=== PATIENT | male | born 1970 | race Caucasian/White ===

== ENCOUNTER 2016-03-06 17:27 | Inpatient (IN) | payer OTHER ==
[~2016-03-06] VITALS: Ht 182.9 cm; Wt 92.1 kg
[2016-03-06] MEDS: ADVAIR DISKUS 250/50 INH PWD INH SCH
[~2016-03-06 17:27] MED LIST: /ATOR40TA PO; /MOXI40TA PO; ADVA250A IN; ALBU17IN INH; ASTE137S; ATOR40TA PO; FENO145T PO; FLAG500T PO; INSULIN NOVOLOG; LISI5TAB PO; OXYCO5TA PO; SING5CHW PO; TENO25TA PO; TYLE325T5 PO
[2016-03-06] MEDS ORDERED: ONDANSETRON 4MG/2ML VIAL (J2405) As Ordered ONE (18:10)
[2016-03-06 18:34] LABS: BASO # 0.1 K/mm3 (0.0-0.2); BASO % 0.7 % (0.0-1.0); EOS # 0.1 K/mm3 (0.0-0.50); EOS % 0.8 % (0.0-3.0); LARGE UNSTAINED CELL # 0.2 K/mm3 (0.0-0.4); LARGE UNSTAINED CELL % 1.3 % (0.0-4.0); LYMPH % 18.9 % (24.0-44.0); MEAN CORPUSCULAR HEMOGLOBIN 32.2 pg (27.0-33.0); MEAN CORPUSCULAR HGB CONC 32.3 g/dl (32.0-36.5); MEAN CORPUSCULAR VOLUME 99.6 fl (80.0-96.0); MONO # 0.9 K/mm3 (0.0-0.8); MONO % 5.5 % (0.0-5.0); NEUTROPHILS # 11.7 K/mm3 (1.8-7.7); NEUTROPHILS % 72.9 % (36.0-66.0); PLATELET COUNT, AUTOMATED 323 k/mm3 (150-450); RED CELL DISTRIBUTION WIDTH 12.7 % (11.5-14.5); WHITE BLOOD COUNT 16.1 K/mm3 (4.0-10.0)
[2016-03-06 19:01] LABS: ALBUMIN 4.7 GM/DL (3.2-5.2); ALBUMIN/GLOBULIN RATIO 1.31 (1.00-1.93); ALKALINE PHOSPHATASE 77 U/L (45-117); ANION GAP 33 MEQ/L (8-16); AST/SGOT 19 U/L (15-37); BILIRUBIN,DIRECT 0.1 MG/DL (0.0-0.2); BILIRUBIN,TOTAL 0.7 MG/DL (0.2-1.0); BLOOD UREA NITROGEN 27 MG/DL (7-18); CALCIUM LEVEL 8.8 MG/DL (8.5-10.1); CARBON DIOXIDE LEVEL 6 MEQ/L (21-32); CHLORIDE LEVEL 98 MEQ/L (98-107); CREATININE FOR GFR 2.12 MG/DL (0.70-1.30); GLOMERULAR FILTRATION RATE 36.1 (>60); GLUCOSE, FASTING 260 MG/DL (70-105); SODIUM LEVEL 137 MEQ/L (136-145); TOTAL PROTEIN 8.3 GM/DL (6.4-8.2)
[2016-03-06 19:57] LABS: ALT/SGPT 44 U/L (12-78)
[2016-03-06 19:59] LABS: POTASSIUM SERUM 5.2 MEQ/L (3.5-5.1)
[2016-03-06] MEDS ORDERED: HumuLIN R (REGULAR) INSULIN (NovoLIN R) **100U/ML** PER UNIT As Ordered ONE (20:34)
[2016-03-06 20:55] LABS: ABG BASE EXCESS -24.8 (-2.0-2.0); ABG DEVICE NASAL CANN; ABG HCO3 3.4 MEQ/L (22.0-26.0); ABG PARTIAL PRESSURE O2 125.4 mmHg (75.0-100.0); ABG STANDARD HCO3 7.8 MEQ/L (22.0-26.0); ABG TOTAL CO2 3.8 MEQ/L (22.0-29.0)
[2016-03-06 20:59] LABS: ABG PARTIAL PRESSURE CO2 12.4 mmHg (35.0-45.0); ABG pH (ARTERIAL) 7.055 UNITS (7.350-7.450)
[2016-03-06] MEDS ORDERED: LISI-538 PO (21:07)
[2016-03-06] MEDS ORDERED: METF850T PO (21:07)
[2016-03-06] MEDS ORDERED: FENO145T PO (21:07)
[2016-03-06] MEDS ORDERED: ADV250INH INH (21:07)
[2016-03-06] MEDS ORDERED: PROA1AER INH (21:07)
[2016-03-06] MEDS ORDERED: ZETI10TA2 PO (21:07)
[2016-03-06] MEDS ORDERED: INVO300T PO (21:07)
[2016-03-06] MEDS ORDERED: SING10TA32 PO (21:07)
[2016-03-06] MEDS ORDERED: LIPI80TA PO (21:07)
[2016-03-06] MEDS ORDERED: SODIUM BICARBONATE 150 MEQ in D5W 1,000 ML IV SCH (22:00)
[2016-03-06] MEDS ORDERED: SODIUM BICARBONATE 8.4% INJ 50 ML SYRINGE IV ONE (22:00)
[2016-03-06] MEDS ORDERED: ACETAMINOPHEN TAB 650MG DOSE (2X325MG) PO PRN (22:15)
[2016-03-06] MEDS ORDERED: NS 0.45% IV SCH (22:15)
[2016-03-06] MEDS ORDERED: ALBUTEROL 90 MCG/ACT 8GM HFA INHALER INH PRN (22:15)
[2016-03-06] MEDS ORDERED: SODIUM BICARBONATE IV SCH (22:15)
[2016-03-06] MEDS ORDERED: SODIUM BICARBONATE 8.4% INJ 50 ML SYRINGE As Ordered ONE (22:43)
--- NOTE | 2016-03-06 22:55 | EDDOCDS ---
Physician Documentation [facility] Name: Danny Isaac Age: 46 yrs Sex: Male : 1970 Arrival Date: 03/06/2016 Time: 17:27 Bed 12 Private MD: Danny Flores Disposition: 03/06/16 20:33 Hospitalization ordered by Ashley Bolck for Inpatient Admission. Preliminary diagnosis are Diabetes mellitus due to underlying condition with ketoacidosis, Dehydration. - Bed requested for M ICU. - Status is Inpatient Admission. ms2 - Condition is Stable. - Problem is new. - Symptoms are unchanged. Historical: - Allergies: no known allergies; - Home Meds: 1. Advair Diskus 250-50 mcg/dose Inhl dsdv 1 puff 2 times per day 2. metformin 850 mg Oral tab 1 tab 3 times per day 3. Invokana oral oral Unknown once daily 4. Zetia 10 mg Oral tab 1 tab once daily 5. lisinopril 40 mg Oral tab 1 tab once daily 6. Singulair 10 mg Oral tab 1 tab once daily - PMHx: Diabetes - NIDDM: uncontrolled; Hypercholesterolemia; Asthma; - PSHx: Tonsillectomy; - Social history: Smoking status: Patient states former smoker of tobacco. No barriers to communication noted, The patient speaks fluent [place]ian, Speaks appropriately for age. - Family history: Not pertinent. - : The pt / caregiver states he / she is not on anticoagulants. Home medication list is obtained from the patient. - Exposure Risk Screening:: None identified. Vital Signs: 03/06 17:30 BP 161 / 60; Pulse 128; Resp 20; Temp 97.0(O); Pulse Ox 99% on R/A; Weight 92.99 kg / sew 205.01 lbs; Height 6 ft. 0 in. (182.88 cm); Pain 0/10; 18:43 BP 151 / 67 Supine; Pulse 129; ms18 18:43 BP 148 / 68 Sitting; Pulse 132; ms18 18:43 BP 129 / 58 Standing; Pulse 135; Resp 26; ms18 18:43 Pulse 122; ms18 20:00 BP 142 / 65; Pulse 141; Resp 24; Temp 98.5(O); Pulse Ox 100% on R/A; Pain 0/10; ls3 20:30 BP 161 / 73 (auto/); mlc 20:45 BP 146 / 66 (auto/); mlc 21:00 BP 133 / 61 (auto/); mlc 21:00 Pulse 134 MON; Pulse Ox 100% ; mlc 21:15 BP 122 / 70 (auto/); mlc 21:16 Pulse 138 MON; Pulse Ox 99% ; mlc 21:30 Pulse 134 MON; Pulse Ox 94% ; mlc 21:30 BP 136 / 62 (auto/); mlc 21:45 Pulse 130 MON; Pulse Ox 99% ; mlc 21:45 BP 152 / 65 (auto/); mlc 22:00 BP 124 / 60 (auto/); mlc 22:01 Pulse 130 MON; Resp 20; Pulse Ox 100% ; mlc 22:15 BP 118 / 62 (auto/); mlc 22:16 Pulse 128 MON; Pulse Ox 100% ; mlc 22:30 BP 126 / 60 (auto/); mlc 22:30 Pulse 146 MON; Pulse Ox 100% ; mlc 22:43 Pulse 130 MON; Pulse Ox 100% ; mlc 22:51 BP 133 / 60; Pulse 134; Resp 18; Temp 100.9(TE); Pulse Ox 100% on R/A; Pain 0/10; rn1 17:30 Body Mass Index 27.80 (92.99 kg, 182.88 cm) sew MDM: 17:47 Accucheck ordered. ld5 17:53 Fingerstick Blood Sugar Ordered. EDMS 18:00 Fingerstick Blood Sugar Reviewed. ar2 18:01 IV Saline Lock ordered. ar2 18:01 Orthostatic VS ordered. ar2 18:01 NS 0.9% 1000 ml IV at bolus once ordered. ar2 18:01 Ondansetron 4 mg IVP once ordered. ar2 18:02 CBC with Diff Ordered. EDMS 18:02 MED Profile Ordered. EDMS 18:02 Lactic Acid (Hurst tube on ice) Ordered. EDMS 18:02 Creatine Phosphokinase Ordered. EDMS 18:02 Liver Profile Ordered. EDMS 18:02 UA Ordered. EDMS 18:20 ACETONE/KETONE Ordered. EDMS 18:36 Misc. Nursing Order ordered. ar2 18:36 Pulse ox continuous ordered. ar2 18:44 Financial registration complete. zo 19:04 [facility] Payment Agreement was scanned into [employer] and attached to record. zo 19:47 CBC with Diff Reviewed. ar2 19:47 UA Reviewed. ar2 19:49 ECG WITH READING ER PHYS+CARDIAG ordered. EDMS 20:07 LIPASE Ordered. EDMS 20:15 MED Profile Reviewed. ar2 20:15 Liver Profile Reviewed. ar2 20:15 Lactic Acid (Hurst tube on ice) Reviewed. ar2 20:15 Creatine Phosphokinase Reviewed. ar2 20:17 Aquatic Centre Manager/Pulse Ox/q 15 min VS ordered. ar2 20:21 Call Respiratory ordered. ar2 20:22 MED Profile Reviewed. ar2 20:22 Liver Profile Reviewed. ar2 20:22 ACETONE/KETONE Reviewed. ar2 20:22 Creatine Phosphokinase Reviewed. ar2 20:22 LIPASE Reviewed. ar2 20:23 -Arterial Blood Gas Ordered. EDMS 20:25 BED REQUEST+ADM ordered. EDMS 20:27 Call Respiratory complete. ml3 20:27 Insulin Regular Human 5 units IVP once ordered. mm11 20:27 Accucheck hourly ordered. mm11 20:30 Osmolality, Serum Ordered. EDMS 20:31 NS 0.9% 1000 ml IV at bolus once ordered. ar2 21:12 -Arterial Blood Gas Reviewed. ar2 21:12 Osmolality, Serum Reviewed. ar2 21:20 Fingerstick Blood Sugar Ordered. EDMS 21:22 Fingerstick Blood Sugar Reviewed. mm11 22:08 Admission / Observation Status ordered. EDMS 22:08 CONSISTENT CARBOHYDRATES ordered. EDMS 22:09 COMPLETE BLOOD COUNT Ordered. EDMS 22:09 BASIC METABOLIC PROFILE Ordered. EDMS 22:16 BASIC METABOLIC PROFILE Ordered. EDMS 22:16 ARTERIAL BLOOD GAS Ordered. EDMS 22:17 HEMOGLOBIN A1C Ordered. EDMS 22:53 Sodium Bicarbonate 1 amp IVP once; PER PHARMACY, PLACED ON SYRINE PUMP ordered. jo3 Point of Care Testing: Blood Glucose: 17:47 Blood Glucose: 213 mg/dL; ld5 21:01 Blood Glucose: 251 mg/dL; mlc 22:05 Blood Glucose: 239 mg/dL; mlc Ranges: Administered Medications: 18:30 Drug: NS 0.9% 1000 ml [sodium chloride 0.9 % intravenous solution] Route: IV; Rate: ms18 bolus; Site: left antecubital; 18:30 Drug: Ondansetron 4 mg [ondansetron HCl 2 mg/mL intravenous solution (2 mL)] Route: ms18 IVP; Site: left antecubital; 20:37 Drug: Insulin Regular Human 5 units [insulin regular human 100 unit/mL injection mlc solution (0.05 mL)] {Co-Signature: cliff (Iris Briceño RN).} Route: IVP; Site: left antecubital; 20:50 Drug: NS 0.9% 1000 ml [sodium chloride 0.9 % intravenous solution] Route: IV; Rate: mlc bolus; Site: left antecubital; 22:53 Drug: Sodium Bicarbonate 1 amp Route: IVP; Site: left antecubital; jo3 Signatures: Dispatcher [employer] EDMS Kwaku Horan,RN RN ms2 Grzegorz Roman, [employer] ml3 Marysol Cruz RN RN jo3 Blossom Walton Matthew, DO DO mm11 Barrie King, PA-Gabriel PA-Gabriel ar2 Dionne Adams RN RN ld5 Tessa Curiel RN RN mlc Nicole Gerber RN RN ms18 Iris coronado The chart was reviewed and I authenticate all verbal orders and agree with the evaluation and treatment provided.Corrections: (The following items were deleted from the chart) 18:20 18:15 ACETONE/KETONE+LAB ordered. EDMS EDMS 20:06 20:04 LIPASE+LAB ordered. EDMS EDMS 22:16 22:09 ARTERIAL BLOOD GAS ordered. EDMS EDMS Attachments: 19:04 [facility] Payment Agreement zo MTDD
--- NOTE | 2016-03-06 22:55 | EDDOCDS ---
Nurse's Notes [facility] Name: Danny Isaac Age: 46 yrs Sex: Male : 1970 Arrival Date: 03/06/2016 Time: 17:27 Bed 12 Private MD: Danny Flores Diagnosis: Diabetes mellitus due to underlying condition with ketoacidosis;Dehydration Presentation: 03/06 17:35 Presenting complaint: Patient states: "I thought I had the flu but I can't seem to get ld5 back to normal." Family member states "dehydration". Nausea, vomiting and body aches. Pt reports symptoms started yesterday. Adult Sepsis Screening: The patient does not have new or worsening altered mentation. Patient's respiratory rate is less than 22. Systolic blood pressure is greater than 100. Patient has a qSOFA score of 0- Negative Sepsis Screen. Suicide/Homicide risk assessment- the patient denies having any suicidal and/or homicidal ideations and does not present with any other emotional, behavioral or mental health complaints. Status: Patient is not a services tech or dependent. Transition of care: patient was not received from another setting of care. 17:35 Acuity: SRINATH Level 3 ld5 17:35 Method Of Arrival: Walkin/Carried/Asstd ld5 Triage Assessment: 17:39 General: Appears uncomfortable. Pain: Location: body Quality of pain is described as ld5 aching. HIV screening NA for this visit Offered previously. Neurological: Level of Consciousness is awake, obeys commands. Respiratory: Airway is patent Respiratory effort is even, unlabored. GI: Reports nausea, vomiting. Historical: - Allergies: no known allergies; - Home Meds: 1. Advair Diskus 250-50 mcg/dose Inhl dsdv 1 puff 2 times per day 2. metformin 850 mg Oral tab 1 tab 3 times per day 3. Invokana oral oral Unknown once daily 4. Zetia 10 mg Oral tab 1 tab once daily 5. lisinopril 40 mg Oral tab 1 tab once daily 6. Singulair 10 mg Oral tab 1 tab once daily - PMHx: Diabetes - NIDDM: uncontrolled; Hypercholesterolemia; Asthma; - PSHx: Tonsillectomy; - Social history: Smoking status: Patient states former smoker of tobacco. No barriers to communication noted, The patient speaks fluent Hebrew, Speaks appropriately for age. - Family history: Not pertinent. - : The pt / caregiver states he / she is not on anticoagulants. Home medication list is obtained from the patient. - Exposure Risk Screening:: None identified. Screenin:30 Screening information is obtained from the patient. Fall risk: No risks identified. ms18 Assistance ADL's: requires no assistance with activities of daily living. Abuse/DV Screen: The patient / caregiver reports he/she is: not in a situation that causes fear, pain or injury. Nutritional screening: No deficits noted. Advance Directives: There is no living will. home support is adequate. Assessment: 18:30 General: Appears in no apparent distress, uncomfortable, Behavior is appropriate for ms18 age, cooperative. Pain: Location: back. Neurological: Level of Consciousness is awake, alert, obeys commands, Oriented to person, place, time. Cardiovascular: Chest pain is denied. Respiratory: Airway is patent Respiratory effort is even, unlabored, Respiratory pattern is tachypnea. GI: Abdomen is flat, non- distended. Derm: Skin is pink, warm & dry. 19:32 General: Appears in no apparent distress, Behavior is appropriate for age, cooperative. ms18 Neurological: Level of Consciousness is awake, alert, obeys commands, Oriented to person, place, time. Respiratory: Airway is patent Respiratory effort is even, unlabored, Respiratory pattern is tachypnea. GI: Abdomen is non- distended. Derm: Skin is pink, warm & dry. 20:50 General: Appears in no apparent distress, Behavior is anxious, cooperative. Pain: mlc Denies pain. Neurological: Level of Consciousness is awake, alert, Oriented to person, place, time. Cardiovascular: Heart tones S1 S2 present Rhythm is irregular. Respiratory: Airway is patent Respiratory effort is even, labored, Respiratory pattern is tachypnea Breath sounds are clear bilaterally. Reports shortness of breath. GI: Abdomen is non- distended Bowel sounds present X 4 quads. Abd is soft X 4 quads. GI: Reports vomiting. Derm: Skin is pink, warm & dry. 21:01 Reassessment: Patient appears in no apparent distress at this time. Patient states mlc symptoms have not improved. no changes since prior. IV fluids infusing per order. 21:17 Reassessment: hospitalist at bedside[place] [facility] [place] Reassessment: Patient appears in no apparent distress at this time. Patient states mlc feeling better. pt resting comfortably, IV fluids infusing per order. resp easy/unlabored at this time. . 22:45 General: Appears in no apparent distress, comfortable, Behavior is cooperative. Pain: mlc Denies pain. Neurological: Level of Consciousness is awake, alert, Oriented to person, place, time. Respiratory: Airway is patent Respiratory effort is even, unlabored, Respiratory pattern is regular. Vital Signs: 17:30 BP 161 / 60; Pulse 128; Resp 20; Temp 97.0(O); Pulse Ox 99% on R/A; Weight 92.99 kg; sew Height 6 ft. 0 in. (182.88 cm); Pain 0/10; 18:43 BP 151 / 67 Supine; Pulse 129; ms18 18:43 BP 148 / 68 Sitting; Pulse 132; ms18 18:43 BP 129 / 58 Standing; Pulse 135; Resp 26; ms18 18:43 Pulse 122; ms18 20:00 BP 142 / 65; Pulse 141; Resp 24; Temp 98.5(O); Pulse Ox 100% on R/A; Pain 0/10; ls3 20:30 BP 161 / 73 (auto/); mlc 20:45 BP 146 / 66 (auto/); mlc 21:00 BP 133 / 61 (auto/); mlc 21:00 Pulse 134 MON; Pulse Ox 100% ; mlc 21:15 BP 122 / 70 (auto/); mlc 21:16 Pulse 138 MON; Pulse Ox 99% ; mlc 21:30 Pulse 134 MON; Pulse Ox 94% ; mlc 21:30 BP 136 / 62 (auto/); mlc 21:45 Pulse 130 MON; Pulse Ox 99% ; mlc 21:45 BP 152 / 65 (auto/); mlc 22:00 BP 124 / 60 (auto/); mlc 22:01 Pulse 130 MON; Resp 20; Pulse Ox 100% ; mlc 22:15 BP 118 / 62 (auto/); mlc 22:16 Pulse 128 MON; Pulse Ox 100% ; mlc 22:30 BP 126 / 60 (auto/); mlc 22:30 Pulse 146 MON; Pulse Ox 100% ; mlc 22:43 Pulse 130 MON; Pulse Ox 100% ; mlc 22:51 BP 133 / 60; Pulse 134; Resp 18; Temp 100.9(TE); Pulse Ox 100% on R/A; Pain 0/10; rn1 17:30 Body Mass Index 27.80 (92.99 kg, 182.88 cm) [facility] [place] Vitals: 17:30 Log In Time: March 06, 2016 at 17:29. [facility] [place] ED Course: 17:29 Patient visited by Cha Ayala. sew 17:29 Patient moved to Waiting sew 17:30 Danny Flores MD is Private Physician. sew 17:31 Patient visited by Cha Ayala. sew 17:31 Patient moved to Pre RCE sew 17:36 Triage Initiated ld5 17:39 Patient visited by Dionne Adams RN. ld5 17:40 Patient moved to Triage 3 ld5 17:50 Barrie King PA-C is PHCP. ar2 17:50 Gage Mota MD is Attending Physician. ar2 17:55 Patient visited by Barrie iKng PA-C. ar2 18:09 Patient moved to I5 / M5 [facility] 18:30 The patient / caregiver is instructed regarding the plan of care and ED course. ms18 Accompanied by Significant Other, Patient has correct armband on for positive identification. Placed in gown. Bed in low position. Property :Personal belongings accompany Pt. 18:30 CBC with Diff Sent. ms18 18:30 MED Profile Sent. ms18 18:30 Lactic Acid (Hurst tube on ice) Sent. ms18 18:30 Creatine Phosphokinase Sent. ms18 18:30 Liver Profile Sent. ms18 18:30 UA Sent. ms18 18:30 ACETONE/KETONE Sent. ms18 18:30 Inserted saline lock: 18 gauge in left antecubital area and blood collected. The ms18 patient tolerated the procedure well. 18:32 Patient visited by Nicole Gerber RN. ms18 18:42 Patient visited by Nicole Gerber RN. ms18 19:04 [facility] [place] was scanned into [employer] and attached to record. zo 19:48 Patient visited by Nicole Gerber RN. ms18 19:56 EKG done. (by ED staff). Reviewed by Barrie King PA-C. ls3 20:17 Tessa Curiel,RN is Primary Nurse. ms18 20:17 Patient moved to 12 ms18 20:19 Patient visited by Danilo Calles PCA. kb5 20:32 Ashley Block is Hospitalizing Provider. ar2 20:39 Osmolality, Serum Sent. mlc 20:42 -Arterial Blood Gas Sent. bb3 20:51 Patient visited by Tessa Curiel RN. mlc 20:59 Notified attending ED physician of Critical lab value. Ph of 7.055 C02 of 12.4 and P02 cliff of 125.[address] Sagastume. 21:02 Patient visited by Tessa Curiel RN. mlc 21:03 Patient visited by Danilo Calles PCA. kb5 22:43 No procedures done that require assistance. mlc 22:46 Patient visited by Tessa Curiel RN. mlc Administered Medications: 18:30 Drug: NS 0.9% 1000 ml [sodium chloride 0.9 % intravenous solution] Route: IV; Rate: ms18 bolus; Site: left antecubital; 18:30 Drug: Ondansetron 4 mg [ondansetron HCl 2 mg/mL intravenous solution (2 mL)] Route: ms18 IVP; Site: left antecubital; 20:37 Drug: Insulin Regular Human 5 units [insulin regular human 100 unit/mL injection mlc solution (0.05 mL)] {Co-Signature: mar (Iris Briceño RN).} Route: IVP; Site: left antecubital; 20:50 Drug: NS 0.9% 1000 ml [sodium chloride 0.9 % intravenous solution] Route: IV; Rate: mlc bolus; Site: left antecubital; 22:53 Drug: Sodium Bicarbonate 1 amp Route: IVP; Site: left antecubital; jo3 Point of Care Testing: Blood Glucose: 17:47 Blood Glucose: 213 mg/dL; ld5 21:01 Blood Glucose: 251 mg/dL; mlc 22:05 Blood Glucose: 239 mg/dL; mlc Ranges: RT: 20:42 ABG's drawn from right radial artery allens test done and positive pressure held for 5 bb3 minutes no bleeding noted pressure bandage applied specimen sent pt. tolerated well. Oxygen is room air. Order Results: Lab Order: Fingerstick Blood Sugar; SPEC'M 03/06/16 17:45 Test: BEDSIDE GLUCOSE; Value: 213; Range: 70-105; Abnormal: Above high normal; Units: MG/DL; Status: F Test Note: ; Doctor Notified RN Notified Lab Order: CBC with Diff; SPEC'M 03/06/16 18:16 Test: WHITE BLOOD COUNT; Value: 16.1; Range: 4.0-10.0; Abnormal: Above high normal; Units: K/mm3; Status: F Test: RED BLOOD COUNT; Value: 5.24; Range: 4.30-6.10; Units: M/mm3; Status: F Test: HEMOGLOBIN; Value: 16.9; Range: 14.0-18.0; Units: g/dl; Status: F Test: HEMATOCRIT; Value: 52.2; Range: 42.0-52.0; Abnormal: Above high normal; Units: %; Status: F Test: MEAN CORPUSCULAR VOLUME; Value: 99.6; Range: 80.0-96.0; Abnormal: Above high normal; Units: fl; Status: F Test: MEAN CORPUSCULAR HEMOGLOBIN; Value: 32.2; Range: 27.0-33.0; Units: pg; Status: F Test: MEAN CORPUSCULAR HGB CONC; Value: 32.3; Range: 32.0-36.5; Units: g/dl; Status: F Test: RED CELL DISTRIBUTION WIDTH; Value: 12.7; Range: 11.5-14.5; Units: %; Status: F Test: PLATELET COUNT, AUTOMATED; Value: 323; Range: 150-450; Units: k/mm3; Status: F Test: NEUTROPHILS %; Value: 72.9; Range: 36.0-66.0; Abnormal: Above high normal; Units: %; Status: F Test: LYMPH %; Value: 18.9; Range: 24.0-44.0; Abnormal: Below low normal; Units: %; Status: F Test: MONO %; Value: 5.5; Range: 0.0-5.0; Abnormal: Above high normal; Units: %; Status: F Test: EOS %; Value: 0.8; Range: 0.0-3.0; Units: %; Status: F Test: BASO %; Value: 0.7; Range: 0.0-1.0; Units: %; Status: F Test: LARGE UNSTAINED CELL %; Value: 1.3; Range: 0.0-4.0; Units: %; Status: F Test: NEUTROPHILS #; Value: 11.7; Range: 1.8-7.7; Abnormal: Above high normal; Units: K/mm3; Status: F Test: LYMPH #; Value: 3.0; Range: 1.5-4.5; Units: K/mm3; Status: F Test: MONO #; Value: 0.9; Range: 0.0-0.8; Abnormal: Above high normal; Units: K/mm3; Status: F Test: EOS #; Value: 0.1; Range: 0.0-0.50; Units: K/mm3; Status: F Test: BASO #; Value: 0.1; Range: 0.0-0.2; Units: K/mm3; Status: F Test: LARGE UNSTAINED CELL #; Value: 0.2; Range: 0.0-0.4; Units: K/mm3; Status: F Lab Order: MED Profile; SPEC'M 03/06/16 18:16 Test: GLUCOSE, FASTING; Value: 260; Range: 70-105; Abnormal: Above high normal; Units: MG/DL; Status: F Test: BLOOD UREA NITROGEN; Value: 27; Range: 7-18; Abnormal: Above high normal; Units: MG/DL; Status: F Test: CREATININE FOR GFR; Value: 2.12; Range: 0.70-1.30; Abnormal: Above high normal; Units: MG/DL; Status: F Test: GLOMERULAR FILTRATION RATE; Value: 36.1; Range: >60; Abnormal: Below low normal; Status: F Test: SODIUM LEVEL; Value: 137; Range: 136-145; Units: MEQ/L; Status: F Test: POTASSIUM SERUM; Value: 5.2; Range: 3.5-5.1; Abnormal: Above high normal; Units: MEQ/L; Status: F Test: CHLORIDE LEVEL; Value: 98; Range: 98-107; Units: MEQ/L; Status: F Test: CARBON DIOXIDE LEVEL; Value: 6; Range: 21-32; Abnormal: Below low normal; Units: MEQ/L; Status: F Test: ANION GAP; Value: 33; Range: 8-16; Abnormal: Above high normal; Units: MEQ/L; Status: F Test: CALCIUM LEVEL; Value: 8.8; Range: 8.5-10.1; Units: MG/DL; Status: F Test Note: ; Units are mL/min/1.73 m2 Chronic Kidney Disease Staging per NKF: Stage I & II GFR >=60 Normal to Mildly Decreased Stage III GFR 30-59 Moderately Decreased Stage IV GFR 15-29 Severely Decreased Stage V GFR <15 Very Little GFR Left ESRD GFR <15 on EXTRACTOR OPERATOR SOLVENT PROCESS Lab Order: Lactic Acid (Hurst tube on ice); SPEC03/06/16 18:16 Test: LACTIC ACID LEVEL, LACTATE; Value: 1.5; Range: 0.4-2.0; Units: MMOL/L; Status: F Lab Order: Creatine Phosphokinase; 03/06/16 18:16 Test: CPK CREATINE PHOSPHOKINASE; Value: 78; Range: 39-308; Units: U/L; Status: F Lab Order: Liver Profile; 03/06/16 18:16 Test: AST/SGOT; Value: 19; Range: 15-37; Units: U/L; Status: F Test: ALT/SGPT; Value: 44; Range: 12-78; Units: U/L; Status: F Test: ALKALINE PHOSPHATASE; Value: 77; Range: 45-117; Units: U/L; Status: F Test: BILIRUBIN,TOTAL; Value: 0.7; Range: 0.2-1.0; Units: MG/DL; Status: F Test: BILIRUBIN,DIRECT; Value: 0.1; Range: 0.0-0.2; Units: MG/DL; Status: F Test: TOTAL PROTEIN; Value: 8.3; Range: 6.4-8.2; Abnormal: Above high normal; Units: GM/DL; Status: F Test: ALBUMIN; Value: 4.7; Range: 3.2-5.2; Units: GM/DL; Status: F Test: ALBUMIN/GLOBULIN RATIO; Value: 1.31; Range: 1.00-1.93; Status: F Lab Order: UA; 03/06/16 18:16 Test: APPEARANCE, URINE; Value: CLEAR; Range: CLEAR; Status: F Test: COLOR, URINE; Value: STRAW; Range: YELLOW; Status: F Test: PH,URINE; Value: 5.0; Range: 5.0-9.0; Units: UNITS; Status: F Test: SPECIFIC GRAVITY URINE AUTO; Value: 1.015; Range: 1.002-1.035; Status: F Test: PROTEIN, URINE AUTO; Value: 1+; Range: NEGATIVE; Abnormal: Above high normal; Units: mg/dL; Status: F Test: GLUCOSE, URINE (UA) AUTO; Value: 3+; Range: NEGATIVE; Abnormal: Above high normal; Units: mg/dL; Status: F Test: KETONE, URINE AUTO; Value: 2+; Range: NEGATIVE; Abnormal: Above high normal; Units: mg/dL; Status: F Test: UROBILINOGEN, URINE AUTO; Value: 0.2; Range: 0.0-2.0; Units: mg/dL; Status: F Test: BILIRUBIN, URINE AUTO; Value: NEGATIVE; Range: NEGATIVE; Status: F Test: NITRITE, URINE AUTO; Value: NEGATIVE; Range: NEGATIVE; Status: F Test: LEUKOCYTE ESTERASE, URINE AUTO; Value: NEGATIVE; Range: NEGATIVE; Status: F Test: BLOOD, URINE BLOOD; Value: 1+; Range: NEGATIVE; Abnormal: Above high normal; Status: F Test: WBC, URINE AUTO; Value: 0; Range: 0-3; Units: /HPF; Status: F Test: RBC, URINE AUTO; Value: 1; Range: 0-3; Units: /HPF; Status: F Test: BACTERIA, URINE AUTO; Value: NEGATIVE; Range: NEGATIVE; Status: F Test: SQUAMOUS EPITHELIAL CELL UR AU; Value: 0; Range: 0-6; Units: /HPF; Status: F Test: MUCUS, URINE; Value: SMALL; Range: NEGATIVE; Status: F Test: HYALINE CAST, URINE AUTO; Value: 0; Range: 0-1; Units: /LPF; Status: F Lab Order: ACETONE/KETONE; SPEC' 03/06/16 18:16 Test: ACETONE/KETONE; Value: > 46.00; Range: <2.81; Abnormal: Above high normal; Units: MG/DL; Status: F Lab Order: LIPASE; [facility]' 03/06/16 18:16 Test: LIPASE; Value: 369; Range: 73-393; Units: U/L; Status: F Lab Order: -Arterial Blood Gas; [facility]' 03/06/16 20:33 Test: ABG pH (ARTERIAL); Value: 7.055; Range: 7.350-7.450; Abnormal: Critical Low; Units: UNITS; Status: F Test: ABG PARTIAL PRESSURE CO2; Value: 12.4; Range: 35.0-45.0; Abnormal: Critical Low; Units: mmHg; Status: F Test: ABG PARTIAL PRESSURE O2; Value: 125.4; Range: 75.0-100.0; Abnormal: Above high normal; Units: mmHg; Status: F Test: ABG TOTAL CO2; Value: 3.8; Range: 22.0-29.0; Abnormal: Below low normal; Units: MEQ/L; Status: F Test: ABG HCO3; Value: 3.4; Range: 22.0-26.0; Abnormal: Below low normal; Units: MEQ/L; Status: F Test: ABG BASE EXCESS; Value: -24.8; Range: -2.0-2.0; Abnormal: Below low normal; Status: F Test: ABG STANDARD HCO3; Value: 7.8; Range: 22.0-26.0; Abnormal: Below low normal; Units: MEQ/L; Status: F Test: ABG O2 SATURATION; Value: 97.5; Range: 95.0-99.0; Units: %; Status: F Test: ABG DEVICE; Value: NASAL JERONIMO; Status: F Lab Order: Osmolality, Serum; SPEC'M 03/06/16 20:38 Test: OSMOLALITY SERUM; Value: 336; Range: 275-295; Abnormal: Above high normal; Units: MOSM/KG; Status: F Lab Order: Fingerstick Blood Sugar; SPEC'M 03/06/16 21:00 Test: BEDSIDE GLUCOSE; Value: 251; Range: 70-105; Abnormal: Above high normal; Units: MG/DL; Status: F Test Note: ; RN Notified Dr Order not to Draw Lab Order: Fingerstick Blood Sugar; SPEC'M 03/06/16 22:03 Test: BEDSIDE GLUCOSE; Value: 239; Range: 70-105; Abnormal: Above high normal; Units: MG/DL; Status: F Test Note: ; RN Notified Dr Order not to Draw Outcome: 20:33 Decision to Hospitalize by Provider. ar2 22:41 Admission hand-off: Report called to EMILY Amador. mlc 22:43 Discharge Assessment: Patient awake, alert and oriented x 3. No cognitive and/or mlc functional deficits noted. Patient verbalized understanding of disposition instructions. patient administered narcotics - no. The following High Risk Discharge criteria are identified: None. Admitted to ICU accompanied by nurse, accompanied by tech, via stretcher, on monitor, with chart. Condition: stable. No special radiology studies were completed. 22:53 Patient left the ED. ms2 Signatures: Kwaku Horan,RN RN denis Briceño, Iris Capellan, RN RN Marysol HemphillRN RN jo3 Blossom Walton Kristopher, CONCRETE WALL GRINDER OPERATOR CONCRETE WALL GRINDER OPERATOR kb5 Barrie King, PA-C PA-C ar2 Randolph Reyna bb3 Dionne Adams,RN RN ld5 Valentine Raymond,RN RN [facility] Cha Ayala MandyRN RN Nicole Vizcaino RN RN ms18 Tushar Briceño rn1 Gabrielle Dominguez, CONCRETE WALL GRINDER OPERATOR CONCRETE WALL GRINDER OPERATOR ls3 Iris coronado MARIN
[2016-03-06] MEDS ORDERED: INSULIN HUMAN REGULAR 100 UNITS in NS 99 ML IV SCH (23:03)
[2016-03-06 23:15] VITALS: BP 133/60
[2016-03-06] MEDS: FENOFIBRATE 145 MG TAB (TRICOR) PO SCH (23:45)
[2016-03-06] MEDS: MONTELUKAST 10 MG TAB PO SCH (23:46)
[2016-03-06] MEDS: INSULIN IV RATE CHANGE DOCUMENTATION ML/HR XX SCH (23:49)
--- NOTE | 2016-03-06 23:52 | HPE ---
DATE OF ADMISSION: 03/06/2016 PRIMARY CARE PROVIDER: Dr. Danny Flores HISTORY OF THE PRESENT ILLNESS: The patient is a 46-year-old male with a past medical history significant for noninsulin-dependent diabetes, hypercholesterolemia, asthma, presented to [facility] on 2016 for 2 days of "flu-like symptoms." The patient just recently started on Invokana for his diabetes and since the initiation of the medication, he started to notice he has increased shortness of breath, nausea and vomiting and decreased oral intake. All he can tolerate is some fluid. Intermittent subjective fevers. No chills. No diarrhea. Denies any recent sick contact. When he arrived in the emergency room, the patient was found to have positive for orthostatic hypotension, and the patient was found to have acute kidney injury with elevated white count. ABG showed the patient in severe metabolic acidosis with a pH of 7.05. The patient was started on 5 units of insulin and IV fluids and the hospitalist team was called for admission. The patient never had any similar symptoms in the past. The only new lifestyle change is the introduction of the Invokana. The patient and the are suspecting the Invokana played a role to his current symptomatology. The patient has a history of obesity and insulin dependent diabetes. The patient had an intentional weight loss of 64 pounds in the past 1 year. In 2013, the patient was still using insulin; however, he switched to the oral regimen and discontinued insulin use. ALLERGIES: No known drug allergies. HOME MEDICATIONS: - Advair Diskus inhalation one puff twice a day - metformin 850 mg by mouth twice a day - Invokana 300 mg by mouth daily - Zetia 10 mg by mouth nightly - fenofibrate 145 mg by mouth nightly - lisinopril 20 mg by mouth nightly - Singulair 10 mg by mouth nightly - albuterol inhaler one puff as needed for shortness of breath PAST MEDICAL HISTORY: Diabetes mellitus; patient was insulin-dependent in 2013. The patient has been on oral regimen only. Hypercholesterolemia. Asthma. History of stage III chronic kidney disease, now resolved. PAST SURGICAL HISTORY: Tonsillectomy. OBJECTIVE: VITAL SIGNS: In the emergency room, the patient was positive for orthostasis. Blood pressure laying is 151/65, sitting is 148/68, standing is 129/59. At the time of admission, the patient had a blood pressure of 133/61, pulse was 134, respirations 24, temperature 98.5, pulse oximetry is 100% in room air. Body weight is 92.99 kg. Body height is 182.88 cm. REVIEW OF SYSTEMS: GENERAL: Complained about general moderate discomfort with difficulty breathing for the past 2 days. Has intermittent subjective fever. No chills. HEENT: No vision changes. No auditory changes. CARDIOVASCULAR: Complained about palpitations. No chest pain. No intermittent lightheadedness. RESPIRATORY: Worsening shortness of breath. Has increasing respiratory rate for the past few days. No cough, no sputum production. GASTROINTESTINAL: Nausea, vomiting, unable to tolerate oral intake very well. No diarrhea. No abdominal pain. MUSCULOSKELETAL: No joint pain or muscle pain. NEUROLOGICAL: No numbness. No tingling. PHYSICAL EXAMINATION: GENERAL: Moderate distress secondary to tachypnea and tachycardia. Alert and oriented times three. HEENT: Normocephalic, atraumatic. Extraocular motor grossly intact. CARDIOVASCULAR: Tachycardia. Positive S1, S2. ABDOMEN: Soft, nontender, nondistended. Bowel sounds present. No rebound, no guarding. EXTREMITIES: No extremity edema. No cyanosis. No calf tenderness. NEUROLOGICAL: Sensation to fine touch grossly intact. Muscle strength 5/5. LABORATORY DATA: WBC is 16.1, hematocrit is 52.2, platelet count is 323. Sodium is 137, potassium 5.2, chloride is 98, carbon dioxide is 6, BUN 27, creatinine 2.12, GFR 36.1, fasting glucose 260. Serum osmolality is 336. Lactic acid is 1.5. Calcium is 8.8. Total bilirubin is 0.7, direct bilirubin 0.1. AST is 19, ALT is 44. Alkaline phosphatase is 77. Total CK is 78, total protein is 8.3, albumin is 4.7, lipase is 369. B-hydroxybutyrate is greater than 46 . UA is positive for ketones. ABG shows a pH of 7.055, pCO2 is 12.4, pO2 is 125.4, HCO3 is 3.4. ASSESSMENT AND PLAN: 1. Acute severe anion gap metabolic acidosis. The patient will be admitted to the progressive care unit (PCU) under inpatient status. The patient's has diabetic ketoacidosis possibly induced by Invokana. Currently the patient has severe acidosis with a pH of 7.05. The patient will be receiving bicarbonate supplements. Will start insulin drip with titration order. Continue aggressive hydration. Check lab per protocol. 2. Acute renal injury possibly secondary to severe dehydration. At baseline, the patient has renal function in the normal range. Currently the patient has a glomerular filtration rate (GFR) of 36.1. Will continue to monitor the intake and output. Will consider consulting nephrology. 3. Noninsulin-dependent diabetes. On 02/26/2016, the patient had an A1c of 11.1. The patient was insulin in 2013, and he switched the insulin to oral regimen. However, it seems the patient's blood glucose is not well controlled. The patient will be on sliding scale in the hospital, and the patient will be on a consistent carbohydrate diet. 4. Asthma. Albuterol inhalation as needed. Continue Singulair. Currently asymptomatic. 5. Hypercholesterolemia. Continue Tricor. 6. Deep vein thrombosis (DVT) prophylaxis. The patient will be on heparin. MTDD
[2016-03-06] MEDS: ATORVASTATIN 20 MG TAB PO SCH (23:54)
[2016-03-06 23:55] LABS: ABG BASE EXCESS -21.4 (-2.0-2.0); ABG HCO3 5.7 MEQ/L (22.0-26.0); ABG PARTIAL PRESSURE O2 122.3 mmHg (75.0-100.0); ABG STANDARD HCO3 9.5 MEQ/L (22.0-26.0); ABG TOTAL CO2 6.2 MEQ/L (22.0-29.0)
[2016-03-06 23:56] LABS: ABG PARTIAL PRESSURE CO2 17.6 mmHg (35.0-45.0); ABG pH (ARTERIAL) 7.128 UNITS (7.350-7.450)
[2016-03-07 00:05] LABS: CALCIUM LEVEL 7.7 MG/DL (8.5-10.1); CREATININE FOR GFR 1.84 MG/DL (0.70-1.30); GLOMERULAR FILTRATION RATE 42.6 (>60); POTASSIUM SERUM 5.1 MEQ/L (3.5-5.1)
[2016-03-07 01:33] LABS: CALCIUM LEVEL 7.7 MG/DL (8.5-10.1); CREATININE FOR GFR 1.82 MG/DL (0.70-1.30); GLOMERULAR FILTRATION RATE 43.1 (>60); POTASSIUM SERUM 4.8 MEQ/L (3.5-5.1)
[2016-03-07] MEDS: INSULIN IV RATE CHANGE DOCUMENTATION ML/HR XX SCH ×5 (02:11→17:00)
[2016-03-07] MEDS: ONDANSETRON 4MG/2ML VIAL (J2405) IV PRN ×4 (02:42→20:08)
[2016-03-07] MEDS ORDERED: NS 0.45% IV SCH (03:15)
[2016-03-07] MEDS ORDERED: POTASSIUM CHLORIDE IV SCH ×2 (03:15→16:00)
[2016-03-07] MEDS ORDERED: SODIUM BICARBONATE IV SCH ×2 (03:15→16:00)
[2016-03-07 03:28] LABS: CALCIUM LEVEL 7.9 MG/DL (8.5-10.1); CREATININE FOR GFR 1.71 MG/DL (0.70-1.30); GLOMERULAR FILTRATION RATE 46.3 (>60); POTASSIUM SERUM 4.7 MEQ/L (3.5-5.1)
[2016-03-07 04:00] VITALS: BP 126/60
[2016-03-07 05:20] LABS: MEAN CORPUSCULAR HEMOGLOBIN 31.4 pg (27.0-33.0); MEAN CORPUSCULAR HGB CONC 33.1 g/dl (32.0-36.5); RED CELL DISTRIBUTION WIDTH 12.8 % (11.5-14.5); WHITE BLOOD COUNT 11.3 K/mm3 (4.0-10.0)
[2016-03-07 05:22] LABS: MEAN CORPUSCULAR VOLUME 94.6 fl (80.0-96.0)
[2016-03-07 05:31] LABS: CREATININE FOR GFR 1.76 MG/DL (0.70-1.30); GLOMERULAR FILTRATION RATE 44.8 (>60); POTASSIUM SERUM 4.6 MEQ/L (3.5-5.1)
[2016-03-07] MEDS: HEPARIN SOD (PORCINE) 5000 UNITS/ML VIAL SC SCH ×3 (06:08→21:17)
[2016-03-07 07:31] LABS: CALCIUM LEVEL 8.3 MG/DL (8.5-10.1); CREATININE FOR GFR 1.75 MG/DL (0.70-1.30); GLOMERULAR FILTRATION RATE 45.1 (>60); POTASSIUM SERUM 4.5 MEQ/L (3.5-5.1)
[2016-03-07 08:00] VITALS: BP 125/66
--- NOTE | 2016-03-07 08:07 | IPNPDOC ---
Assessment/Plan Date Seen The patient was seen on 03/07/16. Problems Problems: (1) Metabolic acidosis Status: Acute Problem Specific Plan: Monitor Clinically, Repeat Labs Problem Text: Anion gap 22. Diabetic ketoacidosis possible induced by Invokana ? On Insulin drip. On Bicarb. (2) Diabetes Status: Chronic Problem Specific Plan: Monitor Clinically, Repeat Labs Problem Text: Pt was placed on Invokana a few days ago. He has been on Metformin. He states he states he has been off Insulin for about 4 months. He states he intentionally has lost about 60 pounds recently. (3) Acute kidney injury Status: Acute Problem Specific Plan: Monitor Clinically, Repeat Labs Problem Text: 03/07/16 - BUN 27/ Creat 1.75. Creat was 2.12 at admission. (4) Asthma Status: Chronic Problem Specific Plan: Monitor Clinically Problem Text: Stable. (5) Hyperlipemia Status: Chronic Problem Specific Plan: Monitor Clinically Problem Text: On Lipitor and Tricor. Plan / VTE VTE Prophylaxis Ordered?: Yes (On Heparin.) Plan Plan Text Attending attestation: I saw and evaluated the patient, and I agree with the plan of care as discussed and documented, with the following exceptions. Pts gap high and sugars now below 250. Started D5W/1/2NS/bicarb @ 150 mls per hour. Pt to remain NPO until gap closes. Will transition to long acting insulin after gap closes. DKA unlikely related to new medication, but pt is probably not making much, if any insulin. Instructed pt that his PCP could check pancreatic function, but he will likely need to remain on insulin as he had severe metabolic acidosis. 30 minutes of critical care time was spent, with 50% of that time in [id number] with the patient. Nathaly Hunt MD Subjective Review of Systems CC/HPI The patient is a 46-year-old male admitted with a reason for visit of Metabolic Acidosis. Events since last encounter Pt stated he was feeling better. He denied any new issues. Constitutional: Denies: Chills, Fever Pulmonary: Denies: Dyspnea Cardiovascular: Denies: Chest Pain Gastrointestinal: Denies: Abdominal Pain, Nausea, Vomiting Objective Physical Examination General Exam: Positive: Alert, No Acute Distress Chest Exam: Positive: Clear to auscultation Heart Exam: Positive: Regular Rhythm Abdomen Exam: Positive: Normal bowel sounds, Soft, Negative: Tenderness Extremity Exam: Negative: Edema Vital Signs/I&O Vital Signs Date Time Temp Pulse Resp B/P Pulse Ox O2 Delivery O2 Flow Rate FiO2 03/07/16 04:00 98.9 110 20 126/60 97 Room Air I&O- Last 24 Hours up to 6 AM 03/07/16 06:00 Intake Total 623 ml Output Total 2500 ml Balance -1877 ml Laboratory Data Labs 24H Laboratory Tests 2 03/06/16 17:45: Bedside Glucose (Misc Panel) 213H 03/06/16 18:16: Aspartate Amino Transf (AST/SGOT) 19, Alanine Aminotransferase (ALT/SGPT) 44, Alkaline Phosphatase 77, Total Bilirubin 0.7, Direct Bilirubin 0.1, Albumin 4.7 , Albumin/Globulin Ratio 1.31, Anion Gap 33H, B-Hydroxybutyrate > 46.00H, White Blood Count 16.1H, Red Blood Count 5.24, Hemoglobin 16.9, Hematocrit 52.2H, Mean Corpuscular Volume 99.6H, Mean Corpuscular Hemoglobin 32.2, Mean Corpuscular Hemoglobin Concent 32.3, Red Cell Distribution Width 12.7, Platelet Count 323, Neutrophils (%) (Auto) 72.9H, Lymphocytes (%) (Auto) 18.9L, Monocytes (%) (Auto) 5.5H, Eosinophils (%) (Auto) 0.8, Basophils (%) (Auto) 0.7 , Neutrophils # (Auto) 11.7H, Lymphocytes # (Auto) 3.0, Monocytes # (Auto) 0.9H , Eosinophils # (Auto) 0.1, Basophils # (Auto) 0.1, Calcium Level 8.8, Glomerular Filtration Rate 36.1L, Lactic Acid Level 1.5, Large Unclassified Cells # 0.2, Large Unclassified Cells % 1.3, Lipase 369, Total Creatine Kinase 78, Total Protein 8.3H, Urine Amorphous Sediment , Urine Appearance CLEAR, Urine Color STRAW, Urine pH 5.0, Urine Specific Gilbert 1.015, Urine Protein 1+H , Urine Glucose (UA) 3+H, Urine Ketones 2+H, Urine Urobilinogen 0.2, Urine Bilirubin NEGATIVE, Urine Leukocyte Esterase NEGATIVE, Urine Bacteria (Auto) NEGATIVE, Urine Blood 1+H, Urine Calcium Carbonate Cryst(Auto) , Urine Calcium Oxalate Cryst (Auto) , Urine Calcium Phosphate Judy (Auto) , Urine Cellular Casts , Urine Cystine Crystals , Urine Granular Casts (Auto) , Urine Hyaline Casts (Auto) 0, Urine Leucine Crystals , Urine Mucus (Auto) SMALL, Urine Nitrite NEGATIVE, Urine Oval Fat Bodies (Auto) , Urine RBC (Auto) 1, Urine Renal Epithelial Cells , Urine Sperm (Auto) , Urine Squamous Epithelial Cells 0 , Urine Transitional Epithelial Cells , Urine Trichomonas (Auto) , Urine Triple Phosphate Cryst (Auto) , Urine Tyrosine Crystals , Urine Uric Acid Crystals ( Auto) , Urine WBC (Auto) 0, Urine Waxy Casts (Auto) , Urine Yeast-Like Cells ( Auto) 03/06/16 20:33: Arterial Blood pH 7.055*L, Arterial Blood Partial Pressure CO2 12.4*L, Arterial Blood Partial Pressure O2 125.4H, Arterial Blood Total CO2 3.8L, Arterial Blood HCO3 3.4L, Arterial Blood Base Excess -24.8L, Arterial Blood Oxygen Saturation 97.5, Blood Gas Bicarbonate Standard 7.8L, Oxygen Delivery Device NASAL JERONIMO 03/06/16 20:38: Osmolality 336H 03/06/16 21:00: Bedside Glucose (Misc Panel) 251H 03/06/16 22:03: Bedside Glucose (Misc Panel) 239H 03/06/16 23:11: Bedside Glucose (Misc Panel) 249H 03/06/16 23:20: Anion Gap 28H, Blood Urea Nitrogen 29H, Creatinine 1.84H, Sodium Level 137, Potassium Level 5.1, Chloride Level 102, Carbon Dioxide Level 7L, Calcium Level 7.7L, Glomerular Filtration Rate 42.6L 03/06/16 23:30: Arterial Blood pH 7.128*L, Arterial Blood Partial Pressure CO2 17.6*L, Arterial Blood Partial Pressure O2 122.3H, Arterial Blood Total CO2 6.2L, Arterial Blood HCO3 5.7L, Arterial Blood Base Excess -21.4L, Arterial Blood Oxygen Saturation 98.0, Blood Gas Bicarbonate Standard 9.5L 03/07/16 00:21: Bedside Glucose (Misc Panel) 249H 03/07/16 01:01: Bedside Glucose (Misc Panel) 203H 03/07/16 01:02: Anion Gap 26H, Blood Urea Nitrogen 28H, Creatinine 1.82H, Sodium Level 139, Potassium Level 4.8, Chloride Level 104, Carbon Dioxide Level 9L, Calcium Level 7.7L, Glomerular Filtration Rate 43.1L 03/07/16 02:07: Bedside Glucose (Misc Panel) 178H 03/07/16 03:01: Bedside Glucose (Misc Panel) 161H 03/07/16 03:02: Anion Gap 25H, Blood Urea Nitrogen 30H, Creatinine 1.71H, Sodium Level 140, Potassium Level 4.7, Chloride Level 107, Carbon Dioxide Level 8L, Calcium Level 7.9L, Glomerular Filtration Rate 46.3L 03/07/16 04:03: Bedside Glucose (Misc Panel) 188H 03/07/16 05:05: Bedside Glucose (Misc Panel) 149H 03/07/16 05:06: Anion Gap 22H, Blood Urea Nitrogen 29H, Creatinine 1.76H, Sodium Level 140, Potassium Level 4.6, Chloride Level 107, Carbon Dioxide Level 11L, Calcium Level 8.0L, Estimated Mean Plasma Glucose 263H, Glomerular Filtration Rate 44.8L , Hemoglobin A1c 10.8H 03/07/16 06:05: Bedside Glucose (Misc Panel) 149H 03/07/16 06:56: Bedside Glucose (Misc Panel) 134H 03/07/16 06:57: Anion Gap 22H, Blood Urea Nitrogen 27H, Creatinine 1.75H, Sodium Level 142, Potassium Level 4.5, Chloride Level 108H, Carbon Dioxide Level 12L, Calcium Level 8.3L, Glomerular Filtration Rate 45.1L CBC/BMP Laboratory Tests 03/06/16 18:16 Red Blood Count 5.24, Mean Corpuscular Volume 99.6 H, Mean Corpuscular Hemoglobin 32.2, Mean Corpuscular Hemoglobin Concent 32.3, Red Cell Distribution Width 12.7, Neutrophils (%) (Auto) 72.9 H, Lymphocytes (%) (Auto) 18.9 L, Monocytes (%) (Auto) 5.5 H, Eosinophils (%) (Auto) 0.8, Basophils (%) ( Auto) 0.7, Neutrophils # (Auto) 11.7 H, Lymphocytes # (Auto) 3.0, Monocytes # ( Auto) 0.9 H, Eosinophils # (Auto) 0.1, Basophils # (Auto) 0.1 03/06/16 23:20 Calcium Level 7.7 L 03/07/16 01:02 Calcium Level 7.7 L 03/07/16 03:02 Calcium Level 7.9 L 03/07/16 05:06 Calcium Level 8.0 L, Red Blood Count 4.56, Mean Corpuscular Volume 94.6 #, Mean Corpuscular Hemoglobin 31.4, Mean Corpuscular Hemoglobin Concent 33.1, Red Cell Distribution Width 12.8 03/07/16 06:57 Calcium Level 8.3 L FSBS Laboratory Tests Test 03/06/16 17:45 03/06/16 21:00 03/06/16 22:03 03/06/16 23:11 Range/Units Bedside Glucose (Misc Panel) 213 251 239 249 70-105 MG/DL Test 03/07/16 00:21 03/07/16 01:01 03/07/16 02:07 03/07/16 03:01 Range/Units Bedside Glucose (Misc Panel) 249 203 178 161 70-105 MG/DL Test 03/07/16 04:03 03/07/16 05:05 03/07/16 06:05 03/07/16 06:56 Range/Units Bedside Glucose (Misc Panel) 188 149 149 134 70-105 MG/DL Microbiology Microbiology 03/06/16 Blood Culture, Received Pending 03/06/16 MRSA Screen, Received Pending Raz Kaur Mar 07, 2016 08:07 NATHALY HUNT MD Mar 09, 2016 10:40
--- NOTE | 2016-03-07 08:40 | ECGEPIP ---
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 Order Number: [id number] Reading MD: Cha Singer Measurements Intervals [place] Rate: 133 P: 74 IA: 159 QRS: -50 QRSD: 86 T: 50 QT: 307 QTc: 458 Interpretive Statements SINUS TACHYCARDIA WITH OCCASIONAL SUPRAVENTRICULAR PREMATURE COMPLEXES LOW QRS VOLTAGE SEPTAL MYOCARDIAL INFARCTION, OF INDETERMINATE AGE INFERIOR MYOCARDIAL INFARCTION, PROBABLY OLD LOW VOLTAGE LIMB NO PRIOR FOR COMPARISON Electronically Signed On 03-07-2016 8:39:50 EST by Cha Singer
[2016-03-07] MEDS ORDERED: INSULIN HUMAN REGULAR 100 UNITS in NS 99 ML IV SCH ×3 (09:07→13:17)
[2016-03-07] MEDS ORDERED: D5W/0.45% SODIUM CHLORIDE 1,000 ML IV SCH (09:15)
[2016-03-07 09:41] LABS: CALCIUM LEVEL 7.9 MG/DL (8.5-10.1); CREATININE FOR GFR 1.75 MG/DL (0.70-1.30); GLOMERULAR FILTRATION RATE 45.1 (>60); POTASSIUM SERUM 4.3 MEQ/L (3.5-5.1)
[2016-03-07] MEDS: SODIUM BICARBONATE IV SCH ×2 (11:36→19:53)
[2016-03-07] MEDS: POTASSIUM CHLORIDE IV SCH ×2 (11:36→19:53)
[2016-03-07] MEDS: [UNRECOGNIZED DRUG - OTHER] IV SCH ×2 (11:36→19:53)
[2016-03-07] MEDS ORDERED: POTASSIUM CHLORIDE 10 MEQ SR TABLET PO ONE (13:30)
[2016-03-07] MEDS: ADVAIR DISKUS 250/50 INH PWD INH SCH ×2 (14:00→20:22)
[2016-03-07 14:34] LABS: CREATININE FOR GFR 1.69 MG/DL (0.70-1.30); GLOMERULAR FILTRATION RATE 46.9 (>60); POTASSIUM SERUM 4.3 MEQ/L (3.5-5.1)
[2016-03-07 15:45] LABS: CALCIUM LEVEL 8.3 MG/DL (8.5-10.1); CREATININE FOR GFR 1.76 MG/DL (0.70-1.30); GLOMERULAR FILTRATION RATE 44.8 (>60); POTASSIUM SERUM 4.1 MEQ/L (3.5-5.1)
[2016-03-07 16:00] VITALS: BP 127/63
[2016-03-07] MEDS ORDERED: [UNRECOGNIZED DRUG - OTHER] IV SCH (16:00)
[2016-03-07 17:36] LABS: CALCIUM LEVEL 8.3 MG/DL (8.5-10.1); CREATININE FOR GFR 1.71 MG/DL (0.70-1.30); GLOMERULAR FILTRATION RATE 46.3 (>60); POTASSIUM SERUM 4.2 MEQ/L (3.5-5.1)
[2016-03-07] MEDS ORDERED: PROMETHAZINE INJ 25 MG/ML VIAL (J2550) IV PRN (18:00)
[2016-03-07 18:23] LABS: ABG BASE EXCESS -8.7 (-2.0-2.0); ABG HCO3 15.3 MEQ/L (22.0-26.0); ABG PARTIAL PRESSURE CO2 28.4 mmHg (35.0-45.0); ABG PARTIAL PRESSURE O2 73.9 mmHg (75.0-100.0); ABG STANDARD HCO3 17.5 MEQ/L (22.0-26.0); ABG TOTAL CO2 16.2 MEQ/L (22.0-29.0)
[2016-03-07 19:33] LABS: CALCIUM LEVEL 8.1 MG/DL (8.5-10.1); CREATININE FOR GFR 1.63 MG/DL (0.70-1.30); GLOMERULAR FILTRATION RATE 48.9 (>60); POTASSIUM SERUM 4.5 MEQ/L (3.5-5.1)
[2016-03-07 20:00] VITALS: BP 123/64
[2016-03-07] MEDS: FENOFIBRATE 145 MG TAB (TRICOR) PO SCH (21:17)
[2016-03-07] MEDS: ATORVASTATIN 20 MG TAB PO SCH (21:17)
[2016-03-07] MEDS: MONTELUKAST 10 MG TAB PO SCH (21:17)
[2016-03-07 21:51] LABS: CALCIUM LEVEL 8.1 MG/DL (8.5-10.1); CREATININE FOR GFR 1.69 MG/DL (0.70-1.30); GLOMERULAR FILTRATION RATE 46.9 (>60); POTASSIUM SERUM 4.1 MEQ/L (3.5-5.1)
[2016-03-07 23:37] LABS: CALCIUM LEVEL 7.7 MG/DL (8.5-10.1); CREATININE FOR GFR 1.54 MG/DL (0.70-1.30); GLOMERULAR FILTRATION RATE 52.3 (>60); POTASSIUM SERUM 3.9 MEQ/L (3.5-5.1)
[2016-03-08] VITALS: BP 119/59
[2016-03-08] MEDS: ONDANSETRON 4MG/2ML VIAL (J2405) IV PRN ×3 (00:20→23:19)
[2016-03-08 01:42] LABS: CALCIUM LEVEL 7.9 MG/DL (8.5-10.1); CREATININE FOR GFR 1.49 MG/DL (0.70-1.30); GLOMERULAR FILTRATION RATE 54.3 (>60); POTASSIUM SERUM 3.8 MEQ/L (3.5-5.1)
[2016-03-08] MEDS: [UNRECOGNIZED DRUG - OTHER] IV SCH ×2 (03:01→09:33)
[2016-03-08] MEDS: SODIUM BICARBONATE IV SCH ×2 (03:01→09:33)
[2016-03-08] MEDS: POTASSIUM CHLORIDE IV SCH ×2 (03:01→09:33)
[2016-03-08] MEDS: INSULIN IV RATE CHANGE DOCUMENTATION ML/HR XX SCH ×3 (03:10→09:20)
[2016-03-08 03:30] LABS: CALCIUM LEVEL 8.1 MG/DL (8.5-10.1); CREATININE FOR GFR 1.61 MG/DL (0.70-1.30); GLOMERULAR FILTRATION RATE 49.7 (>60); POTASSIUM SERUM 3.8 MEQ/L (3.5-5.1)
[2016-03-08 04:12] VITALS: BP 107/53
[2016-03-08] MEDS: HEPARIN SOD (PORCINE) 5000 UNITS/ML VIAL SC SCH ×3 (05:18→22:30)
[2016-03-08 05:34] LABS: MEAN CORPUSCULAR HEMOGLOBIN 31.6 pg (27.0-33.0); MEAN CORPUSCULAR HGB CONC 33.5 g/dl (32.0-36.5); MEAN CORPUSCULAR VOLUME 94.2 fl (80.0-96.0); RED CELL DISTRIBUTION WIDTH 13.9 % (11.5-14.5); WHITE BLOOD COUNT 6.6 K/mm3 (4.0-10.0)
[2016-03-08 05:40] LABS: CREATININE FOR GFR 1.5 MG/DL (0.70-1.30); GLOMERULAR FILTRATION RATE 53.9 (>60); POTASSIUM SERUM 3.9 MEQ/L (3.5-5.1)
[2016-03-08] MEDS: HumaLOG INSULIN (NovoLOG) PER UNIT SC SCH ×3 (07:30→18:51)
[2016-03-08 07:35] LABS: CALCIUM LEVEL 8.4 MG/DL (8.5-10.1); CREATININE FOR GFR 1.46 MG/DL (0.70-1.30); GLOMERULAR FILTRATION RATE 55.6 (>60)
--- NOTE | 2016-03-08 07:59 | IPNPDOC ---
Assessment/Plan Date Seen The patient was seen on 03/08/16. Problems Problems: (1) Metabolic acidosis Status: Acute Problem Specific Plan: Monitor Clinically, Repeat Labs Problem Text: Anion gap 22. Diabetic ketoacidosis possible induced by Invokana ? On Insulin drip. On Bicarb. 03/08/16 - Anion gap closing. Still on Insulin drip. On Bicarb. Plans to continue monitoring and hopefully can be transitioned to SSI and Basal Insulin once anion gap improves further. (2) Diabetes Status: Chronic Problem Specific Plan: Monitor Clinically, Repeat Labs Problem Text: Pt was placed on Invokana a few days ago. He has been on Metformin. He states he states he has been off Insulin for about 4 months. He states he intentionally has lost about 60 pounds recently. (3) Acute kidney injury Status: Acute Problem Specific Plan: Monitor Clinically, Repeat Labs Problem Text: 03/07/16 - BUN 27/ Creat 1.75. Creat was 2.12 at admission. 03/08/16 - BUN 18/ Creat 1.46. (4) Asthma Status: Chronic Problem Specific Plan: Monitor Clinically Problem Text: Stable. (5) Hyperlipemia Status: Chronic Problem Specific Plan: Monitor Clinically Problem Text: On Lipitor and Tricor. Plan / VTE VTE Prophylaxis Ordered?: Yes (On Heparin.) Subjective Review of Systems CC/HPI The patient is a 46-year-old male admitted with a reason for visit of Metabolic Acidosis. Events since last encounter Pt denies any new issues. Denies any N/V/Abd pain. Denies CP, SOB. Constitutional: Denies: Chills, Fever Pulmonary: Denies: Dyspnea Cardiovascular: Denies: Chest Pain Gastrointestinal: Denies: Abdominal Pain, Nausea, Vomiting Objective Physical Examination General Exam: Positive: Alert, No Acute Distress Neck Exam: Positive: Supple, Negative: JVD Chest Exam: Positive: Clear to auscultation Heart Exam: Positive: Regular Rhythm Abdomen Exam: Positive: Normal bowel sounds, Soft, Negative: Tenderness Extremity Exam: Negative: Edema Vital Signs/I&O Vital Signs Date Time Temp Pulse Resp B/P Pulse Ox O2 Delivery O2 Flow Rate FiO2 03/08/16 04:12 98.4 82 20 107/53 96 Room Air I&O- Last 24 Hours up to 6 AM 03/08/16 06:00 Intake Total 2917 ml Output Total 4850 ml Balance -1933 ml Laboratory Data Labs 24H Laboratory Tests 2 03/07/16 08:01: Bedside Glucose (Misc Panel) 132H 03/07/16 09:10: Bedside Glucose (Misc Panel) 134H, Anion Gap 21H, Blood Urea Nitrogen 26H, Creatinine 1.75H, Sodium Level 142, Potassium Level 4.3, Chloride Level 107, Carbon Dioxide Level 14L, Calcium Level 7.9L, Glomerular Filtration Rate 45.1L 03/07/16 10:17: Bedside Glucose (Misc Panel) 135H 03/07/16 11:06: Bedside Glucose (Misc Panel) 156H 03/07/16 12:36: Bedside Glucose (Misc Panel) 144H 03/07/16 13:12: Anion Gap 19H, Blood Urea Nitrogen 25H, Creatinine 1.69H, Sodium Level 145, Potassium Level 4.3, Chloride Level 108H, Carbon Dioxide Level 18L, Calcium Level 8.0L, Glomerular Filtration Rate 46.9L 03/07/16 13:56: Bedside Glucose (Misc Panel) 139H 03/07/16 14:47: Anion Gap 20H, Blood Urea Nitrogen 24H, Creatinine 1.76H, Sodium Level 144, Potassium Level 4.1, Chloride Level 107, Carbon Dioxide Level 17L, Calcium Level 8.3L, Glomerular Filtration Rate 44.8L 03/07/16 15:07: Bedside Glucose (Misc Panel) 159H 03/07/16 15:55: Bedside Glucose (Misc Panel) 236H 03/07/16 17:00: Anion Gap 22H, Blood Urea Nitrogen 23H, Creatinine 1.71H, Sodium Level 144, Potassium Level 4.2, Chloride Level 107, Carbon Dioxide Level 15L, Calcium Level 8.3L, Glomerular Filtration Rate 46.3L 03/07/16 17:01: Bedside Glucose (Misc Panel) 159H 03/07/16 18:05: Bedside Glucose (Misc Panel) 178H 03/07/16 18:08: Arterial Blood pH 7.350, Arterial Blood Partial Pressure CO2 28.4L, Arterial Blood Partial Pressure O2 73.9L, Arterial Blood Total CO2 16.2L, Arterial Blood HCO3 15.3L, Arterial Blood Base Excess -8.7L, Arterial Blood Oxygen Saturation 95.1, Blood Gas Bicarbonate Standard 17.5L 03/07/16 18:58: Bedside Glucose (Misc Panel) 185H, Anion Gap 19H, Blood Urea Nitrogen 22H, Creatinine 1.63H, Sodium Level 144, Potassium Level 4.5, Chloride Level 108H, Carbon Dioxide Level 17L, Calcium Level 8.1L, Glomerular Filtration Rate 48.9L 03/07/16 20:01: Bedside Glucose (Misc Panel) 165H 03/07/16 20:48: Bedside Glucose (Misc Panel) 167H 03/07/16 20:49: Anion Gap 19H, Blood Urea Nitrogen 22H, Creatinine 1.69H, Sodium Level 145, Potassium Level 4.1, Chloride Level 108H, Carbon Dioxide Level 18L, Calcium Level 8.1L, Glomerular Filtration Rate 46.9L 03/07/16 22:05: Bedside Glucose (Misc Panel) 153H 03/07/16 23:05: Bedside Glucose (Misc Panel) 163H, Anion Gap 18H, Blood Urea Nitrogen 20H, Creatinine 1.54H, Sodium Level 143, Potassium Level 3.9, Chloride Level 107, Carbon Dioxide Level 18L, Calcium Level 7.7L, Glomerular Filtration Rate 52.3L 03/08/16 00:13: Bedside Glucose (Misc Panel) 155H 03/08/16 01:00: Bedside Glucose (Misc Panel) 154H 03/08/16 01:01: Anion Gap 16, Blood Urea Nitrogen 20H, Creatinine 1.49H, Sodium Level 144, Potassium Level 3.8, Chloride Level 108H, Carbon Dioxide Level 20L, Calcium Level 7.9L, Glomerular Filtration Rate 54.3L 03/08/16 02:00: Bedside Glucose (Misc Panel) 162H 03/08/16 03:03: Anion Gap 16, Blood Urea Nitrogen 19H, Creatinine 1.61H, Sodium Level 145, Potassium Level 3.8, Chloride Level 108H, Carbon Dioxide Level 21, Calcium Level 8.1L, Glomerular Filtration Rate 49.7L 03/08/16 03:04: Bedside Glucose (Misc Panel) 147H 03/08/16 04:11: Bedside Glucose (Misc Panel) 173H 03/08/16 05:02: Bedside Glucose (Misc Panel) 169H 03/08/16 05:11: Anion Gap 18H, Blood Urea Nitrogen 18, Creatinine 1.50H, Sodium Level 145, Potassium Level 3.9, Chloride Level 107, Carbon Dioxide Level 20L, Calcium Level 8.0L, Glomerular Filtration Rate 53.9L 03/08/16 06:05: Bedside Glucose (Misc Panel) 159H 03/08/16 06:53: Anion Gap 17H, Blood Urea Nitrogen 18, Creatinine 1.46H, Sodium Level 146H, Potassium Level 4.0, Chloride Level 108H, Carbon Dioxide Level 21, Calcium Level 8.4L, Glomerular Filtration Rate 55.6L 03/08/16 07:12: Bedside Glucose (Misc Panel) 180H CBC/BMP Laboratory Tests 03/07/16 09:10 Calcium Level 7.9 L 03/07/16 13:12 Calcium Level 8.0 L 03/07/16 14:47 Calcium Level 8.3 L 03/07/16 17:00 Calcium Level 8.3 L 03/07/16 18:58 Calcium Level 8.1 L 03/07/16 20:49 Calcium Level 8.1 L 03/07/16 23:05 Calcium Level 7.7 L 03/08/16 01:01 Calcium Level 7.9 L 03/08/16 03:03 Calcium Level 8.1 L 03/08/16 05:11 Calcium Level 8.0 L, Red Blood Count 3.90 L, Mean Corpuscular Volume 94.2, Mean Corpuscular Hemoglobin 31.6, Mean Corpuscular Hemoglobin Concent 33.5, Red Cell Distribution Width 13.9 03/08/16 06:53 Calcium Level 8.4 L FSBS Laboratory Tests Test 03/07/16 08:01 03/07/16 09:10 03/07/16 10:17 03/07/16 11:06 Range/Units Bedside Glucose (Misc Panel) 132 134 135 156 70-105 MG/DL Test 03/07/16 12:36 03/07/16 13:56 03/07/16 15:07 03/07/16 15:55 Range/Units Bedside Glucose (Misc Panel) 144 139 159 236 70-105 MG/DL Test 03/07/16 17:01 03/07/16 18:05 03/07/16 18:58 03/07/16 20:01 Range/Units Bedside Glucose (Misc Panel) 159 178 185 165 70-105 MG/DL Test 03/07/16 20:48 03/07/16 22:05 03/07/16 23:05 03/08/16 00:13 Range/Units Bedside Glucose (Misc Panel) 167 153 163 155 70-105 MG/DL Test 03/08/16 01:00 03/08/16 02:00 03/08/16 03:04 03/08/16 04:11 Range/Units Bedside Glucose (Misc Panel) 154 162 147 173 70-105 MG/DL Test 03/08/16 05:02 03/08/16 06:05 03/08/16 07:12 Range/Units Bedside Glucose (Misc Panel) 169 159 180 70-105 MG/DL Microbiology Microbiology 03/06/16 Blood Culture - Preliminary, Resulted No growth after 24 hours . All specim... 03/06/16 MRSA Screen - Final, Complete Raz Kaur Mar 08, 2016 07:59
[2016-03-08 08:00] VITALS: BP 115/61
[2016-03-08] MEDS: ADVAIR DISKUS 250/50 INH PWD INH SCH ×2 (08:10→20:51)
[2016-03-08 09:41] LABS: CREATININE FOR GFR 1.55 MG/DL (0.70-1.30); GLOMERULAR FILTRATION RATE 51.9 (>60)
[2016-03-08 11:29] LABS: CALCIUM LEVEL 8.1 MG/DL (8.5-10.1); CREATININE FOR GFR 1.58 MG/DL (0.70-1.30); GLOMERULAR FILTRATION RATE 50.7 (>60)
[2016-03-08] MEDS ORDERED: GLUCAGON FOR INJ 1 MG VIAL (J1610) SC PRN (12:45)
[2016-03-08] MEDS ORDERED: DEXTROSE 50% 50 ML SYRINGE IV PRN (12:45)
[2016-03-08] MEDS ORDERED: GLUCOSE 4 GM CHEW TABLET PO PRN (12:45)
[2016-03-08 16:00] VITALS: BP 127/65
[2016-03-08 18:21] LABS: ANION GAP 19 MEQ/L (8-16); BLOOD UREA NITROGEN 18 MG/DL (7-18); CALCIUM LEVEL 7.9 MG/DL (8.5-10.1); CARBON DIOXIDE LEVEL 21 MEQ/L (21-32); CHLORIDE LEVEL 102 MEQ/L (98-107); CREATININE FOR GFR 1.33 MG/DL (0.70-1.30); GLOMERULAR FILTRATION RATE > 60.0 (>60); GLUCOSE, FASTING 211 MG/DL (70-105); POTASSIUM SERUM 3.7 MEQ/L (3.5-5.1); SODIUM LEVEL 142 MEQ/L (136-145)
[2016-03-08 19:45] VITALS: BP 128/59
[2016-03-08] MEDS: FENOFIBRATE 145 MG TAB (TRICOR) PO SCH (20:33)
[2016-03-08] MEDS: LEVEMIR (INSULIN DETEMIR) 1 UNITS/0.01ML SC SCH (20:34)
[2016-03-08] MEDS: MONTELUKAST 10 MG TAB PO SCH (20:34)
[2016-03-08] MEDS: ATORVASTATIN 20 MG TAB PO SCH (20:51)
[2016-03-08 23:50] VITALS: BP 134/71
[2016-03-09 04:15] VITALS: BP 135/76
[2016-03-09] MEDS: HEPARIN SOD (PORCINE) 5000 UNITS/ML VIAL SC SCH (06:35)
[2016-03-09 06:55] LABS: MEAN CORPUSCULAR HEMOGLOBIN 32.5 pg (27.0-33.0); MEAN CORPUSCULAR HGB CONC 35.2 g/dl (32.0-36.5); MEAN CORPUSCULAR VOLUME 92.3 fl (80.0-96.0); RED CELL DISTRIBUTION WIDTH 12.8 % (11.5-14.5); WHITE BLOOD COUNT 4.9 K/mm3 (4.0-10.0)
[2016-03-09 07:13] LABS: ANION GAP 16 MEQ/L (8-16); BLOOD UREA NITROGEN 17 MG/DL (7-18); CALCIUM LEVEL 8.1 MG/DL (8.5-10.1); CARBON DIOXIDE LEVEL 23 MEQ/L (21-32); CHLORIDE LEVEL 104 MEQ/L (98-107); CREATININE FOR GFR 1.31 MG/DL (0.70-1.30); GLOMERULAR FILTRATION RATE > 60.0 (>60); GLUCOSE, FASTING 143 MG/DL (70-105); POTASSIUM SERUM 3.9 MEQ/L (3.5-5.1); SODIUM LEVEL 143 MEQ/L (136-145)
[2016-03-09] MEDS: ADVAIR DISKUS 250/50 INH PWD INH SCH (08:03)
[2016-03-09 08:19] VITALS: BP 122/70
[2016-03-09] MEDS: LEVEMIR (INSULIN DETEMIR) 1 UNITS/0.01ML SC SCH (08:52)
[2016-03-09] MEDS: HumaLOG INSULIN (NovoLOG) PER UNIT SC SCH ×3 (08:52→12:50)
[2016-03-09] MEDS ORDERED: TOUJ1.2I SC (11:50)
[2016-03-09] MEDS ORDERED: BD P31MI3 XX (11:50)
[2016-03-09 12:12] VITALS: BP 132/70
--- NOTE | 2016-03-09 17:34 | DSES ---
DATE OF ADMISSION: 03/06/2016 DATE OF DISCHARGE: 03/09/2016 PRIMARY CARE PHYSICIAN: Dr. Danny Flores. HISTORY: This is a 46-year-old male patient of Dr. Flores, who presented to [facility] Emergency Room with hyperglycemia. He recently had adjustments made to his diabetes regimen with discontinuation of his insulin pump, and the addition of Invokana. He began to feel unwell. He was found to be in acute, severe anion gap metabolic acidosis on presentation to the emergency room, with acute kidney injury likely secondary to dehydration. In January of 2016, his A1c was 11.1. He has a history of significant noncompliance associated with his medications. He has an insulin pump at home. He was admitted to the intensive care unit on bicarbonate and insulin drip. His anion gap normalized. He was transferred to the medical floor. He has since remained stable. He has been started on Levemir 10 units twice a day. His fasting sugar this morning was 143. He is eager to return home. His creatinine has returned to baseline. His blood pressures are stable. He does show some mild anemia, although this is likely secondary to intravenous (IV) fluids. He will be discharged home on Toujeo 10 units twice a day. He will need close followup with Dr. Flores and is to be seen at the end of this week or at the very latest, early next week. DISCHARGE DIAGNOSES: 1. Acute severe anion gap metabolic acidosis. 2. Acute renal injury possibly secondary to severe dehydration. 3. Diabetes mellitus type 2. 4. Asthma. 5. Hypercholesterolemia. 6. Medical noncompliance. DISCHARGE MEDICATIONS: - Toujeo 10 units subcutaneous twice a day - albuterol sulfate two puffs inhaled as needed for shortness of breath - atorvastatin 80 mg before bed - Zetia 10 mg before bed - fenofibrate 145 mg before bed - lisinopril 20 mg daily - metformin 850 mg by mouth three times a day - Singulair 10 mg by mouth before bed - Advair Diskus 250/50 one inhalation twice a day DISCHARGE PLAN: As stated above.
--- NOTE | 2016-03-10 10:09 | EDDOCDS ---
Nurse's Notes [facility] Name: Danny Isaac Age: 46 yrs Sex: Male : 1970 Arrival Date: 03/06/2016 Time: 17:27 Bed 12 Private MD: Danny Flores Diagnosis: Diabetes mellitus due to underlying condition with ketoacidosis;Dehydration Presentation: 03/06 17:35 Presenting complaint: Patient states: "I thought I had the flu but I can't seem to get ld5 back to normal." Family member states "dehydration". Nausea, vomiting and body aches. Pt reports symptoms started yesterday. Adult Sepsis Screening: The patient does not have new or worsening altered mentation. Patient's respiratory rate is less than 22. Systolic blood pressure is greater than 100. Patient has a qSOFA score of 0- Negative Sepsis Screen. Suicide/Homicide risk assessment- the patient denies having any suicidal and/or homicidal ideations and does not present with any other emotional, behavioral or mental health complaints. 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 Transition of care: patient was not received from another setting of care. 17:35 Acuity: SRINATH Level 3 ld5 17:35 Method Of Arrival: Walkin/Carried/Asstd ld5 Triage Assessment: 17:39 General: Appears uncomfortable. Pain: Location: body Quality of pain is described as ld5 aching. HIV screening NA for this visit Offered previously. Neurological: Level of Consciousness is awake, obeys commands. Respiratory: Airway is patent Respiratory effort is even, unlabored. GI: Reports nausea, vomiting. Historical: - Allergies: no known allergies; - Home Meds: 1. Advair Diskus 250-50 mcg/dose Inhl dsdv 1 puff 2 times per day 2. metformin 850 mg Oral tab 1 tab 3 times per day 3. Invokana oral oral Unknown once daily 4. Zetia 10 mg Oral tab 1 tab once daily 5. lisinopril 40 mg Oral tab 1 tab once daily 6. Singulair 10 mg Oral tab 1 tab once daily - PMHx: Diabetes - NIDDM: uncontrolled; Hypercholesterolemia; Asthma; - PSHx: Tonsillectomy; - Social history: Smoking status: Patient states former smoker of tobacco. No barriers to communication noted, The patient speaks fluent Vietnamese, Speaks appropriately for age. - Family history: Not pertinent. - : The pt / caregiver states he / she is not on anticoagulants. Home medication list is obtained from the patient. - Exposure Risk Screening:: None identified. Screenin:30 Screening information is obtained from the patient. Fall risk: No risks identified. ms18 Assistance ADL's: requires no assistance with activities of daily living. Abuse/DV Screen: The patient / caregiver reports he/she is: not in a situation that causes fear, pain or injury. Nutritional screening: No deficits noted. Advance Directives: There is no living will. home support is adequate. Assessment: 18:30 General: Appears in no apparent distress, uncomfortable, Behavior is appropriate for ms18 age, cooperative. Pain: Location: back. Neurological: Level of Consciousness is awake, alert, obeys commands, Oriented to person, place, time. Cardiovascular: Chest pain is denied. Respiratory: Airway is patent Respiratory effort is even, unlabored, Respiratory pattern is tachypnea. GI: Abdomen is flat, non- distended. Derm: Skin is pink, warm & dry. 19:32 General: Appears in no apparent distress, Behavior is appropriate for age, cooperative. ms18 Neurological: Level of Consciousness is awake, alert, obeys commands, Oriented to person, place, time. Respiratory: Airway is patent Respiratory effort is even, unlabored, Respiratory pattern is tachypnea. GI: Abdomen is non- distended. Derm: Skin is pink, warm & dry. 20:50 General: Appears in no apparent distress, Behavior is anxious, cooperative. Pain: mlc Denies pain. Neurological: Level of Consciousness is awake, alert, Oriented to person, place, time. Cardiovascular: Heart tones S1 S2 present Rhythm is irregular. Respiratory: Airway is patent Respiratory effort is even, labored, Respiratory pattern is tachypnea Breath sounds are clear bilaterally. Reports shortness of breath. GI: Abdomen is non- distended Bowel sounds present X 4 quads. Abd is soft X 4 quads. GI: Reports vomiting. Derm: Skin is pink, warm & dry. 21:01 Reassessment: Patient appears in no apparent distress at this time. Patient states mlc symptoms have not improved. no changes since prior. IV fluids infusing per order. 21:17 Reassessment: hospitalist at bedside. [facility] 22:05 Reassessment: Patient appears in no apparent distress at this time. Patient states mlc feeling better. pt resting comfortably, IV fluids infusing per order. resp easy/unlabored at this time. . 22:45 General: Appears in no apparent distress, comfortable, Behavior is cooperative. Pain: mlc Denies pain. Neurological: Level of Consciousness is awake, alert, Oriented to person, place, time. Respiratory: Airway is patent Respiratory effort is even, unlabored, Respiratory pattern is regular. Vital Signs: 17:30 BP 161 / 60; Pulse 128; Resp 20; Temp 97.0(O); Pulse Ox 99% on R/A; Weight 92.99 kg; sew Height 6 ft. 0 in. (182.88 cm); Pain 0/10; 18:43 BP 151 / 67 Supine; Pulse 129; ms18 18:43 BP 148 / 68 Sitting; Pulse 132; ms18 18:43 BP 129 / 58 Standing; Pulse 135; Resp 26; ms18 18:43 Pulse 122; ms18 20:00 BP 142 / 65; Pulse 141; Resp 24; Temp 98.5(O); Pulse Ox 100% on R/A; Pain 0/10; ls3 20:30 BP 161 / 73 (auto/); mlc 20:45 BP 146 / 66 (auto/); mlc 21:00 BP 133 / 61 (auto/); mlc 21:00 Pulse 134 MON; Pulse Ox 100% ; mlc 21:15 BP 122 / 70 (auto/); mlc 21:16 Pulse 138 MON; Pulse Ox 99% ; mlc 21:30 Pulse 134 MON; Pulse Ox 94% ; mlc 21:30 BP 136 / 62 (auto/); mlc 21:45 Pulse 130 MON; Pulse Ox 99% ; mlc 21:45 BP 152 / 65 (auto/); mlc 22:00 BP 124 / 60 (auto/); mlc 22:01 Pulse 130 MON; Resp 20; Pulse Ox 100% ; mlc 22:15 BP 118 / 62 (auto/); mlc 22:16 Pulse 128 MON; Pulse Ox 100% ; mlc 22:30 BP 126 / 60 (auto/); mlc 22:30 Pulse 146 MON; Pulse Ox 100% ; mlc 22:43 Pulse 130 MON; Pulse Ox 100% ; mlc 22:51 BP 133 / 60; Pulse 134; Resp 18; Temp 100.9(TE); Pulse Ox 100% on R/A; Pain 0/10; rn1 17:30 Body Mass Index 27.80 (92.99 kg, 182.88 cm) [facility] Vitals: 17:30 Log In Time: March 06, 2016 at 17:29. [facility] ED Course: 17:29 Patient visited by Cha Ayala. sew 17:29 Patient moved to Waiting sew 17:30 Danny Flores MD is Private Physician. sew 17:31 Patient visited by Cha Ayala. sew 17:31 Patient moved to Pre RCE sew 17:36 Triage Initiated ld5 17:39 Patient visited by Dionne Adams RN. ld5 17:40 Patient moved to Triage 3 ld5 17:50 Barrie King PA-C is PHCP. ar2 17:50 Gage Mota MD is Attending Physician. ar2 17:55 Patient visited by Barrie King PA-C. ar2 18:09 Patient moved to I5 / M5 [facility] 18:30 The patient / caregiver is instructed regarding the plan of care and ED course. ms18 Accompanied by Significant Other, Patient has correct armband on for positive identification. Placed in gown. Bed in low position. Property :Personal belongings accompany Pt. 18:30 CBC with Diff Sent. ms18 18:30 MED Profile Sent. ms18 18:30 Lactic Acid (Hurst tube on ice) Sent. ms18 18:30 Creatine Phosphokinase Sent. ms18 18:30 Liver Profile Sent. ms18 18:30 UA Sent. ms18 18:30 ACETONE/KETONE Sent. ms18 18:30 Inserted saline lock: 18 gauge in left antecubital area and blood collected. The ms18 patient tolerated the procedure well. 18:32 Patient visited by Nicole Gerber RN. ms18 18:42 Patient visited by Nicole Gerber RN. ms18 19:04 [facility] [place] Payment Agreement was scanned into [employer] and attached to record. zo 19:48 Patient visited by Nicole Gerber RN. ms18 19:56 EKG done. (by ED staff). Reviewed by Barrie King PA-C. ls3 20:17 Tessa Curiel,RN is Primary Nurse. ms18 20:17 Patient moved to 12 ms18 20:19 Patient visited by Danilo Calles PCA. kb5 20:32 Ashley Block is Hospitalizing Provider. ar2 20:39 Osmolality, Serum Sent. mlc 20:42 -Arterial Blood Gas Sent. bb3 20:51 Patient visited by Tessa Curiel RN. mlc 20:59 Notified attending ED physician of Critical lab value. Ph of 7.055 C02 of 12.4 and P02 cliff of 125.[address] Sagastume. 21:02 Patient visited by Tessa Curiel RN. mlc 21:03 Patient visited by Danilo Calles PCA. kb5 22:43 No procedures done that require assistance. mlc 22:46 Patient visited by Tessa Curiel RN. mlc 22:55 Written Provider Order was scanned into [employer] and attached to record. ml3 03/07 09:37 T-Sheet-- Draft Copy was scanned into [employer] and attached to record. gb Administered Medications: 03/06 18:30 Drug: NS 0.9% 1000 ml [sodium chloride 0.9 % intravenous solution] Route: IV; Rate: ms18 bolus; Site: left antecubital; 18:30 Drug: Ondansetron 4 mg [ondansetron HCl 2 mg/mL intravenous solution (2 mL)] Route: ms18 IVP; Site: left antecubital; 20:37 Drug: Insulin Regular Human 5 units [insulin regular human 100 unit/mL injection mlc solution (0.05 mL)] {Co-Signature: mar (Iris Briceño RN).} Route: IVP; Site: left antecubital; 20:50 Drug: NS 0.9% 1000 ml [sodium chloride 0.9 % intravenous solution] Route: IV; Rate: mlc bolus; Site: left antecubital; 22:53 Drug: Sodium Bicarbonate 1 amp Route: IVP; Site: left antecubital; jo3 Point of Care Testing: Blood Glucose: 17:47 Blood Glucose: 213 mg/dL; ld5 21:01 Blood Glucose: 251 mg/dL; mlc 22:05 Blood Glucose: 239 mg/dL; mlc Ranges: RT: 20:42 ABG's drawn from right radial artery allens test done and positive pressure held for 5 bb3 minutes no bleeding noted pressure bandage applied specimen sent pt. tolerated well. Oxygen is room air. Order Results: Lab Order: Fingerstick Blood Sugar; SPEC'M 03/06/16 17:45 Test: BEDSIDE GLUCOSE; Value: 213; Range: 70-105; Abnormal: Above high normal; Units: MG/DL; Status: F Test Note: ; Doctor Notified RN Notified Lab Order: CBC with Diff; SPEC'M 03/06/16 18:16 Test: WHITE BLOOD COUNT; Value: 16.1; Range: 4.0-10.0; Abnormal: Above high normal; Units: K/mm3; Status: F Test: RED BLOOD COUNT; Value: 5.24; Range: 4.30-6.10; Units: M/mm3; Status: F Test: HEMOGLOBIN; Value: 16.9; Range: 14.0-18.0; Units: g/dl; Status: F Test: HEMATOCRIT; Value: 52.2; Range: 42.0-52.0; Abnormal: Above high normal; Units: %; Status: F Test: MEAN CORPUSCULAR VOLUME; Value: 99.6; Range: 80.0-96.0; Abnormal: Above high normal; Units: fl; Status: F Test: MEAN CORPUSCULAR HEMOGLOBIN; Value: 32.2; Range: 27.0-33.0; Units: pg; Status: F Test: MEAN CORPUSCULAR HGB CONC; Value: 32.3; Range: 32.0-36.5; Units: g/dl; Status: F Test: RED CELL DISTRIBUTION WIDTH; Value: 12.7; Range: 11.5-14.5; Units: %; Status: F Test: PLATELET COUNT, AUTOMATED; Value: 323; Range: 150-450; Units: k/mm3; Status: F Test: NEUTROPHILS %; Value: 72.9; Range: 36.0-66.0; Abnormal: Above high normal; Units: %; Status: F Test: LYMPH %; Value: 18.9; Range: 24.0-44.0; Abnormal: Below low normal; Units: %; Status: F Test: MONO %; Value: 5.5; Range: 0.0-5.0; Abnormal: Above high normal; Units: %; Status: F Test: EOS %; Value: 0.8; Range: 0.0-3.0; Units: %; Status: F Test: BASO %; Value: 0.7; Range: 0.0-1.0; Units: %; Status: F Test: LARGE UNSTAINED CELL %; Value: 1.3; Range: 0.0-4.0; Units: %; Status: F Test: NEUTROPHILS #; Value: 11.7; Range: 1.8-7.7; Abnormal: Above high normal; Units: K/mm3; Status: F Test: LYMPH #; Value: 3.0; Range: 1.5-4.5; Units: K/mm3; Status: F Test: MONO #; Value: 0.9; Range: 0.0-0.8; Abnormal: Above high normal; Units: K/mm3; Status: F Test: EOS #; Value: 0.1; Range: 0.0-0.50; Units: K/mm3; Status: F Test: BASO #; Value: 0.1; Range: 0.0-0.2; Units: K/mm3; Status: F Test: LARGE UNSTAINED CELL #; Value: 0.2; Range: 0.0-0.4; Units: K/mm3; Status: F Lab Order: MED Profile; SPEC'M 03/06/16 18:16 Test: GLUCOSE, FASTING; Value: 260; Range: 70-105; Abnormal: Above high normal; Units: MG/DL; Status: F Test: BLOOD UREA NITROGEN; Value: 27; Range: 7-18; Abnormal: Above high normal; Units: MG/DL; Status: F Test: CREATININE FOR GFR; Value: 2.12; Range: 0.70-1.30; Abnormal: Above high normal; Units: MG/DL; Status: F Test: GLOMERULAR FILTRATION RATE; Value: 36.1; Range: >60; Abnormal: Below low normal; Status: F Test: SODIUM LEVEL; Value: 137; Range: 136-145; Units: MEQ/L; Status: F Test: POTASSIUM SERUM; Value: 5.2; Range: 3.5-5.1; Abnormal: Above high normal; Units: MEQ/L; Status: F Test: CHLORIDE LEVEL; Value: 98; Range: 98-107; Units: MEQ/L; Status: F Test: CARBON DIOXIDE LEVEL; Value: 6; Range: 21-32; Abnormal: Below low normal; Units: MEQ/L; Status: F Test: ANION GAP; Value: 33; Range: 8-16; Abnormal: Above high normal; Units: MEQ/L; Status: F Test: CALCIUM LEVEL; Value: 8.8; Range: 8.5-10.1; Units: MG/DL; Status: F Test Note: ; Units are mL/min/1.73 m2 Chronic Kidney Disease Staging per NKF: Stage I & II GFR >=60 Normal to Mildly Decreased Stage III GFR 30-59 Moderately Decreased Stage IV GFR 15-29 Severely Decreased Stage V GFR <15 Very Little GFR Left ESRD GFR <15 on HARNESS WORKER Lab Order: Lactic Acid (Hurst tube on ice); SPEC'03/06/16 18:16 Test: LACTIC ACID LEVEL, LACTATE; Value: 1.5; Range: 0.4-2.0; Units: MMOL/L; Status: F Lab Order: Creatine Phosphokinase; 03/06/16 18:16 Test: CPK CREATINE PHOSPHOKINASE; Value: 78; Range: 39-308; Units: U/L; Status: F Lab Order: Liver Profile; 03/06/16 18:16 Test: AST/SGOT; Value: 19; Range: 15-37; Units: U/L; Status: F Test: ALT/SGPT; Value: 44; Range: 12-78; Units: U/L; Status: F Test: ALKALINE PHOSPHATASE; Value: 77; Range: 45-117; Units: U/L; Status: F Test: BILIRUBIN,TOTAL; Value: 0.7; Range: 0.2-1.0; Units: MG/DL; Status: F Test: BILIRUBIN,DIRECT; Value: 0.1; Range: 0.0-0.2; Units: MG/DL; Status: F Test: TOTAL PROTEIN; Value: 8.3; Range: 6.4-8.2; Abnormal: Above high normal; Units: GM/DL; Status: F Test: ALBUMIN; Value: 4.7; Range: 3.2-5.2; Units: GM/DL; Status: F Test: ALBUMIN/GLOBULIN RATIO; Value: 1.31; Range: 1.00-1.93; Status: F Lab Order: UA; SPEC'M 01/06/17 18:16 Test: APPEARANCE, URINE; Value: CLEAR; Range: CLEAR; Status: F Test: COLOR, URINE; Value: STRAW; Range: YELLOW; Status: F Test: PH,URINE; Value: 5.0; Range: 5.0-9.0; Units: UNITS; Status: F Test: SPECIFIC GRAVITY URINE AUTO; Value: 1.015; Range: 1.002-1.035; Status: F Test: PROTEIN, URINE AUTO; Value: 1+; Range: NEGATIVE; Abnormal: Above high normal; Units: mg/dL; Status: F Test: GLUCOSE, URINE (UA) AUTO; Value: 3+; Range: NEGATIVE; Abnormal: Above high normal; Units: mg/dL; Status: F Test: KETONE, URINE AUTO; Value: 2+; Range: NEGATIVE; Abnormal: Above high normal; Units: mg/dL; Status: F Test: UROBILINOGEN, URINE AUTO; Value: 0.2; Range: 0.0-2.0; Units: mg/dL; Status: F Test: BILIRUBIN, URINE AUTO; Value: NEGATIVE; Range: NEGATIVE; Status: F Test: NITRITE, URINE AUTO; Value: NEGATIVE; Range: NEGATIVE; Status: F Test: LEUKOCYTE ESTERASE, URINE AUTO; Value: NEGATIVE; Range: NEGATIVE; Status: F Test: BLOOD, URINE BLOOD; Value: 1+; Range: NEGATIVE; Abnormal: Above high normal; Status: F Test: WBC, URINE AUTO; Value: 0; Range: 0-3; Units: /HPF; Status: F Test: RBC, URINE AUTO; Value: 1; Range: 0-3; Units: /HPF; Status: F Test: BACTERIA, URINE AUTO; Value: NEGATIVE; Range: NEGATIVE; Status: F Test: SQUAMOUS EPITHELIAL CELL UR AU; Value: 0; Range: 0-6; Units: /HPF; Status: F Test: MUCUS, URINE; Value: SMALL; Range: NEGATIVE; Status: F Test: HYALINE CAST, URINE AUTO; Value: 0; Range: 0-1; Units: /LPF; Status: F Lab Order: ACETONE/KETONE; SPEC'M 03/06/16 18:16 Test: ACETONE/KETONE; Value: > 46.00; Range: <2.81; Abnormal: Above high normal; Units: MG/DL; Status: F Lab Order: LIPASE; SPEC'M 03/06/16 18:16 Test: LIPASE; Value: 369; Range: 73-393; Units: U/L; Status: F Lab Order: -Arterial Blood Gas; [facility]03/06/16 20:33 Test: ABG pH (ARTERIAL); Value: 7.055; Range: 7.350-7.450; Abnormal: Critical Low; Units: UNITS; Status: F Test: ABG PARTIAL PRESSURE CO2; Value: 12.4; Range: 35.0-45.0; Abnormal: Critical Low; Units: mmHg; Status: F Test: ABG PARTIAL PRESSURE O2; Value: 125.4; Range: 75.0-100.0; Abnormal: Above high normal; Units: mmHg; Status: F Test: ABG TOTAL CO2; Value: 3.8; Range: 22.0-29.0; Abnormal: Below low normal; Units: MEQ/L; Status: F Test: ABG HCO3; Value: 3.4; Range: 22.0-26.0; Abnormal: Below low normal; Units: MEQ/L; Status: F Test: ABG BASE EXCESS; Value: -24.8; Range: -2.0-2.0; Abnormal: Below low normal; Status: F Test: ABG STANDARD HCO3; Value: 7.8; Range: 22.0-26.0; Abnormal: Below low normal; Units: MEQ/L; Status: F Test: ABG O2 SATURATION; Value: 97.5; Range: 95.0-99.0; Units: %; Status: F Test: ABG DEVICE; Value: NASAL JERONIMO; Status: F Lab Order: Osmolality, Serum; 03/06/16 20:38 Test: OSMOLALITY SERUM; Value: 336; Range: 275-295; Abnormal: Above high normal; Units: MOSM/KG; Status: F Lab Order: Fingerstick Blood Sugar; [facility]03/06/16 21:00 Test: BEDSIDE GLUCOSE; Value: 251; Range: 70-105; Abnormal: Above high normal; Units: MG/DL; Status: F Test Note: ; RN Notified Dr Order not to Draw Lab Order: Fingerstick Blood Sugar; [facility]03/06/16 22:03 Test: BEDSIDE GLUCOSE; Value: 239; Range: 70-105; Abnormal: Above high normal; Units: MG/DL; Status: F Test Note: ; RN Notified Dr Order not to Draw Outcome: 20:33 Decision to Hospitalize by Provider. ar2 22:41 Admission hand-off: Report called to EMILY Amador. [facility] 22:43 Discharge Assessment: Patient awake, alert and oriented x 3. No cognitive and/or mlc functional deficits noted. Patient verbalized understanding of disposition instructions. patient administered narcotics - no. The following High Risk Discharge criteria are identified: None. Admitted to ICU accompanied by nurse, accompanied by tech, via stretcher, on monitor, with chart. Condition: stable. No special radiology studies were completed. 22:53 Patient left the ED. ms2 Signatures: Kwaku HoranRN EMILY ms2 Iris Briceño, RN Qing Wylie, Reg Reg gb Abel, Grzegorz, Planned Giving Officer Unit ml3 Marysol Cruz RN RN jo3 Blossom Walton Kristopher, CONSUMER LOAN PROCESSOR CONSUMER LOAN PROCESSOR kb5 Barrie King, PA-C PA-C ar2 Randolph Reyna bb3 Dionne Adams,RN EMILY ld5 Valentine Raymond,RN RN Cha Alston Mandy,Nicole Guerra RN, RN RN ms18 Navarro, Tushar rn1 Gabrielle Dominguez, CONSUMER LOAN PROCESSOR CONSUMER LOAN PROCESSOR ls3 Iris coronado Chart Complete MTDD
--- NOTE | 2016-03-10 10:09 | EDDOCDS ---
Physician Documentation [facility] Name: Danny Isaac Age: 46 yrs Sex: Male : 1970 Arrival Date: 03/06/2016 Time: 17:27 Bed 12 Private MD: aDnny Flores Disposition: 03/06/16 20:33 Hospitalization ordered by Ashley Block for Inpatient Admission. Preliminary diagnosis are Diabetes mellitus due to underlying condition with ketoacidosis, Dehydration. - Bed requested for M ICU. - Status is Inpatient Admission. ms2 - Condition is Stable. - Problem is new. - Symptoms are unchanged. Historical: - Allergies: no known allergies; - Home Meds: 1. Advair Diskus 250-50 mcg/dose Inhl dsdv 1 puff 2 times per day 2. metformin 850 mg Oral tab 1 tab 3 times per day 3. Invokana oral oral Unknown once daily 4. Zetia 10 mg Oral tab 1 tab once daily 5. lisinopril 40 mg Oral tab 1 tab once daily 6. Singulair 10 mg Oral tab 1 tab once daily - PMHx: Diabetes - NIDDM: uncontrolled; Hypercholesterolemia; Asthma; - PSHx: Tonsillectomy; - Social history: Smoking status: Patient states former smoker of tobacco. No barriers to communication noted, The patient speaks fluent Turkmen, Speaks appropriately for age. - Family history: Not pertinent. - : The pt / caregiver states he / she is not on anticoagulants. Home medication list is obtained from the patient. - Exposure Risk Screening:: None identified. Vital Signs: 03/06 17:30 BP 161 / 60; Pulse 128; Resp 20; Temp 97.0(O); Pulse Ox 99% on R/A; Weight 92.99 kg / sew 205.01 lbs; Height 6 ft. 0 in. (182.88 cm); Pain 0/10; 18:43 BP 151 / 67 Supine; Pulse 129; ms18 18:43 BP 148 / 68 Sitting; Pulse 132; ms18 18:43 BP 129 / 58 Standing; Pulse 135; Resp 26; ms18 18:43 Pulse 122; ms18 20:00 BP 142 / 65; Pulse 141; Resp 24; Temp 98.5(O); Pulse Ox 100% on R/A; Pain 0/10; ls3 20:30 BP 161 / 73 (auto/); mlc 20:45 BP 146 / 66 (auto/); mlc 21:00 BP 133 / 61 (auto/); mlc 21:00 Pulse 134 MON; Pulse Ox 100% ; mlc 21:15 BP 122 / 70 (auto/); mlc 21:16 Pulse 138 MON; Pulse Ox 99% ; mlc 21:30 Pulse 134 MON; Pulse Ox 94% ; mlc 21:30 BP 136 / 62 (auto/); mlc 21:45 Pulse 130 MON; Pulse Ox 99% ; mlc 21:45 BP 152 / 65 (auto/); mlc 22:00 BP 124 / 60 (auto/); mlc 22:01 Pulse 130 MON; Resp 20; Pulse Ox 100% ; mlc 22:15 BP 118 / 62 (auto/); mlc 22:16 Pulse 128 MON; Pulse Ox 100% ; mlc 22:30 BP 126 / 60 (auto/); mlc 22:30 Pulse 146 MON; Pulse Ox 100% ; mlc 22:43 Pulse 130 MON; Pulse Ox 100% ; mlc 22:51 BP 133 / 60; Pulse 134; Resp 18; Temp 100.9(TE); Pulse Ox 100% on R/A; Pain 0/10; rn1 17:30 Body Mass Index 27.80 (92.99 kg, 182.88 cm) sew MDM: 17:47 Accucheck ordered. ld5 17:53 Fingerstick Blood Sugar Ordered. EDMS 18:00 Fingerstick Blood Sugar Reviewed. ar2 18:01 IV Saline Lock ordered. ar2 18:01 Orthostatic VS ordered. ar2 18:01 NS 0.9% 1000 ml IV at bolus once ordered. ar2 18:01 Ondansetron 4 mg IVP once ordered. ar2 18:02 CBC with Diff Ordered. EDMS 18:02 MED Profile Ordered. EDMS 18:02 Lactic Acid (Hurst tube on ice) Ordered. EDMS 18:02 Creatine Phosphokinase Ordered. EDMS 18:02 Liver Profile Ordered. EDMS 18:02 UA Ordered. EDMS 18:20 ACETONE/KETONE Ordered. EDMS 18:36 Misc. Nursing Order ordered. ar2 18:36 Pulse ox continuous ordered. ar2 18:44 Financial registration complete. zo 19:04 [facility] Payment Agreement was scanned into [employer] and attached to record. zo 19:47 CBC with Diff Reviewed. ar2 19:47 UA Reviewed. ar2 19:49 ECG WITH READING ER PHYS+CARDIAG ordered. EDMS 20:07 LIPASE Ordered. EDMS 20:15 MED Profile Reviewed. ar2 20:15 Liver Profile Reviewed. ar2 20:15 Lactic Acid (Hurst tube on ice) Reviewed. ar2 20:15 Creatine Phosphokinase Reviewed. ar2 20:17 Tariff Expert/Pulse Ox/q 15 min VS ordered. ar2 20:21 Call Respiratory ordered. ar2 20:22 MED Profile Reviewed. ar2 20:22 Liver Profile Reviewed. ar2 20:22 ACETONE/KETONE Reviewed. ar2 20:22 Creatine Phosphokinase Reviewed. ar2 20:22 LIPASE Reviewed. ar2 20:23 -Arterial Blood Gas Ordered. EDMS 20:25 BED REQUEST+ADM ordered. EDMS 20:27 Call Respiratory complete. ml3 20:27 Insulin Regular Human 5 units IVP once ordered. mm11 20:27 Accucheck hourly ordered. mm11 20:30 Osmolality, Serum Ordered. EDMS 20:31 NS 0.9% 1000 ml IV at bolus once ordered. ar2 21:12 -Arterial Blood Gas Reviewed. ar2 21:12 Osmolality, Serum Reviewed. ar2 21:20 Fingerstick Blood Sugar Ordered. EDMS 21:22 Fingerstick Blood Sugar Reviewed. mm11 22:08 Admission / Observation Status ordered. EDMS 22:08 CONSISTENT CARBOHYDRATES ordered. EDMS 22:09 COMPLETE BLOOD COUNT Ordered. EDMS 22:09 BASIC METABOLIC PROFILE Ordered. EDMS 22:16 BASIC METABOLIC PROFILE Ordered. EDMS 22:16 ARTERIAL BLOOD GAS Ordered. EDMS 22:17 HEMOGLOBIN A1C Ordered. EDMS 22:53 Sodium Bicarbonate 1 amp IVP once; PER PHARMACY, PLACED ON SYRINE PUMP ordered. jo3 22:55 Written Provider Order was scanned into [employer] and attached to record. ml3 23:07 ARTERIAL BLOOD GAS Ordered. EDMS 23:07 BASIC METABOLIC PROFILE Ordered. EDMS 23:07 BASIC METABOLIC PROFILE Ordered. EDMS 23:07 BASIC METABOLIC PROFILE Ordered. EDMS 23:07 BASIC METABOLIC PROFILE Ordered. EDMS 23:07 BASIC METABOLIC PROFILE Ordered. EDMS 23:07 BASIC METABOLIC PROFILE Ordered. EDMS 23:07 BLOOD CULTURES Ordered. EDMS 23:11 MRSA SCREEN Ordered. EDMS 03/07 09:37 T-Sheet-- Draft Copy was scanned into [employer] and attached to record. gb Point of Care Testing: Blood Glucose: 03/06 17:47 Blood Glucose: 213 mg/dL; ld5 21:01 Blood Glucose: 251 mg/dL; mlc 22:05 Blood Glucose: 239 mg/dL; mlc Ranges: Administered Medications: 18:30 Drug: NS 0.9% 1000 ml [sodium chloride 0.9 % intravenous solution] Route: IV; Rate: ms18 bolus; Site: left antecubital; 18:30 Drug: Ondansetron 4 mg [ondansetron HCl 2 mg/mL intravenous solution (2 mL)] Route: ms18 IVP; Site: left antecubital; 20:37 Drug: Insulin Regular Human 5 units [insulin regular human 100 unit/mL injection mlc solution (0.05 mL)] {Co-Signature: cliff (Iris Briceño RN).} Route: IVP; Site: left antecubital; 20:50 Drug: NS 0.9% 1000 ml [sodium chloride 0.9 % intravenous solution] Route: IV; Rate: mlc bolus; Site: left antecubital; 22:53 Drug: Sodium Bicarbonate 1 amp Route: IVP; Site: left antecubital; jo3 Signatures: Dispatcher [employer] EDMS Kwaku Horan,EMILY RN ms2 Qing Peterson, Reg Reg gb Grzegorz Roman, Manufacturing Recruiter Unit ml3 Marysol CruzRN RN jo3 Blossom Walton Matthew, DO DO mm11 Barrie King, PA-Gabriel PATito ar2 Dionne Adams RN RN ld5 Tessa Curiel RN RN mlc Smith, Mallory, RN RN ms18 Iris coronado The chart was reviewed and I authenticate all verbal orders and agree with the evaluation and treatment provided.Corrections: (The following items were deleted from the chart) 18:20 18:15 ACETONE/KETONE+LAB ordered. EDMS EDMS 20:06 20:04 LIPASE+LAB ordered. EDMS EDMS 22:16 22:09 ARTERIAL BLOOD GAS ordered. EDMS EDMS Attachments: 19:04 [facility] Payment Agreement zo 22:55 Written Provider Order ml3 03/07 09:37 T-Sheet-- Draft Copy gb Chart Complete MTDD
--- NOTE | 2016-03-10 10:09 | EDDOCDS ---
Physician Documentation [facility] Name: Danny Isaac Age: 46 yrs Sex: Male : 1970 Arrival Date: 03/06/2016 Time: 17:27 Bed 12 Private MD: Danny Flores Disposition: 03/06/16 20:33 Hospitalization ordered by Ashley Block for Inpatient Admission. Preliminary diagnosis are Diabetes mellitus due to underlying condition with ketoacidosis, Dehydration. - Bed requested for M ICU. - Status is Inpatient Admission. ms2 - Condition is Stable. - Problem is new. - Symptoms are unchanged. Historical: - Allergies: no known allergies; - Home Meds: 1. Advair Diskus 250-50 mcg/dose Inhl dsdv 1 puff 2 times per day 2. metformin 850 mg Oral tab 1 tab 3 times per day 3. Invokana oral oral Unknown once daily 4. Zetia 10 mg Oral tab 1 tab once daily 5. lisinopril 40 mg Oral tab 1 tab once daily 6. Singulair 10 mg Oral tab 1 tab once daily - PMHx: Diabetes - NIDDM: uncontrolled; Hypercholesterolemia; Asthma; - PSHx: Tonsillectomy; - Social history: Smoking status: Patient states former smoker of tobacco. No barriers to communication noted, The patient speaks fluent Greenlandic, Speaks appropriately for age. - Family history: Not pertinent. - : The pt / caregiver states he / she is not on anticoagulants. Home medication list is obtained from the patient. - Exposure Risk Screening:: None identified. Vital Signs: 03/06 17:30 BP 161 / 60; Pulse 128; Resp 20; Temp 97.0(O); Pulse Ox 99% on R/A; Weight 92.99 kg / sew 205.01 lbs; Height 6 ft. 0 in. (182.88 cm); Pain 0/10; 18:43 BP 151 / 67 Supine; Pulse 129; ms18 18:43 BP 148 / 68 Sitting; Pulse 132; ms18 18:43 BP 129 / 58 Standing; Pulse 135; Resp 26; ms18 18:43 Pulse 122; ms18 20:00 BP 142 / 65; Pulse 141; Resp 24; Temp 98.5(O); Pulse Ox 100% on R/A; Pain 0/10; ls3 20:30 BP 161 / 73 (auto/); mlc 20:45 BP 146 / 66 (auto/); mlc 21:00 BP 133 / 61 (auto/); mlc 21:00 Pulse 134 MON; Pulse Ox 100% ; mlc 21:15 BP 122 / 70 (auto/); mlc 21:16 Pulse 138 MON; Pulse Ox 99% ; mlc 21:30 Pulse 134 MON; Pulse Ox 94% ; mlc 21:30 BP 136 / 62 (auto/); mlc 21:45 Pulse 130 MON; Pulse Ox 99% ; mlc 21:45 BP 152 / 65 (auto/); mlc 22:00 BP 124 / 60 (auto/); mlc 22:01 Pulse 130 MON; Resp 20; Pulse Ox 100% ; mlc 22:15 BP 118 / 62 (auto/); mlc 22:16 Pulse 128 MON; Pulse Ox 100% ; mlc 22:30 BP 126 / 60 (auto/); mlc 22:30 Pulse 146 MON; Pulse Ox 100% ; mlc 22:43 Pulse 130 MON; Pulse Ox 100% ; mlc 22:51 BP 133 / 60; Pulse 134; Resp 18; Temp 100.9(TE); Pulse Ox 100% on R/A; Pain 0/10; rn1 17:30 Body Mass Index 27.80 (92.99 kg, 182.88 cm) sew MDM: 17:47 Accucheck ordered. ld5 17:53 Fingerstick Blood Sugar Ordered. EDMS 18:00 Fingerstick Blood Sugar Reviewed. ar2 18:01 IV Saline Lock ordered. ar2 18:01 Orthostatic VS ordered. ar2 18:01 NS 0.9% 1000 ml IV at bolus once ordered. ar2 18:01 Ondansetron 4 mg IVP once ordered. ar2 18:02 CBC with Diff Ordered. EDMS 18:02 MED Profile Ordered. EDMS 18:02 Lactic Acid (Hurst tube on ice) Ordered. EDMS 18:02 Creatine Phosphokinase Ordered. EDMS 18:02 Liver Profile Ordered. EDMS 18:02 UA Ordered. EDMS 18:20 ACETONE/KETONE Ordered. EDMS 18:36 Misc. Nursing Order ordered. ar2 18:36 Pulse ox continuous ordered. ar2 18:44 Financial registration complete. zo 19:04 [facility] Payment Agreement was scanned into [employer] and attached to record. zo 19:47 CBC with Diff Reviewed. ar2 19:47 UA Reviewed. ar2 19:49 ECG WITH READING ER PHYS+CARDIAG ordered. EDMS 20:07 LIPASE Ordered. EDMS 20:15 MED Profile Reviewed. ar2 20:15 Liver Profile Reviewed. ar2 20:15 Lactic Acid (Hurst tube on ice) Reviewed. ar2 20:15 Creatine Phosphokinase Reviewed. ar2 20:17 Wildland Fire Fighter/Pulse Ox/q 15 min VS ordered. ar2 20:21 Call Respiratory ordered. ar2 20:22 MED Profile Reviewed. ar2 20:22 Liver Profile Reviewed. ar2 20:22 ACETONE/KETONE Reviewed. ar2 20:22 Creatine Phosphokinase Reviewed. ar2 20:22 LIPASE Reviewed. ar2 20:23 -Arterial Blood Gas Ordered. EDMS 20:25 BED REQUEST+ADM ordered. EDMS 20:27 Call Respiratory complete. ml3 20:27 Insulin Regular Human 5 units IVP once ordered. mm11 20:27 Accucheck hourly ordered. mm11 20:30 Osmolality, Serum Ordered. EDMS 20:31 NS 0.9% 1000 ml IV at bolus once ordered. ar2 21:12 -Arterial Blood Gas Reviewed. ar2 21:12 Osmolality, Serum Reviewed. ar2 21:20 Fingerstick Blood Sugar Ordered. EDMS 21:22 Fingerstick Blood Sugar Reviewed. mm11 22:08 Admission / Observation Status ordered. EDMS 22:08 CONSISTENT CARBOHYDRATES ordered. EDMS 22:09 COMPLETE BLOOD COUNT Ordered. EDMS 22:09 BASIC METABOLIC PROFILE Ordered. EDMS 22:16 BASIC METABOLIC PROFILE Ordered. EDMS 22:16 ARTERIAL BLOOD GAS Ordered. EDMS 22:17 HEMOGLOBIN A1C Ordered. EDMS 22:53 Sodium Bicarbonate 1 amp IVP once; PER PHARMACY, PLACED ON SYRINE PUMP ordered. jo3 22:55 Written Provider Order was scanned into [employer] and attached to record. ml3 23:07 ARTERIAL BLOOD GAS Ordered. EDMS 23:07 BASIC METABOLIC PROFILE Ordered. EDMS 23:07 BASIC METABOLIC PROFILE Ordered. EDMS 23:07 BASIC METABOLIC PROFILE Ordered. EDMS 23:07 BASIC METABOLIC PROFILE Ordered. EDMS 23:07 BASIC METABOLIC PROFILE Ordered. EDMS 23:07 BASIC METABOLIC PROFILE Ordered. EDMS 23:07 BLOOD CULTURES Ordered. EDMS 23:11 MRSA SCREEN Ordered. EDMS 03/07 09:37 T-Sheet-- Draft Copy was scanned into [employer] and attached to record. gb Point of Care Testing: Blood Glucose: 03/06 17:47 Blood Glucose: 213 mg/dL; ld5 21:01 Blood Glucose: 251 mg/dL; mlc 22:05 Blood Glucose: 239 mg/dL; mlc Ranges: Administered Medications: 18:30 Drug: NS 0.9% 1000 ml [sodium chloride 0.9 % intravenous solution] Route: IV; Rate: ms18 bolus; Site: left antecubital; 18:30 Drug: Ondansetron 4 mg [ondansetron HCl 2 mg/mL intravenous solution (2 mL)] Route: ms18 IVP; Site: left antecubital; 20:37 Drug: Insulin Regular Human 5 units [insulin regular human 100 unit/mL injection mlc solution (0.05 mL)] {Co-Signature: cliff (Iris Briceño RN).} Route: IVP; Site: left antecubital; 20:50 Drug: NS 0.9% 1000 ml [sodium chloride 0.9 % intravenous solution] Route: IV; Rate: mlc bolus; Site: left antecubital; 22:53 Drug: Sodium Bicarbonate 1 amp Route: IVP; Site: left antecubital; jo3 Signatures: Dispatcher [employer] EDMS Kwaku Horan,EMILY RN ms2 Qing Peterson, Reg Reg gb Grzegorz Roman, Rag Cutting Machine Operator Unit ml3 Marysol CruzRN RN jo3 Blossom Walton Matthew, DO DO mm11 Barrie King, PA-Gabriel PATito ar2 Dionne Adams RN RN ld5 Tessa Curiel RN RN mlc Smith, Mallory, RN RN ms18 Iris coronado The chart was reviewed and I authenticate all verbal orders and agree with the evaluation and treatment provided.Corrections: (The following items were deleted from the chart) 18:20 18:15 ACETONE/KETONE+LAB ordered. EDMS EDMS 20:06 20:04 LIPASE+LAB ordered. EDMS EDMS 22:16 22:09 ARTERIAL BLOOD GAS ordered. EDMS EDMS Attachments: 19:04 [facility] Payment Agreement zo 22:55 Written Provider Order ml3 03/07 09:37 T-Sheet-- Draft Copy gb Chart Complete MTDD
== END 2016-03-09 13:45 | disposition home or self-care (01) | DRG 420 ==
LOC: M ED 17:27 → M ED INP 22:05 → M ICU 23:15 → M PED 03-08 16:00
PROVIDERS: ADMIT Internal Medicine; ATTEND Family Medicine
DX: E11.65 Type 2 diabetes mellitus with hyperglycemia (principal); N17.9 Acute kidney failure, unspecified; E87.2 Acidosis; E78.5 Hyperlipidemia, unspecified; J45.909 Unspecified asthma, uncomplicated; E86.0 Dehydration; Z91.19 Patient's noncompliance with other medical treatment and regimen; Z79.899 Other long term (current) drug therapy; Z79.84 Long term (current) use of oral hypoglycemic drugs

== ENCOUNTER → 2016-03-18 | Outpatient (REF) | payer OTHER ==
[~2016-03-18] MED LIST changes: +ADV250INH INH; +BD P31MI3 XX; +INVO300T PO; +LIPI80TA PO; +LISI-538 PO; +METF850T PO; +PROA1AER INH; +SING10TA32 PO; +TOUJ1.2I SC; +ZETI10TA2 PO
== END ==
LOC: M SFHCPLAZ 08:04
PROVIDERS: ATTEND Physician Assistant Medical
DX: N18.3 Chronic kidney disease, stage 3 (moderate) (principal)

== ENCOUNTER → 2016-07-03 | Outpatient (REF) | payer OTHER ==
[2016-07-03 12:02] LABS: ALBUMIN 3.7 GM/DL (3.2-5.2); ALBUMIN/GLOBULIN RATIO 1.32 (1.00-1.93); ALKALINE PHOSPHATASE 51 U/L (45-117); ALT/SGPT 33 U/L (12-78); AMYLASE 150 U/L (25-115); ANION GAP 9 MEQ/L (8-16); AST/SGOT 14 U/L (15-37); BILIRUBIN,TOTAL 0.4 MG/DL (0.2-1.0); BLOOD UREA NITROGEN 25 MG/DL (7-18); CALCIUM LEVEL 8.8 MG/DL (8.5-10.1); CARBON DIOXIDE LEVEL 29 MEQ/L (21-32); CHLORIDE LEVEL 104 MEQ/L (98-107); CHOLESTEROL LEVEL 190 MG/DL (<200); CREATININE FOR GFR 1.09 MG/DL (0.70-1.30); GLOMERULAR FILTRATION RATE > 60.0 (>60); GLUCOSE, FASTING 137 MG/DL (70-105); GLUCOSE,RANDOM 137 MG/DL (LESS THAN 200); POTASSIUM SERUM 4.4 MEQ/L (3.5-5.1); SODIUM LEVEL 142 MEQ/L (136-145); TOTAL PROTEIN 6.5 GM/DL (6.4-8.2); TRIGLYCERIDES LEVEL 361 MG/DL (<150)
== END ==
LOC: M SFHCPLAZ 08:08
PROVIDERS: ATTEND Family Medicine
DX: E78.5 Hyperlipidemia, unspecified (principal); E55.9 Vitamin D deficiency, unspecified; E11.8 Type 2 diabetes mellitus with unspecified complications

== ENCOUNTER → 2016-07-21 | Outpatient (REF) | payer OTHER | LOC: M SFHCPLAZ 11:50 | PROVIDERS: ATTEND Family Medicine | DX: K86.1 Other chronic pancreatitis (principal) ==

== ENCOUNTER → 2016-07-28 | Outpatient (REF) | payer OTHER ==
[2016-07-28 13:38] LABS: MEAN CORPUSCULAR HEMOGLOBIN 30.8 pg (27.0-33.0); MEAN CORPUSCULAR HGB CONC 34.3 g/dl (32.0-36.5); MEAN CORPUSCULAR VOLUME 89.8 fl (80.0-96.0); WHITE BLOOD COUNT 5.8 K/mm3 (4.0-10.0)
[2016-07-28 13:48] LABS: ALBUMIN 4.1 GM/DL (3.2-5.2); ALBUMIN/GLOBULIN RATIO 1.52 (1.00-1.93); ALKALINE PHOSPHATASE 59 U/L (45-117); ALT/SGPT 36 U/L (12-78); AMYLASE 37 U/L (25-115); ANION GAP 9 MEQ/L (8-16); AST/SGOT 13 U/L (15-37); BILIRUBIN,TOTAL 0.6 MG/DL (0.2-1.0); BLOOD UREA NITROGEN 28 MG/DL (7-18); CARBON DIOXIDE LEVEL 29 MEQ/L (21-32); CHLORIDE LEVEL 104 MEQ/L (98-107); CREATININE FOR GFR 1.32 MG/DL (0.70-1.30); GLOMERULAR FILTRATION RATE > 60.0 (>60); GLUCOSE, FASTING 200 MG/DL (70-105); SODIUM LEVEL 142 MEQ/L (136-145); TOTAL PROTEIN 6.8 GM/DL (6.4-8.2)
[2016-07-28 14:01] LABS: BASOPHILS 2 % (0-4); EOSINOPHILS 4 % (0-5)
== END ==
LOC: M LABDRWAD 12:10
PROVIDERS: ATTEND Family Medicine
DX: K86.1 Other chronic pancreatitis (principal)

== ENCOUNTER → 2017-06-14 | Outpatient (REF) | payer OTHER ==
[2017-06-14 12:46] LABS: BASO # 0.1 10^3/uL (0.0-0.2); EOS # 0.4 10^3/uL (0.0-0.50); EOS % 7.7 % (0.0-3.0); HEMATOCRIT 39.3 % (42.0-52.0); HEMOGLOBIN 15.3 g/dl (13.5-17.5); IMMATURE GRANULOCYTE % 0.7 % (0-3.0); LYMPH # 1.9 10^3/uL (1.5-4.5); LYMPH % 32.9 % (24.0-44.0); MEAN CORPUSCULAR HEMOGLOBIN 33.2 pg (27.0-33.0); MEAN CORPUSCULAR VOLUME 85.2 fl (80.0-96.0); MONO # 0.4 10^3/uL (0.0-0.8); MONO % 6.8 % (0.0-5.0); NEUTROPHILS # 2.9 10^3/uL (1.8-7.7); NEUTROPHILS % 50.9 % (36.0-66.0); PLATELET COUNT, AUTOMATED 206 10^3/uL (150-450); RED BLOOD COUNT 4.61 10^6/uL (4.30-6.10); RED CELL DISTRIBUTION WIDTH 12.2 % (11.5-14.5); WHITE BLOOD COUNT 5.7 10^3/uL (4.0-10.0)
[2017-06-14 13:13] LABS: PTH INTACT 30.6 PG/ML (18.5-88.0)
[2017-06-14 13:30] LABS: ALBUMIN 3.7 GM/DL (3.2-5.2); ALBUMIN/GLOBULIN RATIO 1.19 (1.00-1.93); ALKALINE PHOSPHATASE 64 U/L (45-117); ANION GAP 12 MEQ/L (8-16); AST/SGOT 22 U/L (7-37); BILIRUBIN,TOTAL 0.6 MG/DL (0.2-1.0); BLOOD UREA NITROGEN 16 MG/DL (7-18); CALCIUM LEVEL 8.6 MG/DL (8.5-10.1); CARBON DIOXIDE LEVEL 23 MEQ/L (21-32); CHLORIDE LEVEL 104 MEQ/L (98-107); CREATININE FOR GFR 0.95 MG/DL (0.70-1.30); GLOMERULAR FILTRATION RATE > 60.0 (>60); POTASSIUM SERUM 4.4 MEQ/L (3.5-5.1); SODIUM LEVEL 139 MEQ/L (136-145); TOTAL PROTEIN 6.8 GM/DL (6.4-8.2)
[2017-06-14 13:44] LABS: POS COUNT POS FLAG
[2017-06-14 13:45] LABS: MEAN CORPUSCULAR HGB CONC 38.9 g/dl (32.0-36.5)
[2017-06-14 13:50] LABS: TOTAL 25(OH) VITAMIN D 9.8 NG/ML (30.0-100.0)
[2017-06-14 13:52] LABS: ESTIMATED AVERAGE GLUCOSE 286 MG/DL (60-110); HEMOGLOBIN A1c 11.6 %
[2017-06-14 14:45] LABS: ALT/SGPT 30 U/L (12-78); GLUCOSE, FASTING 289 MG/DL (70-100)
== END ==
LOC: M SFHCPLAZ 09:36
DX: I12.9 Hypertensive chronic kidney disease with stage 1 through stage 4 chronic kidney disease, or unspecified chronic kidney disease (principal); E11.8 Type 2 diabetes mellitus with unspecified complications; E55.9 Vitamin D deficiency, unspecified; J30.89 Other allergic rhinitis; N18.3 Chronic kidney disease, stage 3 (moderate)

== ENCOUNTER → 2018-03-08 | Outpatient (CLI) | payer SELFPAY, BC ==
[~2018-03-08] MED LIST changes: +FENO145T13 PO; -METF850T PO; +METF850T4 PO; -PROA1AER INH; +PROAAER10 INH; -ZETI10TA2 PO; +ZETI10TA30 PO
--- NOTE | 2018-03-08 14:45 | REP ---
Right tib-fib series: Four views. History: Injury. Findings: Four views of the right tibia and fibula demonstrate normal bones and joints. No fracture or subluxation is seen. There is mild osteoarthritic spurring at the inferior pole the patella and there is an Achilles calcaneal spur. Impression: Heel spur and patellar spurring. No acute bony abnormality. Electronically Signed by Kennedy Narayan MD 03/08/2018 02:36 P
--- NOTE | 2018-03-08 14:46 | REP ---
Right knee series: Five views. History: Injury. Findings: Five views of the right knee show mild patellofemoral narrowing and inferior articular spur formation. No fracture or subluxation is seen. No evidence of joint effusion. Impression: Mild patellofemoral spurring. No traumatic abnormality. Electronically Signed by Kennedy Narayan MD 03/08/2018 02:37 P
== END ==
LOC: M LRY 13:59
PROVIDERS: ATTEND Physician Assistant
DX: M76.891 Other specified enthesopathies of right lower limb, excluding foot (principal); M77.31 Calcaneal spur, right foot; S89.91XA Unspecified injury of right lower leg, initial encounter; X58.XXXA Exposure to other specified factors, initial encounter; Y92.89 Other specified places as the place of occurrence of the external cause

== ENCOUNTER → 2018-04-28 | Outpatient (REF) | payer BC, OTHER, SELFPAY ==
[~2018-04-28] MED LIST changes: +ASPI81TA85 PO; +VICT18IN
[2018-04-28 12:59] LABS: BASO % 0.6 % (0.0-1.0); EOS # 0.2 10^3/uL (0.0-0.50); EOS % 3.3 % (0.0-3.0); HEMATOCRIT 43.5 % (42.0-52.0); HEMOGLOBIN 15.1 g/dl (13.5-17.5); MEAN CORPUSCULAR HEMOGLOBIN 30.3 pg (27.0-33.0); MEAN CORPUSCULAR HGB CONC 34.7 g/dl (32.0-36.5); MEAN CORPUSCULAR VOLUME 87.3 fl (80.0-96.0); MONO # 0.4 10^3/uL (0.0-0.8); MONO % 6.8 % (0.0-5.0); NEUTROPHILS # 3.6 10^3/uL (1.8-7.7); NEUTROPHILS % 57.8 % (36.0-66.0); PLATELET COUNT, AUTOMATED 227 10^3/uL (150-450); RED BLOOD COUNT 4.98 10^6/uL (4.30-6.10); WHITE BLOOD COUNT 6.3 10^3/uL (4.0-10.0)
[2018-04-28 13:17] LABS: ALT/SGPT 43 U/L (12-78); BILIRUBIN,TOTAL 0.4 MG/DL (0.2-1.0); BLOOD UREA NITROGEN 18 MG/DL (7-18); CARBON DIOXIDE LEVEL 27 MEQ/L (21-32); CHLORIDE LEVEL 106 MEQ/L (98-107); CHOLESTEROL LEVEL 132 MG/DL (<200); CHOLESTEROL RISK RATIO 3.666 (<5); CREATININE FOR GFR 1.21 MG/DL (0.70-1.30); GLOMERULAR FILTRATION RATE > 60.0 (>60); GLUCOSE, FASTING 173 MG/DL (70-100); HDL CHOLESTEROL 36 MG/DL (>40); LDL CHOLESTEROL 48 MG/DL (<100); NON-HDL-C 96 MG/DL; POTASSIUM SERUM 4.1 MEQ/L (3.5-5.1); PTH INTACT 55.8 PG/ML (18.5-88.0); SODIUM LEVEL 141 MEQ/L (136-145); TOTAL PROTEIN 6.8 GM/DL (6.4-8.2); TRIGLYCERIDES LEVEL 241 MG/DL (<150)
[2018-04-28 13:30] LABS: MALB URINE SIEMENS 43.6 MG/L; MAU/CREAT RATIO 26.2 MCG/MG (0.0-30.0)
[2018-04-28 13:35] LABS: HEMOGLOBIN A1c 9.4 %
== END ==
LOC: M SFHCADAM 09:04
PROVIDERS: ATTEND Family Medicine
DX: E11.8 Type 2 diabetes mellitus with unspecified complications (principal); E78.5 Hyperlipidemia, unspecified; I10 Essential (primary) hypertension; E55.9 Vitamin D deficiency, unspecified; N18.3 Chronic kidney disease, stage 3 (moderate)

== ENCOUNTER 2018-05-19 10:31 | Emergency (ER) | payer BC, SELFPAY ==
[~2018-05-19] VITALS: Ht 182.9 cm; Wt 102.7 kg
[~2018-05-19 10:31] MED LIST changes: -/ATOR40TA PO; -/MOXI40TA PO; -ASPI81TA85 PO; +AVEL1TAB2 PO; +LIPI1TAB2 PO; +OXYC-517 PO; -OXYCO5TA PO; -VICT18IN
[2018-05-19] MEDS ORDERED: VICT18IN (10:39)
[2018-05-19] MEDS ORDERED: NS 1,000 ML IV ONE (11:15)
[2018-05-19 11:16] LABS: BASO % 0.7 % (0.0-1.0); EOS # 0.2 10^3/uL (0.0-0.50); EOS % 2.8 % (0.0-3.0); HEMATOCRIT 41.2 % (42.0-52.0); HEMOGLOBIN 14.3 g/dl (13.5-17.5); LYMPH # 1.6 10^3/uL (1.5-4.5); LYMPH % 30.1 % (24.0-44.0); MEAN CORPUSCULAR HEMOGLOBIN 30.8 pg (27.0-33.0); MEAN CORPUSCULAR HGB CONC 34.7 g/dl (32.0-36.5); MEAN CORPUSCULAR VOLUME 88.6 fl (80.0-96.0); MONO # 0.4 10^3/uL (0.0-0.8); MONO % 7.4 % (0.0-5.0); NEUTROPHILS # 3.2 10^3/uL (1.8-7.7); NEUTROPHILS % 58.3 % (36.0-66.0); PLATELET COUNT, AUTOMATED 187 10^3/uL (150-450); RED BLOOD COUNT 4.65 10^6/uL (4.30-6.10); WHITE BLOOD COUNT 5.4 10^3/uL (4.0-10.0)
--- NOTE | 2018-05-19 11:42 | REP ---
CHEST, TWO VIEWS: There is no evidence of acute infiltrate. No pleural effusion is seen. The heart is normal in size. The mediastinal silhouette is unremarkable. The visualized osseous structures are intact. IMPRESSION: No acute pulmonary disease. Electronically Signed by Miguel Hurst MD 05/19/2018 04:02 P
[2018-05-19 11:49] LABS: ALBUMIN 3.8 GM/DL (3.2-5.2); ALT/SGPT 33 U/L (12-78); BILIRUBIN,DIRECT 0.1 MG/DL (0.0-0.2); BILIRUBIN,TOTAL 0.5 MG/DL (0.2-1.0); BLOOD UREA NITROGEN 19 MG/DL (7-18); CALCIUM LEVEL 8.5 MG/DL (8.5-10.1); CARBON DIOXIDE LEVEL 28 MEQ/L (21-32); CHLORIDE LEVEL 106 MEQ/L (98-107); CPK CREATINE PHOSPHOKINASE 92 U/L (39-308); CREATININE FOR GFR 1.07 MG/DL (0.70-1.30); GLOMERULAR FILTRATION RATE > 60.0 (>60); GLUCOSE, FASTING 190 MG/DL (70-100); LIPASE 169 U/L (73-393); MB/CK RELATIVE INDEX 1.41 (< OR =4); NT-PRO BNP 15 PG/ML (<125); POTASSIUM SERUM 3.8 MEQ/L (3.5-5.1); SODIUM LEVEL 141 MEQ/L (136-145); THYROID STIMULATING HORMONE 0.842 uIU/ML (0.358-3.740); TOTAL PROTEIN 6.6 GM/DL (6.4-8.2); TROPONIN I < 0.02 NG/ML (< 0.10)
[2018-05-19] MEDS ORDERED: ISOVUE-370 76% 125ML VIAL (Q9967 PER ML) As Ordered ONE (12:10)
[2018-05-19] MEDS ORDERED: KETOROLAC 30 MG/ML VIAL (J1885) IV ONE (12:15)
--- NOTE | 2018-05-19 13:49 | REP ---
CT ANGIOGRAM OF THE CHEST: TECHNIQUE: Axial contrast enhanced images from the thoracic inlet to the upper abdomen using 100 mL Isovue 370 intravenous contrast material with multiplanar reformations. There is no CT evidence of pulmonary embolism. There is no thoracic aortic aneurysm or dissection. The heart is normal in size. There is no mediastinal, hilar, or chest wall lymphadenopathy. There is no pleural or pericardial effusion. There is a tiny calcified granuloma in the right upper lobe. No infiltrate is seen in either lung with mild dependent atelectatic changes. There are mild degenerative changes of the spine. Visualized upper abdominal structures are unremarkable. IMPRESSION: No CT evidence of pulmonary embolism or other acute finding. Electronically Signed by Miguel Hurst MD 05/19/2018 04:05 P
[2018-05-19] MEDS ORDERED: ASPI81TA85 PO (13:56)
[2018-05-19 14:09] VITALS: BP 125/75
--- NOTE | 2018-05-20 06:18 | ECGEPIP ---
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
== END 2018-05-19 14:27 | disposition home or self-care (01) ==
LOC: M ED 10:31
DX: R07.89 Other chest pain (principal); I10 Essential (primary) hypertension; E78.5 Hyperlipidemia, unspecified; E11.9 Type 2 diabetes mellitus without complications; J45.909 Unspecified asthma, uncomplicated; Z79.899 Other long term (current) drug therapy; Z79.51 Long term (current) use of inhaled steroids; Z79.84 Long term (current) use of oral hypoglycemic drugs
CPT/HCPCS: 36415; 71046; 71275; 80048; 80076; 82550; 82553; 83690; 83880; 84443; 85025; 85379; 93005; 93041; 94760; 99284; J1885; Q9967

== ENCOUNTER → 2018-12-30 | Outpatient (CLI) | payer OTHER ==
[~2018-12-30] MED LIST changes: +ASPI81TA85 PO; +ISOVUE-370 76% 100ML VIAL (Q9967) As Ordered ONE; +VICT18IN; +ZETI10TA16 PO; -ZETI10TA30 PO
[2018-12-30 16:08] LABS: ALT/SGPT 46 U/L (12-78); BILIRUBIN,TOTAL 0.6 MG/DL (0.2-1.0); BLOOD UREA NITROGEN 18 MG/DL (7-18); CALCIUM LEVEL 8.7 MG/DL (8.5-10.1); CARBON DIOXIDE LEVEL 27 MEQ/L (21-32); CHLORIDE LEVEL 105 MEQ/L (98-107); CPK CREATINE PHOSPHOKINASE 69 U/L (39-308); CREATININE FOR GFR 1.06 MG/DL (0.70-1.30); GLOMERULAR FILTRATION RATE > 60.0 (>60); GLUCOSE, FASTING 321 MG/DL (70-100); SODIUM LEVEL 139 MEQ/L (136-145); TOTAL PROTEIN 7.2 GM/DL (6.4-8.2)
--- NOTE | 2018-12-30 16:50 | REP ---
Clinical: Cough. Technique: Axial contrast enhanced images from the thoracic inlet to the upper abdomen with coronal and sagittal re-formations using 100 ml Isovue 370 intravenous contrast material. Comparison: 05/19/2018. Findings: Bilateral lung lozano are well-aerated and clear. No consolidation, effusion, or pneumothorax. No obvious nodule or mass lesion. Tracheobronchial tree is patent. Mediastinum demonstrates normal thoracic aorta, pulmonary vasculature and heart/pericardium. No adenopathy. Surrounding musculoskeletal structures are intact. Limited upper abdomen is unremarkable. Impression: Normal contrast enhanced chest CT. Electronically Signed by Dean Swain MD 12/30/2018 04:42 P
== END ==
LOC: M RAD 14:49
PROVIDERS: ATTEND Family Medicine
DX: E11.8 Type 2 diabetes mellitus with unspecified complications (principal); R05 Cough
CPT/HCPCS: 36415; 71260; 80053; 82550; Q9967

== ENCOUNTER → 2019-01-13 | Outpatient (CLI) | payer OTHER ==
[~2019-01-13] MED LIST changes: -ISOVUE-370 76% 100ML VIAL (Q9967) As Ordered ONE
--- NOTE | 2019-01-13 14:19 | PFTRPT ---
Site: [facility], [address] [place] [address], [id number] ID: [id number] Name: ABBY BASHIR Visit Date: 01/13/2019 Second ID: [id number] Referring Doctor: MD Flores Ryan Reviewing Doctor: Kishore Delgado MD Geriatric Nurse: Guillermina GASTON RRT Age: 49 : 1970 Sex: Male Race: Height: 71.50 Inches Weight: 217.00 Lbs BSA: 2.19 Order IDs: [id number] Requested Test(s): <RESP-PFT.DLCO> Diagnosis: R05 test meet the ATS standards for acceptability and repeatability. Pt was given four puffs of albuterol for postbronchodilator. Review Status: Not Reviewed Pre-Bronch Post-Bronch Pred Actual %Pred Actual %Chng SPIROMETRY FVC (L) 5.37 5.35 99 5.32 FEV1 (L) 4.18 3.93 94 3.96 FEV1/FVC (%) 78 74 94 74 1 FEF 25% (L/sec) 8.20 7.14 87 7.06 -1 FEF 50% (L/sec) 5.12 3.71 72 3.82 3 FEF 75% (L/sec) 1.80 1.24 69 1.27 2 FEF 25-75% (L/sec) 3.71 2.97 80 3.09 3 FEF Max (L/sec) 10.26 7.87 76 7.97 1 FIVC (L) 5.28 5.26 FIF 50% (L/sec) 5.03 4.55 90 3.36 -26 FIF Max (L/sec) 4.58 4.01 -12 MVV (L/min) 160 117 73 Expiratory Time (sec) 7.24 7.88 8 Back Extrap Vol (L) 0.14 0.14 -5 Time To FEFmax (sec) 0.100 0.088 -11 LUNG VOLUMES SVC (L) 5.18 5.39 104 IC (L) 3.55 4.46 125 ERV (L) 1.63 0.93 56 TGV (L) 3.71 3.84 103 RV (Pleth) (L) 2.08 2.91 139 TLC (Pleth) (L) 7.26 8.30 114 RV/TLC (Pleth) (%) 29 35 120 DIFFUSION DLCOunc (ml/min/mmHg) 31.80 30.97 97 DLCOcor (ml/min/mmHg) 31.80 31.33 98 DL/VA (ml/min/mmHg/L) 4.38 4.20 95 VA (L) 7.26 7.46 102 BHT (sec) 11.30 IVC (L) 5.15 TLC (SB) (L) 7.61 AIRWAYS RESISTANCE Raw (cmH2O/L/s) 1.45 0.92 63 Gaw (L/s/cmH2O) 1.03 1.12 108 sRaw (cmH2O*s) 4.76 4.09 85 sGaw (1/cmH2O*s) 0.20 0.25 123 BLOOD GASES Hgb (gm/dL) 14.2
== END ==
LOC: M CARPUL 13:33
PROVIDERS: ATTEND Family Medicine
DX: R05 Cough (principal)

== ENCOUNTER → 2019-03-03 | Outpatient (REF) | payer OTHER ==
[2019-03-03 13:38] LABS: BASO # 0.1 10^3/uL (0.0-0.2); BASO % 0.8 % (0.0-1.0); EOS # 0.2 10^3/uL (0.0-0.5); EOS % 3.5 % (0.0-3.0); HEMATOCRIT 44.3 % (42.0-52.0); HEMOGLOBIN 14.7 g/dl (13.5-17.5); LYMPH # 2.2 10^3/uL (1.5-5.0); LYMPH % 33.8 % (24.0-44.0); MEAN CORPUSCULAR HEMOGLOBIN 30.3 pg (27.0-33.0); MEAN CORPUSCULAR HGB CONC 33.2 g/dl (32.0-36.5); MEAN CORPUSCULAR VOLUME 91.3 fl (80.0-96.0); MONO # 0.6 10^3/uL (0.0-0.8); MONO % 9.2 % (0.0-5.0); NEUTROPHILS # 3.4 10^3/uL (1.5-8.5); NEUTROPHILS % 51.8 % (36.0-66.0); PLATELET COUNT, AUTOMATED 235 10^3/uL (150-450); RED BLOOD COUNT 4.85 10^6/uL (4.30-6.10); WHITE BLOOD COUNT 6.5 10^3/uL (4.0-10.0)
[2019-03-03 13:52] LABS: HEMOGLOBIN A1c 11.1 %
[2019-03-03 13:54] LABS: ALT/SGPT 44 U/L (12-78); BILIRUBIN,TOTAL 0.4 MG/DL (0.2-1.0); BLOOD UREA NITROGEN 19 MG/DL (7-18); CALCIUM LEVEL 8.9 MG/DL (8.5-10.1); CARBON DIOXIDE LEVEL 28 MEQ/L (21-32); CHLORIDE LEVEL 107 MEQ/L (98-107); CHOLESTEROL LEVEL 138 MG/DL (<200); CHOLESTEROL RISK RATIO 3.631 (<5); CPK CREATINE PHOSPHOKINASE 452 U/L (39-308); CREATININE FOR GFR 1.17 MG/DL (0.70-1.30); FREE T4 1.03 NG/DL (0.76-1.46); GLOMERULAR FILTRATION RATE > 60.0 (>60); GLUCOSE, FASTING 119 MG/DL (70-100); HDL CHOLESTEROL 38 MG/DL (>40); LDL CHOLESTEROL 48 MG/DL (<100); NON-HDL-C 100 MG/DL; POTASSIUM SERUM 3.5 MEQ/L (3.5-5.1); SODIUM LEVEL 142 MEQ/L (136-145); TOTAL PROTEIN 6.8 GM/DL (6.4-8.2); TRIGLYCERIDES LEVEL 262 MG/DL (<150); VITAMIN B12 LEVEL 613 PG/ML (247-911)
== END ==
LOC: M SFHCPLAZ 08:26
PROVIDERS: ATTEND Family Medicine
DX: E11.8 Type 2 diabetes mellitus with unspecified complications (principal); N18.3 Chronic kidney disease, stage 3 (moderate); J45.40 Moderate persistent asthma, uncomplicated

== ENCOUNTER 2019-12-12 11:48 | Emergency (ER) | payer OTHER ==
[~2019-12-12] VITALS: Ht 182.9 cm; Wt 107.6 kg
[~2019-12-12 11:48] MED LIST changes: -ASPI81TA85 PO; +ASPI81TA86 PO; -FENO145T13 PO; +FENO145T7 PO
[2019-12-12] MEDS ORDERED: BASA100I SC (12:07)
[2019-12-12] MEDS ORDERED: BREO1INH3 INH (12:07)
[2019-12-12] MEDS ORDERED: IPRATROPIUM 0.5MG/ALBUTEROL 2.5MG INH SOL UD 3ML (DUONEB) NEB ONE ×3 (13:00→15:30)
[2019-12-12] MEDS ORDERED: methylPREDNISolone 125MG 2ML VIAL IV ONE (13:00)
[2019-12-12 13:42] LABS: BASO % 0.6 % (0.0-1.0); EOS # 0.2 10^3/uL (0.0-0.5); EOS % 2.6 % (0.0-3.0); HEMATOCRIT 44.2 % (42.0-52.0); HEMOGLOBIN 14.4 g/dl (13.5-17.5); LYMPH # 1.3 10^3/uL (1.5-5.0); LYMPH % 18.6 % (24.0-44.0); MEAN CORPUSCULAR HEMOGLOBIN 29.8 pg (27.0-33.0); MEAN CORPUSCULAR HGB CONC 32.6 g/dl (32.0-36.5); MEAN CORPUSCULAR VOLUME 91.5 fl (80.0-96.0); MONO # 0.5 10^3/uL (0.0-0.8); MONO % 6.8 % (0.0-5.0); NEUTROPHILS # 5.1 10^3/uL (1.5-8.5); PLATELET COUNT, AUTOMATED 186 10^3/uL (150-450); RED BLOOD COUNT 4.83 10^6/uL (4.30-6.10); WHITE BLOOD COUNT 7.2 10^3/uL (4.0-10.0)
--- NOTE | 2019-12-12 13:44 | REPVR ---
PROCEDURE INFORMATION: Exam: XR Chest, 2 Views Exam date and time: 12/12/2019 1:25 PM Age: 49 years old Clinical indication: Cough and dyspnea; Additional info: Dyspnea/cough TECHNIQUE: Imaging protocol: XR of the chest Views: 2 views. COMPARISON: 1. CT Chest with contrast 12/30/2018 4:21 PM 2. CR - Chest, 2 view PA, Lat 05/19/2018 11:21:26 AM FINDINGS: Lungs: There is mildly increased bibasilar atelectasis. Mild new interstitial opacities bilaterally suggest edema. Pleural space: Very small bilateral pleural effusions have developed. No pneumothorax is identified. Heart/Mediastinum: The cardiomediastinal silhouette is fairly stable in appearance. Bones/joints: Degenerative changes again involve the spine. IMPRESSION: Very small bilateral pleural effusions with mild bilateral interstitial opacities suggesting edema. Electronically signed by: Oumar Rubalcava On 12/12/2019 13:43:57 PM
[2019-12-12 14:07] LABS: ALBUMIN 3.6 GM/DL (3.2-5.2); ALT/SGPT 28 U/L (12-78); BILIRUBIN,DIRECT 0.2 MG/DL (0.0-0.2); BILIRUBIN,TOTAL 0.7 MG/DL (0.2-1.0); BLOOD UREA NITROGEN 19 MG/DL (7-18); CALCIUM LEVEL 8.6 MG/DL (8.5-10.1); CARBON DIOXIDE LEVEL 27 MEQ/L (21-32); CHLORIDE LEVEL 108 MEQ/L (98-107); CK-MB VALUE MASS 2.3 NG/ML (<3.6); CPK CREATINE PHOSPHOKINASE 260 U/L (39-308); CREATININE FOR GFR 1.13 MG/DL (0.70-1.30); GLOMERULAR FILTRATION RATE > 60.0 (>60); GLUCOSE, FASTING 217 MG/DL (70-100); MB/CK RELATIVE INDEX 0.88 (< OR =4); NT-PRO BNP 467 PG/ML (<125); POTASSIUM SERUM 4.3 MEQ/L (3.5-5.1); SODIUM LEVEL 138 MEQ/L (136-145); THYROID STIMULATING HORMONE 0.898 uIU/ML (0.358-3.740); TOTAL PROTEIN 6.3 GM/DL (6.4-8.2); TROPONIN I 0.03 NG/ML (< 0.10)
[2019-12-12] MEDS ORDERED: FUROSEMIDE 40MG/4ML VIAL (J1940) IV ONE (15:30)
[2019-12-12 16:45] VITALS: O2SAT 93
[2019-12-12] MEDS ORDERED: PRED20TA PO (17:16)
[2019-12-12 17:30] VITALS: BP 122/72
--- NOTE | 2019-12-12 20:52 | ECGEPIP ---
[facility] - ED Test Date: 2019-12-12 Pat Name: ABBY BASHIR Department: Room: - Gender: Male Stamping Operator: scottie : 1970 Requested By: BOBBI Zamudio Order Number: [id number] Reading MD: Cha Singer Measurements Intervals Arrey Rate: 103 P: 56 CO: 158 QRS: -30 QRSD: 109 T: 9 QT: 330 QTc: 433 Interpretive Statements SINUS TACHYCARDIA WITH OCCASIONAL VENTRICULAR PREMATURE COMPLEXES POSSIBLE LEFT ATRIAL ENLARGEMENT SEPTAL MYOCARDIAL INFARCTION, OF INDETERMINATE AGE, CLINICAL CORRELATION POSSIBLE PRIOR INFERIOR INFARCT Electronically Signed on 12-12-2019 20:52:01 EDT by Cha Singer
--- NOTE | 2019-12-18 10:47 | ED PDOC ---
Post-Departure Follow-Up dr gonzales faxed formal report of cxr for fu Terra Patiño MD Dec 18, 2019 10:47
== END 2019-12-12 17:37 | disposition home or self-care (01) ==
LOC: M ED 11:48
DX: J45.21 Mild intermittent asthma with (acute) exacerbation (principal); J91.8 Pleural effusion in other conditions classified elsewhere; E11.9 Type 2 diabetes mellitus without complications; Z88.8 Allergy status to other drugs, medicaments and biological substances
CPT/HCPCS: 36415; 71046; 80048; 80076; 82550; 82553; 83880; 84443; 85025; 93005; 93041; 94640; 94760; 96374; 96375; 99285; J1940; J2930

== ENCOUNTER → 2019-12-14 | Outpatient (CLI) | payer OTHER ==
[~2019-12-14] MED LIST changes: +BASA100I SC; +BREO1INH3 INH; +PRED20TA PO
--- NOTE | 2019-12-14 15:11 | REPPI ---
INDICATION: PLEURAL EFFUSION, MODERATE PERSISTENT ASTHMA W/EXACERBATION COMPARISON: 12/12/2019, 05/19/2018 TECHNIQUE: PA and lateral. FINDINGS: Mediastinum and cardiac silhouette are normal. Lung lozano demonstrate chronic interstitial changes primarily involving the left base. Small bilateral pleural effusions/pleural reaction are again noted and may be slightly decreased when compared to prior examination. IMPRESSION: Small bilateral pleural effusions/pleural reaction. Minimal chronic interstitial changes at the bilateral bases (left greater than right). <Electronically signed by Dean Swain > 12/14/19 [id number]
== END ==
LOC: M PLALAB 14:28 → M PLAIMG 14:28
PROVIDERS: ATTEND Physician Assistant
DX: J90 Pleural effusion, not elsewhere classified (principal); J45.41 Moderate persistent asthma with (acute) exacerbation

== ENCOUNTER → 2019-12-14 | Outpatient (REF) | payer OTHER ==
[2019-12-14 16:13] LABS: ALBUMIN 3.5 GM/DL (3.2-5.2); ALT/SGPT 27 U/L (12-78); BILIRUBIN,TOTAL 0.6 MG/DL (0.2-1.0); BLOOD UREA NITROGEN 25 MG/DL (7-18); CALCIUM LEVEL 8.9 MG/DL (8.5-10.1); CARBON DIOXIDE LEVEL 27 MEQ/L (21-32); CHLORIDE LEVEL 104 MEQ/L (98-107); CREATININE FOR GFR 1.22 MG/DL (0.70-1.30); GLOMERULAR FILTRATION RATE > 60.0 (>60); GLUCOSE, FASTING 392 MG/DL (70-100); NT-PRO BNP 382 PG/ML (<125); POTASSIUM SERUM 4.4 MEQ/L (3.5-5.1); SODIUM LEVEL 137 MEQ/L (136-145); TOTAL PROTEIN 6.5 GM/DL (6.4-8.2); TROPONIN I 0.02 NG/ML (< 0.10)
== END ==
LOC: M SFHCPLAZ 14:28
PROVIDERS: ATTEND Physician Assistant
DX: J90 Pleural effusion, not elsewhere classified (principal); J45.41 Moderate persistent asthma with (acute) exacerbation; R05 Cough
CPT/HCPCS: 36415; 80053; 83880; 85379; U0003

== ENCOUNTER → 2019-12-15 | Outpatient (CLI) | payer OTHER ==
--- NOTE | 2019-12-18 09:53 | ECHO ---
DATE OF PROCEDURE: 12/15/2019 Age: 49 Gender: Male Height: 183 cm Weight: 105.2 kg REFERRING PHYSICIAN: JUAN C Rodriguez INDICATION: Heart failure unspecified. MEASUREMENTS: 2D Measurements: Aortic root 3.5 cm Left atrium 4.3 cm Left ventricle 4.7 cm Intraventricular septum 1.16 cm Posterior wall 1.20 cm Inferior vena cava 1.9 cm (more than 50% respiratory variation) Doppler Measurements: No aortic stenosis No aortic regurgitation Aortic valve velocity 149 cm/s LVOT velocity 67.7 cm/s Very mild mitral regurgitation No mitral stenosis Mitral E velocity 150 cm/s Mitral A velocity 112 cm/s Mitral deceleration time 127 msec No tricuspid regurgitation No pulmonic regurgitation Pulmonary artery systolic pressure 9 mmHg MITRAL ANNULAR TISSUE DOPPLER E prime septal 3.9 cm/s, E prime lateral 6.7 cm/s DESCRIPTION: Rhythm was initially sinus tachycardia. Sinus rhythm to sinus tachycardia was observed. No pericardial effusion. Image quality was fair. This was a 2D, M-mode, color flow Doppler, and pulsed wave Doppler examination including mitral annular tissue Doppler. No pericardial effusion. Image quality was fair. CONCLUSIONS: 1. Normal left ventricle size and internal dimensions at end-diastole. Moderately severe global left ventricular (LV) hypokinesis with severe reduction of overall left ventricular (LV) systolic function. Left ventricular ejection fraction (LVEF) 30% by visual estimate. Grade 2 left ventricular (LV) diastolic dysfunction (pseudonormal filling pattern). 2. Moderate mitral annular calcification. Very mild mitral regurgitation. No mitral stenosis. 3. Mild left atrial dilatation. 4. Normal right ventricle size and systolic function. Pulmonary artery systolic pressure not elevated. Suggestive of normal central venous pressure (5-10 mmHg). 5. Otherwise normal appearing echocardiogram Doppler findings. [facility]
== END ==
LOC: M CARPUL 11:47
PROVIDERS: ATTEND Physician Assistant
DX: I50.9 Heart failure, unspecified (principal); I34.0 Nonrheumatic mitral (valve) insufficiency

== ENCOUNTER → 2020-01-12 | Outpatient (REF) | payer OTHER ==
[2020-01-12 14:00] LABS: HEMOGLOBIN A1c 9.7 %
[2020-01-12 14:20] LABS: ALBUMIN 3.6 GM/DL (3.2-5.2); ALT/SGPT 23 U/L (12-78); BILIRUBIN,TOTAL 0.4 MG/DL (0.2-1.0); BLOOD UREA NITROGEN 21 MG/DL (7-18); CALCIUM LEVEL 8.9 MG/DL (8.5-10.1); CARBON DIOXIDE LEVEL 30 MEQ/L (21-32); CHLORIDE LEVEL 108 MEQ/L (98-107); CHOLESTEROL LEVEL 115 MG/DL (<200); CHOLESTEROL RISK RATIO 2.613 (<5); CREATININE FOR GFR 1.26 MG/DL (0.70-1.30); FREE T4 1.06 NG/DL (0.76-1.46); GLOMERULAR FILTRATION RATE > 60.0 (>60); GLUCOSE, FASTING 67 MG/DL (70-100); HDL CHOLESTEROL 44 MG/DL (>40); LDL CHOLESTEROL 55 MG/DL (<100); MAGNESIUM LEVEL 2.2 MG/DL (1.8-2.4); NON-HDL-C 71 MG/DL; NT-PRO BNP 225 PG/ML (<125); POTASSIUM SERUM 4.4 MEQ/L (3.5-5.1); SODIUM LEVEL 142 MEQ/L (136-145); TOTAL PROTEIN 6.5 GM/DL (6.4-8.2); TRIGLYCERIDES LEVEL 79 MG/DL (<150)
== END ==
LOC: M SFHCADAM 08:48
PROVIDERS: ATTEND Family Medicine
DX: I50.22 Chronic systolic (congestive) heart failure (principal); E78.5 Hyperlipidemia, unspecified

== ENCOUNTER 2020-03-15 16:52 | Emergency (ER) | payer OTHER ==
[2020-03-15] MEDS ORDERED: NS 1,000 ML IV SCH ×2 (17:00→18:04)
--- OUTSIDE RECORDS SUMMARY | 2020-03-15 17:00 | CCD | Continuity of Care Document ---
Author Author Danny JOHNSON MD Organization Unknown Address [facility] [place] [address] Phone [phone] Problems Active Problems Provider Date Benign hypertensive heart disease with congestive card iac failure Tuan Johnson MD Onset: 02/01/2020 Mitral valve disorder Tuan Johnson MD Onset: 02/01/2020 Electrocardiogram abnormal Tuan Johnson MD Onset: 2019 Chronic combined systolic and diastolic heart failure Tuan Johnson MD Onset: 02/01/2020 Social History Type Date Description Comments Sex Unknown ETOH Use Does not consume alcohol Tobacco Use Start: Unknown End: Unknown Patient is a former smoker Only used seldom during teenage years, quit by age 18 Smoking Status Reviewed: 02/01/20 Patient is a former smoker On ly used seldom during teenage years, quit by age 18 Exercise Type/Frequency Walks sporadically Exercise Limitations Fatigue Exercise Limitations Shortness Of Breath Allergies, Adverse Reactions, Alerts Active Allergies Reaction Severity Comments Date Canagliflozin euglycemic DKA 01/22/2020 Medications Active Medications SIG Qnty Indications Ordering Provide r Date Metoprolol Succinate ER 100mg Tablets ER 24HR 1 by mouth twice a day I50.42 Tuan Johnson MD 03/04/2020 Victoza 18mg/3ML Solution Pen-Inje ct as directed Unknown 01/31/2020 Furosemide 20mg Tablets 1 by mouth every day Unknown 01/31/2020 Potassium Chloride ER 8Meq Capsule s ER 1 by mouth every day Unknown 01/31/2020 Azelastine HCL (Nasal) 0.1% Soluti on 1-2 sprays in each nostril twice a day Unknown 01/31/2020 Atorvastatin Calcium 80mg Tablets 1 tablet Orally Once a day Unknown 01/31/2020 Breo Ellipta 200-25mcg/Inh Aerosol 1 puff Inhalation Once a day Unknown 01/31/2020 Metformin HCL 850mg Tablets 1 tab orally three times daily Unknown 01/31/2020 Basaglar Kwikpen 100 Unit/ML Solution Pen-Inject as directed Subcutaneous 62 units in the am 50 units every night Unknown 01/31/2020 Flonase Allergy Relief 50mcg/Act Suspension 2 spray in each nostril Nasally every morning Unknown 01/31/2020 Ezetimibe 10mg Tablets 1 tablet Orally Once a day Unknown 01/31/2020 Fenofibrate 145mg Tablets 1 tab Orally at bedtime Unknown 01/31/2020 Metformin HCL 850mg Tablets 1 tablet Orally tid Unknown 01/31/2020 Viagra 100mg Tablets 1 tablet as needed Orally Once a day Unknown 01/31/2020 Loratadine 10mg Tablets 1 tablet Orally Once a day Unknown 01/31/2020 Montelukast Sodium 10mg Tablets 1 tablet Orally at bedtime Unknown 01/31/2020 Albuterol Sulfate HFA 108(90Base) mcg/Act Aerosol 2 puffs Inhalation Four times a day as needed Unknown 01/31/2020 Aspirin 325mg Tablets 1 tablet orally Once a day Unknown 01/21/2020 Entresto 49-51mg Tablets 1 tablet Orally Twice a day Unknown 12/19/2019 Asmanex HFA 200mcg/Act Aerosol 1 puffs Inhalation Twice a day Unknown 0 History Medications Metoprolol Succinate ER 25mg Tablets ER 24HR 3 tablets twice a day I50.42 Tuan Johnson MD 03/01/2020 - 03/04/2020 Metoprolol Succinate ER 25mg Tablets ER 24HR 2 tablets by mouth every day I50.42 Tuan anderson MD 02/08/2020 - 02/19/2020 Metoprolol Succinate ER 25mg Tablets ER 24HR 1 by mouth every day 90tabs I50.42 Taun Johnson MD 1 04/04/2019 - 02/08/2020 Metoprolol Succinate ER 25mg Tablets ER 24HR 1 by mouth every day 30tabs I50.42 Tuan Johnson MD 1 04/03/2019 - 02/02/2020 Immunizations Description No Information Available Vital Signs Date Vital Result Comment 03/04/2020 9:17am Weight 243.00 lb Home Weight 236lb home weight Height 72 inches 6'0" BMI (Body Mass Index) 33.0 kg/m2 Heart Rate 92 /min regular with occasio nal irregularity Respiratory Rate 16 /min BP Systolic Sitting 120 mmHg Medium cuff, Ra BP Diastolic Sitting 76 mmHg Medium cuff, Ra BP Systolic Lying Down 127 mmHg BP Diastolic Lying Down 78 mmHg 02/19/2020 10:37am Weight 243.00 lb Home Weight 231lb home weight Height 72 inches 6'0" BMI (Body Mass Index) 33.0 kg/m2 Heart Rate 84 /min regular Respiratory Rate 16 /min BP Systolic Sitting 102 mmHg Medium cuff, Ra BP Diastolic Sitting 58 mmHg Medium cuff, Ra BP Systolic Lying Down 106 mmHg BP Diastolic Lying Down 60 mmHg Results Test Acquired Date Facility Test Result H/L Range Note CMP 01/12/2020 [facility] - not interfaced (315)- - Albumin Serum/Plasma 3.6 Alt - SGPT 23 Calcium Ser/Plasma Mass/Vol 8.9 Carbon Dioxide Ser/Plasm 30 Chloride Serum/Plasma 108 Alkaline Phosphatase 43 Potassium 4.4 Protein Total 6.5 Sodium 142 Ast - Sgot 15 BUN - Urea Nitrogen 21 Glucose 67 Low 70-100 Creatinine For GFR 1.26 Lipid Profile/Cardiac Risk Pro 01/12/2020 [facility] - not interfaced (315)- - Triglycerides 79 <150 Cholesterol 115 <200 HDL 44 >40.0 LDL Cholesterol 55 Chol/HDL Ratio 2.613 <5 Laboratory test finding 01/12/2020 [facility] - not interf aced (315)- - Magnesium Level 2.2 1.8-2.4 NT Probnp QN Ser/Plas 225 Thyroid Stimulating Hormone 1.100 Free T4 1.06 Hemoglobin A1c 01/12/2020 [facility] - not interfaced (315)- - Hemoglobin A1c 9.7 CBC without Differential 12/12/2019 [facility] - not inter faced (315)- - White Blood Count 7.2 5.0-10.0 Red Blood Count 4.83 4.00-5.40 Platelets 186 172-450 Hemoglobin 14.4 Hematocrit 44.2 Procedures Date Code Description Status 03/04/2020 21836 ECG 12-Lead Completed 02/01/2020 19444 ECG 12-Lead Completed 01/22/2020 82571 Treadmill/Pharmacological Monito ring Completed 01/22/2020 16613 Myocardial Perfusion Spect Multi ple Completed Medical Devices Description No Information Available Encounters Type Date Location Provider Dx Diagnosis Office Visit 03/04/2020 9:00a Main Office Tuan Johnson MD I50.42 Chronic combined systolic and diastolic hrt fail R94.31 Abnormal electrocardiogram [ ECG] [EKG] I11.0 Hypertensive heart disease w ith heart failure I34.0 Nonrheumatic mitral (valve) insufficiency Office Visit 02/19/2020 11:00a Main Office Tuan Johnson MD I50.42 Chronic combined systolic and diastolic hrt fail R94.31 Abnormal electrocardiogram [ ECG] [EKG] I11.0 Hypertensive heart disease w ith heart failure I34.0 Nonrheumatic mitral (valve) insufficiency Office Visit 02/08/2020 10:00a Main Office Tuan Johnson MD I50.42 Chronic combined systolic and diastolic hrt fail R94.31 Abnormal electrocardiogram [ ECG] [EKG] I11.0 Hypertensive heart disease w ith heart failure I34.0 Nonrheumatic mitral (valve) insufficiency Office Visit 02/01/2020 8:30a Main Office Tuan Johnson MD I50.42 Chronic combined systolic and diastolic hrt fail R94.31 Abnormal electrocardiogram [ ECG] [EKG] I11.0 Hypertensive heart disease w ith heart failure I34.0 Nonrheumatic mitral (valve) insufficiency Assessments Date Code Description Provider 03/04/2020 I50.42 Chronic combined sys tolic (congestive) and diastolic (congestive) heart failure Tuan Johnson MD 03/04/2020 R94.31 Abnormal electrocardiogram [ECG] [EKG] Tuan Johnson MD 03/04/2020 I11.0 Hypertensive heart disease with heart failure Tuan Johnson MD 03/04/2020 I34.0 Nonrheumatic mitral (valve) insu fficiency Tuan Johnson MD 02/19/2020 I50.42 Chronic combined sys tolic (congestive) and diastolic (congestive) heart failure Tuan Johnson MD 02/19/2020 R94.31 Abnormal electrocardiogram [ECG] [EKG] Tuan Johnson MD 02/19/2020 I11.0 Hypertensive heart disease with heart failure Tuan Johnson MD 02/19/2020 I34.0 Nonrheumatic mitral (valve) insu fficiency Tuan Johnson MD 02/08/2020 I50.42 Chronic combined sys tolic (congestive) and diastolic (congestive) heart failure Tuan Johnson MD 02/08/2020 R94.31 Abnormal electrocardiogram [ECG] [EKG] Tuan Johnson MD 02/08/2020 I11.0 Hypertensive heart disease with heart failure Tuan Johnson MD 02/08/2020 I34.0 Nonrheumatic mitral (valve) insu fficiency Tuan Johnson MD 02/01/2020 I50.42 Chronic combined sys tolic (congestive) and diastolic (congestive) heart failure Tuan Johnson MD 02/01/2020 R94.31 Abnormal electrocardiogram [ECG] [EKG] Tuan Johnson MD 02/01/2020 I11.0 Hypertensive heart disease with heart failure Tuan Johnson MD 02/01/2020 I34.0 Nonrheumatic mitral (valve) insu fficiency Tuan Johnson MD 01/22/2020 I50.22 Chronic systolic (congestive) he art failure Stress Nuclear/Reg Treadmill Plan of Treatment Future Appointment(s):* 03/27/2020 9:00 am - ECHO at Main Office 03/04/2020 - Tuan Johnson MD* I50.42 Chronic combined systolic (congestive) and diastolic (congestive) heart failure* New Medication:* Metoprolol Succinate ER 100 mg - 1 by mouth twice a day * Recommendations:* Remains compensated. Encouraged continued modest salt intake restriction with regular aerobic exercise Have increased his metoprolol succinate dosage to 100 mg twice a day. No change would be advised to his current Entresto therapy. Remains on low-dose furosemide and potassium but would temporarily withhold this should he develop lightheadedness or dizziness. Tentatively scheduled for follow-up echocardiogram/Doppler study March 27. LifeVest remains in situ. * R94.31 Abnormal electrocardiogram [ECG] [EKG]* Recommendations:* Remains free of symptom to suggest myocardial ischemia. Stable appearance from earlier this month. We will continue on protective combination metoprolol succinate, Entresto, atorvastatin, and aspirin. Encouraged to contact us should he deve lop effort related chest, jaw, or arm discomforts. * I11.0 Hypertensive heart disease with heart failure* Recommendations:* Current blood pressure is well controlled. Recommendations as per assessment #1. * I34.0 Nonrheumatic mitral (valve) insufficiency* Recommendations:* Auscultatory findings were unchanged from last time. No symptoms or signs of endocarditis. No special measures are deemed necessary beyond optimal blood pressure and heart failure control. SBE antibiotic prophylaxis prior to dental or surgical procedures, is not indicated for this condition according to the [place] [employer] guidelines May 2006. His echocardiogram/Doppler study will allow us to reassess valvular structure and function (hopefully this will show a decrease in insufficiency on his combination medical therapy). * All * Comments:* I will ensure that the aforementioned test findings are reported to you along with any further recommendations. Thank you for allowing me to participate in the care of your patient. Best regards. * Follow up:* Pending the findings of his echocardiogram/Doppler study. Functional Status Functional Condition Comment Date Status Independent with all ADL's Activ e Mental Status Description No Information Available Referrals Description No Information Available
--- OUTSIDE RECORDS SUMMARY | 2020-03-15 17:01 | CCD ---
Author Author [facility] Organization [facility] Address Unknown Phone Unavailable Care Team Providers Care Paper Cleaner Name Role Phone Yahaira Lemus Unavailable PROBLEMS Type Condition ICD9-CM Code [id number] Code Onset Dates Condition S tatus SNOMED Code Notes Problem CKD (chronic kidney disease) stage 3, GFR 30-59 ml/min N18.3 Active 039836571 Problem Asthma, moderate persistent J45.40 Active 4272 37265 Problem Erectile dysfunction, unspecified erectile dysfunction typ e N52.9 Active 933590838 Problem NAFLD (nonalcoholic fatty liver disease) K76.0 Active 153077760 Problem Essential hypertension I10 Active 55590462 Problem Gastroesophageal reflux disease K21.9 Active 263434586 Problem Overweight E66.3 Active 248394794 Problem Chronic systolic congestive heart failure I50.22 Active 240176321 Problem Hyperlipidemia E78.5 Active 53121850 Problem Vitamin D deficiency E55.9 Active 97801289 Problem Diabetes mellitus type 2 with complications E11.8 Active 195000870 Problem Non-seasonal allergic rhinitis, unspecified giancarlo rgic rhinitis trigger J30.89 Active 17479719 Problem Recurrent pancreatitis K86.1 Active 362126087 ALLERGIES Allergen (clinical drug ingredient) Drug/Non Drug Allergy do cumented on EMR Reaction Allergy Type Onset Date Status canagliflozin Invokana([facility] Code:[address]-71) euglycemic DKA Drug Al lergy Active ENCOUNTERS from 1971 to 2020-01-11 Encounter Location Date Provider Diagnosis [address] [address] Dec, Yahaira Lemus Chronic systolic congestive heart failur e I50.22 IMMUNIZATIONS Vaccine Route Administration Date Status Influenza (18 yrs & older) Flublok IM Intramuscular Dec 19, 2019 Administered Influenza (18 yrs & older) Flublok IM Intramuscular Jan 03, 2019 Administered Influenza (6mo & up) Fluzone IM Intramuscular Dec 29, 2016 Ad ministered TDAP 0.5mL (Boostrix) IM Intramuscular September 26, 2009 Administe red Influenza (6mo & up) Fluzone IM Intramuscular Nov 29, 2015 Ad ministered Influenza (6mo & up) Fluzone IM Intramuscular Feb 05, 2015 Ad ministered Influenza (6mo & up) Fluzone IM Intramuscular Dec 19, 2012 Ad ministered Influenza (6mo & up) Fluzone IM Intramuscular Nov 24, 2011 Ad ministered Influenza (6mo & up) Fluzone IM Intramuscular Dec 02, 2010 Ad ministered SOCIAL HISTORY Tobacco Use: Social History Observation Description Date Details (start date - stop date) Never Smoker Sex Assigned At : Social History Observation Description Sex Assigned At Unknown Education: Question Answer Notes Level of Education: Finished College Language: Question Answer Notes Languages spoken: Yoruba Adventist: Question Answer Notes Adventist No pentecostalism beliefs that would impact health care. Sexual Hx: Question Answer Notes Had sex in the last 12 months (vaginal, oral, or anal)? Yes with Women only Alcohol Screening: Question Answer Notes Did you have a drink containing alcohol in the past year? No Points 0 Interpretation Negative BMI Care Goal Follow-Up Question Answer Notes Above Normal BMI Follow-Up Lifestyle education regarding t Tobacco Use: Question Answer Notes Are you a: never smoker never smoker REASON FOR REFERRAL No Information VITAL SIGNS No information MEDICATIONS Medication SIG (Take, Route, Frequency, Duration) Start Date En d Date Status Albuterol Sulfate HFA 108 (90 Base) MCG/ACT 2 puffs In halation Four times a day as needed for 90 Active Pen [place] 31G X 6 MM as directed SQ twice a day E11.8 for 60 Active Asmanex HFA 200 MCG/ACT 1 puffs Inhalation Twice a day Nov, Active Montelukast Sodium 10 MG 1 tablet Orally at bedtime for 90 day(s) Active Loratadine 10 MG 1 tablet Orally Once a day for 30 day(s) Active Blood Glucose Test Contour Next Link 1 strip subcutane ously Four times a day DX E11.9 for 90 day(s) Active Glucometer as directed DX: E11.9 _ for 99 months May, Active Viagra 100 MG 1 tablet as needed Orally Once a day for 30 day(s) Active Metformin HCl 850 MG 1 tablet Orally AC TID for 30 day(s) Active Fenofibrate 145 MG 1 tab Orally at bedtime for 90 day(s) Active Ezetimibe 10 MG 1 tablet Orally Once a day for 90 day(s) Active Flonase 50 MCG/ACT 2 spray in each nostril Nasally every morning for 30 days Active Basaglar KwikPen 100 UNIT/ML as directed Subcutaneous 62 units in the am 50 units every night for 90 day(s) Active Metformin HCl 850 MG 1 tab orally three times daily for 90 day(s) Active Liraglutide 18 MG/3ML 1.8 Subcutaneous every morning for 30 day(s) Active Advocate Safety Lancets 1 as directed e11.9 bid for 30 days May, Active Entresto 49-51 MG 1 tablet Orally Twice a day for 30 day(s) Nov, Active Vitamin D (Cholecalciferol) 5000 UNIT 1 tab Orally Once a day Active Montelukast Sodium 10 MG 1 tablet Orally at bedtime for 90 Active Astelin 137 MCG/SPRAY 1 puff in each nostril Nasally Twice a day Active Breo Ellipta 200-25 MCG/INH 1 puff Inhalation Once a day for 30 day s Active Atorvastatin Calcium 80 MG 1 tablet Orally Once a day for 90 day(s) Active Aspirin 325 mg 325 mg 1 tablet orally Once a day for 90 day(s) Active Peak Flow Meter - as directed _ Daily for 99 months Active PROCEDURES No Information RESULTS No Results REASON FOR VISIT entresto MEDICAL (GENERAL) HISTORY Type Description Date Medical History T2DM, insulin requiring-dx at 31 yo Medical History hypertension-06/2018 EST low risk (10 METs); mild LVH, grade 1 val dys-06/2018 [facility] Medical History asthma, moderate persistent Medical History obesity, morbid Medical History allergic rhinitis-class V du [place] mite, III dog, ragweed, bluegrass, silver birch by 05/2017 zone 1 (on immuno from 10-15YO) Medical History hyperlipidemia 2B Medical History prior nicotine addiction-16 pack years, quit 21 yo-11/2011 FEV1 3.9L (89%)/ratio 90% Medical History chronic kidney disease, stage 3 Medical History NAFLD seen by 03/2013 liver US Medical History h/o pancreatitis induced by hyperTG 03/20 14 Medical History L knee mild OA by 05/2013 xray Surgical History Tonsillectomy Hospitalization History pancreatitis probably induc ed by hyperTG (presenting TG 2558), LLL PN seen by CT although maximium amylase 52, lipase 5820, - GB US 03/04-10/2013 Hospitalization History euglyclemic KA-presenting BS 260 c pH 7.06, BE -25, AKI2 c peak cr 2.1-probably 2 Invokana (but on <20 gm CBH QD diet!) 03/06-03/09/2016 Hospitalization History [facility] ED-ASthma Ex 12/12/2019 Goals Section No Information Health Concerns No Information MEDICAL EQUIPMENT No Information MENTAL STATUS No Information FUNCTIONAL STATUS No Information ASSESSMENTS Encounter Date Diagnosis Notes Dec, Chronic systolic congestive heart failur e (ICD-10 - I50.22) PLAN OF TREATMENT Medication Medication Name Sig Start Date Stop Date Flonase 50 MCG/ACT 2 spray in each nostril Nasally every morning for 30 days Atorvastatin Calcium 80 MG 1 tablet Orally Once a day for 90 day (s) Ezetimibe 10 MG 1 tablet Orally Once a day for 90 day(s) Fenofibrate 145 MG 1 tab Orally at bedtime for 90 day(s) Basaglar KwikPen 100 UNIT/ML as directed Subcutaneous 62 units in the am 50 units every night for 90 day(s) Entresto 49-51 MG 1 tablet Orally Twice a day for 30 day(s) 20 O 2019 Metformin HCl 850 MG 1 tab orally three times daily for 90 day(s ) Astelin 137 MCG/SPRAY 1 puff in each nostril Nasally Twice a day Montelukast Sodium 10 MG 1 tablet Orally at bedtime for 90 day(s ) Breo Ellipta 200-25 MCG/INH 1 puff Inhalation Once a day for 30 days Liraglutide 18 MG/3ML 1.8 Subcutaneous every morning for 30 day( s) Viagra 100 MG 1 tablet as needed Orally Once a day for 30 day( s) Pen [place] 31G X 6 MM as directed SQ twice a day E11.8 for 60 Blood Glucose Test Contour Next Link 1 strip subcutane ously Four times a day DX E11.9 for 90 day(s) Vitamin D (Cholecalciferol) 5000 UNIT 1 tab Orally Once a day Peak Flow Meter - as directed _ Daily for 99 months Albuterol Sulfate HFA 108 (90 Base) MCG/ACT 2 puffs In halation Four times a day as needed for 90 Asmanex HFA 200 MCG/ACT 1 puffs Inhalation Twice a day 12 Nov, 020 Metformin HCl 850 MG 1 tablet Orally AC TID for 30 day(s) Loratadine 10 MG 1 tablet Orally Once a day for 30 day(s) Next Appt Details Provider Name:Argelia Medrano, 2019-03 11:15:00 AM, [address] [place], [address], Insurance Providers Payer Name Payer Address Payer Phone Insured Name Patient Relati onship to Insured Coverage Start Date Coverage End Date [facility] CORPORATE CLAIMS DEPT [address] [facility] [phone] ABBY BASHIR self
--- OUTSIDE RECORDS SUMMARY | 2020-03-15 17:01 | CCD ---
Author Author [facility] [facility] Organization [facility] Address Unknown Phone Unavailable Care Team Providers Care Manager Private Name Role Phone Danny Flores Unavailable PROBLEMS Type Condition ICD9-CM Code [id number] Code Onset Dates Condition S tatus SNOMED Code Notes Problem CKD (chronic kidney disease) stage 3, GFR 30-59 ml/min N18.3 Active 904319525 Problem Asthma, moderate persistent J45.40 Active 4272 53062 Problem Erectile dysfunction, unspecified erectile dysfunction typ e N52.9 Active 206729374 Problem NAFLD (nonalcoholic fatty liver disease) K76.0 Active 808819920 Problem Essential hypertension I10 Active 09370453 Problem Gastroesophageal reflux disease K21.9 Active 300440225 Problem Overweight E66.3 Active 782772201 Problem Chronic systolic congestive heart failure I50.22 Active 399502872 Problem Hyperlipidemia E78.5 Active 48160928 Problem Vitamin D deficiency E55.9 Active 48494368 Problem Diabetes mellitus type 2 with complications E11.8 Active 281984484 Problem Non-seasonal allergic rhinitis, unspecified giancarlo rgic rhinitis trigger J30.89 Active 83893486 Problem Recurrent pancreatitis K86.1 Active 078542702 ALLERGIES Allergen (clinical drug ingredient) Drug/Non Drug Allergy do cumented on EMR Reaction Allergy Type Onset Date Status canagliflozin Invokana([facility] Code:[address]-39) euglycemic DKA Drug Al lergy Active ENCOUNTERS from 1971 to 2020-01-11 Encounter Location Date Provider Diagnosis [address] [address] Dec, 020 Danny Flores IMMUNIZATIONS Vaccine Route Administration Date Status Influenza [...] College Language: Question Answer Notes Languages spoken: Spanish Muslim: Question Answer Notes Muslim No buddhist beliefs that would impact health care. Sexual [...] day as needed for 90 Active Pen [place] 31G X 6 MM as directed SQ [...] Information RESULTS No Results REASON FOR VISIT numbers and concern MEDICAL (GENERAL) HISTORY Type Description Date Medical History T2DM, insulin requiring-dx at 31 yo Medical History hypertension-06/2018 EST low risk (10 METs); mild LVH, grade 1 val dys-06/2018 [facility] Medical History asthma, moderate persistent Medical History [...] gm CBH QD diet!) 03/06-03/09/2016 Hospitalization History [facility] ED-ASthma Ex 12/12/2019 Goals Section No Information Health Concerns No Information MEDICAL EQUIPMENT No Information MENTAL STATUS No Information FUNCTIONAL STATUS No Information ASSESSMENTS No Information PLAN OF TREATMENT Medication Medication Name Sig [...] a day for 30 day( s) Pen [place] 31G X 6 MM as directed SQ [...] Details Provider Name:Argelia Medrano, 2019-03 11:15:00 AM, [facility] [place], [address], Insurance Providers Payer Name Payer Address Payer Phone Insured Name Patient Relati onship to Insured Coverage Start Date Coverage End Date [facility] CORPORATE CLAIMS DEPT [address] [facility] [phone] ABBY BASHIR self
--- OUTSIDE RECORDS SUMMARY | 2020-03-15 17:01 | CCD | Continuity of Care Document ---
Author Organization Unknown Address Unknown Phone Unavailable Problems Description No Information Available Social History Type Date Description Comments Sex Unknown Allergies, Adverse Reactions, Alerts Active Allergies Reaction Severity Comments Date Canagliflozin euglycemic DKA 01/22/2020 Medications Active Medications SIG Qnty Indications Ordering Provide r Date Aspirin 325mg Tablets 1 tablet orally Once a day for 90 day(s) Unknown 01/21/2020 Entresto 49-51mg Tablets 1 tablet Orally Twice a day for 30 day(s) Unknown 2019 Asmanex HFA 200mcg/Act Aerosol 1 puffs Inhalation Twice a day Unknown 0 Albuterol Sulfate HFA 108(90Base) mcg/Act Aerosol 2 puffs Inhalation Four times a day as needed for 90 Unknown Montelukast Sodium 10mg Tablets 1 tablet Orally at bedtime for 90 day(s) Unknown Loratadine 10mg Tablets 1 tablet Orally Once a day for 30 day(s) Unknown Viagra 100mg Tablets 1 tablet as needed Orally Once a day for 30 day(s) Unknown Metformin HCL 850mg Tablets 1 tablet Orally ac tid for 30 day(s) Unknown Fenofibrate 145mg Tablets 1 tab Orally at bedtime for 90 day(s) Unknown Ezetimibe 10mg Tablets 1 tablet Orally Once a day for 90 day(s) Unknown 000 Flonase Allergy Relief 50mcg/Act Suspension 2 spray in each nostril Nasally every morning for 30 days Unknown Basaglar Kwikpen 100 Unit/ML Solution Pen-Inject as directed Subcutaneous 62 units in the am 50 units every night for 90 day(s) Unknown Metformin HCL 850mg Tablets 1 tab orally three times daily for 90 day(s) Unknown Montelukast Sodium 10mg Tablets 1 tablet Orally at bedtime for 90 Unknown 0 000 Breo Ellipta 200-25mcg/Inh Aerosol 1 puff Inhalation Once a day for 30 days Unknown Atorvastatin Calcium 80mg Tablets 1 tablet Orally Once a day for 90 day(s) Unknown Immunizations Description No Information Available Vital Signs Description No Information Available Results Test Acquired Date Facility Test Result H/L Range Note CMP 01/12/2020 [facility] - not interfaced (315)- - Albumin Serum/Plasma 3.6 Alt - SGPT 23 Calcium Ser/Plasma Mass/Vol 8.9 Carbon Dioxide Ser/Plasm 30 Chloride Serum/Plasma 108 Alkaline Phosphatase 43 Potassium 4.4 Protein Total 6.5 Sodium 142 Ast - Sgot 15 BUN - Urea Nitrogen 21 Glucose 67 Low 70-100 Creatinine For GFR 1.26 Lipid Profile/Cardiac Risk Pro 01/12/2020 [facility] - not interfaced (315)- - Triglycerides 79 <150 Cholesterol 115 <200 HDL 44 >40.0 LDL Cholesterol 55 Chol/HDL Ratio 2.613 <5 Laboratory test finding 01/12/2020 [facility] - not interf aced (315)- - Magnesium Level 2.2 1.8-2.4 NT Probnp QN Ser/Plas 225 Thyroid Stimulating Hormone 1.100 Free T4 1.06 Hemoglobin A1c 01/12/2020 [facility] - not interfaced (315)- - Hemoglobin A1c 9.7 Procedures Date Code Description Status 01/22/2020 36918 Treadmill/Pharmacological Monito ring Completed 01/22/2020 94065 Myocardial Perfusion Spect Multi ple Completed Medical Devices Description No Information Available Encounters Description No Information Available Assessments Date Code Description Provider 01/22/2020 I50.22 Chronic systolic (congestive) he art failure Stress Nuclear/Reg Treadmill Plan of Treatment Future Appointment(s):* 02/01/2020 8:30 am - Tuan Leigh MD at Main Office Functional Status Description No Information Available Mental Status Description No Information Available Referrals Description No Information Available
--- OUTSIDE RECORDS SUMMARY | 2020-03-15 17:01 | CCD | Continuity of Care Document ---
Author Author Stress Nuclear/Reg Danny Hinds Organization Unknown Address [address] [place] [address] Phone [phone] Problems Description No Information Available Social History [...] tablet Orally at bedtime for 90 Unknown Breo Ellipta 200-25mcg/Inh Aerosol 1 puff Inhalation Once a day for 30 days Unknown Atorvastatin Calcium 80mg Tablets 1 tablet Orally Once a day for 90 day(s) Unknown Immunizations Description No Information Available Vital Signs Description No Information Available Results Description No Information Available Procedures Date Code Description Status 01/22/2020 87419 Treadmill/Pharmacological Monito ring Completed 01/22/2020 67938 Myocardial Perfusion Spect Multi ple Completed Medical Devices Description No Information Available Encounters Description No Information Available Assessments Date Code Description Provider 01/22/2020 I10 Essential (primary) hypertension Stress Nuclear/Reg Treadmill Plan of Treatment No Information Available Functional Status Description No Information Available Mental Status Description No Information Available Referrals Description No Information Available
--- OUTSIDE RECORDS SUMMARY | 2020-03-15 17:01 | CCD ---
Author Author [facility] Organization [facility] Address Unknown Phone Unavailable Care Team Providers Care Delivery Stock Clerk Name Role Phone Danny Flores Unavailable PROBLEMS Type Condition ICD9-CM Code XWC83-SI Code Onset Dates Condition S tatus SNOMED Code Notes Problem CKD (chronic kidney disease) stage 3, GFR 30-59 ml/min N18.3 Active 945276824 Problem Asthma, moderate persistent J45.40 Active 4272 56005 Problem Erectile dysfunction, unspecified erectile dysfunction typ e N52.9 Active 569535711 Problem NAFLD (nonalcoholic fatty liver disease) K76.0 Active 550753758 Problem Essential hypertension I10 Active 06600097 Problem Chronic systolic congestive heart failure I50.22 Active 957518973 Problem Overweight E66.3 Active 730544108 Problem Dilated cardiomyopathy I42.0 Active 060765138 Problem Hyperlipidemia E78.5 Active 09422033 Problem Vitamin D deficiency E55.9 Active 21196118 Problem Diabetes mellitus type 2 with complications E11.8 Active 279570428 Problem Recurrent pancreatitis K86.1 Active 141059937 Problem Non-seasonal allergic rhinitis, unspecified giancarlo rgic rhinitis trigger J30.89 Active 23629124 ALLERGIES Allergen (clinical drug ingredient) Drug/Non Drug Allergy do cumented on EMR Reaction Allergy Type Onset Date Status canagliflozin Invokana([facility] Code:[address]-62) euglycemic DKA Drug Al lergy Active ENCOUNTERS from 1971 to 2020-02-07 Encounter Location Date Provider Diagnosis [facility] [address] [place] [address] Jan, 020 Danny Flores Asthma, moderate persistent J45.40 IMMUNIZATIONS Vaccine Route Administration Date Status Influenza (18 yrs & older) Flublok IM Intramuscular Dec 19, 2019 Administered Influenza (18 yrs & older) Flublok IM Intramuscular Jan 03, 2019 Administered TDAP 0.5mL (Boostrix) IM Intramuscular September 26, 2009 Administe red Influenza (6mo & up) Fluzone IM Intramuscular Dec 29, 2016 Ad ministered Influenza (6mo & up) Fluzone IM Intramuscular Nov 29, 2015 Ad ministered Influenza (6mo & up) Fluzone IM Intramuscular Feb 05, 2015 Ad ministered Influenza (18 yrs & older) Flublok IM Intramuscular Jan 15, 2020 Administered Influenza (6mo & up) Fluzone IM [...] College Language: Question Answer Notes Languages spoken: Irish Congregation: Question Answer Notes Congregation No evangelical beliefs that would impact health care. Sexual [...] MEDICATIONS Medication SIG (Take, Route, Frequency, Duration) Notes Start Da te End Date Status Fenofibrate 145 MG 1 tab Orally at bedtime for 90 day(s) Active Asmanex HFA 200 MCG/ACT 1 puffs Inhalation Twice a day Active Ezetimibe 10 MG 1 tablet Orally Once a day for 90 day(s) Active Liraglutide 18 MG/3ML 1.8 Subcutaneous every morning for 30 day(s) Active Metformin HCl 850 MG 1 tab orally three times daily for 90 day(s) Active Peak Flow Meter - as directed _ Daily for 99 months Active Viagra 100 MG 1 tablet as needed Orally Once a day for 30 day(s) Active Montelukast Sodium 10 MG 1 tablet Orally at bedtime for 90 day(s) Active Symbicort 160-4.5 MCG/ACT 2 puffs Inhalation Twice a day for 30 Days Jan, Active Flonase 50 MCG/ACT 2 spray in each nostril Nasally every morning for 30 days Active Pen [place] 31G X 6 MM as directed SQ twice a day E11.8 for 60 Active Spironolactone 25 MG 1 tablet Orally every morning for 30 day(s) Dec, Active Atorvastatin Calcium 80 MG 1 tablet Orally Once a day for 90 day(s) Active Glucometer as directed DX: E11.9 _ for 99 months 12 May, 2 018 Active Vitamin D (Cholecalciferol) 5000 UNIT 1 tab Orally Once a day Active Aspirin 325 mg 325 mg 1 tablet orally Once a day for 90 day(s) Active Montelukast Sodium 10 MG 1 tablet Orally bedtime Active Albuterol Sulfate HFA 108 (90 Base) MCG/ACT 2 puffs In halation Four times a day as needed for 90 Active Entresto 49-51 MG 1 tablet Orally Twice a day Nov, Active Advocate Safety Lancets 1 as directed e11.9 bid for 30 days May, Active Loratadine 10 MG 1 tablet Orally Once a day for 30 day(s) Active Basaglar KwikPen 100 UNIT/ML as directed Subcutaneous 62 units in the am 50 units every night for 90 day(s) Active Loratadine 10 MG 1 tablet Orally Once a day for 30 day(s) Active Astelin 137 MCG/SPRAY 1 puff in each nostril Nasally Twice a day Active Metformin HCl 850 MG 1 tablet Orally AC TID for 30 day(s) Active Blood Glucose Test Contour Next Link 1 strip subcutane ously Four times a day DX E11.9 for 90 day(s) Active PROCEDURES No Information RESULTS No Results REASON FOR VISIT JUAN C lopez 200-25mcg inhaler MEDICAL (GENERAL) HISTORY Type Description Date Medical History T2DM, insulin requiring-dx at 31 yo Medical History hypertension, essential Medical History asthma, moderate persistent Medical History obesity, morbid Medical History allergic rhinitis-class V [place], III dog, ragweed, bluegrass, silver birch by 05/2017 zone 1 (on immuno from 10-15YO) Medical History hyperlipidemia 2B Medical History prior nicotine addiction-16 pack years, quit 21 yo-11/2011 FEV1 3.9L (89%)/ratio 90% Medical History chronic kidney disease, stage III Medical History NAFLD seen by 03/2013 liver [...] on <20 gm [facility] QD diet!) 03/06-03/09/2016 Goals Section No Information Health Concerns No Information MEDICAL EQUIPMENT No Information MENTAL STATUS No Information FUNCTIONAL STATUS No Information ASSESSMENTS Encounter Date Diagnosis Assessment Notes Treatment Notes Treatm ent Clinical Notes Jan, Asthma, moderate persistent (ICD-10 - J45.40) PLAN OF TREATMENT Medication Medication Name Sig Start Date Stop Date Metformin HCl 850 MG 1 tablet Orally AC TID for 30 day(s) Blood Glucose Test Contour Next Link 1 strip subcutane ously Four times a day DX E11.9 for 90 day(s) Astelin 137 MCG/SPRAY 1 puff in each nostril Nasally Twice a day Loratadine 10 MG 1 tablet Orally Once a day for 30 day(s) Atorvastatin Calcium 80 MG 1 tablet Orally Once a day for 90 day (s) Liraglutide 18 MG/3ML 1.8 Subcutaneous every morning for 30 day( s) Flonase 50 MCG/ACT 2 spray in each nostril Nasally every morning for 30 days Albuterol Sulfate HFA 108 (90 Base) MCG/ACT 2 puffs In halation Four times a day as needed for 90 Montelukast Sodium 10 MG 1 tablet Orally at bedtime for 90 day(s ) Asmanex HFA 200 MCG/ACT 1 puffs Inhalation Twice a day Spironolactone 25 MG 1 tablet Orally every morning for 30 day(s) Dec, Basaglar KwikPen 100 UNIT/ML as directed Subcutaneous 62 units in the am 50 units every night for 90 day(s) Peak Flow Meter - as directed _ Daily for 99 months Vitamin D (Cholecalciferol) 5000 UNIT 1 tab Orally Once a day Entresto 49-51 MG 1 tablet Orally Twice a day Nov, Ezetimibe 10 MG 1 tablet Orally Once a day for 90 day(s) Viagra 100 MG 1 tablet as needed Orally Once a day for 30 day( s) Fenofibrate 145 MG 1 tab Orally at bedtime for 90 day(s) Symbicort 160-4.5 MCG/ACT 2 puffs Inhalation Twice a day for 30 Days Jan, Metformin HCl 850 MG 1 tab orally three times daily for 90 day(s ) Insurance Providers Payer Name Payer Address Payer Phone Insured Name Patient Relati onship to Insured Coverage Start Date Coverage End Date REPLACED BY [facility] CORPORATE CLAIMS DEPT [address] [facility] [phone] ABBY BASHIR self
--- OUTSIDE RECORDS SUMMARY | 2020-03-15 17:01 | CCD ---
Author Author [facility] Organization [facility] Address Unknown Phone Unavailable Care Team Providers Care Carpenters Helper Name Role Phone Yahaira Lemus Unavailable PROBLEMS Type Condition ICD9-CM Code JTN84-GQ Code Onset Dates Condition S tatus SNOMED Code Notes Problem CKD (chronic kidney disease) stage 3, GFR 30-59 ml/min N18.3 Active 123725338 Problem Asthma, moderate persistent J45.40 Active 4272 69744 Problem Erectile dysfunction, unspecified erectile dysfunction typ e N52.9 Active 353812638 Problem NAFLD (nonalcoholic fatty liver disease) K76.0 Active 838202892 Problem Essential hypertension I10 Active 53862768 Problem Gastroesophageal reflux disease K21.9 Active 571944329 Problem Overweight E66.3 Active 643321198 Problem Chronic systolic congestive heart failure I50.22 Active 286914705 Problem Hyperlipidemia E78.5 Active 44403777 Problem Vitamin D deficiency E55.9 Active 35838270 Problem Diabetes mellitus type 2 with complications E11.8 Active 621104576 Problem Non-seasonal allergic rhinitis, unspecified giancarlo rgic rhinitis trigger J30.89 Active 81809182 Problem Recurrent pancreatitis K86.1 Active 173760632 ALLERGIES Allergen (clinical drug ingredient) Drug/Non Drug Allergy do cumented on EMR Reaction Allergy Type Onset Date Status canagliflozin Invokana([facility] Code:[address]-41) euglycemic DKA Drug Al lergy Active ENCOUNTERS from 1971 to 2020-01-11 Encounter Location Date Provider Diagnosis [address] [address] Dec, Yahaira Lemus Chronic systolic congestive heart [...] College Language: Question Answer Notes Languages spoken: Estonian Latter Day: Question Answer Notes Latter Day No anglican beliefs that would impact health care. Sexual [...] Duration) Start Date En d Date Status Asmanex HFA 200 MCG/ACT 1 puffs Inhalation Twice a day Nov, Active Pen [place] 31G X 6 MM as directed SQ twice a day E11.8 for 60 Active Peak Flow Meter - as directed _ Daily for 99 months Active Montelukast Sodium 10 MG 1 tablet Orally at bedtime for 90 day(s) Active Glucometer as directed DX: E11.9 _ for 99 months May, Active Blood Glucose Test Contour Next Link 1 strip subcutane ously Four times a day DX E11.9 for 90 day(s) Active Albuterol Sulfate HFA 108 (90 Base) MCG/ACT 2 puffs In halation Four times a day as needed for 90 Active Viagra 100 MG 1 tablet as needed Orally Once a day for 30 day(s) Active Loratadine 10 MG 1 tablet Orally Once a day for 30 day(s) Active Fenofibrate 145 MG [...] Subcutaneous every morning for 30 day(s) Active Montelukast Sodium 10 MG 1 tablet Orally at bedtime for 90 Active Astelin 137 MCG/SPRAY 1 puff in each nostril Nasally Twice a day Active Vitamin D (Cholecalciferol) 5000 UNIT 1 tab Orally Once a day Active Entresto 49-51 MG 1 tablet Orally Twice a day for 30 day(s) Nov, Active Metformin HCl 850 MG 1 tablet Orally AC TID for 30 day(s) Active Breo Ellipta 200-25 MCG/INH 1 puff Inhalation Once a day for 30 day s Active Atorvastatin Calcium 80 MG 1 tablet Orally Once a day for 90 day(s) Active Aspirin 325 mg 325 mg 1 tablet orally Once a day for 90 day(s) Active Advocate Safety Lancets 1 as directed e11.9 bid for 30 days May, Active PROCEDURES No Information RESULTS No Results REASON FOR VISIT Entresto 49-51 MG Tablet MEDICAL (GENERAL) HISTORY Type Description Date Medical History T2DM, insulin requiring-dx at 31 yo Medical History hypertension-06/2018 EST low risk (10 METs); mild LVH, grade 1 val dys-06/2018 [facility] Medical History asthma, moderate persistent Medical History [...] gm [facility] QD diet!) 03/06-03/09/2016 Hospitalization History [facility] ED-ASthma Ex 12/12/2019 Goals Section [...] 50 units every night for 90 day(s) Astelin 137 MCG/SPRAY 1 puff in each nostril Nasally Twice a day Metformin HCl 850 MG 1 tab orally three times daily for 90 day(s ) Metformin HCl 850 MG 1 tablet Orally AC TID for 30 day(s) Montelukast Sodium 10 MG 1 tablet Orally at bedtime for 90 day(s ) Breo Ellipta 200-25 MCG/INH 1 puff Inhalation Once a day for 30 days Liraglutide 18 MG/3ML 1.8 Subcutaneous every morning for 30 day( s) Viagra 100 MG 1 tablet as needed Orally Once a day for 30 day( s) Pen [place] 31G X 6 MM as directed SQ twice a day E11.8 for 60 Blood Glucose Test Contour Next Link 1 strip subcutane ously Four times a day DX E11.9 for 90 day(s) Vitamin D (Cholecalciferol) 5000 UNIT 1 tab Orally Once a day Entresto 49-51 MG 1 tablet Orally Twice a day for 30 day(s) 20 O 2019 Asmanex HFA 200 MCG/ACT 1 puffs Inhalation Twice a day Nov, 020 Peak Flow Meter - as directed _ Daily for 99 months Loratadine 10 MG 1 tablet Orally Once a day for 30 day(s) Albuterol Sulfate HFA 108 (90 Base) MCG/ACT 2 puffs In halation Four times a day as needed for 90 Next Appt Details Provider Name:Argelia Medrano, 2019-03-16 11:15:00 AM, [address] [place], [address], Insurance Providers Payer Name Payer Address Payer Phone Insured Name Patient Relati onship to Insured Coverage Start Date Coverage End Date [facility] CORPORATE CLAIMS DEPT [address] [facility] [phone] ABBY BASHIR self
--- OUTSIDE RECORDS SUMMARY | 2020-03-15 17:01 | CCD | Continuity of Care Document ---
Author Author Danny JOHNSON MD Organization Unknown Address [facility] [address] Phone [phone] Problems Active Problems Provider Date Benign hypertensive [...] Ordering Provide r Date Metoprolol Succinate ER 25mg Tablets ER 24HR 1 by mouth every day 90tabs Tuan Johnson MD 1 04/04/2019 Victoza 18mg/3ML Solution Pen-Inje ct as directed [...] Available Vital Signs Date Vital Result Comment 02/08/2020 10:02am Weight 239.00 lb Home Weight 232lb home weight Height 72 inches 6'0" BMI (Body Mass Index) 32.4 kg/m2 Heart Rate 80 /min regular Respiratory Rate 16 /min BP Systolic Sitting 108 mmHg Medium cuff, Ra BP Diastolic Sitting 72 mmHg Medium cuff, Ra BP Systolic Lying Down 108 mmHg BP Diastolic Lying Down 72 mmHg 02/01/2020 8:47am Weight 236.00 lb Home Weight 229lb home weight Height 72 inches 6'0" BMI (Body Mass Index) 32.0 kg/m2 Heart Rate 96 /min regular Respiratory Rate 16 /min BP Systolic Sitting 106 mmHg Medium cuff, Ra; 108 /72 LA BP Diastolic Sitting 72 mmHg Medium cuff, Ra; 10 8 LA BP Systolic Lying Down 108 mmHg Ra BP Diastolic Lying Down 72 mmHg Ra O2 % BldC Oximetry 94 % O2 Saturation Level with Exercise 96 % Results Test Acquired Date Facility Test Result H/L Range Note CMP 01/12/2020 [facility] - not interfaced (315)- - Albumin Serum/Plasma 3.6 Alt - SGPT 23 Calcium Ser/Plasma Mass/Vol 8.9 Carbon Dioxide Ser/Plasm 30 Chloride Serum/Plasma 108 Alkaline Phosphatase 43 Potassium 4.4 Protein Total 6.5 Sodium 142 Ast - Sgot 15 BUN - Urea Nitrogen 21 Glucose 67 Low 70-100 Creatinine For GFR 1.26 Lipid Profile/Cardiac Risk Pro 01/12/2020 [facility] - not interfaced (315)- - Triglycerides 79 <150 Cholesterol 115 <200 HDL 44 >40.0 LDL Cholesterol 55 Chol/HDL Ratio 2.613 <5 Laboratory test finding 01/12/2020 [facility] - not interf aced (315)- - Magnesium Level 2.2 1.8-2.4 NT Probnp QN Ser/Plas 225 Thyroid Stimulating Hormone 1.100 Free T4 1.06 Hemoglobin A1c 01/12/2020 [facility] - not interfaced (315)- - Hemoglobin A1c 9.7 CBC without Differential 12/12/2019 [facility] - not inter faced (315)- - White Blood Count 7.2 5.0-10.0 Red Blood Count 4.83 4.00-5.40 Platelets 186 172-450 Hemoglobin 14.4 Hematocrit 44.2 Procedures Date Code Description Status 02/01/2020 30745 ECG 12-Lead Completed 01/22/2020 35981 Treadmill/Pharmacological Monito ring Completed 01/22/2020 95217 Myocardial Perfusion Spect Multi ple Completed Medical Devices Description No Information Available Encounters Type Date Location Provider Dx Diagnosis Office Visit 02/08/2020 10:00a Main Office Tuan [...] (valve) insufficiency Assessments Date Code Description Provider 02/08/2020 I50.42 Chronic combined sys tolic (congestive) [...] Nuclear/Reg Treadmill Plan of Treatment Future Appointment(s):* 02/15/2020 10:00 am - Tuan Johnson MD at Main Office * 03/27/2020 9:00 am - ECHO at Main Office 02/08/2020 - Tuan Johnson MD* I50.42 Chronic combined systolic (congestive) and diastolic (congestive) heart failure * R94.31 Abnormal electrocardiogram [ECG] [EKG] * I11.0 Hypertensive heart disease with heart failure * I34.0 Nonrheumatic mitral (valve) insufficiency * All * Comments:* I will ensure that the aforementioned test findings are reported to you along with any further recommendations. Thank you for allowing me to participate in the care of your patient. Best regards. Functional Status Functional Condition Comment Date Status Independent with all ADL's Activ e Mental Status Description No Information Available Referrals Description No Information Available
--- OUTSIDE RECORDS SUMMARY | 2020-03-15 17:01 | CCD ---
Author Author [facility] Organization [facility] Address Unknown Phone Unavailable Care Team Providers Care Interrelated Special Education Teacher Name Role Phone Danny Flores Unavailable PROBLEMS Type Condition ICD9-CM Code [id number] Code Onset Dates Condition S tatus SNOMED Code Notes Problem CKD (chronic kidney disease) stage 3, GFR 30-59 ml/min N18.3 Active 911673421 Problem Asthma, moderate persistent J45.40 Active 4272 90737 Problem Erectile dysfunction, unspecified erectile dysfunction typ e N52.9 Active 611757038 Problem NAFLD (nonalcoholic fatty liver disease) K76.0 Active 222773786 Problem Essential hypertension I10 Active 41608416 Problem Gastroesophageal reflux disease K21.9 Active 666010431 Problem Overweight E66.3 Active 676653939 Problem Chronic systolic congestive heart failure I50.22 Active 528539247 Problem Hyperlipidemia E78.5 Active 90813263 Problem Vitamin D deficiency E55.9 Active 23664022 Problem Diabetes mellitus type 2 with complications E11.8 Active 507094339 Problem Non-seasonal allergic rhinitis, unspecified giancarlo rgic rhinitis trigger J30.89 Active 79070948 Problem Recurrent pancreatitis K86.1 Active 958268790 ALLERGIES Allergen (clinical drug ingredient) Drug/Non Drug Allergy do cumented on EMR Reaction Allergy Type Onset Date Status canagliflozin Invokana([facility] Code:[address]-57) euglycemic DKA Drug Al lergy Active ENCOUNTERS from 1971 to 2020-01-16 Encounter Location Date Provider Diagnosis [facility] [place] [address] [place] [address] Dec, Harley Flores IMMUNIZATIONS Vaccine Route Administration Date Status [...] College Language: Question Answer Notes Languages spoken: Tong[place] Church: Question Answer Notes Church No zoroastrian beliefs that would impact health care. Sexual [...] Notes Start Da te End Date Status Potassium Chloride ER 8 MEQ 1 cap Orally Daily for 30 day(s) Dec, Active Asmanex HFA 200 MCG/ACT 1 puffs Inhalation Twice a day Nov, Active Viagra 100 MG 1 tablet as needed Orally Once a day for 30 day(s) Not-Taking Basaglar KwikPen 100 UNIT/ML as directed Subcutaneous 62 units in the am 50 units every night for 90 day(s) Active Lasix 20 MG 1 tablet Orally Once a day for 30 day(s) 2019 Active Peak Flow Meter - as directed _ Daily for 99 months Active Advocate Safety Lancets 1 as directed e11.9 bid for 30 days May, Active Pen [place] 31G X 6 MM as directed SQ twice a day E11.8 for 60 Active Loratadine 10 MG 1 tablet Orally Once a day for 30 day(s) Active Breo Ellipta 200-25 MCG/INH 1 puff Inhalation Once a day for 30 days Active Fenofibrate 145 MG 1 tab Orally at bedtime for 90 day(s) Active Metformin HCl 850 MG 1 tablet Orally AC TID for 30 day(s) Not-Taking Glucometer as directed DX: E11.9 _ for 99 months 12 May, 2 018 Active Metformin HCl 850 MG 1 tab orally three times daily for 90 day(s) Active Liraglutide 18 MG/3ML 1.8 Subcutaneous every morning for 30 day(s) Active Montelukast Sodium 10 MG 1 tablet Orally bedtime Active Ezetimibe 10 MG 1 tablet Orally Once a day for 90 day(s) Active Aspirin 325 mg 325 mg 1 tablet orally Once a day for 90 day(s) Active Albuterol Sulfate HFA 108 (90 Base) MCG/ACT 2 puffs In halation Four times a day as needed for 90 Active Montelukast Sodium 10 MG 1 tablet Orally at bedtime for 90 day(s) Not-Taking Vitamin D (Cholecalciferol) 5000 UNIT 1 tab Orally Once a day Active Loratadine 10 MG 1 tablet Orally Once a day for 30 day(s) Not-Taking Flonase 50 MCG/ACT 2 spray in each nostril Nasally every morning for 30 days Active Blood Glucose Test Contour Next Link 1 strip subcutane ously Four times a day DX E11.9 for 90 day(s) Active Atorvastatin Calcium 80 MG 1 tablet Orally Once a day for 90 day(s) Active Astelin 137 MCG/SPRAY 1 puff in each nostril Nasally Twice a day Active Entresto 49-51 MG 1 tablet Orally Twice a day Nov, Active PROCEDURES No Information RESULTS No Results REASON FOR VISIT Kaden no longer for [facility] MEDICAL (GENERAL) HISTORY Type Description Date Medical History T2DM, insulin requiring-dx at 31 yo Medical History hypertension-06/2018 EST low risk (10 METs); mild LVH, grade 1 val dys-06/2018 [facility] Medical History asthma, moderate persistent Medical [...] gm [facility] QD diet!) 03/06-03/09/2016 Hospitalization History [facility] ED-ASthma Ex 12/12/2019 Goals Section No Information Health Concerns No Information MEDICAL EQUIPMENT No Information MENTAL STATUS No Information FUNCTIONAL STATUS No Information ASSESSMENTS No Information PLAN OF TREATMENT Medication Medication Name Sig Start Date Stop Date Potassium Chloride ER 8 MEQ 1 cap Orally Daily for 30 day(s) Dec, Entresto 49-51 MG 1 tablet Orally Twice a day Nov, Lasix 20 MG 1 tablet Orally Once a day for 30 day(s) Dec, Next Appt Details Provider Name:Argelia Medrano, 2019-03 10:30:00 AM, [facility] [place], [address], Insurance Providers Payer Name Payer Address Payer Phone Insured Name Patient Relati onship to Insured Coverage Start Date Coverage End Date [facility] [employer] CLAIM[facility] DEPT [address] [facility] [phone] ABBY BASHIR self
--- OUTSIDE RECORDS SUMMARY | 2020-03-15 17:01 | CCD ---
Author Author [facility] Organization [facility] Address Unknown Phone Unavailable Care Team Providers Care Escrow Secretary Name Role Phone Argelia Medrano Unavailable PROBLEMS Type Condition ICD9-CM Code QFR50-DM Code Onset Dates Condition S tatus SNOMED Code Notes Problem CKD (chronic kidney disease) stage 3, GFR 30-59 ml/min N18.3 Active 015208923 Problem Asthma, moderate persistent J45.40 Active 4272 10944 Problem Erectile dysfunction, unspecified erectile dysfunction typ e N52.9 Active 347170233 Problem NAFLD (nonalcoholic fatty liver disease) K76.0 Active 932877100 Problem Essential hypertension I10 Active 72416486 Problem Chronic systolic congestive heart failure I50.22 Active 987106826 Problem Overweight E66.3 Active 969412137 Problem Dilated cardiomyopathy I42.0 Active 110885556 Problem Hyperlipidemia E78.5 Active 90685942 Problem Vitamin D deficiency E55.9 Active 04223634 Problem Diabetes mellitus type 2 with complications E11.8 Active 022348460 Problem Recurrent pancreatitis K86.1 Active 446208962 Problem Non-seasonal allergic rhinitis, unspecified giancarlo rgic rhinitis trigger J30.89 Active 19479773 ALLERGIES Allergen (clinical drug ingredient) Drug/Non Drug Allergy do cumented on EMR Reaction Allergy Type Onset Date Status canagliflozin Invokana([facility] Code:[address]-22) euglycemic DKA Drug Al lergy Active ENCOUNTERS from 1971 to 2020-02-03 Encounter Location Date Provider Diagnosis [facility] [place] [address] [place] [address] Dec, Argelia Medrano Chronic systolic congestive heart failur e I50.22 and Encounter for immunization Z23 IMMUNIZATIONS Vaccine Route Administration Date Status Influenza [...] College Language: Question Answer Notes Languages spoken: [place] Anabaptist: Question Answer Notes Anabaptist No nondenominational beliefs that would impact health care. Sexual [...] REASON FOR REFERRAL No Information VITAL SIGNS Weight 241 lbs Dec, Height 71 in Dec, BMI 33.61 kg/m2 Dec, Heart Rate 86 /min Dec, Respiratory Rate 18 /min Dec, Temperature 96.9 degrees Fahrenheit Dec, Oximetry 95 Dec, Blood pressure systolic 110 mm Hg Dec, Blood pressure diastolic 76 mm Hg Dec, MEDICATIONS Medication SIG (Take, Route, Frequency, Duration) Notes Start Da te End Date Status Fenofibrate 145 MG 1 tab Orally at bedtime for 90 day(s) Active Breo Ellipta 200-25 MCG/INH 1 puff Inhalation Once a day for 30 days Active Ezetimibe 10 MG 1 tablet Orally Once a day for 90 day(s) Active Asmanex HFA 200 MCG/ACT 1 puffs Inhalation Twice a day Active Metformin HCl 850 MG 1 tab orally three times daily for 90 day(s) Active Peak Flow Meter - as directed _ Daily for 99 months Active Viagra 100 MG 1 tablet as needed Orally Once a day for 30 day(s) Active Montelukast Sodium 10 MG 1 tablet Orally at bedtime for 90 day(s) Active Montelukast Sodium 10 MG 1 tablet Orally bedtime Active Flonase 50 MCG/ACT 2 spray in each nostril Nasally every morning for 30 days Active Pen [place] 31G X 6 MM as directed SQ twice a day E11.8 for 60 Active Spironolactone 25 MG 1 tablet Orally every morning for 30 day(s) Dec, Active Atorvastatin Calcium 80 MG 1 tablet Orally Once a day for 90 day(s) Active Albuterol Sulfate HFA 108 (90 Base) MCG/ACT 2 puffs In halation Four times a day as needed for 90 Active Vitamin D (Cholecalciferol) 5000 UNIT 1 tab Orally Once a day Active Aspirin 325 mg 325 mg 1 tablet orally Once a day for 90 day(s) Active Glucometer as directed DX: E11.9 _ for 99 months May, 018 Active Liraglutide 18 MG/3ML 1.8 Subcutaneous every morning for 30 day(s) Active Entresto 49-51 MG 1 tablet Orally [...] DX E11.9 for 90 day(s) Active PROCEDURES from 1971 to 2020-02-03 Procedure Date Ordered Result Body Site Immunization: Flublok Quadrivalent (18 years & older) 0.5mL IM (Influenza) 2020-01-15 N/A RESULTS No Results REASON FOR VISIT recheck MEDICAL (GENERAL) HISTORY Type Description Date Medical [...] Notes Treatment Notes Treatm ent Clinical Notes Dec, Chronic systolic congestive heart failure (ICD-1 0 - I50.22) Dec, Encounter for immunization (ICD-10 - Z23) PLAN OF TREATMENT Medication Medication Name Sig [...] Once a day for 90 day (s) Asmanex HFA 200 MCG/ACT 1 puffs Inhalation Twice a day Flonase 50 MCG/ACT 2 spray in each nostril Nasally every morning for 30 days Liraglutide 18 MG/3ML 1.8 Subcutaneous every morning for 30 day( s) Montelukast Sodium 10 MG 1 tablet Orally at bedtime for 90 day(s ) Breo Ellipta 200-25 MCG/INH 1 puff Inhalation Once a day for 30 days Spironolactone 25 MG 1 tablet Orally every [...] tab Orally at bedtime for 90 day(s) Albuterol Sulfate HFA 108 (90 Base) MCG/ACT 2 puffs In halation Four times a day as needed for 90 Metformin HCl 850 MG 1 tab orally three times daily for 90 day(s ) Next Appt Details 3 Weeks c SS for chf Reason: Provider Name:Argelia Medrano, 2019-03 10:30:00 AM, [address] [place], [address], Insurance Providers Payer Name Payer Address Payer Phone Insured Name Patient Relati onship to Insured Coverage Start Date Coverage End Date [employer] DEPT [address] [facility] [phone] ABBY BASHIR self
--- OUTSIDE RECORDS SUMMARY | 2020-03-15 17:01 | CCD | Continuity of Care Document ---
Author Author Danny JOHNSON MD Organization Unknown Address [place] [address] Phone [phone] Problems Active Problems Provider Date Benign hypertensive [...] every day I50.42 Tuan anderson MD 02/08/2020 Victoza 18mg/3ML Solution Pen-Inje ct as directed [...] 1 by mouth every day 90tabs I50.42 Tuan Johnson MD 1 04/04/2019 - 02/08/2020 Metoprolol Succinate ER 25mg Tablets ER 24HR 1 by mouth every day 30tabs I50.42 Tuan Johnson MD 1 04/03/2019 - 02/02/2020 Immunizations Description No Information Available Vital Signs Date Vital Result Comment 02/19/2020 10:37am Weight 243.00 lb Home Weight 231lb home weight Height 72 inches 6'0" BMI (Body Mass Index) 33.0 kg/m2 Heart Rate 84 /min regular Respiratory Rate 16 /min BP Systolic Sitting 102 mmHg Medium cuff, Ra BP Diastolic Sitting 58 mmHg Medium cuff, Ra BP Systolic Lying Down 106 mmHg BP Diastolic Lying Down 60 mmHg 02/08/2020 10:02am Weight 239.00 lb Home Weight 232lb home weight Height 72 inches 6'0" BMI (Body Mass Index) 32.4 kg/m2 Heart Rate 80 /min regular Respiratory Rate 16 /min BP Systolic Sitting 108 mmHg Medium cuff, Ra BP Diastolic Sitting 72 mmHg Medium cuff, Ra BP Systolic Lying Down 108 mmHg BP Diastolic Lying Down 72 mmHg Results Test Acquired Date Facility Test Result H/L Range Note CMP 01/12/2020 [facility] - not interfaced (315)- - Albumin Serum/Plasma 3.6 Alt - SGPT 23 Calcium Ser/Plasma Mass/Vol 8.9 Carbon Dioxide Ser/Plasm 30 Chloride Serum/Plasma 108 Alkaline Phosphatase 43 Potassium 4.4 Protein Total 6.5 Sodium 142 Ast - Sgot 15 BUN - Urea Nitrogen 21 Glucose 67 Low 70-100 Creatinine For GFR 1.26 Lipid Profile/Cardiac Risk Pro 01/12/2020 [facility] - not interfaced (315)- - Triglycerides 79 <150 Cholesterol 115 <200 HDL 44 >40.0 LDL Cholesterol 55 Chol/HDL Ratio 2.613 <5 Laboratory test finding 01/12/2020 [facility] - not interf aced (315)- - Magnesium Level 2.2 1.8-2.4 NT Probnp QN Ser/Plas 225 Thyroid Stimulating Hormone 1.100 Free T4 1.06 Hemoglobin A1c 01/12/2020 [facility] - not interfaced (315)- - Hemoglobin A1c 9.7 CBC without Differential 12/12/2019 [facility] - not inter faced (315)- - White Blood Count 7.2 5.0-10.0 Red Blood Count 4.83 4.00-5.40 Platelets 186 172-450 Hemoglobin 14.4 Hematocrit 44.2 Procedures Date Code Description Status 02/01/2020 97619 ECG 12-Lead Completed 01/22/2020 56542 Treadmill/Pharmacological Monito ring Completed 01/22/2020 38890 Myocardial Perfusion Spect Multi ple Completed Medical Devices Description No Information Available Encounters Type Date Location Provider Dx Diagnosis Office Visit 02/19/2020 11:00a Main Office Tuan [...] (valve) insufficiency Assessments Date Code Description Provider 02/19/2020 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
--- OUTSIDE RECORDS SUMMARY | 2020-03-15 17:01 | CCD ---
Author Author [facility] Organization [facility] Address Unknown Phone Unavailable Care Team Providers Care Lawn Technician Name Role Phone Danny Flores Unavailable PROBLEMS Type Condition ICD9-CM Code WIY08-BZ Code Onset Dates Condition S tatus SNOMED Code Notes Problem CKD (chronic kidney disease) stage 3, GFR 30-59 ml/min N18.3 Active 365102021 Problem Asthma, moderate persistent J45.40 Active 4276 47336 Problem Erectile dysfunction, unspecified erectile dysfunction typ e N52.9 Active 416900106 Problem NAFLD (nonalcoholic fatty liver disease) K76.0 Active 856130093 Problem Essential hypertension I10 Active 48102375 Problem Chronic systolic congestive heart failure I50.22 Active 828123428 Problem Overweight E66.3 Active 055733326 Problem Dilated cardiomyopathy I42.0 Active 528534204 Problem Hyperlipidemia E78.5 Active 77769361 Problem Vitamin D deficiency E55.9 Active 03558282 Problem Diabetes mellitus type 2 with complications E11.8 Active 646877352 Problem Recurrent pancreatitis K86.1 Active 966230522 Problem Non-seasonal allergic rhinitis, unspecified giancarlo rgic rhinitis trigger J30.89 Active 65675142 ALLERGIES Allergen (clinical drug ingredient) Drug/Non Drug Allergy do cumented on EMR Reaction Allergy Type Onset Date Status canagliflozin Invokana([facility] Code:[address]-43) euglycemic DKA Drug Al lergy Active ENCOUNTERS from 1971 to 2020-01-29 Encounter Location Date Provider Diagnosis [address] [id number] 24 Dec, 2 [place] Danny Flores Dilated cardiomyopathy I42.0 ; Chronic systolic congestive heart failure I50.22 ; Asthma, moderate persistent J45.40 ; Diabetes mellitus type 2 with complications E11.8 ; Non-seasonal allergic rhinitis, unspecified allergic rhinitis trigger J30.89 ; Cough R05 ; Essential hypertension I10 ; Recurrent pancreatitis K86.1 ; Vitamin D deficiency E55.9 ; Hyperlipidemia E78.5 ; Erectile dysfunction, unspecified erectile dysfunction type N52.9 ; CKD (chronic kidney disease) stage 3, GFR 30-59 ml/min N18.3 ; Overweight E66.3 and NAFLD (nonalcoholic fatty liver disease) K76.0 IMMUNIZATIONS Vaccine Route Administration Date Status Influenza [...] College Language: Question Answer Notes Languages spoken: Filipino Synagogue: Question Answer Notes Synagogue No church beliefs that would impact health care. Sexual [...] FOR REFERRAL No Information VITAL SIGNS Weight 234.8 lbs Dec, Height 71 in Dec, BMI 32.74 kg/m2 Dec, Heart Rate 118 /min Dec, Respiratory Rate 18 /min Dec, Temperature 97.4 degrees Fahrenheit Dec, Oximetry 94% Dec, Blood pressure systolic 120 mm Hg Dec, Blood pressure diastolic 78 mm Hg Dec, MEDICATIONS Medication SIG (Take, [...] Meter - as directed _ Daily for months Active Viagra 100 MG 1 tablet as needed Orally Once a day for 30 day(s) Active Montelukast Sodium 10 MG 1 tablet Orally at bedtime for 90 day(s) Active Montelukast Sodium 10 MG 1 tablet Orally bedtime Active Flonase 50 MCG/ACT 2 spray in each nostril Nasally every morning for 30 days Active Pen [place] 31G X 6 MM as directed SQ [...] 99 months 12 May, 2 018 Active Liraglutide 18 MG/3ML 1.8 Subcutaneous [...] Information RESULTS No Results REASON FOR VISIT go over test results MEDICAL (GENERAL) HISTORY Type Description Date Medical [...] Treatment Notes Treatm ent Clinical Notes Dec, Dilated cardiomyopathy (ICD-10 - I42.0) Ddx: ischemic, post-viral, DM no EthOH use, no obvious precedent illness (07/05/18 TTE LVEF 60-65%) 01/22/20 NST-10 METS, LVEF 24%, severe global hypokinesis, no reversibility-case dw Dr. Leigh, favor AICD placement; therefore, referred 01/12/20 TSH/FT4 1.1/1.1 Dec, Chronic systolic congestive heart failure (ICD-1 0 - I50.22) Continue JERARDO diet, 1500 cc, defer BB given moderate persistent asthma 01/23/20 fur 20, K 8 to wes 25 qAM 01/12/20 21/1.3, 4.4, BNP 225 12/31/19 titrated to 49/51 BID 12/19/19 + sac/kathy 24/26 BID 12/15/19 TTE: moderate severe LV hypokinesis c LVEF 30%, grade 2 val dys, LAE 43, normal CVP 5-10 12/14/19 BNP 382, T-I 0.02, EKG s change 12/12/19 SMCER for acute dyspnea (worseing over previous month c increased [employer] cough-no precedent URI type sx, no EthOH use)-CXR c NEW bibasilar interstitial edema and smal bilateral pleural effusions, BNP 467 (05/19/18), CPK/T-I 260/0.03, CBCD/CMP WNL, DD 303, EKG ST 103, inferoseptal Q waves similar to 03/06/16; given fur 40 IV x 1 and diureses 1600 cc, -dx as "asthma exacerbation" and dced on prednisone 40 QD x 4D 07/05/18 TTE mild LVH, grade 1 val dys, LVEF 60-65%-[facility] 07/05/18 EST low risk (10 METs)-[facility] Dec, Asthma, moderate persistent (ICD-10 - J45.40) on BE 200, monte 10 QHS typically worse in fall-allergic rhinitis-class V dust mite, III dog, ragweed, bluegrass, silver birch by 05/2017 zone 1 (on immuno from 10-14YO) (03/03/19 IgE 239) Contingency: wean FP vs + AC (kristan), IgE (see zone 1 and IgE as above), CT chest 11/30/19 + Asmanex 200 BID to BE c PF cb in 7-10D 11/19/19 ~7D flare s precedent URI sx/F/C-treated at c pred 5D and alb MDI c improvement while on pred, but now PF ~375 using alb MDI ~2-3x QD 12/06/18 wes 3.9L (98%)/ratio 91%, 25-75 75% 08/2018 cPF 572 09/2018 PF 375-425 c persistent [employer] cough; therefore, changed Advair 250 to BE 200 (but not able to start until 12/06/18) s obvious difference 12/29/16 hold irbe x 2W (given mainly for renal protection) s change Dec, Diabetes mellitus type 2 with complications (ICD -10 - E11.8) Continue ADA diet/weight loss BP cannot tolerate ARB testing AC BID c Flex Continues glu 62/50 no SGLT given severe euglycemic DKA c Invokana 300 (but on <20 gm CBH QD diet!) Contingency: Tresiba 07/07/19 given AC br m130s, mQHS 180-200; therefore, 5050 to 62/50 c cb QHS BG in 10D 04/03/19 FSLP m232 22 TIR/TAR 77 (>250 33!), 0 TBR; therefore, glar to 50/50 03/2019 11.1 c AC br ~220 on glar 40/42 04/2018 9.4 08/2017 dulag 1.5 changed to garibay 0.6-1.8 (depending on exercise, given fatigue c vigorous exercise-although has NOT confirm c glucometer, favor 2 glucagon blocking effect of GLPi) 05/2017 11.6 06/2016 10.1; therefore, + dulag 1.5 q7D 01/2016 11.1 11/29/15 stopped Novolog insulin pump and started metformin 850 TID (patient had tolerated 1000 BID prior to pump) c c/b AC TID HBSs in 7D 10/2015 9.0 04/2015-11/22/15 patient stopped MT pump completely 01/2015 9.6, adjusted basals given mid afternoon lows 09/2014 10.6 but most days not testing at all, therefore attempt to test 2x daily (AC breakfast/dinner) and gave 60 sample test strips 05/2014 10.4, although 2W mean at visit 155, was s insulin x 4W 2 insurance 03/2014 10.5 10/2013 9.4 c MDI 160 units therefore 14,400 units for 90D supply, therefore dispense 15 vials 05/2013 8.6 therefore start daily aerobic exercise 15-20 daily, does mid afternoon hypos 3121-9802 if tight control, therefore decreased basal 06/02/2013 set up new Revel 723 11/2012 8.5 04/2012 therefore started Medtronic insulin pump and stopped metformin 1000 BID 2 to cost(which is probably of minimal benefit given low C-peptide) 04/2018 26 01/2016 12 01/2015 14 03/2013 22 04/2010 MARII/creatinine 12 09/2014 -TTG 10/2015 normal BLE 5.07 MF exam 2014 no DMR per [facility] Dec, Non-seasonal allergic rhinit is, unspecified allergic rhinitis trigger (ICD-10 - J30.89) Stable monte 10 QHS, norberto 10, FP 2 qAM, Astelin prn prior immunorx ~10-14YO c OS ETD 03/06/19 + FP 2 qAM c norberto 10 (given favor major cause of cough) 05/2017 zone 1: class V dust mite, III dog, ragweed, bluegrass, silver birch by zone 1-instructed on behavorial control patricia dust mite covers, HEPA (does have dog) Contingency: anti-H, CT MF 11/2016 increased to 1 BID 06/2016 added Dymista 1 QD and advised could use Afrin NS 30 mins prior to speaking qSun (when most symptomatic) Dec, Cough (ICD-10 - R05) favor airway HS, LPR, AR uncontrolled triggers-supine (lasts ~1H-alb MDI reduces severity, but not duration) and exercise Contingency: methacholine, Spiriva 03/2019 IgE 239 01/03/19 emperic (no ESTEVAN, dysphagia sx) + omep 40 qAM x 8W s benefit; therefore, stopped 12/06/18 favor today hoarseness 2 viral laryngitis, changed to BE as per asthma, check CT chest/neck given persistence (i refused CT neck) and PFTs and relatively normal wes today 01/13/19 PFTs normal-Delgado 12/30/18 CT chest c contrast WNL 04/2018 normal CXR, CTA chest ` new-onset since ~03/2016 hospitilization, [employer], no precedent URI, no induced by activity, worse qhs, minimal benefit c albuterol MDI Dec, Essential hypertension (ICD-10 - I10) Stable on behavorial therapy Contingency: restart irbe 12/29/16 held irbe as per asthma s obvious change in cough 07/21/16 changed lis 20 qhs to irbe 20 qhs given ? 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 Lovaza too expensive 03/2019 48/36/262, CPK 452 04/2018 48/36/241 on atorva 80, feno 145, ezet 10 06/2016 83/35/361, CPK 48 on atorva 80, ezet 10, feno 145 01/2016 non 261/!, CPK 68, CRP <0.3; therefore, readded Lovaza 2 BID and Invokana 300 qAM 10/2015 202/37/837!, CPK 58 on atorvastatin 80/fenofibrate 145 but on higher fat diet; therefore, added Zetia 10 09/2014 non 150/30/447, CPK 85 05/2014 non 154/30/456, CRP 0.8 on Lipitor 80, Tricor 145 qhs 03/2014 non 194/32/556 10/2013 CPK 95 05/2013 67/30/306 on Lipitor 80, Tricor 145 qhs 03/2013 down to non 262/21/453 therefore increased Lipitor to 80, CPK 49 03/2013 TG 2558 2 poor diet at holidays inducing acute pancreatitis 11/2012 non 286/ therefore restarted Lipitor 40 qd, Tricor 145 qhs 04/2012 patient stopped Lovaza 2 cost, hopefully c pump therapy and tighter BS control we can stop Tricor 05/2011 lipids 53/37/189 on Lipitor 40 qd, Lovaza 2 gm BID, Tricor 145 qhs and Niaspan 500 BID, Zetia 10 qd 12/2001 total 403/ prior to therapy 03/2019 1.6, 1.0 10/2015 1.0 03/2014 1.1 08/2009 TSH 1.3 24 Dec, 2019 Erectile dysfunction, unspec ified erectile dysfunction type (ICD-10 - N52.9) 10/2015 started Viagra 50/100 c coupon given inability to maintain erection c intact libido Dec, CKD (chronic kidney disease) stage 3, GFR 30-59 ml/min (ICD-10 - N18.3) Advised to avoid ANY prolonged NSAIDs 03/2019 19/1.2, 3.5 04/2018 18/1.2, 4.1, 2.0 05/2017 16/1.0, 4.4 06/2016 28/1.3, 4.0 10/2015 30/1.0, 3.8 01/2015 15/1.4, 4.2 08/2011 stable at 20/1.2 baseline cr 1.1-1.2 03/2019 14.7, 91, r35/2.1 07/2016 14.5, 90 05/2014 hemoglobin stable at 14.8 01/2015 35, 9.1 24 Dec, 2019 Overweight (ICD-10 - E66.3) Encouraged weight loss Dec, NAFLD (nonalcoholic fatty liver disease) (ICD-10 - K76.0) Continue ADA diet/weight loss 04/2019 normal LFTs PLAN OF TREATMENT Medication Medication Name Sig [...] three times daily for 90 day(s ) Treatment Notes Assessment Notes Clinical Notes NAFLD (nonalcoholic fatty liver disease) Continue ADA diet/weight loss04/2019 normal LFTs Dilated cardiomyopathy Ddx: ischemic, po st-viral, DMno EthOH use, no obvious precedent illness (07/05/18 TTE LVEF 60-65%)01/22/20 NST-10 METS, LVEF 24%, severe global hypokinesis, no reversibility-case dw Dr. Leigh, favor AICD placement; therefore, kwigiepv38/13/20 TSH/FT4 1.1/1.1 Overweight Encouraged weight lo ss Chronic systolic congestive heart failure Continue JERARDO diet, 1500 cc, defer BB given moderate persistent jugdkr60/24/20 fur 20, K 8 to wes 25 qAM103/13/19 21/1.3, 4.4, BNP 3401812/31/19 titrated to 49/51 BID12/19/19 + sac/kathy 24/26 BID12/15/19 TTE: moderate severe LV hypokinesis c LVEF 30%, grade 2 val dys, LAE 43, normal CVP 5- BNP 382, T-I 0.02, EKG s yqldgl85/13/20 SMCER for acute dyspnea (worseing over previous month c increased [employer] cough-no precedent URI type sx, no EthOH use)-CXR c NEW bibasilar interstitial edema and smal bilateral pleural effusions, BNP 467 (05/19/18 15), CPK/T-I 260/0.03, CBCD/CMP WNL, DD 303, EKG ST 103, inferoseptal Q waves similar to 03/06/16; given fur 40 IV x 1 and diureses 1600 cc, -dx as "asthma exacerbation" and dced on prednisone 40 QD x 4D07/05/18 TTE mild LVH, grade 1 val dys, LVEF 60-65%-[facility]07/05/18 EST low risk (10 METs)-[facility] Asthma, moderate persistent on BE 200, m onte 10 QHStypically worse in fall- allergic rhinitis-class V dust mite, III dog, ragweed, bluegrass, silver birch by 05/2017 zone 1 (on immuno from 10-14YO) (03/03/19 IgE 239)Contingency: wean FP vs + AC (kristan), IgE (see zone 1 and IgE as above), CT chest11/30/19 + Asmanex 200 BID to BE c PF cb in 7-10D11/19/19 ~7D flare s precedent URI sx/F/C-treated at c pred 5D and alb MDI c improvement while on pred, but now PF ~375 using alb MDI ~2-3x QD12/06/18 wes 3.9L (98%)/ratio 91%, 25-75 75%08/2018 cPF 5728/2018 PF 375-425 c persistent [employer] cough; therefore, changed Advair 250 to BE 200 (but not able to start until 12/06/18) s obvious nnvgnaorqc19/31/17 hold irbe x 2W (given mainly for renal protection) s change Diabetes mellitus type 2 with complications Continue ADA diet/weight lossBP cannot tolerate ARBtesting AC BID c FlexContinues glu 62/50no SGLT given severe euglycemic DKA c Invokana 300 (but on <20 gm CBH QD diet!)Contingency: Tresiba07/07/19 given AC br m130s, mQHS 180-200; therefore, 50/50 to 62/50 c cb QHS BG in 04/03/19 FSLP m232 22 TIR/TAR 77 (>250 33!), 0 TBR; therefore, glar to 50/501/2019 11.1 c AC br ~220 on glar 9. dulag 1.5 changed to garibay 0.6-1.8 (depending on exercise, given fatigue c vigorous exercise-although has NOT confirm c glucometer, favor 2 glucagon blocking effect of GLPi)05/2017 11. 10.1; therefore, + dulag 1.5 q7D104/2015 11. stopped Novolog insulin pump and started metformin 850 TID (patient had tolerated 1000 BID prior to pump) c c/b AC TID HBSs in 7D10/2015 9.04/2015-11/22/15 patient stopped MT pump cqfrdkvlon11/2015 9.6, adjusted basals given mid afternoon lows09/2014 10.6 but most days not testing at all, therefore attempt to test 2x daily (AC breakfast/dinner) and gave 60 sample test strips05/2014 10.4, although 2W mean at visit 155, was s insulin x 4W 2 insurance03/2014 10. 9.4 c MDI 160 units therefore 14,400 units for 90D supply, therefore dispense 15 vials05/2013 8.6 therefore start daily aerobic exercise 15-20 daily, does mid afternoon hypos 5279-7595 if tight control, therefore decreased basal06/02/2013 set up new Revel 28998 8. therefore started Medtronic insulin pump and stopped metformin 1000 BID 2 to cost(which is probably of minimal benefit given low C-peptide)04/2018 1212 141/2013 223/2010 MARII/creatinine 128/2014 -TTG10/2015 normal BLE 5.07 MF [id number] no DMR per [facility] Non-seasonal allergic rhinitis, unspecified allergic rhiniti s trigger Stable monte 10 QHS, norberto 10, FP 2 qAM, Astelin prnprior immunorx ~10-14YOc OS ETD1/08/18 + FP 2 qAM c norberto 10 (given favor major cause of cough)05/2017 zone 1: class V dust mite, III dog, ragweed, bluegrass, silver birch by zone 1-instructed on behavorial control patricia dust mite covers, HEPA (does have dog)Contingency: anti- H, CT MF11/2016 increased to 1 BID06/2016 added Dymista 1 QD and advised could use Afrin NS 30 mins prior to speaking qSun (when most symptomatic) Cough favor airway HS, LPR , AR uncontrolledtriggers-supine (lasts ~1H-alb MDI reduces severity, but not duration) and exerciseContingency: methacholine, Spiriva03/2019 IgE 0354701/03/19 emperic (no ESTEVAN, dysphagia sx) + omep 40 qAM x 8W s benefit; therefore, cwgrhvi05/8/19 favor today hoarseness 2 viral laryngitis, changed to BE as per asthma, check CT chest/neck given persistence (i refused CT neck) and PFTs and relatively normal wes today01/13/19 PFTs normal- Fbgtvs86/1/19 CT chest c contrast WN normal CXR, CTA chest `new-onset since ~03/2016 hospitilization, [employer], no precedent URI, no induced by activity, worse qhs, minimal benefit c albuterol MDI Essential hypertension Stable on behavor ial therapyContingency: restart irbe1 held irbe as per asthma s obvious change in cough07/21/16 changed lis 20 qhs to irbe 20 qhs given ? ACEI cough s improvment10/2015 decreased l isinopril 40 to 20 qhs given SBP in clinic 108 c weight loss CKD (chronic kidney disease) stage 3, GFR 30-59 ml/min Advised to avoid ANY prolonged NSAIDs03/2019 19/1.2, 3. 18/1.2, 4.1, 2.05/2017 16/1.0, 4. 28/1.3, 4.10/2015 30/1.0, 3.812 15/1.4, 4. stable at 20/1.2baseline cr 1.1-1. 14.7, 91, r35/2. 14.5, 904/2014 hemoglobin stable at 14.812 35, 9.1 Erectile dysfunction, unspecified erectile dysfunction type 10/2015 started Viagra 50/100 c coupon given inability to maintain erection c intact libido Recurrent pancreatitis 5/5/17 asx at 150 /2470, but POOR diet 1W prior; 07/21/16 recheckedContingency: US03/2013 hospitalized-presenting lipase 5820 Vitamin D deficiency 04/2018 23, 9.0, 56 on D3 5 10, 8.6, 311/2015 vitamin D 7, 7.5, PTH 13 s supplement; therefore started D3 5000 QD Hyperlipidemia Keep TG <500 given h /o hyperTG induced pancreatitis 03/2013Lovaza too expensive03/2019 48/36/262, CPK 4522 48/36/241 on atorva 80, feno 145, ezet /2016 83/35/361, CPK 48 on atorva 80, ezet 10, feno 0160301/2016 non 261/!, CPK 68, CRP <0.3; therefore, readded Lovaza 2 BID and Invokana 300 qAM10/2015 202/37/837!, CPK 58 on atorvastatin 80/fenofibrate 145 but on higher fat diet; therefore, added Zetia 108/2014 non 150/30/447, CPK 854/2015 non 154/30/456, CRP 0.8 on Lipitor 80, Tricor 145 qhs03/2014 non 194//2014 CPK 954/2014 67/30/306 on Lipitor 80, Tricor 145 qhs03/2013 down to non 262/21/453 therefore increased Lipitor to 80, CPK 491/2013 TG 2558 2 poor diet at holidays inducing acute nsnghczlyefe98/2013 non 286/ therefore restarted Lipitor 40 qd, Tricor 145 qhs04/2012 patient stopped Lovaza 2 cost, hopefully c pump therapy and tighter BS control we can stop Tricor05/2011 lipids 53/37/189 on Lipitor 40 qd, Lovaza 2 gm BID, Tricor 145 qhs and Niaspan 500 BID, Zetia 10 qd12/2001 total 403/ prior to therapy03/2019 1.6, 1.10/2015 1.03/2014 1. TSH 1.3 Treatment Notes Test Name Order Date CPK CREATINE PHOSPHOKINASE 2020-01-29 LYME DISEASE SCRN WITH CONFIRM 2020-01-29 VITAMIN B1 LEVEL WHOLE BLOOD 2020-01-29 FERRITIN 2020-01-29 TOTAL IRON BINDING CAPACIT 2020-01-29 MICAH TITER & PATTERN 2020-01-29 HEAVY METAL EVALUATION BLOOD 2020-01-29 VITAMIN B3 (NICOTINIC ACID) 2020-01-29 CYCLIC CITRULLINATED PEPTIDE 2020-01-29 C REACTIVE PROTEIN QUANTITATIV (At [facility]) 2020-01-29 NT-PRO BNP 2020-01-29 Comprehensive Metabolic Profile (CMP) 2020-01-29 MAGNESIUM LEVEL 2020-01-29 Next Appt Details 6-8W JAREK Flores in 10D Reason: Provider Name:Argelia Medrano, 2019-03 10:30:00 AM, [address] [place], [address], Insurance Providers Payer Name Payer Address Payer Phone Insured Name Patient Relati onship to Insured Coverage Start Date Coverage End Date [facility] COR[facility] CLAIMS DEPT [address] [facility] [phone] ABBY ISAAC self
--- OUTSIDE RECORDS SUMMARY | 2020-03-15 17:01 | CCD ---
Author Author [facility] Organization [facility] Address Unknown Phone Unavailable Care Team Providers Care Manager Competitive Intelligence Name Role Phone Danny Flores Unavailable PROBLEMS Type Condition ICD9-CM Code LBU93-DG Code Onset Dates Condition S tatus SNOMED Code Notes Problem CKD (chronic kidney disease) stage 3, GFR 30-59 ml/min N18.3 Active 312768190 Problem Asthma, moderate persistent J45.40 Active 4272 27052 Problem Erectile dysfunction, unspecified erectile dysfunction typ e N52.9 Active 004882621 Problem NAFLD (nonalcoholic fatty liver disease) K76.0 Active 069076299 Problem Essential hypertension I10 Active 76395294 Problem Gastroesophageal reflux disease K21.9 Active 202666808 Problem Overweight E66.3 Active 656506418 Problem Chronic systolic congestive heart failure I50.22 Active 854023121 Problem Hyperlipidemia E78.5 Active 52704696 Problem Vitamin D deficiency E55.9 Active 17878873 Problem Diabetes mellitus type 2 with complications E11.8 Active 360421759 Problem Non-seasonal allergic rhinitis, unspecified giancarlo rgic rhinitis trigger J30.89 Active 94492575 Problem Recurrent pancreatitis K86.1 Active 499325336 ALLERGIES Allergen (clinical drug ingredient) Drug/Non Drug Allergy do cumented on EMR Reaction Allergy Type Onset Date Status canagliflozin Invokana([facility] Code:[address]-34) euglycemic DKA Drug Al lergy Active ENCOUNTERS from 1971 to 2020-01-12 Encounter Location Date Provider Diagnosis [address] [address] Dec, 020 Danny Flores IMMUNIZATIONS Vaccine Route [...] College Language: Question Answer Notes Languages spoken: Korean Zoroastrian: Question Answer Notes Zoroastrian No religion beliefs that would impact health care. Sexual [...] day as needed for 90 Active Pen [place] 31G X 6 MM as directed SQ [...] Information RESULTS No Results REASON FOR VISIT PA Entresto 49-51mg tab, BID MEDICAL (GENERAL) HISTORY Type Description Date Medical History T2DM, insulin requiring-dx at 31 yo Medical History hypertension-06/2018 EST low risk (10 METs); mild LVH, grade 1 val dys-06/2018 TTE-[facility] Medical History asthma, moderate persistent Medical History [...] gm CBH QD diet!) 03/06-03/09/2016 Hospitalization History [facility] ED-ASthma Ex 12/12/2019 Goals Section No Information [...] a day for 30 day( s) Pen [place] 31G X 6 MM as directed SQ [...] 30 day(s) Next Appt Details Provider Name:Argelia Riley Marcela, 2019-03-16 11:15:00 AM, [address] [place], [address], Insurance Providers Payer Name Payer Address Payer Phone Insured Name Patient Relati onship to Insured Coverage Start Date Coverage End Date [facility] CORPORATE CLAIMS DEPT [address] [facility] [phone] ABBY BASHIR self
--- OUTSIDE RECORDS SUMMARY | 2020-03-15 17:01 | CCD | Continuity of Care Document ---
[...] Result H/L Range Note CMP 01/12/2020 [facility] - not interfaced (315)- - Albumin Serum/Plasma 3.6 Alt - SGPT 23 Calcium Ser/Plasma Mass/Vol 8.9 Carbon Dioxide Ser/Plasm 30 Chloride Serum/Plasma 108 Alkaline Phosphatase 43 Potassium 4.4 Protein Total 6.5 Sodium 142 Ast - Sgot 15 BUN - Urea Nitrogen 21 Glucose 67 Low 70-100 Creatinine For GFR 1.26 Lipid Profile/Cardiac Risk Pro 01/12/2020 [facility] - not interfaced (315)- - Triglycerides 79 <150 Cholesterol 115 <200 HDL 44 >40.0 LDL Cholesterol 55 Chol/HDL Ratio 2.613 <5 Laboratory test finding 01/12/2020 [facility] - not interf aced (315)- - Magnesium Level 2.2 1.8-2.4 NT Probnp QN Ser/Plas 225 Thyroid Stimulating Hormone 1.100 Free T4 1.06 Hemoglobin A1c 01/12/2020 [facility] - not interfaced (315)- - Hemoglobin A1c 9.7 CBC without Differential 12/12/2019 [facility] - not inter faced (315)- - White Blood Count 7.2 5.0-10.0 Red Blood Count 4.83 4.00-5.40 Platelets 186 172-450 Hemoglobin 14.4 Hematocrit 44.2 Procedures Date Code Description Status 01/22/2020 52255 Treadmill/Pharmacological Monito ring Completed 01/22/2020 93150 Myocardial Perfusion Spect Multi ple Completed Medical [...]
--- OUTSIDE RECORDS SUMMARY | 2020-03-15 17:02 | CCD ---
Author Author [employer] [facility]st ems Organization [employer] Address Unknown Phone Unavailable Care Team Providers Care Fabric Sourcer Name Role Phone Danny Flores Unavailable PROBLEMS Type Condition ICD9-CM Code PLY09-AN Code Onset Dates Condition S tatus SNOMED Code Notes Problem CKD (chronic kidney disease) stage 3, GFR 30-59 ml/min N18.3 Active 668708280 Problem Asthma, moderate persistent J45.40 Active 4272 26035 Problem Erectile dysfunction, unspecified erectile dysfunction typ e N52.9 Active 546458602 Problem NAFLD (nonalcoholic fatty liver disease) K76.0 Active 050595861 Problem Essential hypertension I10 Active 96859066 Problem Gastroesophageal reflux disease K21.9 Active 335432485 Problem Overweight E66.3 Active 819915034 Problem Chronic systolic congestive heart failure I50.22 Active 308631951 Problem Hyperlipidemia E78.5 Active 07299975 Problem Vitamin D deficiency E55.9 Active 90265280 Problem Diabetes mellitus type 2 with complications E11.8 Active 086702167 Problem Non-seasonal allergic rhinitis, unspecified giancarlo rgic rhinitis trigger J30.89 Active 58850697 Problem Recurrent pancreatitis K86.1 Active 591409084 ALLERGIES Allergen (clinical drug ingredient) Drug/Non Drug Allergy do cumented on EMR Reaction Allergy Type Onset Date Status canagliflozin Invokana([facility] Code:[address]-77) euglycemic DKA Drug Al lergy Active ENCOUNTERS from 1971 to 2019-12-21 Encounter Location Date Provider Diagnosis [address] [address] Nov, 020 Danny Flores IMMUNIZATIONS Vaccine Route Administration [...] College Language: Question Answer Notes Languages spoken: Amharic Restorationist: Question Answer Notes Restorationist No roman catholic beliefs that would impact health care. Sexual [...] Orally at bedtime for 90 day(s) Active Peak Flow Meter - as directed _ Daily for 99 months Active Entresto 24-26 MG 1 tablet Orally Twice a day for 30 day(s) Nov, Active Glucometer as directed DX: E11.9 _ [...] e11.9 bid for 30 days May, Active Astelin 137 MCG/SPRAY 1 puff in each nostril Nasally Twice a day Active Vitamin D (Cholecalciferol) 5000 UNIT 1 tab Orally Once a day Active Montelukast Sodium 10 MG 1 tablet Orally at bedtime for 90 Active Metformin HCl 850 MG 1 tablet Orally AC TID for 30 day(s) Active Breo Ellipta 200-25 MCG/INH 1 puff Inhalation Once a day for 30 day s Active Atorvastatin Calcium 80 MG 1 tablet Orally Once a day for 90 day(s) Active Aspirin 325 mg 325 mg 1 tablet orally Once a day for 90 day(s) Active Pen [place] 31G X 6 MM as directed SQ twice a day E11.8 for 60 Active PROCEDURES No Information RESULTS No Results REASON FOR VISIT PA Entresto 24-26mg tab, BID MEDICAL (GENERAL) HISTORY Type Description [...] gm CBH QD diet!) 03/06-03/09/2016 Hospitalization History [facility] ED-ASthma Ex 12/12/2019 Goals Section No [...] 50 units every night for 90 day(s) Breo Ellipta 200-25 MCG/INH 1 puff Inhalation Once a day for 30 days Metformin HCl 850 MG 1 tab orally three times daily for 90 day(s ) Astelin 137 MCG/SPRAY 1 puff in each nostril Nasally Twice a day Montelukast Sodium 10 MG 1 tablet Orally at bedtime for 90 day(s ) Entresto 24-26 MG 1 tablet Orally Twice a day for 30 day(s) 20 [address] ct2019 Liraglutide 18 MG/3ML 1.8 Subcutaneous every morning for 30 day( s) Viagra 100 MG 1 tablet as needed Orally Once a day for 30 day( s) Blood Glucose Test Contour Next Link 1 [...] Orally Once a day for 30 day(s) Insurance Providers Payer Name Payer Address Payer Phone Insured Name Patient Relati onship to Insured Coverage Start Date Coverage End Date [facility] CORPORATE CLAIMS DEPT [address] [facility] [phone] ABBY BASHIR self
--- OUTSIDE RECORDS SUMMARY | 2020-03-15 17:02 | CCD ---
Author Author [employer] [facility]st ems Organization [employer] Address Unknown Phone Unavailable Care Team Providers Care Fur Sorter Name Role Phone Danny Flores Unavailable PROBLEMS Type Condition ICD9-CM Code PAY39-HX Code Onset Dates Condition S tatus SNOMED Code Notes Problem CKD (chronic kidney disease) stage 3, GFR 30-59 ml/min N18.3 Active 315913621 Problem Asthma, moderate persistent J45.40 Active 4272 57006 Problem Erectile dysfunction, unspecified erectile dysfunction typ e N52.9 Active 258570207 Problem NAFLD (nonalcoholic fatty liver disease) K76.0 Active 045082785 Problem Essential hypertension I10 Active 26337270 Problem Gastroesophageal reflux disease K21.9 Active 470797862 Problem Overweight E66.3 Active 237821332 Problem Chronic systolic congestive heart failure I50.22 Active 402763529 Problem Hyperlipidemia E78.5 Active 50159231 Problem Vitamin D deficiency E55.9 Active 34613620 Problem Diabetes mellitus type 2 with complications E11.8 Active 880175510 Problem Non-seasonal allergic rhinitis, unspecified giancarlo rgic rhinitis trigger J30.89 Active 94852740 Problem Recurrent pancreatitis K86.1 Active 029534585 ALLERGIES Allergen (clinical drug ingredient) Drug/Non Drug Allergy do cumented on EMR Reaction Allergy Type Onset Date Status canagliflozin Invokana([facility] Code:[address]-11) euglycemic DKA Drug Al lergy Active ENCOUNTERS from 1971 to 2019-12-22 Encounter Location Date Provider Diagnosis [address] [address] Nov, 020 Danny Flores IMMUNIZATIONS Vaccine Route [...] College Language: Question Answer Notes Languages spoken: Latvian Holiness: Question Answer Notes Holiness No gnosticist beliefs that would impact health care. Sexual [...] a day for 90 day(s) Active Pen [place] 31G X 6 MM as directed SQ twice a day E11.8 for 60 Active PROCEDURES No Information RESULTS No Results REASON FOR VISIT tests MEDICAL (GENERAL) HISTORY Type Description Date Medical History T2DM, insulin requiring-dx at 31 yo Medical History hypertension-06/2018 EST low risk (10 METs); mild LVH, grade 1 val dys-06/2018 [facility] Medical History asthma, moderate persistent Medical History [...] Medical History h/o pancreatitis induced by hyperTG 1/20 14 Medical History L knee mild OA [...] gm CBH QD diet!) 03/06-03/09/2016 Hospitalization History [facility] ED-ASthma Ex 12/12/2019 Goals Section No Information [...] day for 30 day(s) 20 O 2019 Liraglutide 18 MG/3ML 1.8 Subcutaneous every morning [...] 1 puffs Inhalation Twice a day Nov, Metformin HCl 850 MG 1 tablet Orally AC TID for 30 day(s) Loratadine 10 MG 1 tablet Orally Once a day for 30 day(s) Insurance Providers Payer Name Payer Address Payer Phone Insured Name Patient Relati onship to Insured Coverage Start Date Coverage End Date [facility] CORPORATE CLAIMS DEPT [address] [facility] [phone] ABBY BASHIR self
--- OUTSIDE RECORDS SUMMARY | 2020-03-15 17:02 | CCD ---
Author Author [employer] [facility] Syst ems Organization [employer] Syst em[employer] Address Unknown Phone Unavailable Care Team Providers Care Production Troubleshooter Name Role Phone Danny Flores Unavailable PROBLEMS Type Condition ICD9-CM Code [id number] Code Onset Dates Condition S tatus SNOMED Code Notes Problem CKD (chronic kidney disease) stage 3, GFR 30-59 ml/min N18.3 Active 571286831 Problem Asthma, moderate persistent J45.40 Active 4272 39762 Problem Erectile dysfunction, unspecified erectile dysfunction typ e N52.9 Active 585571497 Problem NAFLD (nonalcoholic fatty liver disease) K76.0 Active 212706402 Problem Essential hypertension I10 Active 12223099 Problem Gastroesophageal reflux disease K21.9 Active 799589196 Problem Overweight E66.3 Active 210987593 Problem Chronic systolic congestive heart failure I50.22 Active 362860142 Problem Hyperlipidemia E78.5 Active 30171443 Problem Vitamin D deficiency E55.9 Active 78633891 Problem Diabetes mellitus type 2 with complications E11.8 Active 809055265 Problem Non-seasonal allergic rhinitis, unspecified giancarlo rgic rhinitis trigger J30.89 Active 88000737 Problem Recurrent pancreatitis K86.1 Active 399677614 ALLERGIES Allergen (clinical drug ingredient) Drug/Non Drug Allergy do cumented on EMR Reaction Allergy Type Onset Date Status canagliflozin Invokana([facility] Code:[address]-61) euglycemic DKA Drug Al lergy Active ENCOUNTERS from 1971 to 2020-01-03 Encounter Location Date Provider Diagnosis [address] [address] 30 Nov, 2 020 Danny Flores Chronic systolic congestive heart failure I50.22 IMMUNIZATIONS Vaccine Route Administration Date Status [...] College Language: Question Answer Notes Languages spoken: Norwegian Jainism: Question Answer Notes Jainism No faith beliefs that would impact health care. Sexual [...] Duration) Start Date En d Date Status Peak Flow Meter - as directed _ Daily for 99 months Active Montelukast Sodium 10 MG 1 tablet Orally at bedtime for 90 day(s) Active Pen [place] 31G X 6 MM as directed SQ twice a day E11.8 for 60 Active Breo Ellipta 200-25 MCG/INH 1 puff Inhalation Once a day for 30 day s Active Albuterol Sulfate HFA 108 (90 Base) MCG/ACT 2 puffs In halation Four times a day as needed for 90 Active Blood Glucose Test Contour Next Link 1 strip subcutane ously Four times a day DX E11.9 for 90 day(s) Active Asmanex HFA 200 MCG/ACT 1 puffs Inhalation Twice a day Nov, Active Viagra 100 MG 1 tablet as needed Orally Once a day for 30 day(s) Active Glucometer as directed DX: E11.9 _ for 99 months May, Active Fenofibrate 145 MG 1 tab Orally [...] Orally AC TID for 30 day(s) Active Vitamin D (Cholecalciferol) 5000 UNIT 1 tab Orally Once a day Active Montelukast Sodium 10 MG 1 tablet Orally at bedtime for 90 Active Loratadine 10 MG 1 tablet Orally Once a day for 30 day(s) Active Astelin 137 MCG/SPRAY 1 puff in each nostril Nasally Twice a day Active Atorvastatin Calcium 80 MG 1 tablet Orally Once a day for 90 day(s) Active Aspirin 325 mg 325 mg 1 tablet orally Once a day for 90 day(s) Active Advocate Safety Lancets 1 as directed e11.9 bid for 30 days May, Active PROCEDURES No Information RESULTS No Results REASON FOR VISIT Requested numbers MEDICAL (GENERAL) HISTORY Type Description Date Medical [...] gm CBH QD diet!) 03/06-03/09/2016 Hospitalization History [facility] ED-ASthma Ex 12/12/2019 Goals Section No Information Health Concerns No Information MEDICAL EQUIPMENT No Information MENTAL STATUS No Information FUNCTIONAL STATUS No Information ASSESSMENTS Encounter Date Diagnosis Notes Nov, Chronic systolic congestive heart failur e (ICD-10 [...] 1 puffs Inhalation Twice a day 12 Oct, 2 020 Peak Flow Meter - as directed _ Daily for 99 months Loratadine 10 MG 1 tablet Orally Once a day for 30 day(s) Albuterol Sulfate HFA 108 (90 Base) MCG/ACT 2 puffs In halation Four times a day as needed for 90 Next Appt Details Provider Name:Argelia Rosemary Medrano, 2020-16 11:15:00 AM, [address] [place], [address], Insurance Providers Payer Name Payer Address Payer Phone Insured Name Patient Relati onship to Insured Coverage Start Date Coverage End Date [facility] CORPORATE CLAIMS DEPT [address] [facility] [phone] ABBY BASHIR self
--- OUTSIDE RECORDS SUMMARY | 2020-03-15 17:02 | CCD ---
Author Author [facility] [employer] [facility] Syst ems Organization [facility] [employer] Syst ems Address Unknown Phone Unavailable Care Team Providers Care Biomechanical Engineer Name Role Phone Argelia Medrano Unavailable PROBLEMS Type Condition ICD9-CM Code FWA34-BD Code Onset Dates Condition S tatus SNOMED Code Notes Problem CKD (chronic kidney disease) stage 3, GFR 30-59 ml/min N18.3 Active 058809267 Problem Asthma, moderate persistent J45.40 Active 4272 20330 Problem Erectile dysfunction, unspecified erectile dysfunction typ e N52.9 Active 594352641 Problem NAFLD (nonalcoholic fatty liver disease) K76.0 Active 675107461 Problem Essential hypertension I10 Active 60307396 Problem Gastroesophageal reflux disease K21.9 Active 939654123 Problem Overweight E66.3 Active 942063675 Problem Chronic systolic congestive heart failure I50.22 Active 574999151 Problem Hyperlipidemia E78.5 Active 80422817 Problem Vitamin D deficiency E55.9 Active 00047081 Problem Diabetes mellitus type 2 with complications E11.8 Active 260274091 Problem Non-seasonal allergic rhinitis, unspecified giancarlo rgic rhinitis trigger J30.89 Active 74905067 Problem Recurrent pancreatitis K86.1 Active 595748328 ALLERGIES Allergen (clinical drug ingredient) Drug/Non Drug Allergy do cumented on EMR Reaction Allergy Type Onset Date Status canagliflozin Invokana([facility] Code:[address]-04) euglycemic DKA Drug Al lergy Active ENCOUNTERS from 1971 to 2019-12-29 Encounter Location Date Provider Diagnosis [address] [address] Nov, Argelia Medrano IMMUNIZATIONS Vaccine Route Administration Date Status Influenza [...] College Language: Question Answer Notes Languages spoken: Central African Alevism: Question Answer Notes Alevism No christian beliefs that would impact health care. Sexual [...] a day for 90 day(s) Active Pen [place] 31G X 6 MM as directed SQ twice a day E11.8 for 60 Active PROCEDURES No Information RESULTS No Results REASON FOR VISIT test MEDICAL (GENERAL) HISTORY Type Description Date Medical History T2DM, insulin requiring-dx at 31 yo Medical History hypertension-06/2018 EST low risk (10 METs); mild LVH, grade 1 val dys-06/2018 TTE-[facility] Medical History asthma, moderate persistent [...] gm CBH QD diet!) 03/06-03/09/2016 Hospitalization History [facility] ED-ASthma Ex 12/12/2019 Goals Section No [...] Insured Coverage Start Date Coverage End Date [facility] CORPORATE CLAIMS DEPT [address] [facility] [phone] ABBY BASHIR self
--- OUTSIDE RECORDS SUMMARY | 2020-03-15 17:02 | CCD ---
Author Author [employer] [facility] Organization [employer] Address Unknown Phone Unavailable Care Team Providers Care High School Coach Name Role Phone Danny Flores Unavailable PROBLEMS Type Condition ICD9-CM Code SGH69-WI Code Onset Dates Condition S tatus SNOMED Code Notes Problem CKD (chronic kidney disease) stage 3, GFR 30-59 ml/min N18.3 Active 562826487 Problem Asthma, moderate persistent J45.40 Active 4272 30040 Problem Erectile dysfunction, unspecified erectile dysfunction typ e N52.9 Active 688678386 Problem NAFLD (nonalcoholic fatty liver disease) K76.0 Active 709684129 Problem Essential hypertension I10 Active 79483812 Problem Gastroesophageal reflux disease K21.9 Active 679949094 Problem Overweight E66.3 Active 581169200 Problem Chronic systolic congestive heart failure I50.22 Active 313272061 Problem Hyperlipidemia E78.5 Active 68933207 Problem Vitamin D deficiency E55.9 Active 46560441 Problem Diabetes mellitus type 2 with complications E11.8 Active 352014704 Problem Non-seasonal allergic rhinitis, unspecified giancarlo rgic rhinitis trigger J30.89 Active 86578304 Problem Recurrent pancreatitis K86.1 Active 529696385 ALLERGIES Allergen (clinical drug ingredient) Drug/Non Drug Allergy do cumented on EMR Reaction Allergy Type Onset Date Status canagliflozin Invokana([facility] Code:[address]-87) euglycemic DKA Drug Al lergy Active ENCOUNTERS from 1971 to 2019-12-26 Encounter Location Date Provider Diagnosis [address] [address] 20 Nov, 2 020 Danny Flores Chronic systolic congestive heart failure I50.22 ; Asthma, moderate persistent J45.40 ; Diabetes mellitus type 2 with complications E11.8 ; Non-seasonal allergic rhinitis, unspecified allergic rhinitis trigger J30.89 ; Cough R05 ; Essential hypertension I10 ; Recurrent pancreatitis K86.1 ; Encounter for immunization Z23 ; Vitamin D deficiency E55.9 ; Hyperlipidemia [...] College Language: Question Answer Notes Languages spoken: Kittitian Tenriism: Question Answer Notes Tenriism No amish beliefs that would impact health care. Sexual [...] FOR REFERRAL No Information VITAL SIGNS Weight 234.0 lbs Nov, Height 71 in Nov, BMI 32.63 kg/m2 Nov, Heart Rate 109 /min Nov, Respiratory Rate 18 /min Nov, Temperature 96.8 degrees Fahrenheit Nov, Oximetry 96% Nov, Blood pressure systolic 122 mm Hg Nov, Blood pressure diastolic 82 mm Hg Nov, MEDICATIONS Medication SIG (Take, Route, Frequency, Duration) [...] a day for 90 day(s) Active Pen [place] 31G X 6 MM as directed SQ twice a day E11.8 for 60 Active PROCEDURES Procedure Date Ordered Result Body Site Immunization: Flublok Quadrivalent (18 years & older) 0.5mL IM (Influenza) 2019-12-19 N/A RESULTS No Results REASON FOR VISIT ed visit [facility] d/c 12/11; diff breathing 4 month f/u MEDICAL (GENERAL) HISTORY Type Description Date Medical [...] gm CBH QD diet!) 03/06-03/09/2016 Hospitalization History [facility] ED-ASthma Ex 12/12/2019 Goals Section No Information Health Concerns No Information MEDICAL EQUIPMENT No Information MENTAL STATUS No Information FUNCTIONAL STATUS No Information ASSESSMENTS Encounter Date Diagnosis Notes Nov, Chronic systolic congestive heart failur e (ICD-10 - I50.22) Nov, CKD (chronic kidney disease) stage 3, GFR 30-59 ml/min (ICD-10 - N18.3) Nov, Erectile dysfunction, unspec ified erectile dysfunction type (ICD-10 - N52.9) Nov, Diabetes mellitus type 2 with complicati ons (ICD-10 - E11.8) Nov, NAFLD (nonalcoholic fatty liver disease) (ICD-10 - K76.0) Nov, Asthma, moderate persistent (ICD-10 - J4 5.40) Nov, Overweight (ICD-10 - E66.3) Nov, Encounter for immunization (ICD-10 - Z23 ) Nov, Hyperlipidemia (ICD-10 - E78.5) Nov, Vitamin D deficiency (ICD-10 - E55.9) Nov, Cough (ICD-10 - R05) Nov, Non-seasonal allergic rhinit is, unspecified allergic rhinitis trigger (ICD-10 - J30.89) Nov, Recurrent pancreatitis (ICD-10 - K86.1) Nov, Essential hypertension (ICD-10 - I10) PLAN OF TREATMENT Medication Medication Name Sig [...] Orally Twice a day for 30 day(s) 2019 Liraglutide 18 MG/3ML 1.8 Subcutaneous every [...] puffs Inhalation Twice a day 12 Nov, 2 020 Metformin HCl 850 MG 1 tablet Orally AC TID for 30 day(s) Loratadine 10 MG 1 tablet Orally Once a day for 30 day(s) Treatment Notes Assessment Notes Clinical Notes Chronic systolic congestive heart failure favoring ischemic CMPContinue JERARDO diet, 1500 cc12/19/19 + sac/kathy BID c BID BP cb and BW/AM wts in 5D12/15/19 TTE: moderate severe LV hypokinesis c LVEF 30%, grade 2 val dys, LAE 43, normal CVP 5- BNP 382, T-I 0.02, EKG s zetkav95/13/20 SMCER for acute dyspnea (worseing over previous month c increased FRAMING MACHINE TENDER cough-no precedent URI type sx, no EthOH use)-CXR c NEW bibasilar interstitial edema and smal bilateral pleural effusions, BNP 467 (05/19/18 15), CPK/T-I 260/0.03, CBCD/CMP WNL, DD 303, EKG ST 103, inferoseptal Q waves similar to 03/06/16; given fur 40 IV x 1 and diureses 1600 cc, -dx as "asthma exacerbation" and dced on prednisone 40 QD x 4D NAFLD (nonalcoholic fatty liver disease) Continue ADA diet/weight loss04/2019 normal LFTs Asthma, moderate persistent on BE 200, m [...] 75%08/2018 cPF 5728/2018 PF 375-425 c persistent FRAMING MACHINE TENDER cough; therefore, changed Advair 250 to BE 200 (but not able to start until 12/06/18) s obvious kpjqamzyzc97/31/17 hold irbe x 2W (given mainly for [...] (>250 33!), 0 TBR; therefore, glar to 11.1 c AC br ~220 on glar [...] in 7D10/2015 9.04/2015-11/22/15 patient stopped MT pump akzbzdgbaz71/2015 9.6, adjusted basals given mid afternoon lows09/2014 [...] exercise 15-20 daily, does mid afternoon hypos 5209-7825 if tight control, therefore decreased basal06/02/2013 set up new Revel 85176 8. therefore started Medtronic insulin pump and stopped metformin 1000 BID 2 to cost(which is probably of minimal benefit given low C-peptide)04/2018 2612/2015 1212/2015 141/2014 223/2010 MARII/creatinine 128/2015 -TTG9 normal BLE 5.07 MF [id number] no DMR per [facility] Non-seasonal allergic rhinitis, unspecified allergic rhiniti s trigger Stable monte 10 QHS, norberto 10, FP 2 qAM, Astelin prnprior immunorx ~10-14YOc OS ETD1 + FP 2 qAM c norberto 10 [...] not duration) and exerciseContingency: methacholine, Spiriva03/2019 IgE 5310701/03/19 emperic (no ESTEVAN, dysphagia sx) + omep 40 qAM x 8W s benefit; therefore, /8/19 favor today hoarseness 2 viral laryngitis, changed to BE as per asthma, check CT chest/neck given persistence (i refused CT neck) and PFTs and relatively normal wes today01/13/19 PFTs normal- Nfhguk10/1/19 CT chest c contrast WN normal CXR, CTA chest `new-onset since ~03/2016 hospitilization, FRAMING MACHINE TENDER, no precedent URI, no induced by activity, worse qhs, minimal benefit c albuterol MDI Essential hypertension Stable on behavor ial therapyContingency: restart irbe1 held irbe as per asthma s obvious change in cough07/21/16 changed lis 20 qhs to irbe 20 qhs given ? ACEI cough s improvment10/2015 decreased l isinopril 40 to 20 qhs given SBP in clinic 108 c weight loss Recurrent pancreatitis 07/03/16 asx at 150 /2470, but POOR diet 1W prior; 07/21/16 recheckedContingency: US03/2013 hospitalized-presenting lipase 5820 Overweight Encouraged weight lo ss CKD (chronic kidney disease) stage 3, GFR 30-59 ml/min Advised to avoid ANY prolonged NSAIDs03/2019 19/1.2, 3. 18/1.2, 4.1, 2.05/2017 16/1.0, 4. 28/1.3, .10/2015 30/1.0, 3.8104/2014 15/1.4, 4. stable at 20/1.2baseline cr 1.1-1. 14.7, 91, r35/2. 14.5, 904 hemoglobin stable at 14.8104/2014 35, 9.1 Vitamin D deficiency 04/2018 23, 9.0, 56 on D3 10, 8.6, 31104/2015 vitamin D 7, 7.5, PTH 13 s supplement; therefore started D3 5000 QD Hyperlipidemia Keep TG <500 given h /o hyperTG induced pancreatitis 03/2013Lovaza too expensive03/2019 48/36/262, CPK 4522/2018 48/36/241 on atorva 80, feno 145, ezet /2016 83/35/361, CPK 48 on atorva 80, ezet 10, feno 90358/2015 non 261/!, CPK 68, CRP <0.3; therefore, [...] 262/21/453 therefore increased Lipitor to 80, CPK 49/2013 TG 2558 2 poor diet at holidays inducing acute psyoglgmoeny60/2013 non 286/ therefore restarted Lipitor 40 qd, Tricor 145 qhs04/2012 patient stopped Lovaza 2 cost, hopefully c pump therapy and tighter BS control we can stop Tricor05/2011 lipids 53/37/189 on Lipitor 40 qd, Lovaza 2 gm BID, Tricor 145 qhs and Niaspan 500 BID, Zetia 10 qd12/2001 total 403/ prior to therapy03/2019 1.6, 1.10/2015 1.03/2014 1. TSH 1.3 Erectile dysfunction, unspecified erectile dysfunction type 10/2015 started Viagra 50/100 c coupon given inability to maintain erection c intact libido Future Test Test Name Order Date Comprehensive Metabolic Profile (CMP) [id number] MAGNESIUM LEVEL [id number] NT-PRO BNP [id number] LIPID PANEL (CARDIAC RISK) [id number] FREE T4 & TSH PANEL [id number] HEMOGLOBIN A1c [id number] Next Appt Details 8-12W, BW in 5D Reason: Insurance Providers Payer Name Payer Address Payer Phone Insured Name Patient Relati onship to Insured Coverage Start Date Coverage End Date [employer] CORPORATE CLAIMS DEPT [address] [facility] [phone] ABBY BASHIR self
--- OUTSIDE RECORDS SUMMARY | 2020-03-15 17:02 | CCD ---
Author Author [employer] [facility] Organization [employer] Address Unknown Phone Unavailable Care Team Providers Care Literacy Specialist Name Role Phone Danny Flores Unavailable PROBLEMS Type Condition ICD9-CM Code [id number] Code Onset Dates Condition S tatus SNOMED Code Notes Problem CKD (chronic kidney disease) stage 3, GFR 30-59 ml/min N18.3 Active 494890454 Problem Asthma, moderate persistent J45.40 Active 4272 05948 Problem Erectile dysfunction, unspecified erectile dysfunction typ e N52.9 Active 391842068 Problem NAFLD (nonalcoholic fatty liver disease) K76.0 Active 201773709 Problem Essential hypertension I10 Active 65332871 Problem Gastroesophageal reflux disease K21.9 Active 435688453 Problem Overweight E66.3 Active 817994497 Problem Chronic systolic congestive heart failure I50.22 Active 878817775 Problem Hyperlipidemia E78.5 Active 99401033 Problem Vitamin D deficiency E55.9 Active 67477544 Problem Diabetes mellitus type 2 with complications E11.8 Active 799113083 Problem Non-seasonal allergic rhinitis, unspecified giancarlo rgic rhinitis trigger J30.89 Active 40746362 Problem Recurrent pancreatitis K86.1 Active 103391030 ALLERGIES Allergen (clinical drug ingredient) Drug/Non Drug Allergy do cumented on EMR Reaction Allergy Type Onset Date Status canagliflozin Invokana([facility] Code:[address]-33) euglycemic DKA Drug Al lergy Active ENCOUNTERS from 1971 to 2019-12-29 Encounter Location Date Provider Diagnosis [address] [address] Nov, 020 Danny Flores IMMUNIZATIONS Vaccine Route [...] College Language: Question Answer Notes Languages spoken: Kazakh Christianity: Question Answer Notes Christianity No jew beliefs that would impact health care. Sexual [...] a day for 90 day(s) Active Pen [place] 31G X 6 MM as directed SQ twice a day E11.8 for 60 Active PROCEDURES No Information RESULTS No Results REASON FOR VISIT weight and bp MEDICAL (GENERAL) HISTORY Type Description Date Medical History T2DM, insulin requiring-dx at 31 yo Medical History hypertension-06/2018 EST low risk (10 METs); mild LVH, grade 1 val dys-06/2018 [facility] Medical History asthma, moderate persistent Medical History [...] gm [facility]H QD diet!) 03/06-03/09/2016 Hospitalization History [facility] ED-ASthma Ex 12/12/2019 Goals Section No Information [...] 1 puffs Inhalation Twice a day Nov, 2 020 Metformin HCl 850 MG 1 tablet Orally AC TID for 30 day(s) Loratadine 10 MG 1 tablet Orally Once a day for 30 day(s) Insurance Providers Payer Name Payer Address Payer Phone Insured Name Patient Relati onship to Insured Coverage Start Date Coverage End Date [facility] DEPT [address] [facility] [phone] ABBY BASHIR self
--- OUTSIDE RECORDS SUMMARY | 2020-03-15 17:03 | CCD ---
Author Author [facility] Organization [facility] Address Unknown Phone Unavailable Care Team Providers Care Thermo Processor Name Role Phone Makenzie JOHNSON MD Unavailable Unavailable Makenzie JOHNSON MD Unavailable Unavailable Makenzie JOHNSON MD Unavailable Unavailable Makenzie JOHNSON MD Unavailable Unavailable Makenzie JOHNSON MD Unavailable Unavailable Makenzie JOHNSON MD Unavailable Unavailable Makenzie JOHNSON MD Unavailable Unavailable Makenzie JOHNSON MD Unavailable Unavailable Makenzie JOHNSON MD Unavailable Unavailable Makenzie JOHNSON MD Unavailable Unavailable Makenzie JOHNSON MD Unavailable Unavailable Makenzie JOHNSON MD Unavailable Unavailable Makenzie JOHNSON MD Unavailable Unavailable Makenzie JOHNSON MD Unavailable Unavailable Makenzie JOHNSON MD Unavailable Unavailable Makenzie JOHNSON MD Unavailable Unavailable Makenzie JOHNSON MD Unavailable Unavailable Makenzie JOHNSON MD Unavailable Unavailable Makenzie JOHNSON MD Unavailable Unavailable Makenzie JOHNSON MD Unavailable Unavailable JOHNSON, E PASTOR FARAH Unavailable Unavailable JOHNSON, E PASTOR FARAH Unavailable Unavailable JOHNSON, E PASTOR FARAH Unavailable Unavailable JOHNSON, E PASTOR FARAH Unavailable Unavailable JOHNSON, E PASTOR FARAH Unavailable Unavailable JOHNSON, E PASTOR FARAH Unavailable Unavailable JOHNSON, E PASTOR FARAH Unavailable Unavailable JOHNSON, E PASTOR FARAH Unavailable Unavailable JOHNSON, E PASTOR FARAH Unavailable Unavailable JOHNSON, E PASTOR FARAH Unavailable Unavailable JOHNSON, E PASTOR FARAH Unavailable Unavailable JOHNSON, E PASTOR FARAH Unavailable Unavailable JOHNSON, E PASTOR FARAH Unavailable Unavailable JOHNSON, E PASTOR FARAH Unavailable Unavailable JOHNSON, E PASTOR FARAH Unavailable Unavailable JOHNSON, E PASTOR FARAH Unavailable Unavailable JOHNSON, E PASTOR FARAH Unavailable Unavailable JOHNSON, E PASTOR FARAH Unavailable Unavailable JOHNSON, E PASTOR FARAH Unavailable Unavailable JOHNSON, E PASTOR FARAH Unavailable Unavailable JOHNSON, E PASTOR FARAH Unavailable Unavailable JOHNSON, E PASTOR FARAH Unavailable Unavailable JOHNSON, E PASTOR FARAH Unavailable Unavailable JOHNSON, E PASTOR MD Unavailable Unavailable JOHNSON, E PASTOR FARAH Unavailable Unavailable JOHNSON, E PASTOR FARAH Unavailable Unavailable JOHNSON, E PASTOR FARAH Unavailable Unavailable JOHNSON, E PASTOR FARAH Unavailable Unavailable JOHNSON, E PASTOR FARAH Unavailable Unavailable JOHNSON, E PASTOR FARAH Unavailable Unavailable JOHNSON, E PASTOR FARAH Unavailable Unavailable JOHNSON, E PASTOR FARAH Unavailable Unavailable JOHNSON, E PASTOR FARAH Unavailable Unavailable JOHNSON, E PASTOR FARAH Unavailable Unavailable JOHNSON, E PASTOR FARAH Unavailable Unavailable JOHNSON, E PASTOR FARAH Unavailable Unavailable JOHNSON, E PASTOR FARAH Unavailable Unavailable Re-disclosure Warning The records that you are about to access may contain information from federally-assisted alcohol or drug abuse programs. If such information is present, then the following federally mandated warning applies: This information has been disclosed to you from records protected by federal confidentiality rules (42 CFR part 2). The federal rules prohibit you from making any further disclosure of this information unless further disclosure is expressly permitted by the written consent of the person to whom it pertains or as otherwise permitted by 42 CFR part 2. A general authorization for the release of medical or other information is NOT sufficient for this purpose. The Federal rules restrict any use of the information to criminally investigate or prosecute any alcohol or drug abuse patient.The records that you are about to access may contain highly sensitive health information, the redisclosure of which is protected by Article 27-F of the [place] State Public Health law. If you continue you may have access to information: Regarding HIV / AIDS; Provided by facilities licensed or operated by the [facility] Office of Mental Health; or Provided by the [facility] Office for People With Developmental Disabilities. If such information is present, then the following [facility] mandated warning applies: This information has been disclosed to you from confidential records which are protected by state law. State law prohibits you from making any further disclosure of this information without the specific written consent of the person to whom it pertains, or as otherwise permitted by law. Any unauthorized further disclosure in violation of state law may result in a fine or fdc sentence or both. A general authorization for the release of medical or other information is NOT sufficient authorization for further disc losure. Allergies and Adverse Reactions Type Description Substance Reaction Status Data Source(s ) Drug allergy Invokana canagliflozin euglycemic DKA Active eCW1 ([facility]) Family History Family Member Name Family Member Gender Family Member Status Date o f Status Description Data Source(s) Unknown Unknown Problem MEDENT ([facility], [facility]) Encounters Encounter Providers Location Date Indications Data Source(s ) Outpatient Attender: PASTOR JOHNSON MD Main Office 03/04/2020 08:00:00 AM EST MEDENT ([facility]) Outpatient Attender: PASTOR JOHNSON MD Main Office 02/19/2020 10:00:00 AM EST MEDENT ([facility]) Outpatient Attender: PASTOR JOHNSON MD Main Office 02/08/2020 09:00:00 AM EST MEDENT ([facility]) Unknown [address] [facility] [place] [address] 02/06/2020 12:00:00 AM EST eCW1 ([facility]) Outpatient Attender: PASTOR JOHNSON MD Main Office 02/01/2020 07:30:00 AM EST MEDENT ([facility]) Outpatient [address] [facility] [place] [address] 01/23/2020 12:00:00 AM EST eCW1 ([facility]) Outpatient [address] [facility] [place] [address] 01/15/2020 12:00:00 AM EST eCW1 ([facility]) Unknown [address] [facility] [place] [address] 01/15/2020 12:00:00 AM EST eCW1 ([facility]) [place] [address] [facility] [address] 01/11/2020 12:00:00 AM EST eCW1 ([facility]) [place] [address] [facility] [place] [address] 01/10/2020 12:00:00 AM EST eCW1 ([facility]) [place] [address] [place] [address] 01/10/2020 12:00:00 AM EST eCW1 ([facility]) [place] [address] [facility] [place] [address] 01/08/2020 12:00:00 AM EST eCW1 ([facility]) [place] [address] [facility] [place] [address] 12/29/2019 12:00:00 AM EDT eCW1 ([facility]) [place] [address] [facility] [address] 12/29/2019 12:00:00 AM EDT eCW1 ([facility]) [place] [address] [facility] [place] [address] 12/29/2019 12:00:00 AM EDT eCW1 ([facility]) [place] [address] [facility] [address] 12/21/2019 12:00:00 AM EDT eCW1 ([facility]) [place] [address] [facility] [address] 12/19/2019 12:00:00 AM EDT eCW1 ([facility]) [place] [address] [facility] [place] [address] 12/19/2019 12:00:00 AM EDT eCW1 ([facility]) [place] [address] [facility] [place] [address] 12/19/2019 12:00:00 AM EDT eCW1 ([facility]) [place] [address] [facility] [place] [address] 12/14/2019 12:00:00 AM EDT eCW1 ([facility]) [place] [address] [facility] [place] [address] 12/14/2019 12:00:00 AM EDT eCW1 ([facility]) [place] [address] [facility] [place] [address] 12/01/2019 12:00:00 AM EDT eCW1 ([facility]) [place] [address] [facility] [place] [address] 11/30/2019 12:00:00 AM EDT eCW1 ([facility]) [place] [address] [facility] [address] 11/30/2019 12:00:00 AM EDT eCW1 ([facility]) [facility] [address] [facility] [place] [address] 07/07/2019 12:00:00 AM EDT eCW1 ([facility]) [facility] [address] [facility] [address] 07/07/2019 12:00:00 AM EDT eCW1 ([facility]) [facility] [address] [facility] [address] 06/30/2019 12:00:00 AM EDT eCW1 ([facility]) [address] [address] 04/25/2019 12:00:00 AM EST eCW1 ([facility]) [address] [address] 04/18/2019 12:00:00 AM EST eCW1 ([facility]) [address] [address] 04/18/2019 12:00:00 AM EST eCW1 ([facility]) [address] [address] 04/03/2019 12:00:00 AM EST eCW1 ([facility]) [facility] [address] [facility] [address] 03/20/2019 12:00:00 AM EST eCW1 ([facility]) [facility] [place] [address] [facility] [address] 03/16/2019 12:00:00 AM EST eCW1 ([facility]) [facility] [place] [address] [facility] [address] 03/14/2019 12:00:00 AM EST eCW1 ([facility]) [facility] [place] [address] [facility] [address] 03/07/2019 12:00:00 AM EST eCW1 ([facility]) [facility] [address] [facility] [place] [address] 03/07/2019 12:00:00 AM EST eCW1 ([facility]) [facility] [place] [address] [facility] [place] [address] 03/06/2019 12:00:00 AM EST eCW1 ([facility]) Outpatient 01/15/2019 07:00:00 PM EST [facility] Immunizations Vaccine Date Status Description Data Source(s) influenza, recombinant, quadrIvalent,injectable, prese rvative free 01/15/2020 06:07:00 PM EST completed eCW1 ([facility]) influenza, recombinant, quadrIvalent,injectable, prese rvative free 01/15/2020 06:07:00 PM EST completed eCW1 ([facility]) influenza, recombinant, quadrIvalent,injectable, prese rvative free 01/15/2020 06:07:00 PM EST completed eCW1 ([facility]) influenza, recombinant, quadrIvalent,injectable, prese rvative free 01/15/2020 06:07:00 PM EST completed eCW1 ([facility]) influenza, recombinant, quadrIvalent,injectable, prese rvative free 12/19/2019 09:41:00 AM EDT completed eCW1 ([facility]) influenza, recombinant, quadrIvalent,injectable, prese rvative free 12/19/2019 09:41:00 AM EDT completed eCW1 ([facility]) influenza, recombinant, quadrIvalent,injectable, prese rvative free 12/19/2019 09:41:00 AM EDT completed eCW1 ([facility]) influenza, recombinant, quadrIvalent,injectable, prese rvative free 12/19/2019 09:41:00 AM EDT completed eCW1 ([facility]) influenza, recombinant, quadrIvalent,injectable, prese rvative free 12/19/2019 09:41:00 AM EDT completed eCW1 ([facility]) influenza, recombinant, quadrIvalent,injectable, prese rvative free 12/19/2019 09:41:00 AM EDT completed eCW1 ([facility]) influenza, recombinant, quadrIvalent,injectable, prese rvative free 12/19/2019 09:41:00 AM EDT completed eCW1 ([facility]) influenza, recombinant, quadrIvalent,injectable, prese rvative free 12/19/2019 09:41:00 AM EDT completed eCW1 ([facility]) influenza, recombinant, quadrIvalent,injectable, prese rvative free 12/19/2019 09:41:00 AM EDT completed eCW1 ([facility]) influenza, recombinant, quadrIvalent,injectable, prese rvative free 12/19/2019 09:41:00 AM EDT completed eCW1 ([facility]) influenza, recombinant, quadrIvalent,injectable, prese rvative free 12/19/2019 09:41:00 AM EDT completed eCW1 ([facility]) influenza, recombinant, quadrIvalent,injectable, prese rvative free 12/19/2019 09:41:00 AM EDT completed eCW1 ([facility]) influenza, recombinant, quadrIvalent,injectable, prese rvative free 12/19/2019 09:41:00 AM EDT completed eCW1 ([facility]) influenza, recombinant, quadrIvalent,injectable, prese rvative free 12/19/2019 09:41:00 AM EDT completed eCW1 ([facility]) influenza, recombinant, quadrIvalent,injectable, prese rvative free 12/19/2019 09:41:00 AM EDT completed eCW1 ([facility]) influenza, recombinant, quadrIvalent,injectable, prese rvative free 12/19/2019 09:41:00 AM EDT completed eCW1 ([facility]) Medications Medication Brand Name Start Date Product Form Dose Route Admi nistrative Instructions Pharmacy Instructions Status Indications Reaction Description Data Source(s) 0.6 mg/0.1 mL (18 mg/3 mL) 03/09/2020 12:00:00 AM EST pen in jector 6 INJECT 1.8MG UNDER THE SKIN EVERY IN THE MORNING INJECT 1.8MG UNDER THE SKIN EVERY IN THE MORNING SOLD: 03/10/2020 [facility] 49-51 mg 03/09/2020 12:00:00 AM EST tablet 60 TAKE ONE TABLET BY MOUTH TWICE A DAY TAKE ONE TABLET BY MOUTH TWICE A DAY SOLD: 03/10/2020 [facility] 100 mg 03/05/2020 12:00:00 AM EST tablet extended release 24 hr 60 TAKE ONE TABLET BY MOUTH TWICE A DAY TAKE ONE TABLET BY MOUTH TWICE A DAY SOLD: 03/09/2020 [facility] 24 HR metoprolol succinate 100 MG Extended Release Ora l Tablet Metoprolol Succinate ER 03/04/2020 12:00:00 AM EST ORAL active MEDENT ([facility]) 24 HR metoprolol succinate 25 MG Extended Release Oral Tablet Metoprolol Succinate ER 03/01/2020 12:00:00 AM EST completed MEDENT ([facility]) 145 mg 02/22/2020 12:00:00 AM EST tablet 30 TAKE ONE TABLET BY MOUTH AT BEDTIME TAKE ONE TABLET BY MOUTH AT BEDTIME SOLD: 02/22/2020 [facility] 25 mg 02/22/2020 12:00:00 AM EST tablet extended release 24 hr 150 TAKE 2 TABLETS BY MOUTH EVERY MORNING AND 3 TABLETS EVERY AFTERNOON TAKE 2 TABLETS BY MOUTH EVERY MORNING AND 3 TABLETS EVERY AFTERNOON SOLD: 02/22/2020 [facility] ezetimibe 10 MG Oral Tablet EZETIMIBE 02/22/2020 12:00:00 AM EST table t 30 TAKE ONE TABLET BY MOUTH EVERY DAY TAKE ONE TABLET BY MOUTH EVERY DAY SOLD: 02/22/2020 [facility] 24 HR metoprolol succinate 25 MG Extended Release Oral Tablet Metoprolol Succinate ER 02/08/2020 12:00:00 AM EST ORAL completed MEDENT ([facility]) 160-4.5 mcg/actuation 02/07/2020 12:00:00 AM EST HFA aerosol inhaler 10 INHALE TWO PUFFS BY MOUTH TWICE A DAY INHALE TWO PUFFS BY MOUTH TWICE A DAY SOLD: 03/10/2020 [facility] 160-4.5 mcg/actuation 02/07/2020 12:00:00 AM EST HFA aerosol inhaler 10 INHALE TWO PUFFS BY MOUTH TWICE A DAY INHALE TWO PUFFS BY MOUTH TWICE A DAY SOLD: 02/10/2020 [facility] 120 ACTUAT Budesonide 0.16 MG/ACTUAT / f ormoterol fumarate 0.0045 MG/ACTUAT Metered Dose Inhaler [Symbicort] Symbicort 160-4.5 MCG/ACT Symbicort 160-4.5 MCG/ACT 02/06/2020 12:00:00 AM EST 2.0 {puffs} activ e Symbicort 160- 4.5 MCG/ACT eCW1 ([facility]) 24 HR metoprolol succinate 25 MG Extended Release Oral Tablet Metoprolol Succinate ER 02/02/2020 12:00:00 AM EST ORAL completed MEDENT ([facility]) 25 mg 02/02/2020 12:00:00 AM EST tablet extended release 24 hr 90 TAKE ONE TABLET BY MOUTH EVERY DAY TAKE ONE TABLET BY MOUTH EVERY DAY SOLD: 02/02/2020 [facility] 24 HR metoprolol succinate 25 MG Extended Release Oral Tablet Metoprolol Succinate ER 02/01/2020 12:00:00 AM EST ORAL completed MEDENT ([facility]) 3 ML liraglutide 6 MG/ML Pen Injector [Victoza] Victoza 01/31/2020 12:00:00 AM EST active [facility] ([facility] Furosemide 20 MG Oral Tablet Furosemide 01/31/2020 12:00:00 AM EST ORAL active MEDENT ([facility]) Azelastine HCL (Nasal) Azelastine HCL (Nasal) 01/31/2020 12:00:[address] active [facility]ENT ([facility] Potassium Chloride 8 MEQ Extended Release Oral Capsule Potas sium Chloride ER 01/31/2020 12:00:00 AM EST ORAL active MEDENT ([facility]) Metformin hydrochloride 850 MG Oral Tablet Metformin HCL 01/31/2020 12:00:00 AM EST active [facility]ENT ([facility]) sildenafil 100 MG Oral Tablet [Viagra] Viagra 01/31/2020 12:00:00 A M EST active [facility] ([facility]) 60 ACTUAT Albuterol 0.09 MG/ACTUAT Metered Dose Inhaler Albu terol Sulfate HFA 01/31/2020 12:00:00 AM EST RESPIRATORY active MEDENT ([facility]) montelukast 10 MG Oral Tablet Montelukast Sodium 01/31/2020 12:00:00 AM EST active MEDENT ([facility]) Loratadine 10 MG Oral Tablet Loratadine 01/31/2020 12:00:00 AM EST active MEDENT ([facility]) atorvastatin 80 MG Oral Tablet Atorvastatin Calcium 01/31/2020 1 2:00:00 AM EST active MEDENT ( [facility]) 30 ACTUAT fluticasone furoate 0.2 MG/ACT UAT / vilanterol 0.025 MG/ACTUAT Dry Powder Inhaler [Breo] Breo Ellipta 01/31/2020 12:00:00 AM EST RESPIRATORY active MEDENT ([facility]) Metformin hydrochloride 850 MG Oral Tablet Metformin HCL 01/31/2020 12:00:00 AM EST active [facility]ENT ([facility]) Flonase Allergy Relief Flonase Allergy Relief 01/31/2020 12:00:[address] active [facility]ENT ([facility]) Basaglar Kwikpen Basaglar Kwikpen 01/31/2020 12:00:00 AM EST active MEDENT ([facility]) Fenofibrate 145 MG Oral Tablet Fenofibrate 01/31/2020 12:00:00 AM EST active MEDENT ([facility]) ezetimibe 10 MG Oral Tablet Ezetimibe 01/31/2020 12:00:00 AM EST active MEDENT ([facility]) 25 mg 01/24/2020 12:00:00 AM EST tablet 30 TAKE ONE TABLET BY MOUTH EVERY MORNING TAKE ONE TABLET BY MOUTH EVERY MORNING SOLD: 03/02/2020 [facility] 25 mg 01/24/2020 12:00:00 AM EST tablet 30 TAKE ONE TABLET BY MOUTH EVERY MORNING TAKE ONE TABLET BY MOUTH EVERY MORNING SOLD: 02/01/2020 [facility] Spironolactone 25 MG Oral Tablet Spironolactone 25 MG 2019 12:00:00 AM EST 1.0 {tablet} active Spironolact one 25 MG eCW1 ([facility]) Spironolactone 25 MG Oral Tablet Spironolactone 25 MG 2019 12:00:00 AM EST 1.0 {tablet} active Spironolact one 25 MG eCW1 ([facility]) Spironolactone 25 MG Oral Tablet Spironolactone 25 MG 2019 12:00:00 AM EST 1.0 {tablet} active Spironolact one 25 MG eCW1 ([facility]) Aspirin 325 MG Oral Tablet Aspirin 01/21/2020 12:00:00 AM EST active [facility] 8 mEq 01/16/2020 12:00:00 AM EST capsule, extended relea se 30 TAKE ONE CAPSULE BY MOUTH EVERY DAY TAKE ONE CAPSULE BY MOUTH EVERY DAY SOLD: 02/18/2020 [facility] 8 mEq 01/16/2020 12:00:00 AM EST capsule, extended relea se 30 TAKE ONE CAPSULE BY MOUTH EVERY DAY TAKE ONE CAPSULE BY MOUTH EVERY DAY SOLD: 01/17/2020 [facility] 20 mg 01/16/2020 12:00:00 AM EST tablet 30 TAKE ONE TABLET BY MOUTH EVERY DAY TAKE ONE TABLET BY MOUTH EVERY DAY SOLD: 02/18/2020 [facility] 20 mg 01/16/2020 12:00:00 AM EST tablet 30 TAKE ONE TABLET BY MOUTH EVERY DAY TAKE ONE TABLET BY MOUTH EVERY DAY SOLD: 01/17/2020 [facility] Potassium Chloride 8 MEQ Extended Releas e Oral Capsule Potassium Chloride ER 8 MEQ Potassium Chloride ER 8 MEQ 01/15/2020 12:00:00 AM EST active Potassium Chloride ER 8 MEQ eCW1 ([facility]) Furosemide 20 MG Oral Tablet [Lasix] Lasix 20 MG Lasix 20 MG 01/15/2020 12:00:00 AM EST 1.0 {tablet} active Lasix 20 M G eCW1 ([facility]) 49-51 mg 01/13/2020 12:00:00 AM EST tablet 60 TAKE ONE TABLET BY MOUTH TWICE A DAY TAKE ONE TABLET BY MOUTH TWICE A DAY SOLD: 01/14/2020 [facility] 49-51 mg 01/13/2020 12:00:00 AM EST tablet 60 TAKE ONE TABLET BY MOUTH TWICE A DAY TAKE ONE TABLET BY MOUTH TWICE A DAY SOLD: 02/10/2020 [facility] 31 gauge x 1/4" 01/08/2020 12:00:00 AM EST needle 100 USE TWO TIMES A DAY DIRECTED USE TWO TIMES A DAY DIRECTED SOLD: 01/10/2020 [facility] 24-26 mg 12/20/2019 12:00:00 AM EDT tablet 60 TAKE ONE TABLET BY MOUTH TWICE A DAY TAKE ONE TABLET BY MOUTH TWICE A DAY SOLD: 12/20/2019 [facility] sacubitril 49 MG / valsartan 51 MG Oral Tablet [Entres to] Entresto 49-51 MG Entresto 49-51 MG 12/19/2019 12:00:00 AM EDT 1.0 {tablet} active Entresto 49-51 MG eCW1 ([facility]) sacubitril 24 MG / valsartan 26 MG Oral Tablet [Entres to] Entresto 24-26 MG Entresto 24-26 MG 12/19/2019 12:00:00 AM EDT 1.0 {tablet} active Entresto 24-26 MG eCW1 ([facility]) sacubitril 24 MG / valsartan 26 MG Oral Tablet [Entres to] Entresto 24-26 MG Entresto 24-26 MG 12/19/2019 12:00:00 AM EDT 1.0 {tablet} active Entresto 24-26 MG eCW1 ([facility]) sacubitril 49 MG / valsartan 51 MG Oral Tablet [Entres to] Entresto 49-51 MG Entresto 49-51 MG 12/19/2019 12:00:00 AM EDT 1.0 {tablet} active Entresto 49-51 MG eCW1 ([facility]) sacubitril 24 MG / valsartan 26 MG Oral Tablet [Entres to] Entresto 24-26 MG Entresto 24-26 MG 12/19/2019 12:00:00 AM EDT 1.0 {tablet} active Entresto 24-26 MG eCW1 ([facility]) sacubitril 49 MG / valsartan 51 MG Oral Tablet [Entres to] Entresto 49-51 MG Entresto 49-51 MG 12/19/2019 12:00:00 AM EDT 1.0 {tablet} active Entresto 49-51 MG eCW1 ([facility]) sacubitril 24 MG / valsartan 26 MG Oral Tablet [Entres to] Entresto 24-26 MG Entresto 24-26 MG 12/19/2019 12:00:00 AM EDT 1.0 {tablet} active Entresto 24-26 MG eCW1 ([facility]) sacubitril 49 MG / valsartan 51 MG Oral Tablet [Entres to] Entresto 49-51 MG Entresto 49-51 MG 12/19/2019 12:00:00 AM EDT 1.0 {tablet} active Entresto 49-51 MG eCW1 ([facility]) sacubitril 49 MG / valsartan 51 MG Oral Tablet [Entres to] Entresto 49-51 MG Entresto 49-51 MG 12/19/2019 12:00:00 AM EDT 1.0 {tablet} active Entresto 49-51 MG eCW1 ([facility]) sacubitril 49 MG / valsartan 51 MG Oral Tablet [Entres to] Entresto 49-51 MG Entresto 49-51 MG 12/19/2019 12:00:00 AM EDT 1.0 {tablet} active Entresto 49-51 MG eCW1 ([facility]) sacubitril 49 MG / valsartan 51 MG Oral Tablet [Entres to] Entresto 49-51 MG Entresto 49-51 MG 12/19/2019 12:00:00 AM EDT 1.0 {tablet} active Entresto 49-51 MG eCW1 ([facility]) sacubitril 24 MG / valsartan 26 MG Oral Tablet [Entres to] Entresto 24-26 MG Entresto 24-26 MG 12/19/2019 12:00:00 AM EDT 1.0 {tablet} active Entresto 24-26 MG eCW1 ([facility]) sacubitril 49 MG / valsartan 51 MG Oral Tablet [Entresto] En tresto 12/19/2019 12:00:00 AM EDT active M EDRENAE ([facility]) sacubitril 49 MG / valsartan 51 MG Oral Tablet [Entres to] Entresto 49-51 MG Entresto 49-51 MG 12/19/2019 12:00:00 AM EDT 1.0 {tablet} active Entresto 49-51 MG eCW1 ([facility]) sacubitril 24 MG / valsartan 26 MG Oral Tablet [Entres to] Entresto 24-26 MG Entresto 24-26 MG 12/19/2019 12:00:00 AM EDT 1.0 {tablet} active Entresto 24-26 MG eCW1 ([facility]) sacubitril 24 MG / valsartan 26 MG Oral Tablet [Entres to] Entresto 24-26 MG Entresto 24-26 MG 12/19/2019 12:00:00 AM EDT 1.0 {tablet} active Entresto 24-26 MG eCW1 ([facility]) sacubitril 49 MG / valsartan 51 MG Oral Tablet [Entres to] Entresto 49-51 MG Entresto 49-51 MG 12/19/2019 12:00:00 AM EDT 1.0 {tablet} active Entresto 49-51 MG eCW1 ([facility]) 200 mcg/actuation 12/13/2019 12:00:00 AM EDT HFA aerosol inh aler 13 INHALE ONE PUFF BY MOUTH TWICE A DAY INHALE ONE PUFF BY MOUTH TWICE A DAY SOLD: 12/13/2019 [facility] 200 mcg/actuation 12/13/2019 12:00:00 AM EDT HFA aerosol inh aler 13 INHALE ONE PUFF BY MOUTH TWICE A DAY INHALE ONE PUFF BY MOUTH TWICE A DAY SOLD: 02/10/2020 [facility] 200 mcg/actuation 12/13/2019 12:00:00 AM EDT HFA aerosol inh aler 13 INHALE ONE PUFF BY MOUTH TWICE A DAY INHALE ONE PUFF BY MOUTH TWICE A DAY SOLD: 01/10/2020 [facility] 200 mcg/actuation 12/13/2019 12:00:00 AM EDT HFA aerosol inh aler 13 INHALE ONE PUFF BY MOUTH TWICE A DAY INHALE ONE PUFF BY MOUTH TWICE A DAY SOLD: 03/10/2020 [facility] Prednisone 20 MG Oral Tablet PredniSONE 20 MG PredniSONE 20 MG 12/12/2019 12:00:00 AM EDT 2.0 {tablet} active Pr edniSONE 20 MG eCW1 ([facility]) 20 mg 12/12/2019 12:00:00 AM EDT tablet 8 TAKE TWO TABLETS BY MOUTH EVERY DAY FOR 4 DAYS TAKE TWO TABLETS BY MOUTH EVERY DAY FOR 4 DAYS SOLD: 020 [facility] 120 ACTUAT mometasone furoate 0.2 MG/ACT UAT Metered Dose Inhaler [Asmanex] Asmanex HFA 200 MCG/ACT Asmanex HFA 200 MCG/ACT 12/11/2019 12:00:00 AM EDT 1.0 {puffs} active Asmanex HFA 200 MCG/ACT eCW1 ([facility]) 120 ACTUAT mometasone furoate 0.2 MG/ACT UAT Metered Dose Inhaler [Asmanex] Asmanex HFA 200 MCG/ACT Asmanex HFA 200 MCG/ACT 12/11/2019 12:00:00 AM EDT 1.0 {puffs} active Asmanex HFA 200 MCG/ACT eCW1 ([facility]) 120 ACTUAT mometasone furoate 0.2 MG/ACT UAT Metered Dose Inhaler [Asmanex] Asmanex HFA 200 MCG/ACT Asmanex HFA 200 MCG/ACT 12/11/2019 12:00:00 AM EDT 1.0 {puffs} active Asmanex HFA 200 MCG/ACT eCW1 ([facility]) 120 ACTUAT mometasone furoate 0.2 MG/ACT UAT Metered Dose Inhaler [Asmanex] Asmanex HFA 200 MCG/ACT Asmanex HFA 200 MCG/ACT 12/11/2019 12:00:00 AM EDT 1.0 {puffs} active Asmanex HFA 200 MCG/ACT eCW1 ([facility]) 120 ACTUAT mometasone furoate 0.2 MG/ACT UAT Metered Dose Inhaler [Asmanex] Asmanex HFA 200 MCG/ACT Asmanex HFA 200 MCG/ACT 12/11/2019 12:00:00 AM EDT 1.0 {puffs} active Asmanex HFA 200 MCG/ACT eCW1 ([facility]) 120 ACTUAT mometasone furoate 0.2 MG/ACT UAT Metered Dose Inhaler [Asmanex] Asmanex HFA 200 MCG/ACT Asmanex HFA 200 MCG/ACT 12/11/2019 12:00:00 AM EDT 1.0 {puffs} active Asmanex HFA 200 MCG/ACT eCW1 ([facility]) 120 ACTUAT mometasone furoate 0.2 MG/ACT UAT Metered Dose Inhaler [Asmanex] Asmanex HFA 200 MCG/ACT Asmanex HFA 200 MCG/ACT 12/11/2019 12:00:00 AM EDT 1.0 {puffs} active Asmanex HFA 200 MCG/ACT eCW1 ([facility]) 120 ACTUAT mometasone furoate 0.2 MG/ACT UAT Metered Dose Inhaler [Asmanex] Asmanex HFA 200 MCG/ACT Asmanex HFA 200 MCG/ACT 12/11/2019 12:00:00 AM EDT 1.0 {puffs} active Asmanex HFA 200 MCG/ACT eCW1 ([facility]) 120 ACTUAT mometasone furoate 0.2 MG/ACT UAT Metered Dose Inhaler [Asmanex] Asmanex HFA 200 MCG/ACT Asmanex HFA 200 MCG/ACT 12/11/2019 12:00:00 AM EDT 1.0 {puffs} active Asmanex HFA 200 MCG/ACT eCW1 ([facility]) 120 ACTUAT mometasone furoate 0.2 MG/ACT UAT Metered Dose Inhaler [Asmanex] Asmanex HFA 200 MCG/ACT Asmanex HFA 200 MCG/ACT 12/11/2019 12:00:00 AM EDT 1.0 {puffs} active Asmanex HFA 200 MCG/ACT eCW1 ([facility]) 120 ACTUAT mometasone furoate 0.2 MG/ACT UAT Metered Dose Inhaler [Asmanex] Asmanex HFA 200 MCG/ACT Asmanex HFA 200 MCG/ACT 12/11/2019 12:00:00 AM EDT 1.0 {puffs} active Asmanex HFA 200 MCG/ACT eCW1 ([facility]) 120 ACTUAT mometasone furoate 0.2 MG/ACT UAT Metered Dose Inhaler [Asmanex] Asmanex HFA 200 MCG/ACT Asmanex HFA 200 MCG/ACT 12/11/2019 12:00:00 AM EDT 1.0 {puffs} active Asmanex HFA 200 MCG/ACT eCW1 ([facility]) 120 ACTUAT mometasone furoate 0.2 MG/ACT UAT Metered Dose Inhaler [Asmanex] Asmanex HFA 200 MCG/ACT Asmanex HFA 200 MCG/ACT 12/11/2019 12:00:00 AM EDT 1.0 {puffs} active Asmanex HFA 200 MCG/ACT eCW1 ([facility]) 120 ACTUAT mometasone furoate 0.2 MG/ACT UAT Metered Dose Inhaler [Asmanex] Asmanex HFA 200 MCG/ACT Asmanex HFA 200 MCG/ACT 12/11/2019 12:00:00 AM EDT 1.0 {puffs} active Asmanex HFA 200 MCG/ACT eCW1 ([facility]) 120 ACTUAT mometasone furoate 0.2 MG/ACTUAT Metered Do se Inhaler [Asmanex] Asmanex HFA 12/11/2019 12:00:00 AM EDT RESPIRATORY activ e MEDENT ([facility]) 120 ACTUAT mometasone furoate 0.2 MG/ACT UAT Metered Dose Inhaler [Asmanex] Asmanex HFA 200 MCG/ACT Asmanex HFA 200 MCG/ACT 12/11/2019 12:00:00 AM EDT 1.0 {puffs} active Asmanex HFA 200 MCG/ACT eCW1 ([facility]) 120 ACTUAT mometasone furoate 0.2 MG/ACT UAT Metered Dose Inhaler [Asmanex] Asmanex HFA 200 MCG/ACT Asmanex HFA 200 MCG/ACT 12/11/2019 12:00:00 AM EDT 1.0 {puffs} active Asmanex HFA 200 MCG/ACT eCW1 ([facility]) 200-25 mcg/dose 12/01/2019 12:00:00 AM EDT blister with miley ce 60 INHALE ONE PUFF BY MOUTH EVERY DAY INHALE ONE PUFF BY MOUTH EVERY DAY SOLD: 12/12/2019 [facility] 200-25 mcg/dose 12/01/2019 12:00:00 AM EDT blister with miley ce 60 INHALE ONE PUFF BY MOUTH EVERY DAY INHALE ONE PUFF BY MOUTH EVERY DAY SOLD: 01/10/2020 [facility] Fluticasone Propionate HFA 220 MCG/ACT UNK 11/30/2019 12:0 0:00 AM EDT 1.0 {puff} active Fluticasone Propionate H FA 220 MCG/ACT eCW1 ([facility]) 90 mcg/actuation 11/19/2019 12:00:00 AM EDT HFA aerosol inha ler 8 INHALE ONE TO TWO PUFFS BY MOUTH EVERY 4 HOURS NEEDED INHALE ONE TO TWO PUFFS BY MOUTH EVERY 4 HOURS NEEDED SOLD: 11/19/2019 [facility] 20 mg 11/19/2019 12:00:00 AM EDT tablet 10 TAKE 2 TABLET BY MOUTH ONCE A DAY FOR 5 DAYS TAKE 2 TABLET BY MOUTH ONCE A DAY FOR 5 DAYS SOLD: 11/19/2019 [facility] 137 mcg (0.1 %) 11/10/2019 12:00:00 AM EDT aerosol,spray 30 SPRAY ONE SPRAY IN EACH NOSTRIL TWO TIMES A DAY (1 BOX LAST 50 DAYS) SPRAY ONE SPRAY IN EACH NOSTRIL TWO TIMES A DAY (1 BOX LAST 50 DAYS) SOLD: 02/18/2020 [facility] 137 mcg (0.1 %) 11/10/2019 12:00:00 AM EDT aerosol,spray 30 SPRAY ONE SPRAY IN EACH NOSTRIL TWO TIMES A DAY (1 BOX LAST 50 DAYS) SPRAY ONE SPRAY IN EACH NOSTRIL TWO TIMES A DAY (1 BOX LAST 50 DAYS) SOLD: 01/17/2020 [facility] 137 mcg (0.1 %) 11/10/2019 12:00:00 AM EDT aerosol,spray 30 SPRAY ONE SPRAY IN EACH NOSTRIL TWO TIMES A DAY (1 BOX LAST 50 DAYS) SPRAY ONE SPRAY IN EACH NOSTRIL TWO TIMES A DAY (1 BOX LAST 50 DAYS) SOLD: 12/18/2019 [facility] 137 mcg (0.1 %) 11/10/2019 12:00:00 AM EDT aerosol,spray 30 SPRAY ONE SPRAY IN EACH NOSTRIL TWO TIMES A DAY (1 BOX LAST 50 DAYS) SPRAY ONE SPRAY IN EACH NOSTRIL TWO TIMES A DAY (1 BOX LAST 50 DAYS) SOLD: 11/19/2019 [facility] 100 unit/mL (3 mL) 11/08/2019 12:00:00 AM EDT insulin pen 15 INJECT 40 UNITS UNDER THE SKIN EVERY MORNING AND EVERY NIGHT DIRECTED INJECT 40 UNITS UNDER THE SKIN EVERY MORNING AND EVERY NIGHT DIRECTED SOLD: 02/01/2020 [facility] 100 unit/mL (3 mL) 11/08/2019 12:00:00 AM EDT insulin pen 15 INJECT 40 UNITS UNDER THE SKIN EVERY MORNING AND EVERY NIGHT DIRECTED INJECT 40 UNITS UNDER THE SKIN EVERY MORNING AND EVERY NIGHT DIRECTED SOLD: 01/10/2020 [facility] 100 unit/mL (3 mL) 11/08/2019 12:00:00 AM EDT insulin pen 15 INJECT 40 UNITS UNDER THE SKIN EVERY MORNING AND EVERY NIGHT DIRECTED INJECT 40 UNITS UNDER THE SKIN EVERY MORNING AND EVERY NIGHT DIRECTED SOLD: 12/12/2019 [facility] 100 unit/mL (3 mL) 11/08/2019 12:00:00 AM EDT insulin pen 15 INJECT 40 UNITS UNDER THE SKIN EVERY MORNING AND EVERY NIGHT DIRECTED INJECT 40 UNITS UNDER THE SKIN EVERY MORNING AND EVERY NIGHT DIRECTED SOLD: 11/19/2019 [facility] 200-25 mcg/dose 11/02/2019 12:00:00 AM EDT blister with miley ce 60 INHALE 1 PUFF BY MOUTH ONCE DAILY INHALE 1 PUFF BY MOUTH ONCE DAILY SOLD: 11/07/2019 [facility] 0.6 mg/0.1 mL (18 mg/3 mL) 09/27/2019 12:00:00 AM EDT pen in jector 9 INJECT 1.8MG UNDER THE SKIN EVERY MORNING INJECT 1.8MG UNDER THE SKIN EVERY MORNING SOLD: 10/09/2019 [facility] 0.6 mg/0.1 mL (18 mg/3 mL) 09/27/2019 12:00:00 AM EDT pen in jector 9 INJECT 1.8MG UNDER THE SKIN EVERY MORNING INJECT 1.8MG UNDER THE SKIN EVERY MORNING SOLD: 11/07/2019 [facility] 10 mg 09/27/2019 12:00:00 AM EDT tablet 30 TAKE ONE TABLET BY MOUTH EVERY DAY TAKE ONE TABLET BY MOUTH EVERY DAY SOLD: 11/07/2019 [facility] 10 mg 09/27/2019 12:00:00 AM EDT tablet 30 TAKE ONE TABLET BY MOUTH EVERY DAY TAKE ONE TABLET BY MOUTH EVERY DAY SOLD: 03/10/2020 [facility] 10 mg 09/27/2019 12:00:00 AM EDT tablet 30 TAKE ONE TABLET BY MOUTH EVERY DAY TAKE ONE TABLET BY MOUTH EVERY DAY SOLD: 12/12/2019 [facility] 10 mg 09/27/2019 12:00:00 AM EDT tablet 30 TAKE ONE TABLET BY MOUTH EVERY DAY TAKE ONE TABLET BY MOUTH EVERY DAY SOLD: 02/10/2020 [facility] 10 mg 09/27/2019 12:00:00 AM EDT tablet 30 TAKE ONE TABLET BY MOUTH EVERY DAY TAKE ONE TABLET BY MOUTH EVERY DAY SOLD: 01/10/2020 [facility] 10 mg 09/27/2019 12:00:00 AM EDT tablet 30 TAKE ONE TABLET BY MOUTH EVERY DAY TAKE ONE TABLET BY MOUTH EVERY DAY SOLD: 10/09/2019 [facility] 50 mcg/actuation 09/26/2019 12:00:00 AM EDT spray,suspension 16 SPRAY TWO SPRAYS IN EACH NOSTRIL EVERY MORNING SPRAY TWO SPRAYS IN EACH NOSTRIL EVERY MORNING SOLD: 11/07/2019 [facility] 850 mg 09/26/2019 12:00:00 AM EDT tablet 90 TAKE ONE TABLET BY MOUTH THREE TIMES A DAY TAKE ONE TABLET BY MOUTH THREE TIMES A DAY SOLD: 10/09/2019 [facility] atorvastatin 80 MG Oral Tablet ATORVASTATIN CALCIUM 09/26/2019 1 2:00:00 AM EDT tablet 30 TAKE ONE TABLET BY MOUTH EVERY D AY TAKE ONE TABLET BY MOUTH EVERY DAY SOLD: 01/10/2020 [facility] 80 mg 09/26/2019 12:00:00 AM EDT tablet 30 TAKE ONE TABLET BY MOUTH EVERY DAY TAKE ONE TABLET BY MOUTH EVERY DAY SOLD: 03/09/2020 [facility] Metformin hydrochloride 850 MG Oral Tablet METFORMIN HCL 09/26/2019 12:00:00 AM EDT tablet 90 TAKE ONE TABLET BY MOUTH THR EE TIMES A DAY TAKE ONE TABLET BY MOUTH THREE TIMES A DAY SOLD: 02/10/2020 [facility] 50 mcg/actuation 09/26/2019 12:00:00 AM EDT spray,suspension 16 SPRAY TWO SPRAYS IN EACH NOSTRIL EVERY MORNING SPRAY TWO SPRAYS IN EACH NOSTRIL EVERY MORNING SOLD: 10/09/2019 [facility] Metformin hydrochloride 850 MG Oral Tablet METFORMIN HCL 09/26/2019 12:00:00 AM EDT tablet 90 TAKE ONE TABLET BY MOUTH THR EE TIMES A DAY TAKE ONE TABLET BY MOUTH THREE TIMES A DAY SOLD: 01/10/2020 [facility] Metformin hydrochloride 850 MG Oral Tablet METFORMIN HCL 09/26/2019 12:00:00 AM EDT tablet 90 TAKE ONE TABLET BY MOUTH THR EE TIMES A DAY TAKE ONE TABLET BY MOUTH THREE TIMES A DAY SOLD: 12/12/2019 [facility] Metformin hydrochloride 850 MG Oral Tablet METFORMIN HCL 09/26/2019 12:00:00 AM EDT tablet 90 TAKE ONE TABLET BY MOUTH THR EE TIMES A DAY TAKE ONE TABLET BY MOUTH THREE TIMES A DAY SOLD: 11/07/2019 [facility] atorvastatin 80 MG Oral Tablet ATORVASTATIN CALCIUM 09/26/2019 1 2:00:00 AM EDT tablet 30 TAKE ONE TABLET BY MOUTH EVERY D AY TAKE ONE TABLET BY MOUTH EVERY DAY SOLD: 10/09/2019 [facility] atorvastatin 80 MG Oral Tablet ATORVASTATIN CALCIUM 09/26/2019 1 2:00:00 AM EDT tablet 30 TAKE ONE TABLET BY MOUTH EVERY D AY TAKE ONE TABLET BY MOUTH EVERY DAY SOLD: 12/12/2019 [facility] 50 mcg/actuation 09/26/2019 12:00:00 AM EDT spray,suspension 16 SPRAY TWO SPRAYS IN EACH NOSTRIL EVERY MORNING SPRAY TWO SPRAYS IN EACH NOSTRIL EVERY MORNING SOLD: 01/10/2020 [facility] 50 mcg/actuation 09/26/2019 12:00:00 AM EDT spray,suspension 16 SPRAY TWO SPRAYS IN EACH NOSTRIL EVERY MORNING SPRAY TWO SPRAYS IN EACH NOSTRIL EVERY MORNING SOLD: 02/10/2020 [facility] 50 mcg/actuation 09/26/2019 12:00:00 AM EDT spray,suspension 16 SPRAY TWO SPRAYS IN EACH NOSTRIL EVERY MORNING SPRAY TWO SPRAYS IN EACH NOSTRIL EVERY MORNING SOLD: 12/12/2019 [facility] 80 mg 09/26/2019 12:00:00 AM EDT tablet 30 TAKE ONE TABLET BY MOUTH EVERY DAY TAKE ONE TABLET BY MOUTH EVERY DAY SOLD: 02/10/2020 [facility] atorvastatin 80 MG Oral Tablet ATORVASTATIN CALCIUM 09/26/2019 1 2:00:00 AM EDT tablet 30 TAKE ONE TABLET BY MOUTH EVERY D AY TAKE ONE TABLET BY MOUTH EVERY DAY SOLD: 11/07/2019 [facility] 50 mcg/actuation 09/26/2019 12:00:00 AM EDT spray,suspension 16 SPRAY TWO SPRAYS IN EACH NOSTRIL EVERY MORNING SPRAY TWO SPRAYS IN EACH NOSTRIL EVERY MORNING SOLD: 03/10/2020 [facility] Metformin hydrochloride 850 MG Oral Tablet METFORMIN HCL 09/26/2019 12:00:00 AM EDT tablet 90 TAKE ONE TABLET BY MOUTH THR EE TIMES A DAY TAKE ONE TABLET BY MOUTH THREE TIMES A DAY SOLD: 03/10/2020 [facility] montelukast 10 MG Oral Tablet MONTELUKAST SODIUM 08/29/2019 12:0 0:00 AM EDT tablet 90 TAKE ONE TABLET BY MOUTH AT BEDT ZAHIDA TAKE ONE TABLET BY MOUTH AT BEDTIME SOLD: 11/28/2019 [facility] 137 mcg (0.1 %) 08/29/2019 12:00:00 AM EDT aerosol,spray 30 SPRAY 1 SPRAY IN EACH NOSTRIL TWO TIMES A DAY SPRAY 1 SPRAY IN EACH NOSTRIL TWO TIMES A DAY SOLD: 10/09/2019 [facility] montelukast 10 MG Oral Tablet MONTELUKAST SODIUM 08/29/2019 12:0 0:00 AM EDT tablet 90 TAKE ONE TABLET BY MOUTH AT BEDT ZAHIDA TAKE ONE TABLET BY MOUTH AT BEDTIME SOLD: 08/29/2019 [facility] 137 mcg (0.1 %) 08/29/2019 12:00:00 AM EDT aerosol,spray 30 SPRAY 1 SPRAY IN EACH NOSTRIL TWO TIMES A DAY SPRAY 1 SPRAY IN EACH NOSTRIL TWO TIMES A DAY SOLD: 08/29/2019 [facility] 100 unit/mL (3 mL) 08/28/2019 12:00:00 AM EDT insulin pen 30 INJECT 40 UNITS UNDER THE SKIN EVERY MORNING AND 40 UNITS EVERY EVENING (2 BOXES SHOULD LAST 37 DAYS) INJECT 40 UNITS UNDER THE SKIN EVERY MOR SUSANNA AND 40 UNITS EVERY EVENING (2 BOXES SHOULD LAST 37 DAYS) SOLD: 08/29/2019 [facility] 100 unit/mL (3 mL) 08/28/2019 12:00:00 AM EDT insulin pen 30 INJECT 40 UNITS UNDER THE SKIN EVERY MORNING AND 40 UNITS EVERY EVENING (2 BOXES SHOULD LAST 37 DAYS) INJECT 40 UNITS UNDER THE SKIN EVERY MOR SUSANNA AND 40 UNITS EVERY EVENING (2 BOXES SHOULD LAST 37 DAYS) SOLD: 10/09/2019 [facility] 31 gauge x 1/4" 08/09/2019 12:00:00 AM EDT needle 100 USE DIRECTED TWO TIMES A DAY USE DIRECTED TWO TIMES A DAY SOLD: 11/07/2019 [facility] 31 gauge x 1/4" 08/09/2019 12:00:00 AM EDT needle 100 USE DIRECTED TWO TIMES A DAY USE DIRECTED TWO TIMES A DAY SOLD: 08/17/2019 [facility] 31 gauge x 1/4" 08/09/2019 12:00:00 AM EDT needle 100 USE DIRECTED TWO TIMES A DAY USE DIRECTED TWO TIMES A DAY SOLD: 10/09/2019 [facility] 31 gauge x 1/4" 08/09/2019 12:00:00 AM EDT needle 100 USE DIRECTED TWO TIMES A DAY USE DIRECTED TWO TIMES A DAY SOLD: 12/12/2019 [facility] 31 gauge x 1/4" 08/01/2019 12:00:00 AM EDT needle 60 USE DIRECTED TWO TIMES A DAY USE DIRECTED TWO TIMES A DAY SOLD: 08/01/2019 [facility] 0.6 mg/0.1 mL (18 mg/3 mL) 08/01/2019 12:00:00 AM EDT pen in jector 9 INJECT 1.8MG UNDER THE SKIN EVERY MORNING INJECT 1.8MG UNDER THE SKIN EVERY MORNING SOLD: 08/29/2019 [facility] 0.6 mg/0.1 mL (18 mg/3 mL) 08/01/2019 12:00:00 AM EDT pen in jector 9 INJECT 1.8MG UNDER THE SKIN EVERY MORNING INJECT 1.8MG UNDER THE SKIN EVERY MORNING SOLD: 08/01/2019 [facility] ezetimibe 10 MG Oral Tablet EZETIMIBE 07/15/2019 12:00:00 AM EDT table t 30 TAKE ONE TABLET BY MOUTH EVERY DAY TAKE ONE TABLET BY MOUTH EVERY DAY SOLD: 01/10/2020 [facility] 10 mg 07/15/2019 12:00:00 AM EDT tablet 30 TAKE ONE TABLET BY MOUTH EVERY DAY TAKE ONE TABLET BY MOUTH EVERY DAY SOLD: 10/09/2019 [facility] ezetimibe 10 MG Oral Tablet EZETIMIBE 07/15/2019 12:00:00 AM EDT table t 30 TAKE ONE TABLET BY MOUTH EVERY DAY TAKE ONE TABLET BY MOUTH EVERY DAY SOLD: 11/07/2019 [facility] ezetimibe 10 MG Oral Tablet EZETIMIBE 07/15/2019 12:00:00 AM EDT table t 30 TAKE ONE TABLET BY MOUTH EVERY DAY TAKE ONE TABLET BY MOUTH EVERY DAY SOLD: 12/12/2019 [facility] 10 mg 07/15/2019 12:00:00 AM EDT tablet 30 TAKE ONE TABLET BY MOUTH EVERY DAY TAKE ONE TABLET BY MOUTH EVERY DAY SOLD: 07/31/2019 [facility] 10 mg 07/15/2019 12:00:00 AM EDT tablet 30 TAKE ONE TABLET BY MOUTH EVERY DAY TAKE ONE TABLET BY MOUTH EVERY DAY SOLD: 08/29/2019 [facility] 145 mg 07/05/2019 12:00:00 AM EDT tablet 30 TAKE ONE TABLET BY MOUTH AT BEDTIME TAKE ONE TABLET BY MOUTH AT BEDTIME SOLD: 07/08/2019 [facility] 145 mg 07/05/2019 12:00:00 AM EDT tablet 30 TAKE ONE TABLET BY MOUTH AT BEDTIME TAKE ONE TABLET BY MOUTH AT BEDTIME SOLD: 01/10/2020 [facility] 145 mg 07/05/2019 12:00:00 AM EDT tablet 30 TAKE ONE TABLET BY MOUTH AT BEDTIME TAKE ONE TABLET BY MOUTH AT BEDTIME SOLD: 11/07/2019 [facility] 145 mg 07/05/2019 12:00:00 AM EDT tablet 30 TAKE ONE TABLET BY MOUTH AT BEDTIME TAKE ONE TABLET BY MOUTH AT BEDTIME SOLD: 12/12/2019 [facility] 145 mg 07/05/2019 12:00:00 AM EDT tablet 30 TAKE ONE TABLET BY MOUTH AT BEDTIME TAKE ONE TABLET BY MOUTH AT BEDTIME SOLD: 08/17/2019 [facility] 145 mg 07/05/2019 12:00:00 AM EDT tablet 30 TAKE ONE TABLET BY MOUTH AT BEDTIME TAKE ONE TABLET BY MOUTH AT BEDTIME SOLD: 10/09/2019 [facility] Fenofibrate 145 MG Oral Tablet Fenofibrate 145 MG 07/03/2019 12:00: 00 AM EDT active 1 tab eCW1 ([facility]) Fenofibrate 145 MG Oral Tablet Fenofibrate 145 MG 07/03/2019 12:00: 00 AM EDT active 1 tab eCW1 ([facility]) 100 unit/mL (3 mL) 06/15/2019 12:00:00 AM EDT insulin pen 30 INJECT 40 UNITS SUBCUTANEOUSLY EVERY MORNING AND 40 UNITS EVERY NIGHT (2 BOXES SHOULD LAST 37 DAYS) INJECT 40 UNITS SUBCUTANEOUSLY EVERY MOR SUSANNA AND 40 UNITS EVERY NIGHT (2 BOXES SHOULD LAST 37 DAYS) SOLD: 07/31/2019 [facility] 100 unit/mL (3 mL) 06/15/2019 12:00:00 AM EDT insulin pen 30 INJECT 40 UNITS SUBCUTANEOUSLY EVERY MORNING AND 40 UNITS EVERY NIGHT (2 BOXES SHOULD LAST 37 DAYS) INJECT 40 UNITS SUBCUTANEOUSLY EVERY MOR SUSANNA AND 40 UNITS EVERY NIGHT (2 BOXES SHOULD LAST 37 DAYS) SOLD: 06/19/2019 [facility] 0.6 mg/0.1 mL (18 mg/3 mL) 05/21/2019 12:00:00 AM EDT pen in jector 9 INJECT 1.8 MG UNDER THE SKIN EVERY MORNING INJECT 1.8 MG UNDER THE SKIN EVERY MORNING SOLD: 07/05/2019 [facility] 0.6 mg/0.1 mL (18 mg/3 mL) 05/21/2019 12:00:00 AM EDT pen in jector 9 INJECT 1.8 MG UNDER THE SKIN EVERY MORNING INJECT 1.8 MG UNDER THE SKIN EVERY MORNING SOLD: 06/01/2019 [facility] 200-25 mcg/dose 04/28/2019 12:00:00 AM EST blister with miley ce 180 INHALE 1 PUFF BY MOUTH ONCE DAILY INHALE 1 PUFF BY MOUTH ONCE DAILY SOLD: 07/31/2019 [facility] 200-25 mcg/dose 04/28/2019 12:00:00 AM EST blister with miley ce 180 INHALE 1 PUFF BY MOUTH ONCE DAILY INHALE 1 PUFF BY MOUTH ONCE DAILY SOLD: 04/30/2019 [facility] 105 mg 04/24/2019 12:00:00 AM EST tablet 30 TAKE ONE TABLET BY MOUTH EVERY DAY TAKE ONE TABLET BY MOUTH EVERY DAY SOLD: 04/30/2019 [facility] 105 mg 04/24/2019 12:00:00 AM EST tablet 30 TAKE ONE TABLET BY MOUTH EVERY DAY TAKE ONE TABLET BY MOUTH EVERY DAY SOLD: 06/01/2019 [facility] fenofibric acid 105 MG Oral Tablet [Fibricor] Fibricor 105 M G Fibricor 105 MG 04/21/2019 12:00:00 AM EST active 1 tablet eCW1 ([facility]) 100 unit/mL (3 mL) 04/19/2019 12:00:00 AM EST insulin pen 30 DIRECTED INJECT 50 UNITS UNDER THE SKIN IN THE MORNING AND 50 UNITS UNDER THE SKIN AT NIGHT DIRECTED INJECT 50 UNITS UNDER THE SK IN IN THE MORNING AND 50 UNITS UNDER THE SKIN AT NIGHT SOLD: 04/30/2019 [facility] 100 unit/mL (3 mL) 03/29/2019 12:00:00 AM EST insulin pen 27 INJECT 40 UNITS EVERY MORNING AND 40 UNITS EVERY EVENING DIRECTED INJECT 40 UNITS EVERY MORNING AND 40 UNITS EVERY EVENING DIRECTED SOLD: 04/02/2019 [facility] 100 unit/mL (3 mL) 03/29/2019 12:00:00 AM EST insulin pen 27 INJECT 40 UNITS EVERY MORNING AND 40 UNITS EVERY EVENING DIRECTED INJECT 40 UNITS EVERY MORNING AND 40 UNITS EVERY EVENING DIRECTED SOLD: 05/20/2019 [facility] 0.6 mg/0.1 mL (18 mg/3 mL) 03/17/2019 12:00:00 AM EST pen in jector 9 INJECT 1.8MG UNDER THE SKIN EVERY MORNING INJECT 1.8MG UNDER THE SKIN EVERY MORNING SOLD: 03/20/2019 [facility] 0.6 mg/0.1 mL (18 mg/3 mL) 03/17/2019 12:00:00 AM EST pen in jector 9 INJECT 1.8MG UNDER THE SKIN EVERY MORNING INJECT 1.8MG UNDER THE SKIN EVERY MORNING SOLD: 04/17/2019 [facility] 31 gauge x 1/4" 03/16/2019 12:00:00 AM EST needle 100 INJECT DIRECTED TWO TIMES A DAY INJECT DIRECTED TWO TIMES A DAY SOLD: 03/20/2019 [facility] 31 gauge x 1/4" 03/16/2019 12:00:00 AM EST needle 100 INJECT DIRECTED TWO TIMES A DAY INJECT DIRECTED TWO TIMES A DAY SOLD: 04/30/2019 [facility] 31 gauge x 1/4" 03/16/2019 12:00:00 AM EST needle 100 INJECT DIRECTED TWO TIMES A DAY INJECT DIRECTED TWO TIMES A DAY SOLD: 06/01/2019 [facility] 31 gauge x 1/4" 03/16/2019 12:00:00 AM EST needle 100 INJECT DIRECTED TWO TIMES A DAY INJECT DIRECTED TWO TIMES A DAY SOLD: 07/05/2019 [facility] 10 mg 03/15/2019 12:00:00 AM EST tablet 30 TAKE ONE TABLET BY MOUTH EVERY DAY TAKE ONE TABLET BY MOUTH EVERY DAY SOLD: 05/20/2019 [facility] 850 mg 03/15/2019 12:00:00 AM EST tablet 90 TAKE ONE TABLET BY MOUTH THREE TIMES A DAY TAKE ONE TABLET BY MOUTH THREE TIMES A DAY SOLD: 06/19/2019 [facility] 10 mg 03/15/2019 12:00:00 AM EST tablet 30 TAKE ONE TABLET BY MOUTH EVERY DAY TAKE ONE TABLET BY MOUTH EVERY DAY SOLD: 04/17/2019 [facility] 10 mg 03/15/2019 12:00:00 AM EST tablet 30 TAKE ONE TABLET BY MOUTH EVERY DAY TAKE ONE TABLET BY MOUTH EVERY DAY SOLD: 03/20/2019 [facility] 850 mg 03/15/2019 12:00:00 AM EST tablet 90 TAKE ONE TABLET BY MOUTH THREE TIMES A DAY TAKE ONE TABLET BY MOUTH THREE TIMES A DAY SOLD: 07/31/2019 [facility] 850 mg 03/15/2019 12:00:00 AM EST tablet 90 TAKE ONE TABLET BY MOUTH THREE TIMES A DAY TAKE ONE TABLET BY MOUTH THREE TIMES A DAY SOLD: 05/20/2019 [facility] 850 mg 03/15/2019 12:00:00 AM EST tablet 90 TAKE ONE TABLET BY MOUTH THREE TIMES A DAY TAKE ONE TABLET BY MOUTH THREE TIMES A DAY SOLD: 08/29/2019 [facility] 850 mg 03/15/2019 12:00:00 AM EST tablet 90 TAKE ONE TABLET BY MOUTH THREE TIMES A DAY TAKE ONE TABLET BY MOUTH THREE TIMES A DAY SOLD: 04/17/2019 [facility] 10 mg 03/15/2019 12:00:00 AM EST tablet 30 TAKE ONE TABLET BY MOUTH EVERY DAY TAKE ONE TABLET BY MOUTH EVERY DAY SOLD: 08/29/2019 [facility] 850 mg 03/15/2019 12:00:00 AM EST tablet 90 TAKE ONE TABLET BY MOUTH THREE TIMES A DAY TAKE ONE TABLET BY MOUTH THREE TIMES A DAY SOLD: 03/20/2019 [facility] 10 mg 03/15/2019 12:00:00 AM EST tablet 30 TAKE ONE TABLET BY MOUTH EVERY DAY TAKE ONE TABLET BY MOUTH EVERY DAY SOLD: 06/19/2019 [facility] 10 mg 03/15/2019 12:00:00 AM EST tablet 30 TAKE ONE TABLET BY MOUTH EVERY DAY TAKE ONE TABLET BY MOUTH EVERY DAY SOLD: 07/31/2019 [facility] 50 mcg/actuation 03/12/2019 12:00:00 AM EST spray,suspension 16 SPRAY 1 SPRAY EACH NOSTRIL ONCE DAILY SPRAY 1 SPRAY EACH NOSTRIL ONCE DAILY SOLD: 08/01/2019 [facility] 50 mcg/actuation 03/12/2019 12:00:00 AM EST spray,suspension 16 SPRAY 1 SPRAY EACH NOSTRIL ONCE DAILY SPRAY 1 SPRAY EACH NOSTRIL ONCE DAILY SOLD: 03/13/2019 [facility] 80 mg 03/12/2019 12:00:00 AM EST tablet 30 TAKE ONE TABLET BY MOUTH EVERY DAY TAKE ONE TABLET BY MOUTH EVERY DAY SOLD: 07/31/2019 [facility] 50 mcg/actuation 03/12/2019 12:00:00 AM EST spray,suspension 16 SPRAY 1 SPRAY EACH NOSTRIL ONCE DAILY SPRAY 1 SPRAY EACH NOSTRIL ONCE DAILY SOLD: 08/29/2019 [facility] 50 mcg/actuation 03/12/2019 12:00:00 AM EST spray,suspension 16 SPRAY 1 SPRAY EACH NOSTRIL ONCE DAILY SPRAY 1 SPRAY EACH NOSTRIL ONCE DAILY SOLD: 07/05/2019 [facility] 80 mg 03/12/2019 12:00:00 AM EST tablet 30 TAKE ONE TABLET BY MOUTH EVERY DAY TAKE ONE TABLET BY MOUTH EVERY DAY SOLD: 08/29/2019 [facility] 50 mcg/actuation 03/12/2019 12:00:00 AM EST spray,suspension 16 SPRAY 1 SPRAY EACH NOSTRIL ONCE DAILY SPRAY 1 SPRAY EACH NOSTRIL ONCE DAILY SOLD: 06/01/2019 [facility] 80 mg 03/12/2019 12:00:00 AM EST tablet 30 TAKE ONE TABLET BY MOUTH EVERY DAY TAKE ONE TABLET BY MOUTH EVERY DAY SOLD: 03/13/2019 [facility] 80 mg 03/12/2019 12:00:00 AM EST tablet 30 TAKE ONE TABLET BY MOUTH EVERY DAY TAKE ONE TABLET BY MOUTH EVERY DAY SOLD: 04/17/2019 [facility] 80 mg 03/12/2019 12:00:00 AM EST tablet 30 TAKE ONE TABLET BY MOUTH EVERY DAY TAKE ONE TABLET BY MOUTH EVERY DAY SOLD: 06/19/2019 [facility] 80 mg 03/12/2019 12:00:00 AM EST tablet 30 TAKE ONE TABLET BY MOUTH EVERY DAY TAKE ONE TABLET BY MOUTH EVERY DAY SOLD: 05/20/2019 [facility] 50 mcg/actuation 03/12/2019 12:00:00 AM EST spray,suspension 16 SPRAY 1 SPRAY EACH NOSTRIL ONCE DAILY SPRAY 1 SPRAY EACH NOSTRIL ONCE DAILY SOLD: 04/30/2019 [facility] Loratadine 10 MG Oral Tablet Loratadine 10 MG 03/06/2019 12:00:[address] active 1 tablet eCW1 ([facility]) Loratadine 10 MG Oral Tablet Loratadine 10 MG 03/06/2019 12:00:[address] active 1 tablet eCW1 ([facility]) 145 mg 01/31/2019 12:00:00 AM EST tablet 30 TAKE ONE TABLET BY MOUTH AT BEDTIME TAKE ONE TABLET BY MOUTH AT BEDTIME SOLD: 03/13/2019 [facility] montelukast 10 MG Oral Tablet MONTELUKAST SODIUM 01/31/2019 12:0 0:00 AM EST tablet 90 TAKE ONE TABLET BY MOUTH AT BEDT ZAHIDA TAKE ONE TABLET BY MOUTH AT BEDTIME SOLD: 02/02/2019 [facility] 145 mg 01/31/2019 12:00:00 AM EST tablet 30 TAKE ONE TABLET BY MOUTH AT BEDTIME TAKE ONE TABLET BY MOUTH AT BEDTIME SOLD: 04/17/2019 [facility] 145 mg 01/31/2019 12:00:00 AM EST tablet 30 TAKE ONE TABLET BY MOUTH AT BEDTIME TAKE ONE TABLET BY MOUTH AT BEDTIME SOLD: 02/02/2019 [facility] montelukast 10 MG Oral Tablet MONTELUKAST SODIUM 01/31/2019 12:0 0:00 AM EST tablet 90 TAKE ONE TABLET BY MOUTH AT BEDT ZAHIDA TAKE ONE TABLET BY MOUTH AT BEDTIME SOLD: 04/30/2019 [facility] 200-25 mcg/dose 12/06/2018 12:00:00 AM EDT blister with miley ce 60 INHALE ONE PUFF BY MOUTH EVERY DAY INHALE ONE PUFF BY MOUTH EVERY DAY SOLD: 03/15/2019 [facility] 200-25 mcg/dose 12/06/2018 12:00:00 AM EDT blister with miley ce 60 INHALE ONE PUFF BY MOUTH EVERY DAY INHALE ONE PUFF BY MOUTH EVERY DAY SOLD: 02/09/2019 [facility] 10 mg 09/20/2018 12:00:00 AM EDT tablet 30 TAKE ONE TABLET BY MOUTH EVERY DAY TAKE ONE TABLET BY MOUTH EVERY DAY SOLD: 06/19/2019 [facility] 10 mg 09/20/2018 12:00:00 AM EDT tablet 30 TAKE ONE TABLET BY MOUTH EVERY DAY TAKE ONE TABLET BY MOUTH EVERY DAY SOLD: 04/17/2019 [facility] 10 mg 09/20/2018 12:00:00 AM EDT tablet 30 TAKE ONE TABLET BY MOUTH EVERY DAY TAKE ONE TABLET BY MOUTH EVERY DAY SOLD: 02/02/2019 [facility] 10 mg 09/20/2018 12:00:00 AM EDT tablet 30 TAKE ONE TABLET BY MOUTH EVERY DAY TAKE ONE TABLET BY MOUTH EVERY DAY SOLD: 03/13/2019 [facility] 10 mg 09/20/2018 12:00:00 AM EDT tablet 30 TAKE ONE TABLET BY MOUTH EVERY DAY TAKE ONE TABLET BY MOUTH EVERY DAY SOLD: 05/20/2019 [facility] 80 mg 05/27/2018 12:00:00 AM EDT tablet 30 TAKE ONE TABLET BY MOUTH EVERY DAY TAKE ONE TABLET BY MOUTH EVERY DAY SOLD: 02/02/2019 [facility] Insurance Providers Payer name Policy type / Coverage type Policy ID Covered alliance party ID Covered alliance party's relationship to stewart Policy Stewart Plan Information [place] [id number] [facility] [id number] S [id number] [place] [id number] ANSI-Medicaid [id number] ANSI-Medicaid [id number] ANSI-Medicaid [id number] ANSI-Medicaid [id number] ANSI-Medicaid [id number] ANSI-Medicaid [id number] ANSI-Medicaid [id number] ANSI-Medicaid [id number] ANSI-Medicaid [id number] ANSI-Medicaid [id number] ANSI-Medicaid [id number] ANSI-Medicaid [id number] ANSI-Medicaid [id number] ANSI-Medicaid [id number] ANSI-Medicaid [id number] ANSI-Medicaid [id number] ANSI-Medicaid [id number] BCBS [facility] [id number] SP [id number] ANSI-Medicaid [id number] ANSI-Medicaid [id number] SELF PAY ONLY N/A SP N/A [place] 306/806 [id number] SP [id number] [place] 306/806 [id number] SP [id number] ANSI-Not a Secondary Insurance [id number] ANSI-Commercial [id number] ANSI-Commercial [id number] ANSI-Not a Secondary Insurance [id number] [facility] () Workers Compensation [id number] Self [id number] SELF PAY ONLY - [id number] SP ANSI-Commercial [id number] ANSI-Not a Secondary Insurance [id number] ANSI-Not a Secondary Insurance [id number] BCBS/[employer] Commercial [id number] Self [id number] [id number] ANSI-Not a Secondary Insurance [id number] ANSI-Commercial [id number] ANSI-Not a Secondary Insurance [id number] ANSI-Not a Secondary Insurance [id number] ANSI-Not a Secondary Insurance [id number] ANSI-Commercial [id number] BCBS/[employer] Commercial [id number] Self N [id number] ANSI-Not a Secondary Insurance [id number] ANSI-Commercial [id number] ANSI-Not a Secondary Insurance [id number] ANSI-Not a Secondary Insurance [id number] ANSI-Commercial [id number] ANSI-Not a Secondary Insurance [id number] [place]BS [place] P[place] 302/307 [id number] SP [id number] SELF PAY ONLY UNAVAILABLE SP UNAV AILABLE [place] [id number] SP [id number] [place] (NON MEDICAID MANAGED CARE) [id number] SP [id number] BCBS [place] PPO 302/307 [id number] SP [id number] SELF PAY [id number] SP [id number] [employer] [place] [id number] SP [id number] [employer] [place] [id number] SP [id number] SP [id number] [employer] [id number] SP [id number] [place] 306/806 [id number] SP [id number] SELF PAY UNAVAILABLE SP UNAVAILA BLE MEDICAID [id number] SP [id number] BCBS [place] PPO 302/307 [id number] SP [id number] Problems, Conditions, and Diagnoses Code Display Name Description Problem Type Effective Dates Data Source(s) [id number] 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 Problem 02/01/20 12:00:00 AM EST MEDENT ([facility]) [id number] Electrocardiogram abnormal Electrocardiogram abnormal Problem 02/01/2020 12:00:00 AM EST MED[facility] ([facility]) [id number] Mitral valve disorder Mitral valve disorder Problem 02/01/2020 12:00:00 AM EST MEDENT ([facility]) [id number] Benign hypertensive heart disease with c ongestive cardiac failure Benign hypertensive heart disease with congestive cardiac failure Problem 02/01/2020 12:00:00 AM EST MEDENT ([facility]) I42.0 [id number] Dilated cardiomyopathy Problem 01/23/2020 12 :00:00 AM EST eCW1 ([facility]) I50.22 [id number] Chronic systolic congestive heart failure Problem 12/19/2019 12:00:00 AM EDT eCW1 ([facility]) J45.901 [id number] Asthma with acute ex acerbation, unspecified asthma severity, unspecified whether persistent Problem 12/14/2019 12:00:00 AM EDT eC W1 ([facility]) J45.41 [id number] Moderate persistent asthma with exacerbat ion Problem 12/14/2019 12:00:00 AM EDT eCW1 ([facility]) I50.9 [id number] Acute heart failure, unspecified heart fa ilure type Problem 12/14/2019 12:00:00 AM EDT eCW1 ([facility]) Surgeries/Procedures Procedure Description Date Indications Data Source(s) ECG ROUTINE ECG W/LEAST 12 LDS W/I&R 03/04/2020 12:00: 00 AM EST MEDENT ([facility]) ECG ROUTINE ECG W/LEAST 12 LDS W/I&R 02/01/2020 12:00: 00 AM EST MED[facility] ([facility]) MYOCARDIAL SPECT MULTIPLE STUDIES 01/22/2020 12:00:00 AM EST MEDENT ([facility]) CV STRS TST XERS&/OR RX CONT ECG PHYS SI&R 01/22/2020 12:00:00 AM EST MEDENT ([facility]) Immunization: Flublok Quadrivalent (18 years & older) 0.5mL IM (Influenza) 01/15/2020 12:00:00 AM EST eCW1 ([facility]) Immunization: Flublok Quadrivalent (18 years & older) 0.5mL IM (Influenza) 12/19/2019 12:00:00 AM EDT eCW1 ([facility]) ECG ROUTINE ECG W/LEAST 12 LDS W/I&R 12/14/2019 12:00: 00 AM EDT eCW1 ([facility]) GLUC MNTR CONT REC FROM INTERSTITIAL TISS FLUID 2019 12:00:00 AM EST eCW1 ([facility]) GLUC MNTR CONT REC FROM NTRSTL TISS FLU I&R 04/18/2019 12:00:00 AM EST eCW1 ([facility]) NO CHARGE VISIT 04/03/2019 12:00:00 AM EST eCW1 ([facility]) Results ID Date Data Source [id number] 01/12/2020 03:56:00 PM EST [facility] ([facility]) Name Value Range Interpretation Code Description Data Juli rce(s) Supporting Document(s) Hemoglobin A1c/Hemoglobin.total in Blood 9.7 [facility] ([facility]) ID Date Data Source [id number] 01/12/2020 03:56:00 PM EST [facility] Name Value Range Interpretation Code Description Data Juli rce(s) Supporting Document(s) Magnesium Level 2.2 1.8-2.4 [facility] ([facility]) Thyroid Stimulating Hormone 1.100 ME DENT ([facility]) Free T4 1.06 [facility] ([facility]) Natriuretic peptide.B prohormone N-Terminal [Mass/volu me] in Serum or Plasma 225 [facility] ([facility]) ID Date Data Source [id number] 01/12/2020 03:56:00 PM EST [facility] Name Value Range Interpretation Code Description Data Juli rce(s) Supporting Document(s) Triglycerides 79 [facility] ([facility]) Cholesterol 115 [facility] ([facility]) HDL 44 [facility] ([facility]) Chol/HDL Ratio 2.613 [facility] ([facility]) Cholesterol in LDL [Mass/volume] in Serum or Plasma by calculation 55 [facility] ([facility]) ID Date Data Source [id number] 01/12/2020 03:56:00 PM EST MEDENT ([facility]) Name Value Range Interpretation Code Description Data Juli rce(s) Supporting Document(s) Albumin [Mass/volume] in Serum or Plasma 3.6 [facility] ([facility]) Alanine aminotransferase [Enzymatic activity/volume] in Serum or Pl asma 23 [facility] ([facility]) Calcium [Mass/volume] in Serum or Plasma 8.9 [facility] ([facility]) Chloride [Moles/volume] in Serum or Plasma 108 [facility] ([facility]) Carbon dioxide, total [Moles/volume] in Serum or Plasma 30 [facility] ([facility]) Alkaline phosphatase [Enzymatic activity/volume] in Serum or Plasma 4 3 [facility] ([facility]) Aspartate aminotransferase [Enzymatic activity/volume] in Serum or Plasma 15 [facility] ([facility]) Potassium [Moles/volume] in Serum or Plasma 4.4 [facility] ([facility]) Sodium 142 [facility] ([facility]) Protein [Mass/volume] in Serum or Plasma 6.5 [facility] ([facility]) Glucose 67 70-100 [facility] Creatinine For GFR 1.26 [facility] ([facility]) Urea nitrogen [Mass/volume] in Serum or Plasma 21 [facility] ([facility]) ID Date Data Source Coronavirus 2019 NOSE (COVID) 12/18/2019 12:00:57 PM EDT eCW 1 ([facility]) Name Value Range Interpretation Code Description Data Juli rce(s) Supporting Document(s) This nucleic acid amplification test was developed and its CORONAVIRUS 2019 NOSE eCW1 ([facility]) ID Date Data Source NT-PRO BNP 12/15/2019 11:09:58 AM EDT eCW1 ([facility]) Name Value Range Interpretation Code Description Data Juli rce(s) Supporting Document(s) 382 NT-PRO BNP eCW1 ([facility]) ID Date Data Source DDIMER QUANT 12/15/2019 11:09:52 AM EDT eCW1 ([facility]) Name Value Range Interpretation Code Description Data Juli rce(s) Supporting Document(s) 303.25 D-DIMER QUANT eCW1 ([facility]) ID Date Data Source Comprehensive Metabolic Profile (CMP) 12/15/2019 11:09:46 AM EDT eCW1 ([facility]) Name Value Range Interpretation Code Description Data Juli rce(s) Supporting Document(s) 392 GLUCOSE, FASTING eCW1 ([facility]) > 60.0 GLOMERULAR FILTRATION RATE eCW 1 ([facility]) 25 BLOOD UREA NITROGEN eCW1 ([facility]) 1.22 CREATININE FOR GFR eCW1 ([facility]) 4.4 POTASSIUM SERUM eCW1 ([facility]) 27 CARBON DIOXIDE LEVEL eCW1 ([facility]) 104 CHLORIDE LEVEL eCW1 ([facility]) 137 SODIUM LEVEL eCW1 ([facility]) 56 ALKALINE PHOSPHATASE eCW1 ([facility]) 12 AST/SGOT eCW1 ([facility]) 8.9 CALCIUM LEVEL eCW1 ([facility]) 27 ALT/SGPT eCW1 ([facility]) 6.5 TOTAL PROTEIN eCW1 ([facility]) 0.6 BILIRUBIN,TOTAL eCW1 ([facility]) 3.5 ALBUMIN eCW1 ([facility]) 1.2 ALBUMIN/GLOBULIN RATIO eCW1 ([facility]) ID Date Data Source TROPONIN I 12/15/2019 11:09:37 AM EDT eCW1 ([facility]) Name Value Range Interpretation Code Description Data Juli rce(s) Supporting Document(s) 0.02 TROPONIN I eCW1 ([facility]) ID Date Data Source [id number] 12/14/2019 02:00:00 PM EDT [facility] Name Value Range Interpretation Code Description Data Juli rce(s) Supporting Document(s) SARS coronavirus 2 RNA [facility] This lab was ordered by [facility] and reported by [facility]. ID Date Data Source PLZ CHEST 2 VIEW 12/14/2019 05:31:54 AM EDT eCW1 ([facility]) Name Value Range Interpretation Code Description Data Juli rce(s) Supporting Document(s) PLZ CHEST 2 VIEW eCW1 ([facility]) ID Date Data Source [id number] 12/12/2019 03:58:00 PM EDT [facility] ([facility]) Name Value Range Interpretation Code Description Data Juli rce(s) Supporting Document(s) Red Blood Count 4.83 4.00-5.40 [facility] ([facility]) White Blood Count 7.2 5.0-10.0 [facility] ([facility]) Hemoglobin 14.4 [facility] ([facility]) Hematocrit 44.2 [facility] ([facility]) Platelets 186 172-450 [facility] ([facility]) Procedure Social History Code Duration Value Status Description Data Source(s ) Smoking 02/01/2020 12:00:00 AM EST Patient is a former smoker completed Patient is a former smoker [facility] ([facility]) Smoking 01/29/2020 12:00:00 AM EST Never Smoker completed Never S moker eCW1 ([facility]) Smoking 01/29/2020 12:00:00 AM EST Never Smoker completed Never S moker eCW1 ([facility]) Smoking 01/29/2020 12:00:00 AM EST Never Smoker completed Never S moker eCW1 ([facility]) Smoking 01/15/2020 12:00:00 AM EST Never Smoker completed Never S moker eCW1 ([facility]) Smoking 12/19/2019 12:00:00 AM EDT Never Smoker completed Never S moker eCW1 ([facility]) Smoking 12/19/2019 12:00:00 AM EDT Never Smoker completed Never S moker eCW1 ([facility]) Smoking 12/19/2019 12:00:00 AM EDT Never Smoker completed Never S moker eCW1 ([facility]) Smoking 12/19/2019 12:00:00 AM EDT Never Smoker completed Never S moker eCW1 ([facility]) Smoking 12/19/2019 12:00:00 AM EDT Never Smoker completed Never S moker eCW1 ([facility]) Smoking 12/19/2019 12:00:00 AM EDT Never Smoker completed Never S moker eCW1 ([facility]) Smoking 12/19/2019 12:00:00 AM EDT Never Smoker completed Never S moker eCW1 ([facility]) Smoking 12/19/2019 12:00:00 AM EDT Never Smoker completed Never S moker eCW1 ([facility]) Smoking 12/19/2019 12:00:00 AM EDT Never Smoker completed Never S moker eCW1 ([facility]) Smoking 12/19/2019 12:00:00 AM EDT Never Smoker completed Never S moker eCW1 ([facility]) Smoking 12/19/2019 12:00:00 AM EDT Never Smoker completed Never S moker eCW1 ([facility]) Smoking 12/19/2019 12:00:00 AM EDT Never Smoker completed Never S moker eCW1 ([facility]) Smoking 12/14/2019 12:00:00 AM EDT Never Smoker completed Never S moker eCW1 ([facility]) Smoking 11/30/2019 12:00:00 AM EDT Never Smoker completed Never S moker eCW1 ([facility]) Smoking 11/30/2019 12:00:00 AM EDT Never Smoker completed Never S moker eCW1 ([facility]) Smoking 11/30/2019 12:00:00 AM EDT Never Smoker completed Never S moker eCW1 ([facility]) Vital Signs ID Date Data Source UNK Name Value Range Interpretation Code Description Data Source(s) Diastolic blood pressure--supine 78 mm[Hg] 78 mm[Hg] [facility] ([facility]) Systolic blood pressure--supine 127 mm[Hg] 127 mm[Hg] MED[facility] ([facility]) Diastolic blood pressure--sitting 76 mm[Hg] 76 mm[Hg] [facility] ([facility]) Medium cuff, Ra Systolic blood pressure--sitting 120 mm[Hg] 120 mm[Hg] MED[facility] ([facility]) Medium cuff, Ra Respiratory rate 16 /min 16 /min [facility] ( [facility]) Heart rate 92 /min 92 /min [facility] ([facility]) regular with occasional irregularity Body mass index (BMI) [Ratio] 33.0 kg/m2 33.0 k g/m2 [facility] ([facility]) Body height 72 [in_i] 72 [in_i] [facility] ([facility]) 6'0" Body weight 243.00 [lb_av] 243.00 [lb_av] MEDEN T ([facility]) Respiratory rate 16 /min 16 /min [facility] ( [facility]) Heart rate 84 /min 84 /min [facility] ([facility]) regular Body mass index (BMI) [Ratio] 33.0 kg/m2 33.0 k g/m2 MED[facility] ([facility]) Body height 72 [in_i] 72 [in_i] MED[facility] ([facility]) 6'0" Body weight 243.00 [lb_av] 243.00 [lb_av] MEDEN T ([facility]) Diastolic blood pressure--supine 60 mm[Hg] 60 mm[Hg] [facility] ([facility]) Systolic blood pressure--supine 106 mm[Hg] 106 mm[Hg] MED[facility] ([facility]) Diastolic blood pressure--sitting 58 mm[Hg] 58 mm[Hg] [facility] ([facility]) Medium cuff, Ra Systolic blood pressure--sitting 102 mm[Hg] 102 mm[Hg] MED[facility] ([facility]) Medium cuff, Ra Diastolic blood pressure--supine 72 mm[Hg] 72 mm[Hg] [facility] ([facility]) Systolic blood pressure--supine 108 mm[Hg] 108 mm[Hg] MED[facility] ([facility]) Diastolic blood pressure--sitting 72 mm[Hg] 72 mm[Hg] MED[facility] ([facility]) Medium cuff, Ra Systolic blood pressure--sitting 108 mm[Hg] 108 mm[Hg] MED[facility] ([facility]) Medium cuff, Ra Respiratory rate 16 /min 16 /min [facility] ( [facility]) Heart rate 80 /min 80 /min [facility] ([facility]) regular Body mass index (BMI) [Ratio] 32.4 kg/m2 32.4 k g/m2 [facility] ([facility]) Body height 72 [in_i] 72 [in_i] [facility] ([facility]) 6'0" Body weight 239.00 [lb_av] 239.00 [lb_av] MEDEN T ([facility]) Oxygen saturation in Arterial blood by Pulse oximetry --post exerci se 96 % 96 % MED[facility] ([facility]) Oxygen saturation in Arterial blood by Pulse oximetry 94 % 94 % [facility] ([facility]) Diastolic blood pressure--supine 72 mm[Hg] 72 mm[Hg] [facility] ([facility]) Ra Systolic blood pressure--supine 108 mm[Hg] 108 mm[Hg] MED[facility] ([facility]) Ra Diastolic blood pressure--sitting 72 mm[Hg] 72 mm[Hg] MED[facility] ([facility]) Medium cuff, Ra; 108/72 LA Systolic blood pressure--sitting 106 mm[Hg] 106 mm[Hg] MED[facility] ([facility]) Medium cuff, Ra; 108/72 LA Respiratory rate 16 /min 16 /min [facility] ( [facility]) Heart rate 96 /min 96 /min [facility] ([facility]) regular Body mass index (BMI) [Ratio] 32.0 kg/m2 32.0 k g/m2 [facility] ([facility]) Body height 72 [in_i] 72 [in_i] [facility] ([facility]) 6'0" Body weight 236.00 [lb_av] 236.00 [lb_av] MEDEN T ([facility]) Diastolic blood pressure 78 mm[Hg] 78 mm[Hg] eCW1 ([facility]) Systolic blood pressure 120 mm[Hg] 120 mm[Hg] e CW1 ([facility]) Body temperature 97.4 [degF] 97.4 [degF] eCW1 ( [facility]) Respiratory rate 18 /min 18 /min eCW1 ([facility]) Heart rate 118 /min 118 /min eCW1 ([facility]) Body mass index (BMI) [Ratio] 32.74 kg/m2 32.74 kg/m2 eCW1 ([facility]) Body height 71 [in_i] 71 [in_i] eCW1 ([facility]) Body weight 234.8 [lb_av] 234.8 [lb_av] eCW1 ([facility]) Diastolic blood pressure 76 mm[Hg] 76 mm[Hg] eCW1 ([facility]) Systolic blood pressure 110 mm[Hg] 110 mm[Hg] e CW1 ([facility]) Body temperature 96.9 [degF] 96.9 [degF] eCW1 ( [facility]) Respiratory rate 18 /min 18 /min eCW1 ([facility]) Heart rate 86 /min 86 /min eCW1 ([facility]) Body mass index (BMI) [Ratio] 33.61 kg/m2 33.61 kg/m2 eCW1 ([facility]) Body height 71 [in_i] 71 [in_i] eCW1 ([facility]) Body weight 241 [lb_av] 241 [lb_av] eCW1 ([facility]) Diastolic blood pressure 82 mm[Hg] 82 mm[Hg] eCW1 ([facility]) Systolic blood pressure 122 mm[Hg] 122 mm[Hg] e CW1 ([facility]) Body temperature 96.8 [degF] 96.8 [degF] eCW1 ( [facility]) Respiratory rate 18 /min 18 /min eCW1 ([facility]) Heart rate 109 /min 109 /min eCW1 ([facility]) Body mass index (BMI) [Ratio] 32.63 kg/m2 32.63 kg/m2 eCW1 ([facility]) Body height 71 [in_i] 71 [in_i] eCW1 ([facility]) Body weight 234.0 [lb_av] 234.0 [lb_av] eCW1 ([facility]) Diastolic blood pressure 64 mm[Hg] 64 mm[Hg] eCW1 ([facility]) Systolic blood pressure 122 mm[Hg] 122 mm[Hg] e CW1 ([facility]) Body temperature 97.9 [degF] 97.9 [degF] eCW1 ( [facility]) Respiratory rate 18 /min 18 /min eCW1 ([facility]) Heart rate 124 /min 124 /min eCW1 ([facility]) Body mass index (BMI) [Ratio] 32.35 kg/m2 32.35 kg/m2 eCW1 ([facility]) Body height 71 [in_i] 71 [in_i] eCW1 ([facility]) Body weight 232.0 [lb_av] 232.0 [lb_av] eCW1 ([facility]) Diastolic blood pressure 82 mm[Hg] 82 mm[Hg] eCW1 ([facility]) Systolic blood pressure 120 mm[Hg] 120 mm[Hg] e CW1 ([facility]) Body temperature 97.5 [degF] 97.5 [degF] eCW1 ( [facility]) Respiratory rate 18 /min 18 /min eCW1 ([facility]) Heart rate 109 /min 109 /min eCW1 ([facility]) Body mass index (BMI) [Ratio] 32.07 kg/m2 32.07 kg/m2 eCW1 ([facility]) Body height 71 [in_i] 71 [in_i] eCW1 ([facility]) Body weight 230.0 [lb_av] 230.0 [lb_av] eCW1 ([facility]) Diastolic blood pressure 68 mm[Hg] 68 mm[Hg] eCW1 ([facility]) Systolic blood pressure 118 mm[Hg] 118 mm[Hg] e CW1 ([facility]) Body temperature 96.0 [degF] 96.0 [degF] eCW1 ( [facility]) Respiratory rate 18 /min 18 /min eCW1 ([facility]) Heart rate 113 /min 113 /min eCW1 ([facility]) Body mass index (BMI) [Ratio] 32.47 kg/m2 32.47 kg/m2 eCW1 ([facility]) Body height 71 [in_us] 71 [in_us] eCW1 ([facility]) Body weight Measured 232.8 [lb_av] 232.8 [lb_av ] eCW1 ([facility]) Diastolic blood pressure 82 mm[Hg] 82 mm[Hg] eCW1 ([facility]) Systolic blood pressure 132 mm[Hg] 132 mm[Hg] e CW1 ([facility]) Body temperature 97.1 [degF] 97.1 [degF] eCW1 ( [facility]) Respiratory rate 18 /min 18 /min eCW1 ([facility]) Heart rate 100 /min 100 /min eCW1 ([facility]) Body mass index (BMI) [Ratio] 32.77 kg/m2 32.77 kg/m2 eCW1 ([facility]) Body height 71 [in_us] 71 [in_us] eCW1 ([facility]) Body weight Measured 235.0 [lb_av] 235.0 [lb_av ] eCW1 ([facility]) Diastolic blood pressure 78 mm[Hg] 78 mm[Hg] eCW1 ([facility]) Systolic blood pressure 120 mm[Hg] 120 mm[Hg] e CW1 ([facility]) Body temperature 97.0 [degF] 97.0 [degF] eCW1 ( [facility]) Respiratory rate 18 /min 18 /min eCW1 ([facility]) Heart rate 94 /min 94 /min eCW1 ([facility]) Body mass index (BMI) [Ratio] 31.80 kg/m2 31.80 kg/m2 eCW1 ([facility]) Body height 71 [in_us] 71 [in_us] eCW1 ([facility]) Body weight Measured 228 [lb_av] 228 [lb_av] eC W1 ([facility]) Patient Treatment Plan of Care Planned Activity Planned Date Details Description Data Source (s) 120 ACTUAT Budesonide 0.16 MG/ACTUAT / f ormoterol fumarate 0.0045 MG/ACTUAT Metered Dose Inhaler [Symbicort] 02/06/2020 12:00:00 AM EST eCW1 ([facility]) Spironolactone 25 MG Oral Tablet 01/23/2020 12:00:00 AM EST eCW1 ([facility]) Spironolactone 25 MG Oral Tablet 01/23/2020 12:00:00 AM EST eCW1 ([facility]) Spironolactone 25 MG Oral Tablet 01/23/2020 12:00:00 AM EST eCW1 ([facility]) Furosemide 20 MG Oral Tablet [Lasix] 01/15/2020 12:00:00 AM EST eCW1 ([facility]) Potassium Chloride 8 MEQ Extended Release Oral Capsule 01/15/2020 12:00:00 AM EST eCW1 ([facility]) sacubitril 49 MG / valsartan 51 MG Oral Tablet [Entres to] 12/19/2019 12:00:00 AM EDT eCW1 ([facility]) sacubitril 49 MG / valsartan 51 MG Oral Tablet [Entres to] 12/19/2019 12:00:00 AM EDT eCW1 ([facility]) sacubitril 49 MG / valsartan 51 MG Oral Tablet [Entres to] 12/19/2019 12:00:00 AM EDT eCW1 ([facility]) sacubitril 49 MG / valsartan 51 MG Oral Tablet [Entres to] 12/19/2019 12:00:00 AM EDT eCW1 ([facility]) sacubitril 49 MG / valsartan 51 MG Oral Tablet [Entres to] 12/19/2019 12:00:00 AM EDT eCW1 ([facility]) sacubitril 49 MG / valsartan 51 MG Oral Tablet [Entres to] 12/19/2019 12:00:00 AM EDT eCW1 ([facility]) sacubitril 24 MG / valsartan 26 MG Oral Tablet [Entres to] 12/19/2019 12:00:00 AM EDT eCW1 ([facility]) sacubitril 24 MG / valsartan 26 MG Oral Tablet [Entres to] 12/19/2019 12:00:00 AM EDT eCW1 ([facility]) sacubitril 49 MG / valsartan 51 MG Oral Tablet [Entres to] 12/19/2019 12:00:00 AM EDT eCW1 ([facility]) sacubitril 24 MG / valsartan 26 MG Oral Tablet [Entres to] 12/19/2019 12:00:00 AM EDT eCW1 ([facility]) sacubitril 24 MG / valsartan 26 MG Oral Tablet [Entres to] 12/19/2019 12:00:00 AM EDT eCW1 ([facility]) sacubitril 24 MG / valsartan 26 MG Oral Tablet [Entres to] 12/19/2019 12:00:00 AM EDT eCW1 ([facility]) sacubitril 24 MG / valsartan 26 MG Oral Tablet [Entres to] 12/19/2019 12:00:00 AM EDT eCW1 ([facility]) sacubitril 24 MG / valsartan 26 MG Oral Tablet [Entres to] 12/19/2019 12:00:00 AM EDT eCW1 ([facility]) sacubitril 49 MG / valsartan 51 MG Oral Tablet [Entres to] 12/19/2019 12:00:00 AM EDT eCW1 ([facility]) sacubitril 49 MG / valsartan 51 MG Oral Tablet [Entres to] 12/19/2019 12:00:00 AM EDT eCW1 ([facility]) 120 ACTUAT mometasone furoate 0.2 MG/ACTUAT Metered Do se Inhaler [Asmanex] 12/11/2019 12:00:00 AM EDT eCW1 ([facility]) 120 ACTUAT mometasone furoate 0.2 MG/ACTUAT Metered Do se Inhaler [Asmanex] 12/11/2019 12:00:00 AM EDT eCW1 ([facility]) 120 ACTUAT mometasone furoate 0.2 MG/ACTUAT Metered Do se Inhaler [Asmanex] 12/11/2019 12:00:00 AM EDT eCW1 ([facility]) 120 ACTUAT mometasone furoate 0.2 MG/ACTUAT Metered Do se Inhaler [Asmanex] 12/11/2019 12:00:00 AM EDT eCW1 ([facility]) 120 ACTUAT mometasone furoate 0.2 MG/ACTUAT Metered Do se Inhaler [Asmanex] 12/11/2019 12:00:00 AM EDT eCW1 ([facility]) 120 ACTUAT mometasone furoate 0.2 MG/ACTUAT Metered Do se Inhaler [Asmanex] 12/11/2019 12:00:00 AM EDT eCW1 ([facility]) 120 ACTUAT mometasone furoate 0.2 MG/ACTUAT Metered Do se Inhaler [Asmanex] 12/11/2019 12:00:00 AM EDT eCW1 ([facility]) 120 ACTUAT mometasone furoate 0.2 MG/ACTUAT Metered Do se Inhaler [Asmanex] 12/11/2019 12:00:00 AM EDT eCW1 ([facility]) 120 ACTUAT mometasone furoate 0.2 MG/ACTUAT Metered Do se Inhaler [Asmanex] 12/11/2019 12:00:00 AM EDT eCW1 ([facility]) 120 ACTUAT mometasone furoate 0.2 MG/ACTUAT Metered Do se Inhaler [Asmanex] 12/11/2019 12:00:00 AM EDT eCW1 ([facility]) 120 ACTUAT mometasone furoate 0.2 MG/ACTUAT Metered Do se Inhaler [Asmanex] 12/11/2019 12:00:00 AM EDT eCW1 ([facility]) 120 ACTUAT mometasone furoate 0.2 MG/ACTUAT Metered Do se Inhaler [Asmanex] 12/11/2019 12:00:00 AM EDT eCW1 ([facility]) 120 ACTUAT mometasone furoate 0.2 MG/ACTUAT Metered Do se Inhaler [Asmanex] 12/11/2019 12:00:00 AM EDT eCW1 ([facility]) 120 ACTUAT mometasone furoate 0.2 MG/ACTUAT Metered Do se Inhaler [Asmanex] 12/11/2019 12:00:00 AM EDT eCW1 ([facility]) Fluticasone Propionate HFA 220 MCG/ACT 11/30/2019 12:00:00 AM EDT eCW1 ([facility]) Fenofibrate 145 MG Oral Tablet 07/03/2019 12:00:00 AM EDT eCW1 ([facility]) fenofibric acid 105 MG Oral Tablet [Fibricor] 04/21/2019 12:00:00 A M EST eCW1 ([facility]) Loratadine 10 MG Oral Tablet 03/06/2019 12:00:00 AM EST eCW1 ([facility])
[2020-03-15 17:36] LABS: HEMATOCRIT 43.8 % (42.0-52.0); HEMOGLOBIN 14.8 g/dl (13.5-17.5); MEAN CORPUSCULAR HEMOGLOBIN 29.5 pg (27.0-33.0); MEAN CORPUSCULAR HGB CONC 33.8 g/dl (32.0-36.5); MEAN CORPUSCULAR VOLUME 87.4 fl (80.0-96.0); PLATELET COUNT, AUTOMATED 174 10^3/uL (150-450); RED BLOOD COUNT 5.01 10^6/uL (4.30-6.10); WHITE BLOOD COUNT 7.5 10^3/uL (4.0-10.0)
[2020-03-15 17:57] LABS: BLOOD UREA NITROGEN 22 MG/DL (7-18); CALCIUM LEVEL 9.6 MG/DL (8.5-10.1); CARBON DIOXIDE LEVEL 29 MEQ/L (21-32); CHLORIDE LEVEL 103 MEQ/L (98-107); CREATININE FOR GFR 1.23 MG/DL (0.70-1.30); GLOMERULAR FILTRATION RATE > 60.0 (>60); GLUCOSE, FASTING 157 MG/DL (70-100); SODIUM LEVEL 139 MEQ/L (136-145)
--- NOTE | 2020-03-15 18:06 | IPNPDOC ---
Text Note Date of Service The patient was seen on 03/15/20. NOTE Patient is 50 years old male with positive Covid 19 test was admitted for IV monoclonal antibiotic infusion. Physical exam pertinent for diminished lung sounds bilaterally Patient signed consent form for infusion VS,Fishbone, I+O VS, Fishbone, I+O Laboratory Tests 03/15/20 17:18 Vital Signs Date Time Temp Pulse Resp B/P (MAP) Pulse Ox O2 Delivery O2 Flow Rate FiO2 03/15/20 17:23 97.5 102 20 133/84 94 Room Air DAREK ODOM DO Mar 15, 2020 18:06
--- OUTSIDE RECORDS SUMMARY | 2020-03-15 18:09 | CCD ---
Author Author [facility] Organization [facility] Address Unknown Phone Unavailable Care Team Providers Care Radio Engineering Teacher Name Role Phone Makenzie JOHNSON MD Unavailable Unavailable Makenzie JOHNSON MD Unavailable Unavailable Makenzie JOHNSON MD Unavailable Unavailable Makenzie JOHNSON MD Unavailable Unavailable Makenzie JOHNSON MD Unavailable Unavailable Makenzie JOHNSON MD Unavailable Unavailable Makenzie JONHSON MD Unavailable Unavailable Makenzie JOHNSON MD Unavailable [...] PASTOR FARAH Unavailable Unavailable JOHNSON, E PASTOR AFRAH Unavailable Unavailable JOHNSON, E PASTOR FARAH Unavailable [...] is protected by Article 27-F of the [facility] Public Health law. If you continue you may have access to information: Regarding HIV / AIDS; Provided by facilities licensed or operated by the [facility] Office of Mental Health; or Provided by the [facility] Office for People With Developmental Disabilities. If such information is present, then the following [facility] mandated warning applies: This information has [...] law may result in a fine or penitentiary sentence or both. A general authorization for the release of medical or other information is NOT sufficient authorization for further disc losure. Allergies and Adverse Reactions Type Description Substance Reaction Status Data Source(s ) Drug allergy Invokana canagliflozin euglycemic DKA Active eCW1 ([facility]) Family History Family Member Name Family Member Gender Family Member Status Date o f Status Description Data Source(s) Unknown Unknown Problem MEDENT ([facility], [facility]) Encounters Encounter Providers Location Date Indications Data Source(s ) Outpatient Attender: PASTOR JOHNSON MD Main Office 03/04/2020 08:00:00 AM EST MEDENT ([facility]) Outpatient Attender: PASTOR JOHNSON MD Main Office 02/19/2020 10:00:00 AM EST MEDENT ([facility]) Outpatient Attender: PASTOR JOHNSON MD Main Office 02/08/2020 09:00:00 AM EST MEDENT ([facility]) [place] [address] [facility] [place] [address] 02/06/2020 12:00:00 AM EST eCW1 ([facility]) Outpatient Attender: PASTOR JOHNSON MD Main Office 02/01/2020 07:30:00 AM EST MEDENT ([facility]) [place] [address] [facility] [address] 01/23/2020 12:00:00 AM EST eCW1 ([facility]) Outpatient [address] [facility] [place] [address] 01/15/2020 12:00:00 AM EST eCW1 ([facility]) [place] [address] [facility] [address] 01/15/2020 12:00:00 AM EST eCW1 ([facility]) [place] [address] [facility] [address] 01/11/2020 12:00:00 AM EST eCW1 ([facility]) [place] [address] [facility] [address] 01/10/2020 12:00:00 AM EST eCW1 ([facility]) [place] [address] [facility] [address] 01/10/2020 12:00:00 AM EST eCW1 ([facility]) [place] [address] [facility] [address] 01/08/2020 12:00:00 AM EST eCW1 ([facility]) [place] [address] [facility] [address] 12/29/2019 12:00:00 AM EDT eCW1 ([facility]) [place] [address] [facility] [address] 12/29/2019 12:00:00 AM EDT eCW1 ([facility]) [place] [address] [facility] [address] 12/29/2019 12:00:00 AM EDT eCW1 ([facility]) [place] [address] [facility] [address] 12/21/2019 12:00:00 AM EDT eCW1 ([facility]) [place] [address] [facility] [address] 12/19/2019 12:00:00 AM EDT eCW1 ([facility]) [place] [address] [facility] [address] 12/19/2019 12:00:00 AM EDT eCW1 ([facility]) [place] [address] [facility] [address] 12/19/2019 12:00:00 AM EDT eCW1 ([facility]) [place] [address] [facility] [address] 12/14/2019 12:00:00 AM EDT eCW1 ([facility]) [place] [address] [facility] [address] 12/14/2019 12:00:00 AM EDT eCW1 ([facility]) [place] [address] [facility] [address] 12/01/2019 12:00:00 AM EDT eCW1 ([facility]) [place] [address] [facility] [address] 11/30/2019 12:00:00 AM EDT eCW1 ([facility]) [place] [address] [facility] [address] 11/30/2019 12:00:00 AM EDT eCW1 ([facility]) [facility] [address] [facility] [address] 07/07/2019 12:00:00 AM EDT eCW1 ([facility]) [facility] [address] [facility] [address] 07/07/2019 12:00:00 AM EDT eCW1 ([facility]) [facility] [address] [facility] [address] 06/30/2019 12:00:00 AM EDT eCW1 ([facility]) [facility] [address] [facility] [address] 04/25/2019 12:00:00 AM EST eCW1 ([facility]) [facility] [address] [facility] [address] 04/18/2019 12:00:00 AM EST eCW1 ([facility]) [facility] [address] [facility] [address] 04/18/2019 12:00:00 AM EST [facility]1 [facility] [place] [address] [facility] [address] 04/03/2019 12:00:00 AM EST eCW1 ([facility]) [facility] [place] [address] [facility] [address] 03/20/2019 12:00:00 AM EST eCW1 ([facility]) [facility] [place] [address] [facility] [address] 03/16/2019 12:00:00 AM EST eCW1 ([facility]) [facility] [address] [facility] [address] 03/14/2019 12:00:00 AM EST eCW1 ([facility]) [facility] [address] [facility] [address] 03/07/2019 12:00:00 AM EST eCW1 ([facility]) [facility] [address] [facility] [address] 03/07/2019 12:00:00 AM EST eCW1 ([facility]) [facility] [address] [facility] [address] 03/06/2019 12:00:00 AM EST eCW1 ([facility]) Outpatient 01/15/2019 07:00:00 PM EST [facility] Immunizations Vaccine Date Status Description Data Source(s) influenza, recombinant, quadrIvalent,injectable, prese rvative free 01/15/2020 06:07:00 PM EST completed eCW1 ([facility]) influenza, recombinant, quadrIvalent,injectable, prese rvative free 01/15/2020 06:07:00 PM EST completed eCW1 ([facility]) influenza, recombinant, quadrIvalent,injectable, prese rvative free 01/15/2020 06:07:00 PM EST completed eCW1 ([facility]) influenza, recombinant, quadrIvalent,injectable, prese rvative free 01/15/2020 06:07:00 PM EST completed eCW1 ([facility]) influenza, recombinant, quadrIvalent,injectable, prese rvative free 12/19/2019 09:41:00 AM EDT completed eCW1 ([facility]) influenza, recombinant, quadrIvalent,injectable, prese rvative free 12/19/2019 09:41:00 AM EDT completed eCW1 ([facility]) influenza, recombinant, quadrIvalent,injectable, prese rvative free 12/19/2019 09:41:00 AM EDT completed eCW1 ([facility]) influenza, recombinant, quadrIvalent,injectable, prese rvative free 12/19/2019 09:41:00 AM EDT completed eCW1 ([facility]) influenza, recombinant, quadrIvalent,injectable, prese rvative free 12/19/2019 09:41:00 AM EDT completed eCW1 ([facility]) influenza, recombinant, quadrIvalent,injectable, prese rvative free 12/19/2019 09:41:00 AM EDT completed eCW1 ([facility]) influenza, recombinant, quadrIvalent,injectable, prese rvative free 12/19/2019 09:41:00 AM EDT completed eCW1 ([facility]) influenza, recombinant, quadrIvalent,injectable, prese rvative free 12/19/2019 09:41:00 AM EDT completed eCW1 ([facility]) influenza, recombinant, quadrIvalent,injectable, prese rvative free 12/19/2019 09:41:00 AM EDT completed eCW1 ([facility]) influenza, recombinant, quadrIvalent,injectable, prese rvative free 12/19/2019 09:41:00 AM EDT completed eCW1 ([facility]) influenza, recombinant, quadrIvalent,injectable, prese rvative free 12/19/2019 09:41:00 AM EDT completed eCW1 ([facility]) influenza, recombinant, quadrIvalent,injectable, prese rvative free 12/19/2019 09:41:00 AM EDT completed eCW1 ([facility]) influenza, recombinant, quadrIvalent,injectable, prese rvative free 12/19/2019 09:41:00 AM EDT completed eCW1 ([facility]) influenza, recombinant, quadrIvalent,injectable, prese rvative free 12/19/2019 09:41:00 AM EDT completed eCW1 ([facility]) influenza, recombinant, quadrIvalent,injectable, prese rvative free 12/19/2019 09:41:00 AM EDT completed eCW1 ([facility]) influenza, recombinant, quadrIvalent,injectable, prese rvative free 12/19/2019 09:41:00 AM EDT completed eCW1 ([facility]) Medications Medication Brand Name Start Date Product Form Dose Route Admi nistrative Instructions Pharmacy Instructions Status Indications Reaction Description Data Source(s) 0.6 mg/0.1 mL (18 mg/3 mL) 03/09/2020 12:00:00 AM EST pen in jector 6 INJECT 1.8MG UNDER THE SKIN EVERY IN THE MORNING INJECT 1.8MG UNDER THE SKIN EVERY IN THE MORNING SOLD: 03/10/2020 [facility] 49-51 mg 03/09/2020 12:00:00 AM [...] EST ORAL active MEDENT ([facility]) 24 HR metoprolol succinate 25 MG Extended Release Oral Tablet Metoprolol Succinate ER 03/01/2020 12:00:00 AM EST completed MEDENT ([facility]) 145 mg 02/22/2020 12:00:00 AM EST tablet [...] AND 3 TABLETS EVERY AFTERNOON SOLD: 02/22/2020 [facility] ezetimibe 10 MG Oral Tablet EZETIMIBE 02/22/2020 12:00:00 AM EST table t 30 TAKE ONE TABLET BY MOUTH EVERY DAY TAKE ONE TABLET BY MOUTH EVERY DAY SOLD: 02/22/2020 [facility] 24 HR metoprolol succinate 25 MG Extended Release Oral Tablet Metoprolol Succinate ER 02/08/2020 12:00:00 AM EST ORAL completed MEDENT ([facility]) 160-4.5 mcg/actuation 02/07/2020 12:00:00 AM EST HFA aerosol inhaler 10 INHALE TWO PUFFS BY MOUTH TWICE A DAY INHALE TWO PUFFS BY MOUTH TWICE A DAY SOLD: 03/10/2020 [facility] 160-4.5 mcg/actuation 02/07/2020 12:00:00 AM EST HFA aerosol inhaler 10 INHALE TWO PUFFS BY MOUTH TWICE A DAY INHALE TWO PUFFS BY MOUTH TWICE A DAY SOLD: 02/10/2020 [facility] 120 ACTUAT Budesonide 0.16 MG/ACTUAT / f ormoterol fumarate 0.0045 MG/ACTUAT Metered Dose Inhaler [Symbicort] Symbicort 160-4.5 MCG/ACT Symbicort 160-4.5 MCG/ACT 02/06/2020 12:00:00 AM EST 2.0 {puffs} activ e Symbicort 160- 4.5 MCG/ACT eCW1 ([facility]) 24 HR metoprolol succinate 25 MG Extended Release Oral Tablet Metoprolol Succinate ER 02/02/2020 12:00:00 AM EST ORAL completed MEDENT ([facility]) 25 mg 02/02/2020 12:00:00 AM EST tablet extended release 24 hr 90 TAKE ONE TABLET BY MOUTH EVERY DAY TAKE ONE TABLET BY MOUTH EVERY DAY SOLD: 02/02/2020 [facility] 24 HR metoprolol succinate 25 MG Extended Release Oral Tablet Metoprolol Succinate ER 02/01/2020 12:00:00 AM EST ORAL completed MEDENT ([facility]) 3 ML liraglutide 6 MG/ML Pen Injector [Victoza] Victoza 01/31/2020 12:00:00 AM EST active [facility] Furosemide 20 MG Oral Tablet Furosemide 01/31/2020 12:00:00 AM EST ORAL active MEDENT ([facility]) Azelastine HCL (Nasal) Azelastine HCL (Nas[facility]) 01/31/2020 12:00:[address] active MEDENT ([facility]) Potassium Chloride 8 MEQ Extended Release Oral Capsule Potas sium Chloride ER 01/31/2020 12:00:00 AM EST ORAL active MEDENT ([facility]) Metformin hydrochloride 850 MG Oral Tablet Metformin HCL 01/31/2020 12:00:00 AM EST active MEDENT ([facility] sildenafil 100 MG Oral Tablet [Viagra] Viagra 01/31/2020 12:00:00 A M EST active MEDENT ([facility]) 60 ACTUAT Albuterol 0.09 MG/ACTUAT Metered Dose Inhaler Albu terol Sulfate HFA 01/31/2020 12:00:00 AM EST RESPIRATORY active MEDENT ([facility]) montelukast 10 MG Oral Tablet Montelukast Sodium 01/31/2020 12:00:00 AM EST active MEDENT ([facility] Loratadine 10 MG Oral Tablet Loratadine 01/31/2020 12:00:00 AM EST active MEDENT ([facility]) atorvastatin 80 MG Oral Tablet Atorvastatin Calcium 01/31/2020 1 2:00:00 AM EST active MEDENT ( [facility]) 30 ACTUAT fluticasone furoate 0.2 MG/ACT UAT / vilanterol 0.025 MG/ACTUAT Dry Powder Inhaler [Breo] Breo Ellipta 01/31/2020 12:00:00 AM EST RESPIRATORY active MEDENT ([facility]) Metformin hydrochloride 850 MG Oral Tablet Metformin HCL 01/31/2020 12:00:00 AM EST active MEDENT ([facility] Flonase Allergy Relief Flonase Allergy Relief 01/31/2020 12:00:[address] active MEDENT ([facility]) Basaglar Kwikpen Basaglar Kwikpen 01/31/2020 12:00:00 AM EST active MEDENT ([facility]) Fenofibrate 145 MG Oral Tablet Fenofibrate 01/31/2020 12:00:00 AM EST active MEDENT ([facility]) ezetimibe 10 MG Oral Tablet Ezetimibe 01/31/2020 12:00:00 AM EST active MEDENT ([facility]) 25 mg 01/24/2020 12:00:00 AM EST [...] {tablet} active Spironolact one 25 MG eCW1 ([facility]) Spironolactone 25 MG Oral Tablet Spironolactone 25 MG 2019 12:00:00 AM EST 1.0 {tablet} active Spironolact one 25 MG eCW1 ([facility]) Spironolactone 25 MG Oral Tablet Spironolactone 25 MG 2019 12:00:00 AM EST 1.0 {tablet} active Spironolact one 25 MG eCW1 ([facility]) Aspirin 325 MG Oral Tablet Aspirin 01/21/2020 12:00:00 AM EST active MEDENT [facility] 8 mEq 01/16/2020 12:00:00 AM EST capsule, [...] active Potassium Chloride ER 8 MEQ eCW1 ([facility]) Furosemide 20 MG Oral Tablet [Lasix] Lasix 20 MG Lasix 20 MG 01/15/2020 12:00:00 AM EST 1.0 {tablet} active Lasix 20 M G eCW1 ([facility]) 49-51 mg 01/13/2020 12:00:00 AM EST tablet [...] 1.0 {tablet} active Entresto 49-51 MG eCW1 ([facility]) sacubitril 24 MG / valsartan 26 MG Oral Tablet [Entres to] Entresto 24-26 MG Entresto 24-26 MG 12/19/2019 12:00:00 AM EDT 1.0 {tablet} active Entresto 24-26 MG eCW1 ([facility]) sacubitril 24 MG / valsartan 26 MG Oral Tablet [Entres to] Entresto 24-26 MG Entresto 24-26 MG 12/19/2019 12:00:00 AM EDT 1.0 {tablet} active Entresto 24-26 MG eCW1 ([facility]) sacubitril 49 MG / valsartan 51 MG Oral Tablet [Entres to] Entresto 49-51 MG Entresto 49-51 MG 12/19/2019 12:00:00 AM EDT 1.0 {tablet} active Entresto 49-51 MG eCW1 ([facility]) sacubitril 24 MG / valsartan 26 MG Oral Tablet [Entres to] Entresto 24-26 MG Entresto 24-26 MG 12/19/2019 12:00:00 AM EDT 1.0 {tablet} active Entresto 24-26 MG eCW1 ([facility]) sacubitril 49 MG / valsartan 51 MG Oral Tablet [Entres to] Entresto 49-51 MG Entresto 49-51 MG 12/19/2019 12:00:00 AM EDT 1.0 {tablet} active Entresto 49-51 MG eCW1 ([facility]) sacubitril 24 MG / valsartan 26 MG Oral Tablet [Entres to] Entresto 24-26 MG Entresto 24-26 MG 12/19/2019 12:00:00 AM EDT 1.0 {tablet} active Entresto 24-26 MG eCW1 ([facility]) sacubitril 49 MG / valsartan 51 MG Oral Tablet [Entres to] Entresto 49-51 MG Entresto 49-51 MG 12/19/2019 12:00:00 AM EDT 1.0 {tablet} active Entresto 49-51 MG eCW1 ([facility]) sacubitril 49 MG / valsartan 51 MG Oral Tablet [Entres to] Entresto 49-51 MG Entresto 49-51 MG 12/19/2019 12:00:00 AM EDT 1.0 {tablet} active Entresto 49-51 MG eCW1 ([facility]) sacubitril 49 MG / valsartan 51 MG Oral Tablet [Entres to] Entresto 49-51 MG Entresto 49-51 MG 12/19/2019 12:00:00 AM EDT 1.0 {tablet} active Entresto 49-51 MG eCW1 ([facility]) sacubitril 49 MG / valsartan 51 MG Oral Tablet [Entres to] Entresto 49-51 MG Entresto 49-51 MG 12/19/2019 12:00:00 AM EDT 1.0 {tablet} active Entresto 49-51 MG eCW1 ([facility]) sacubitril 24 MG / valsartan 26 MG Oral Tablet [Entres to] Entresto 24-26 MG Entresto 24-26 MG 12/19/2019 12:00:00 AM EDT 1.0 {tablet} active Entresto 24-26 MG eCW1 ([facility]) sacubitril 49 MG / valsartan 51 MG Oral Tablet [Entresto] En tresto 12/19/2019 12:00:00 AM EDT active M SANTOSENT ([facility]) sacubitril 49 MG / valsartan 51 MG Oral Tablet [Entres to] Entresto 49-51 MG Entresto 49-51 MG 12/19/2019 12:00:00 AM EDT 1.0 {tablet} active Entresto 49-51 MG eCW1 ([facility]) sacubitril 24 MG / valsartan 26 MG Oral Tablet [Entres to] Entresto 24-26 MG Entresto 24-26 MG 12/19/2019 12:00:00 AM EDT 1.0 {tablet} active Entresto 24-26 MG eCW1 ([facility]) sacubitril 24 MG / valsartan 26 MG Oral Tablet [Entres to] Entresto 24-26 MG Entresto 24-26 MG 12/19/2019 12:00:00 AM EDT 1.0 {tablet} active Entresto 24-26 MG eCW1 ([facility]) sacubitril 49 MG / valsartan 51 MG Oral Tablet [Entres to] Entresto 49-51 MG Entresto 49-51 MG 12/19/2019 12:00:00 AM EDT 1.0 {tablet} active Entresto 49-51 MG eCW1 ([facility]) 200 mcg/actuation 12/13/2019 12:00:00 AM EDT HFA [...] {tablet} active Pr edniSONE 20 MG eCW1 ([facility]) 20 mg 12/12/2019 12:00:00 AM EDT tablet 8 TAKE TWO TABLETS BY MOUTH EVERY DAY FOR 4 DAYS TAKE TWO TABLETS BY MOUTH EVERY DAY FOR 4 DAYS SOLD: 020 [facility] 120 ACTUAT mometasone furoate 0.2 MG/ACT UAT Metered Dose Inhaler [Asmanex] Asmanex HFA 200 MCG/ACT Asmanex HFA 200 MCG/ACT 12/11/2019 12:00:00 AM EDT 1.0 {puffs} active Asmanex HFA 200 MCG/ACT eCW1 ([facility]) 120 ACTUAT mometasone furoate 0.2 MG/ACT UAT Metered Dose Inhaler [Asmanex] Asmanex HFA 200 MCG/ACT Asmanex HFA 200 MCG/ACT 12/11/2019 12:00:00 AM EDT 1.0 {puffs} active Asmanex HFA 200 MCG/ACT eCW1 ([facility]) 120 ACTUAT mometasone furoate 0.2 MG/ACT UAT Metered Dose Inhaler [Asmanex] Asmanex HFA 200 MCG/ACT Asmanex HFA 200 MCG/ACT 12/11/2019 12:00:00 AM EDT 1.0 {puffs} active Asmanex HFA 200 MCG/ACT eCW1 ([facility]) 120 ACTUAT mometasone furoate 0.2 MG/ACT UAT Metered Dose Inhaler [Asmanex] Asmanex HFA 200 MCG/ACT Asmanex HFA 200 MCG/ACT 12/11/2019 12:00:00 AM EDT 1.0 {puffs} active Asmanex HFA 200 MCG/ACT eCW1 ([facility]) 120 ACTUAT mometasone furoate 0.2 MG/ACT UAT Metered Dose Inhaler [Asmanex] Asmanex HFA 200 MCG/ACT Asmanex HFA 200 MCG/ACT 12/11/2019 12:00:00 AM EDT 1.0 {puffs} active Asmanex HFA 200 MCG/ACT eCW1 ([facility]) 120 ACTUAT mometasone furoate 0.2 MG/ACT UAT Metered Dose Inhaler [Asmanex] Asmanex HFA 200 MCG/ACT Asmanex HFA 200 MCG/ACT 12/11/2019 12:00:00 AM EDT 1.0 {puffs} active Asmanex HFA 200 MCG/ACT eCW1 ([facility]) 120 ACTUAT mometasone furoate 0.2 MG/ACT UAT Metered Dose Inhaler [Asmanex] Asmanex HFA 200 MCG/ACT Asmanex HFA 200 MCG/ACT 12/11/2019 12:00:00 AM EDT 1.0 {puffs} active Asmanex HFA 200 MCG/ACT eCW1 ([facility]) 120 ACTUAT mometasone furoate 0.2 MG/ACT UAT Metered Dose Inhaler [Asmanex] Asmanex HFA 200 MCG/ACT Asmanex HFA 200 MCG/ACT 12/11/2019 12:00:00 AM EDT 1.0 {puffs} active Asmanex HFA 200 MCG/ACT eCW1 ([facility]) 120 ACTUAT mometasone furoate 0.2 MG/ACT UAT Metered Dose Inhaler [Asmanex] Asmanex HFA 200 MCG/ACT Asmanex HFA 200 MCG/ACT 12/11/2019 12:00:00 AM EDT 1.0 {puffs} active Asmanex HFA 200 MCG/ACT eCW1 ([facility]) 120 ACTUAT mometasone furoate 0.2 MG/ACT UAT Metered Dose Inhaler [Asmanex] Asmanex HFA 200 MCG/ACT Asmanex HFA 200 MCG/ACT 12/11/2019 12:00:00 AM EDT 1.0 {puffs} active Asmanex HFA 200 MCG/ACT eCW1 ([facility]) 120 ACTUAT mometasone furoate 0.2 MG/ACT UAT Metered Dose Inhaler [Asmanex] Asmanex HFA 200 MCG/ACT Asmanex HFA 200 MCG/ACT 12/11/2019 12:00:00 AM EDT 1.0 {puffs} active Asmanex HFA 200 MCG/ACT eCW1 ([facility]) 120 ACTUAT mometasone furoate 0.2 MG/ACT UAT Metered Dose Inhaler [Asmanex] Asmanex HFA 200 MCG/ACT Asmanex HFA 200 MCG/ACT 12/11/2019 12:00:00 AM EDT 1.0 {puffs} active Asmanex HFA 200 MCG/ACT eCW1 ([facility]) 120 ACTUAT mometasone furoate 0.2 MG/ACT UAT Metered Dose Inhaler [Asmanex] Asmanex HFA 200 MCG/ACT Asmanex HFA 200 MCG/ACT 12/11/2019 12:00:00 AM EDT 1.0 {puffs} active Asmanex HFA 200 MCG/ACT eCW1 ([facility]) 120 ACTUAT mometasone furoate 0.2 MG/ACT UAT Metered Dose Inhaler [Asmanex] Asmanex HFA 200 MCG/ACT Asmanex HFA 200 MCG/ACT 12/11/2019 12:00:00 AM EDT 1.0 {puffs} active Asmanex HFA 200 MCG/ACT eCW1 ([facility]) 120 ACTUAT mometasone furoate 0.2 MG/ACTUAT Metered Do se Inhaler [Asmanex] Asmanex HFA 12/11/2019 12:00:00 AM EDT RESPIRATORY activ e MEDENT ([facility]) 120 ACTUAT mometasone furoate 0.2 MG/ACT UAT Metered Dose Inhaler [Asmanex] Asmanex HFA 200 MCG/ACT Asmanex HFA 200 MCG/ACT 12/11/2019 12:00:00 AM EDT 1.0 {puffs} active Asmanex HFA 200 MCG/ACT eCW1 ([facility]) 120 ACTUAT mometasone furoate 0.2 MG/ACT UAT Metered Dose Inhaler [Asmanex] Asmanex HFA 200 MCG/ACT Asmanex HFA 200 MCG/ACT 12/11/2019 12:00:00 AM EDT 1.0 {puffs} active Asmanex HFA 200 MCG/ACT eCW1 ([facility]) 200-25 mcg/dose 12/01/2019 12:00:00 AM EDT blister [...] Fluticasone Propionate H FA 220 MCG/ACT eCW1 ([facility]) 90 mcg/actuation 11/19/2019 12:00:00 AM EDT HFA [...] TABLET BY MOUTH EVERY DAY SOLD: 01/10/2020 [facility] 80 mg 09/26/2019 12:00:00 AM [...] BY MOUTH EVERY DAY SOLD: 10/09/2019 [facility] atorvastatin 80 MG Oral Tablet [...] 00 AM EDT active 1 tab eCW1 ([facility]) Fenofibrate 145 MG Oral Tablet Fenofibrate 145 MG 07/03/2019 12:00: 00 AM EDT active 1 tab eCW1 ([facility]) 100 unit/mL (3 mL) 06/15/2019 12:00:00 AM [...] 12:00:00 AM EST active 1 tablet eCW1 ([facility]) 100 unit/mL (3 mL) 04/19/2019 12:00:00 AM [...] SPRAY EACH NOSTRIL ONCE DAILY SOLD: 04/30/2019 [facility] Loratadine 10 MG Oral Tablet Loratadine 10 MG 03/06/2019 12:00:[address] active 1 tablet eCW1 ([facility]) Loratadine 10 MG Oral Tablet Loratadine 10 MG 03/06/2019 12:00:[address] active 1 tablet eCW1 ([facility]) 145 mg 01/31/2019 12:00:00 AM EST tablet [...] type / Coverage type Policy ID Covered green party ID Covered green party's relationship to stewart Policy Stewart Plan Information JEFFERSON [id number] SP [id number] [place] O [id number] S [id number] JEFFERSON [id number] SP [id number] ANSI-Medicaid [id number] ANSI-Medicaid [id number] ANSI-Medicaid [id number] ANSI-Medicaid [id number] ANSI-Medicaid [id number] ANSI-Medicaid [id number] ANSI-Medicaid [id number] ANSI-Medicaid [id number] ANSI-Medicaid [id number] ANSI-Medicaid [id number] ANSI-Medicaid [id number] ANSI-Medicaid [id number] ANSI-Medicaid [id number] ANSI-Medicaid [id number] ANSI-Medicaid [id number] ANSI-Medicaid [id number] ANSI-Medicaid [id number] BCBS RADHA HMO [id number] SP [id number] ANSI-Medicaid [id number] ANSI-Medicaid [id number] SELF PAY ONLY N/A SP N/A [place] 306/806 [id number] SP [id number] [place] 306/806 [id number] SP [id number] ANSI-Not a Secondary Insurance [id number] ANSI-Commercial [id number] ANSI-Commercial [id number] ANSI-Not a Secondary Insurance [id number] [facility] () Workers Compensation [id number] Self [id number] SELF PAY ONLY - [id number] SP ANSI-Commercial [id number] ANSI-Not a Secondary Insurance [id number] ANSI-Not a Secondary Insurance [id number] BCBS/[employer] Commercial [id number] Self YN [id number] ANSI-Not a Secondary Insurance [id number] ANSI-Commercial [id number] ANSI-Not a Secondary Insurance [id number] ANSI-Not a Secondary Insurance [id number] ANSI-Not a Secondary Insurance [id number] ANSI-Commercial [id number] BCBS/[employer] Commercial [id number] Self YN [id number] ANSI-Not a Secondary Insurance [id number] ANSI-Commercial [id number] ANSI-Not a Secondary Insurance [id number] ANSI-Not a Secondary Insurance [id number] ANSI-Commercial [id number] ANSI-Not a Secondary Insurance [id number] [place] P[place] 302/307 [id number] SP [id number] SELF PAY ONLY UNAVAILABLE SP UNAV AILABLE [place] [id number] SP [id number] [facility] [id number] SP [id number] BCBS [place] PPO 302/307 [id number] SP [id number] SELF PAY [id number] SP [id number] [employer] [place] [id number] SP [id number] [employer] [place] [id number] SP [id number] SP [id number] [employer] [id number] SP [id number] BCBS [place] 306/806 [id number] SP [id number] SELF PAY UNAVAILABLE SP UNAVAILA BLE MEDICAID [id number] SP [id number] BCBS [place] PPO 302/307 [id number] SP [id number] Problems, Conditions, and Diagnoses Code Display Name Description Problem Type Effective Dates Data Source(s) [id number] 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 Problem 02/01/20 12:00:00 AM EST MEDENT ([facility]) [id number] Electrocardiogram abnormal Electrocardiogram abnormal Problem 02/01/2020 12:00:00 AM EST MEDENT ([facility]) [id number] Mitral valve disorder Mitral valve disorder Problem 02/01/2020 12:00:00 AM EST MEDENT ([facility]) [id number] Benign hypertensive heart disease with c ongestive cardiac failure Benign hypertensive heart disease with congestive cardiac failure Problem 02/01/2020 12:00:00 AM EST MEDENT ([facility]) I42.0 [id number] Dilated cardiomyopathy Problem 01/23/2020 12 :00:00 AM EST eCW1 ([facility]) I50.22 [id number] Chronic systolic congestive heart failure Problem 12/19/2019 12:00:00 AM EDT eCW1 ([facility]) J45.901 [id number] Asthma with acute ex acerbation, unspecified asthma severity, unspecified whether persistent Problem 12/14/2019 12:00:00 AM EDT eC W1 ([facility]) J45.41 [id number] Moderate persistent asthma with exacerbat ion Problem 12/14/2019 12:00:00 AM EDT eCW1 ([facility]) I50.9 [id number] Acute heart failure, unspecified heart fa ilure type Problem 12/14/2019 12:00:00 AM EDT eCW1 ([facility]) Surgeries/Procedures Procedure Description Date Indications Data Source(s) ECG ROUTINE ECG W/LEAST 12 LDS W/I&R 03/04/2020 12:00: 00 AM EST MEDENT ([facility]) ECG ROUTINE ECG W/LEAST 12 LDS W/I&R 02/01/2020 12:00: 00 AM EST MEDENT ([facility]) MYOCARDIAL SPECT MULTIPLE STUDIES 01/22/2020 12:00:00 AM EST MEDENT ([facility]) CV STRS TST XERS&/OR RX CONT ECG PHYS SI&R 01/22/2020 12:00:00 AM EST MEDENT ([facility]) Immunization: Flublok Quadrivalent (18 years & older) 0.5mL IM (Influenza) 01/15/2020 12:00:00 AM EST eCW1 ([facility]) Immunization: Flublok Quadrivalent (18 years & older) 0.5mL IM (Influenza) 12/19/2019 12:00:00 AM EDT eCW1 ([facility]) ECG ROUTINE ECG W/LEAST 12 LDS W/I&R 12/14/2019 12:00: 00 AM EDT eCW1 ([facility]) GLUC MNTR CONT REC FROM INTERSTITIAL TISS FLUID 2019 12:00:00 AM EST eCW1 ([facility]) GLUC MNTR CONT REC FROM NTRSTL TISS FLU I&R 04/18/2019 12:00:00 AM EST eCW1 ([facility]) NO CHARGE VISIT 04/03/2019 12:00:00 AM EST eCW1 ([facility]) Results ID Date Data Source [id number] 01/12/2020 03:56:00 PM EST MEDENT ([facility]) Name Value Range Interpretation Code Description Data Juli rce(s) Supporting Document(s) Hemoglobin A1c/Hemoglobin.total in Blood 9.7 MEDENT ([facility]) ID Date Data Source [id number] 01/12/2020 03:56:00 PM EST MEDENT ([facility]) Name Value Range Interpretation Code Description Data Juli rce(s) Supporting Document(s) Magnesium Level 2.2 1.8-2.4 MEDENT ([facility]) Thyroid Stimulating Hormone 1.100 ME DENT ([facility]) Free T4 1.06 MEDENT ([facility]) Natriuretic peptide.B prohormone N-Terminal [Mass/volu me] in Serum or Plasma 225 MEDENT ([facility]) ID Date Data Source [id number] 01/12/2020 03:56:00 PM EST MEDENT ([facility]) Name Value Range Interpretation Code Description Data Juli rce(s) Supporting Document(s) Triglycerides 79 MEDENT ([facility]) Cholesterol 115 MEDENT ([facility]) HDL 44 [facility] Chol/HDL Ratio 2.613 MEDENT ([facility]) Cholesterol in LDL [Mass/volume] in Serum or Plasma by calculation 55 MEDENT ([facility]) ID Date Data Source [id number] 01/12/2020 03:56:00 PM EST MEDENT ([facility]) Name Value Range Interpretation Code Description Data Juli rce(s) Supporting Document(s) Albumin [Mass/volume] in Serum or Plasma 3.6 MEDENT ([facility]) Alanine aminotransferase [Enzymatic activity/volume] in Serum or Pl asma 23 MEDENT ([facility]) Calcium [Mass/volume] in Serum or Plasma 8.9 MEDENT ([facility]) Chloride [Moles/volume] in Serum or Plasma 108 MEDENT ([facility]) Carbon dioxide, total [Moles/volume] in Serum or Plasma 30 MEDENT ([facility]) Alkaline phosphatase [Enzymatic activity/volume] in Serum or Plasma 4 3 MEDENT ([facility]) Aspartate aminotransferase [Enzymatic activity/volume] in Serum or Plasma 15 MEDENT ([facility]) Potassium [Moles/volume] in Serum or Plasma 4.4 MEDENT ([facility]) Sodium 142 MEDENT ([facility]) Protein [Mass/volume] in Serum or Plasma 6.5 MEDENT ([facility]) Glucose 67 70-100 MEDENT ([facility]) Creatinine For GFR 1.26 MEDENT ([facility]) Urea nitrogen [Mass/volume] in Serum or Plasma 21 MEDENT ([facility]) ID Date Data Source Coronavirus 2019 NOSE (COVID) 12/18/2019 12:00:57 PM EDT eCW 1 ([facility]) Name Value Range Interpretation Code Description Data Juli rce(s) Supporting Document(s) This nucleic acid amplification test was developed and its CORONAVIRUS 2019 NOSE eCW1 ([facility]) ID Date Data Source NT-PRO BNP 12/15/2019 11:09:58 AM EDT eCW1 ([facility]) Name Value Range Interpretation Code Description Data Juli rce(s) Supporting Document(s) 382 NT-PRO BNP eCW1 ([facility]) ID Date Data Source DDIMER QUANT 12/15/2019 11:09:52 AM EDT eCW1 ([facility]) Name Value Range Interpretation Code Description Data Juli rce(s) Supporting Document(s) 303.25 D-DIMER QUANT eCW1 ([facility]) ID Date Data Source Comprehensive Metabolic Profile (CMP) 12/15/2019 11:09:46 AM EDT eCW1 ([facility]) Name Value Range Interpretation Code Description Data Juli rce(s) Supporting Document(s) 392 GLUCOSE, FASTING eCW1 ([facility]) > 60.0 GLOMERULAR FILTRATION RATE eCW 1 ([facility]) 25 BLOOD UREA NITROGEN eCW1 ([facility]) 1.22 CREATININE FOR GFR eCW1 ([facility]) 4.4 POTASSIUM SERUM eCW1 ([facility]) 27 CARBON DIOXIDE LEVEL eCW1 ([facility]) 104 CHLORIDE LEVEL eCW1 ([facility]) 137 SODIUM LEVEL eCW1 ([facility]) 56 ALKALINE PHOSPHATASE eCW1 ([facility]) 12 AST/SGOT eCW1 ([facility]) 8.9 CALCIUM LEVEL eCW1 ([facility]) 27 ALT/SGPT eCW1 ([facility]) 6.5 TOTAL PROTEIN eCW1 ([facility]) 0.6 BILIRUBIN,TOTAL eCW1 ([facility]) 3.5 ALBUMIN eCW1 ([facility]) 1.2 ALBUMIN/GLOBULIN RATIO eCW1 ([facility]) ID Date Data Source TROPONIN I 12/15/2019 11:09:37 AM EDT eCW1 ([facility]) Name Value Range Interpretation Code Description Data Juli rce(s) Supporting Document(s) 0.02 TROPONIN I eCW1 ([facility]) ID Date Data Source [id number] 12/14/2019 02:00:00 PM EDT [facility] Name Value Range Interpretation Code Description Data Juli rce(s) Supporting Document(s) SARS coronavirus 2 RNA [facility] This lab was ordered by [facility] and reported by [facility]. ID Date Data Source PLZ CHEST 2 VIEW 12/14/2019 05:31:54 AM EDT eCW1 ([facility]) Name Value Range Interpretation Code Description Data Juli rce(s) Supporting Document(s) PLZ CHEST 2 VIEW eCW1 ([facility]) ID Date Data Source [id number] 12/12/2019 03:58:00 PM EDT MEDENT ([facility]) Name Value Range Interpretation Code Description Data Juli rce(s) Supporting Document(s) Red Blood Count 4.83 4.00-5.40 MEDENT ([facility]) White Blood Count 7.2 5.0-10.0 MEDENT ([facility]) Hemoglobin 14.4 MEDENT ([facility]) Hematocrit 44.2 MEDENT ([facility]) Platelets 186 172-450 [facility] Procedure Social History Code Duration Value Status Description Data Source(s ) Smoking 02/01/2020 12:00:00 AM EST Patient is a former smoker completed Patient is a former smoker MEDENT ([facility]) Smoking 01/29/2020 12:00:00 AM EST Never Smoker completed Never S moker eCW1 ([facility]) Smoking 01/29/2020 12:00:00 AM EST Never Smoker completed Never S moker eCW1 ([facility]) Smoking 01/29/2020 12:00:00 AM EST Never Smoker completed Never S moker eCW1 ([facility]) Smoking 01/15/2020 12:00:00 AM EST Never Smoker completed Never S moker eCW1 ([facility]) Smoking 12/19/2019 12:00:00 AM EDT Never Smoker completed Never S moker eCW1 ([facility]) Smoking 12/19/2019 12:00:00 AM EDT Never Smoker completed Never S moker eCW1 ([facility]) Smoking 12/19/2019 12:00:00 AM EDT Never Smoker completed Never S moker eCW1 ([facility]) Smoking 12/19/2019 12:00:00 AM EDT Never Smoker completed Never S moker eCW1 ([facility]) Smoking 12/19/2019 12:00:00 AM EDT Never Smoker completed Never S moker eCW1 ([facility]) Smoking 12/19/2019 12:00:00 AM EDT Never Smoker completed Never S moker eCW1 ([facility]) Smoking 12/19/2019 12:00:00 AM EDT Never Smoker completed Never S moker eCW1 ([facility]) Smoking 12/19/2019 12:00:00 AM EDT Never Smoker completed Never S moker eCW1 ([facility]) Smoking 12/19/2019 12:00:00 AM EDT Never Smoker completed Never S moker eCW1 ([facility]) Smoking 12/19/2019 12:00:00 AM EDT Never Smoker completed Never S moker eCW1 ([facility]) Smoking 12/19/2019 12:00:00 AM EDT Never Smoker completed Never S moker eCW1 ([facility]) Smoking 12/19/2019 12:00:00 AM EDT Never Smoker completed Never S moker eCW1 ([facility]) Smoking 12/14/2019 12:00:00 AM EDT Never Smoker completed Never S moker eCW1 ([facility]) Smoking 11/30/2019 12:00:00 AM EDT Never Smoker completed Never S moker eCW1 ([facility]) Smoking 11/30/2019 12:00:00 AM EDT Never Smoker completed Never S moker eCW1 ([facility]) Smoking 11/30/2019 12:00:00 AM EDT Never Smoker completed Never S moker eCW1 ([facility]) Vital Signs ID Date Data Source UNK Name Value Range Interpretation Code Description Data Source(s) Diastolic blood pressure--supine 78 mm[Hg] 78 mm[Hg] MEDENT ([facility]) Systolic blood pressure--supine 127 mm[Hg] 127 mm[Hg] MEDENT ([facility]) Diastolic blood pressure--sitting 76 mm[Hg] 76 mm[Hg] MEDENT ([facility]) Medium cuff, Ra Systolic blood pressure--sitting 120 mm[Hg] 120 mm[Hg] MEDENT ([facility]) Medium cuff, Ra Respiratory rate 16 /min 16 /min MEDENT ( [facility]) Heart rate 92 /min 92 /min MEDENT ([facility]) regular with occasional irregularity Body mass index (BMI) [Ratio] 33.0 kg/m2 33.0 k g/m2 MEDENT ([facility]) Body height 72 [in_i] 72 [in_i] MEDENT ([facility]) 6'0" Body weight 243.00 [lb_av] 243.00 [lb_av] MEDEN T ([facility]) Respiratory rate 16 /min 16 /min MEDENT ( [facility]) Heart rate 84 /min 84 /min MEDENT ([facility]) regular Body mass index (BMI) [Ratio] 33.0 kg/m2 33.0 k g/m2 MEDENT ([facility]) Body height 72 [in_i] 72 [in_i] MEDENT ([facility]) 6'0" Body weight 243.00 [lb_av] 243.00 [lb_av] MEDEN T ([facility]) Diastolic blood pressure--supine 60 mm[Hg] 60 mm[Hg] MEDENT ([facility]) Systolic blood pressure--supine 106 mm[Hg] 106 mm[Hg] MEDENT ([facility]) Diastolic blood pressure--sitting 58 mm[Hg] 58 mm[Hg] MEDENT ([facility]) Medium cuff, Ra Systolic blood pressure--sitting 102 mm[Hg] 102 mm[Hg] MEDENT ([facility]) Medium cuff, Ra Diastolic blood pressure--supine 72 mm[Hg] 72 mm[Hg] MEDENT ([facility]) Systolic blood pressure--supine 108 mm[Hg] 108 mm[Hg] MEDENT ([facility]) Diastolic blood pressure--sitting 72 mm[Hg] 72 mm[Hg] MEDENT ([facility]) Medium cuff, Ra Systolic blood pressure--sitting 108 mm[Hg] 108 mm[Hg] MEDENT ([facility]) Medium cuff, Ra Respiratory rate 16 /min 16 /min MEDENT ( [facility]) Heart rate 80 /min 80 /min MEDENT ([facility]) regular Body mass index (BMI) [Ratio] 32.4 kg/m2 32.4 k g/m2 MEDENT ([facility]) Body height 72 [in_i] 72 [in_i] MEDENT ([facility]) 6'0" Body weight 239.00 [lb_av] 239.00 [lb_av] MEDEN T ([facility]) Oxygen saturation in Arterial blood by Pulse oximetry --post exerci se 96 % 96 % MEDENT ([facility]) Oxygen saturation in Arterial blood by Pulse oximetry 94 % 94 % MEDENT ([facility]) Diastolic blood pressure--supine 72 mm[Hg] 72 mm[Hg] MEDENT ([facility]) Ra Systolic blood pressure--supine 108 mm[Hg] 108 mm[Hg] MEDENT ([facility]) Ra Diastolic blood pressure--sitting 72 mm[Hg] 72 mm[Hg] MEDENT ([facility]) Medium cuff, Ra; 108/72 LA Systolic blood pressure--sitting 106 mm[Hg] 106 mm[Hg] MEDENT ([facility]) Medium cuff, Ra; 108/72 [place] Respiratory rate 16 /min 16 /min MEDENT ( [facility]) Heart rate 96 /min 96 /min MEDENT ([facility]) regular Body mass index (BMI) [Ratio] 32.0 kg/m2 32.0 k g/m2 MEDENT ([facility]) Body height 72 [in_i] 72 [in_i] MEDENT ([facility]) 6'0" Body weight 236.00 [lb_av] 236.00 [lb_av] MEDEN T ([facility]) Diastolic blood pressure 78 mm[Hg] 78 mm[Hg] eCW1 ([facility]) Systolic blood pressure 120 mm[Hg] 120 mm[Hg] e CW1 ([facility]) Body temperature 97.4 [degF] 97.4 [degF] eCW1 ( [facility]) Respiratory rate 18 /min 18 /min eCW1 ([facility]) Heart rate 118 /min 118 /min eCW1 ([facility]) Body mass index (BMI) [Ratio] 32.74 kg/m2 32.74 kg/m2 eCW1 ([facility]) Body height 71 [in_i] 71 [in_i] eCW1 ([facility]) Body weight 234.8 [lb_av] 234.8 [lb_av] eCW1 ([facility]) Diastolic blood pressure 76 mm[Hg] 76 mm[Hg] eCW1 ([facility]) Systolic blood pressure 110 mm[Hg] 110 mm[Hg] e CW1 ([facility]) Body temperature 96.9 [degF] 96.9 [degF] eCW1 ( [facility]) Respiratory rate 18 /min 18 /min eCW1 ([facility]) Heart rate 86 /min 86 /min eCW1 ([facility]) Body mass index (BMI) [Ratio] 33.61 kg/m2 33.61 kg/m2 eCW1 ([facility]) Body height 71 [in_i] 71 [in_i] eCW1 ([facility]) Body weight 241 [lb_av] 241 [lb_av] eCW1 ([facility]) Diastolic blood pressure 82 mm[Hg] 82 mm[Hg] eCW1 ([facility]) Systolic blood pressure 122 mm[Hg] 122 mm[Hg] e CW1 ([facility]) Body temperature 96.8 [degF] 96.8 [degF] eCW1 ( [facility]) Respiratory rate 18 /min 18 /min eCW1 ([facility]) Heart rate 109 /min 109 /min eCW1 ([facility]) Body mass index (BMI) [Ratio] 32.63 kg/m2 32.63 kg/m2 eCW1 ([facility]) Body height 71 [in_i] 71 [in_i] eCW1 ([facility]) Body weight 234.0 [lb_av] 234.0 [lb_av] eCW1 ([facility] [facility]) Diastolic blood pressure 64 mm[Hg] 64 mm[Hg] eCW1 ([facility]) Systolic blood pressure 122 mm[Hg] 122 mm[Hg] e CW1 ([facility]) Body temperature 97.9 [degF] 97.9 [degF] eCW1 ( [facility]) Respiratory rate 18 /min 18 /min eCW1 ([facility]) Heart rate 124 /min 124 /min eCW1 ([facility]) Body mass index (BMI) [Ratio] 32.35 kg/m2 32.35 kg/m2 eCW1 ([facility]) Body height 71 [in_i] 71 [in_i] eCW1 ([facility]) Body weight 232.0 [lb_av] 232.0 [lb_av] eCW1 ([facility]) Diastolic blood pressure 82 mm[Hg] 82 mm[Hg] eCW1 ([facility]) Systolic blood pressure 120 mm[Hg] 120 mm[Hg] e CW1 ([facility]) Body temperature 97.5 [degF] 97.5 [degF] eCW1 ( [facility]) Respiratory rate 18 /min 18 /min eCW1 ([facility]) Heart rate 109 /min 109 /min eCW1 ([facility]) Body mass index (BMI) [Ratio] 32.07 kg/m2 32.07 kg/m2 eCW1 ([facility]) Body height 71 [in_i] 71 [in_i] eCW1 ([facility]) Body weight 230.0 [lb_av] 230.0 [lb_av] eCW1 ([facility]) Diastolic blood pressure 68 mm[Hg] 68 mm[Hg] eCW1 ([facility]) Systolic blood pressure 118 mm[Hg] 118 mm[Hg] e CW1 ([facility]) Body temperature 96.0 [degF] 96.0 [degF] eCW1 ( [facility]) Respiratory rate 18 /min 18 /min eCW1 ([facility]) Heart rate 113 /min 113 /min eCW1 ([facility]) Body mass index (BMI) [Ratio] 32.47 kg/m2 32.47 kg/m2 W1 ([facility]) Body height 71 [in_us] 71 [in_us] eCW1 ([facility]) Body weight Measured 232.8 [lb_av] 232.8 [lb_av ] eCW1 ([facility]) Diastolic blood pressure 82 mm[Hg] 82 mm[Hg] eCW1 ([facility]) Systolic blood pressure 132 mm[Hg] 132 mm[Hg] e CW1 ([facility]) Body temperature 97.1 [degF] 97.1 [degF] eCW1 ( [facility]) Respiratory rate 18 /min 18 /min eCW1 ([facility]) Heart rate 100 /min 100 /min eCW1 ([facility]) Body mass index (BMI) [Ratio] 32.77 kg/m2 32.77 kg/m2 eCW1 ([facility]) Body height 71 [in_us] 71 [in_us] eCW1 ([facility]) Body weight Measured 235.0 [lb_av] 235.0 [lb_av ] eCW1 ([facility]) Diastolic blood pressure 78 mm[Hg] 78 mm[Hg] eCW1 ([facility]) Systolic blood pressure 120 mm[Hg] 120 mm[Hg] e CW1 ([facility]) Body temperature 97.0 [degF] 97.0 [degF] eCW1 ( [facility]) Respiratory rate 18 /min 18 /min eCW1 ([facility]) Heart rate 94 /min 94 /min eCW1 ([facility]) Body mass index (BMI) [Ratio] 31.80 kg/m2 31.80 kg/m2 eCW1 ([facility]) Body height 71 [in_us] 71 [in_us] eCW1 ([facility]) Body weight Measured 228 [lb_av] 228 [lb_av] eC W1 ([facility]) Patient Treatment Plan of Care Planned Activity Planned Date Details Description Data Source (s) 120 ACTUAT Budesonide 0.16 MG/ACTUAT / f ormoterol fumarate 0.0045 MG/ACTUAT Metered Dose Inhaler [Symbicort] 02/06/2020 12:00:00 AM EST eCW1 ([facility]) Spironolactone 25 MG Oral Tablet 01/23/2020 12:00:00 AM EST eCW1 ([facility]) Spironolactone 25 MG Oral Tablet 01/23/2020 12:00:00 AM EST eCW1 ([facility]) Spironolactone 25 MG Oral Tablet 01/23/2020 12:00:00 AM EST eCW1 ([facility]) Furosemide 20 MG Oral Tablet [Lasix] 01/15/2020 12:00:00 AM EST eCW1 ([facility]) Potassium Chloride 8 MEQ Extended Release Oral Capsule 01/15/2020 12:00:00 AM EST eCW1 ([facility]) sacubitril 49 MG / valsartan 51 MG Oral Tablet [Entres to] 12/19/2019 12:00:00 AM EDT eCW1 ([facility]) sacubitril 49 MG / valsartan 51 MG Oral Tablet [Entres to] 12/19/2019 12:00:00 AM EDT eCW1 ([facility]) sacubitril 49 MG / valsartan 51 MG Oral Tablet [Entres to] 12/19/2019 12:00:00 AM EDT eCW1 ([facility]) sacubitril 49 MG / valsartan 51 MG Oral Tablet [Entres to] 12/19/2019 12:00:00 AM EDT eCW1 ([facility]) sacubitril 49 MG / valsartan 51 MG Oral Tablet [Entres to] 12/19/2019 12:00:00 AM EDT eCW1 ([facility]) sacubitril 49 MG / valsartan 51 MG Oral Tablet [Entres to] 12/19/2019 12:00:00 AM EDT eCW1 ([facility]) sacubitril 24 MG / valsartan 26 MG Oral Tablet [Entres to] 12/19/2019 12:00:00 AM EDT eCW1 ([facility]) sacubitril 24 MG / valsartan 26 MG Oral Tablet [Entres to] 12/19/2019 12:00:00 AM EDT eCW1 ([facility]) sacubitril 49 MG / valsartan 51 MG Oral Tablet [Entres to] 12/19/2019 12:00:00 AM EDT eCW1 ([facility]) sacubitril 24 MG / valsartan 26 MG Oral Tablet [Entres to] 12/19/2019 12:00:00 AM EDT eCW1 ([facility]) sacubitril 24 MG / valsartan 26 MG Oral Tablet [Entres to] 12/19/2019 12:00:00 AM EDT eCW1 ([facility]) sacubitril 24 MG / valsartan 26 MG Oral Tablet [Entres to] 12/19/2019 12:00:00 AM EDT eCW1 ([facility]) sacubitril 24 MG / valsartan 26 MG Oral Tablet [Entres to] 12/19/2019 12:00:00 AM EDT eCW1 ([facility]) sacubitril 24 MG / valsartan 26 MG Oral Tablet [Entres to] 12/19/2019 12:00:00 AM EDT eCW1 ([facility]) sacubitril 49 MG / valsartan 51 MG Oral Tablet [Entres to] 12/19/2019 12:00:00 AM EDT eCW1 ([facility]) sacubitril 49 MG / valsartan 51 MG Oral Tablet [Entres to] 12/19/2019 12:00:00 AM EDT eCW1 ([facility]) 120 ACTUAT mometasone furoate 0.2 MG/ACTUAT Metered Do se Inhaler [Asmanex] 12/11/2019 12:00:00 AM EDT eCW1 ([facility]) 120 ACTUAT mometasone furoate 0.2 MG/ACTUAT Metered Do se Inhaler [Asmanex] 12/11/2019 12:00:00 AM EDT eCW1 ([facility]) 120 ACTUAT mometasone furoate 0.2 MG/ACTUAT Metered Do se Inhaler [Asmanex] 12/11/2019 12:00:00 AM EDT eCW1 ([facility]) 120 ACTUAT mometasone furoate 0.2 MG/ACTUAT Metered Do se Inhaler [Asmanex] 12/11/2019 12:00:00 AM EDT eCW1 ([facility]) 120 ACTUAT mometasone furoate 0.2 MG/ACTUAT Metered Do se Inhaler [Asmanex] 12/11/2019 12:00:00 AM EDT eCW1 ([facility]) 120 ACTUAT mometasone furoate 0.2 MG/ACTUAT Metered Do se Inhaler [Asmanex] 12/11/2019 12:00:00 AM EDT eCW1 ([facility]) 120 ACTUAT mometasone furoate 0.2 MG/ACTUAT Metered Do se Inhaler [Asmanex] 12/11/2019 12:00:00 AM EDT eCW1 ([facility]) 120 ACTUAT mometasone furoate 0.2 MG/ACTUAT Metered Do se Inhaler [Asmanex] 12/11/2019 12:00:00 AM EDT eCW1 ([facility]) 120 ACTUAT mometasone furoate 0.2 MG/ACTUAT Metered Do se Inhaler [Asmanex] 12/11/2019 12:00:00 AM EDT eCW1 ([facility]) 120 ACTUAT mometasone furoate 0.2 MG/ACTUAT Metered Do se Inhaler [Asmanex] 12/11/2019 12:00:00 AM EDT eCW1 ([facility]) 120 ACTUAT mometasone furoate 0.2 MG/ACTUAT Metered Do se Inhaler [Asmanex] 12/11/2019 12:00:00 AM EDT eCW1 ([facility]) 120 ACTUAT mometasone furoate 0.2 MG/ACTUAT Metered Do se Inhaler [Asmanex] 12/11/2019 12:00:00 AM EDT eCW1 ([facility]) 120 ACTUAT mometasone furoate 0.2 MG/ACTUAT Metered Do se Inhaler [Asmanex] 12/11/2019 12:00:00 AM EDT eCW1 ([facility]) 120 ACTUAT mometasone furoate 0.2 MG/ACTUAT Metered Do se Inhaler [Asmanex] 12/11/2019 12:00:00 AM EDT eCW1 ([facility]) Fluticasone Propionate HFA 220 MCG/ACT 11/30/2019 12:00:00 AM EDT eCW1 ([facility]) Fenofibrate 145 MG Oral Tablet 07/03/2019 12:00:00 AM EDT eCW1 ([facility]) fenofibric acid 105 MG Oral Tablet [Fibricor] 04/21/2019 12:00:00 A M EST eCW1 ([facility]) Loratadine 10 MG Oral Tablet 03/06/2019 12:00:00 AM EST eCW1 ([facility])
[2020-03-15] MEDS ORDERED: ALBUTEROL 90 MCG/ACT 8GM HFA INHALER INH PRN (18:15)
[2020-03-15] MEDS ORDERED: diphenhydrAMINE 50MG/ML VIAL (J1200) IV PRN (18:15)
[2020-03-15] MEDS ORDERED: BAMLANIVIMAB 700 MG in NS 250 ML IV ONE (18:15)
[2020-03-15] MEDS ORDERED: ALBUTEROL SULFATE 2.5 MG/0.5 ML INH NEB SOLN INH PRN (18:15)
[2020-03-15] MEDS ORDERED: EPINEPHrine INJ 1 MG/ML 1ML AMP IM PRN (18:15)
[2020-03-15] MEDS ORDERED: methylPREDNISolone 125MG 2ML VIAL IV PRN (18:15)
[2020-03-15 21:00] VITALS: BP 138/74
== END 2020-03-15 21:07 | disposition home or self-care (01) ==
LOC: M ED 16:52
DX: U07.1 COVID-19 (principal); I51.9 Heart disease, unspecified; E11.9 Type 2 diabetes mellitus without complications; I10 Essential (primary) hypertension; J45.909 Unspecified asthma, uncomplicated; Z87.891 Personal history of nicotine dependence; Z79.82 Long term (current) use of aspirin; Z79.4 Long term (current) use of insulin; Z79.899 Other long term (current) drug therapy; Z88.8 Allergy status to other drugs, medicaments and biological substances

== ENCOUNTER 2020-03-15 18:04 | Outpatient (CLI) | payer OTHER ==
[~2020-03-15] VITALS: Ht 182.9 cm; Wt 107.7 kg
[2020-03-15 21:15] VITALS: BP 129/60
[2020-03-15] MEDS ORDERED: NS 1,000 ML IV SCH (22:23)
[2020-03-15] MEDS ORDERED: ALBUTEROL SULFATE 2.5 MG/0.5 ML INH NEB SOLN INH PRN (22:30)
[2020-03-15] MEDS ORDERED: diphenhydrAMINE 50MG/ML VIAL (J1200) IV PRN (22:30)
[2020-03-15] MEDS ORDERED: BAMLANIVIMAB 700 MG in NS 250 ML IV ONE (22:30)
[2020-03-15] MEDS ORDERED: ALBUTEROL 90 MCG/ACT 8GM HFA INHALER INH PRN (22:30)
[2020-03-15] MEDS ORDERED: EPINEPHrine INJ 1 MG/ML 1ML AMP IM PRN (22:30)
[2020-03-15] MEDS ORDERED: methylPREDNISolone 125MG 2ML VIAL IV PRN (22:30)
[2020-03-15 23:18] VITALS: BP 118/62
[2020-03-15 23:33] VITALS: BP 120/63
[2020-03-16] VITALS: BP 126/68
[2020-03-16 00:45] VITALS: BP 130/68
[2020-03-16 01:53] VITALS: BP 132/78
== END 2020-03-16 02:15 | disposition home or self-care (01) ==
LOC: M OPCLI4 18:04 → M 4MAIN 21:38 → M OPCLI4 03-16 02:15
PROVIDERS: ATTEND Internal Medicine
DX: U07.1 COVID-19 (principal); Z88.1 Allergy status to other antibiotic agents

== ENCOUNTER → 2020-04-18 | Outpatient (REF) | payer OTHER ==
[~2020-04-18] MED LIST changes: -LISI-538 PO; +LISI20TA33 PO
[2020-04-18 14:08] LABS: APPEARANCE, URINE CLEAR (CLEAR); BACTERIA, URINE AUTO NEGATIVE (NEGATIVE); BILIRUBIN, URINE AUTO NEGATIVE (NEGATIVE); BLOOD, URINE BLOOD NEGATIVE (NEGATIVE); COLOR, URINE YELLOW (YELLOW); GLUCOSE, URINE (UA) AUTO 3+ mg/dL (NEGATIVE); KETONE, URINE AUTO NEGATIVE (NEGATIVE); LEUKOCYTE ESTERASE, URINE AUTO NEGATIVE (NEGATIVE); MUCUS, URINE SMALL (NEGATIVE); NITRITE, URINE AUTO NEGATIVE (NEGATIVE); PROTEIN, URINE AUTO 1+ mg/dL (NEGATIVE); RBC, URINE AUTO 0 /HPF (0-3); SPECIFIC GRAVITY URINE AUTO 1.037 (1.002-1.035); SQUAMOUS EPITHELIAL CELL UR AU 0 /HPF (0-6); UROBILINOGEN, URINE AUTO 0.2 mg/dL (0.0-2.0); WBC, URINE AUTO 1 /HPF (0-3)
[2020-04-18 14:34] LABS: ALBUMIN 3.9 GM/DL (3.2-5.2); BILIRUBIN,TOTAL 0.5 MG/DL (0.2-1.0); CALCIUM LEVEL 9.3 MG/DL (8.5-10.1); CREATININE FOR GFR 1.42 MG/DL (0.70-1.30); GLOMERULAR FILTRATION RATE 56.4 (>60); POTASSIUM SERUM 4.9 MEQ/L (3.5-5.1); TOTAL PROTEIN 6.8 GM/DL (6.4-8.2)
[2020-04-18 14:40] LABS: MAU/CREAT RATIO 59.6 MCG/MG (0.0-30.0)
== END ==
LOC: M SFHCPLAZ 10:46
PROVIDERS: ATTEND Family Medicine
DX: E11.8 Type 2 diabetes mellitus with unspecified complications (principal); E55.9 Vitamin D deficiency, unspecified; I42.0 Dilated cardiomyopathy

== ENCOUNTER 2020-08-27 21:27 | Emergency (ER) | payer OTHER ==
[~2020-08-27] VITALS: Ht 180.3 cm; Wt 111.8 kg
[2020-08-28] MEDS ORDERED: CEPHALEXIN 500 MG CAP PO ONE (02:15)
[2020-08-28] MEDS ORDERED: CEPH500C PO (02:28)
[2020-08-28 02:56] VITALS: BP 129/76
== END 2020-08-28 02:57 | disposition home or self-care (01) ==
LOC: M ED 21:27
DX: L03.114 Cellulitis of left upper limb (principal); E11.9 Type 2 diabetes mellitus without complications; J45.909 Unspecified asthma, uncomplicated; Z88.1 Allergy status to other antibiotic agents; Z79.899 Other long term (current) drug therapy; Z79.82 Long term (current) use of aspirin; Z79.84 Long term (current) use of oral hypoglycemic drugs

== ENCOUNTER → 2021-06-12 | Outpatient (CLI) | payer OTHER, BC, MEDICAID ==
[~2021-06-12] MED LIST changes: +BAYE81TA7 PO; +BISO10TA14 PO; +CEPH500C PO; +FLUTISP; +FURO20TA2 PO; +HUMA100I5 SC; +IBUP-1022 PO; +LANTINJ4 SC; +LORA-674 PO; +OZEM2INJ SC; +SPIR-10 PO; +SYMB16INH INH; +VALS40TA9 PO
== END ==
LOC: M LABSMTC 11:30
PROVIDERS: ATTEND Anesthesiology
DX: Z01.812 Encounter for preprocedural laboratory examination (principal); Z20.822 Contact with and (suspected) exposure to COVID-19

== ENCOUNTER 2021-06-17 06:51 | Day surgery (SDC) | payer BC, MEDICAID ==
[~2021-06-17] VITALS: Ht 182.9 cm; Wt 107.5 kg
[~2021-06-17 06:51] MED LIST changes: +NS 1,000 ML IV ONE
[2021-06-17] MEDS ORDERED: LIDOCAINE 2% 100MG/5ML SDV (FOR ANES.) As Ordered ONE (07:38)
[2021-06-17] MEDS ORDERED: propofoL 200 MG/20 ML VIAL As Ordered ONE ×3 (07:38→07:57)
[2021-06-17 08:20] VITALS: BP 113/67
== END 2022-01-13 11:02 | disposition home or self-care (01) ==
LOC: M OPP 06:51
PROVIDERS: ATTEND Internal Medicine Gastroenterology
DX: Z12.11 Encounter for screening for malignant neoplasm of colon (principal); K63.5 Polyp of colon; K64.8 Other hemorrhoids; I50.9 Heart failure, unspecified; E10.9 Type 1 diabetes mellitus without complications; Z79.4 Long term (current) use of insulin; Z79.82 Long term (current) use of aspirin; Z79.02 Long term (current) use of antithrombotics/antiplatelets; Z79.51 Long term (current) use of inhaled steroids; Z79.899 Other long term (current) drug therapy

== ENCOUNTER → 2021-07-23 | Outpatient (CLI) | payer BC, MEDICAID ==
[~2021-07-23] MED LIST changes: -NS 1,000 ML IV ONE
[2021-07-23 12:57] LABS: ALBUMIN 3.6 GM/DL (3.2-5.2); ALT/SGPT 45 U/L (12-78); BILIRUBIN,TOTAL 0.4 MG/DL (0.2-1.0); BLOOD UREA NITROGEN 26 MG/DL (7-18); CARBON DIOXIDE LEVEL 26 MEQ/L (21-32); CHLORIDE LEVEL 105 MEQ/L (98-107); CHOLESTEROL LEVEL 314 MG/DL (<200); CHOLESTEROL RISK RATIO 10.827 (<5); CREATININE FOR GFR 1.24 MG/DL (0.70-1.30); GLOMERULAR FILTRATION RATE > 60.0 (>56); GLUCOSE, FASTING 289 MG/DL (70-100); HDL CHOLESTEROL 29 MG/DL (>40); MAGNESIUM LEVEL 2.3 MG/DL (1.8-2.4); NON-HDL-C 285 MG/DL; NT-PRO BNP 15 PG/ML (<125); POTASSIUM SERUM 4.1 MEQ/L (3.5-5.1); SODIUM LEVEL 136 MEQ/L (136-145); TOTAL 25(OH) VITAMIN D 12.6 NG/ML (30.0-100.0); TOTAL PROTEIN 6.8 GM/DL (6.4-8.2); TRIGLYCERIDES LEVEL 2347 MG/DL (<150)
[2021-07-23 12:58] LABS: VITAMIN B12 LEVEL 321 PG/ML (247-911)
[2021-07-23 13:22] LABS: HEMOGLOBIN A1c 10.9 %
== END ==
LOC: M ADAMS 08:21
PROVIDERS: ATTEND Family Medicine
DX: E11.8 Type 2 diabetes mellitus with unspecified complications (principal); E55.9 Vitamin D deficiency, unspecified; E78.5 Hyperlipidemia, unspecified; Z12.5 Encounter for screening for malignant neoplasm of prostate; K76.0 Fatty (change of) liver, not elsewhere classified

== ENCOUNTER → 2022-05-20 | Outpatient (REF) | payer OTHER ==
[~2022-05-20] MED LIST changes: +MONT-5 PO; -SING10TA32 PO
[2022-05-20 16:38] LABS: CREATININE, URINE 187.8 MG/DL; MAU/CREAT RATIO 110.2 MCG/MG (0.0-30.0)
[2022-05-20 16:39] LABS: LIPASE 67 U/L (12-53)
[2022-05-20 16:40] LABS: FREE T4 1.17 NG/DL (0.89-1.76)
[2022-05-20 16:41] LABS: ALBUMIN 3.8 G/DL (3.2-5.2); ALKALINE PHOSPHATASE 54 U/L (46-116); ALT/SGPT 32 U/L (7.0-40); AST/SGOT 24 U/L (<34); BILIRUBIN,TOTAL 0.4 MG/DL (0.3-1.2); BLOOD UREA NITROGEN 19 MG/DL (9-23); CARBON DIOXIDE LEVEL 28 MMOL/L (20-31); CHLORIDE LEVEL 102 MMOL/L (98-107); CHOLESTEROL LEVEL 226 MG/DL (<200); CHOLESTEROL RISK RATIO 9.26 (<5); CREATININE FOR GFR 1.03 MG/DL (0.70-1.30); GLOMERULAR FILTRATION RATE > 60.0 (>56); GLUCOSE, FASTING 209 MG/DL (60-100); HDL CHOLESTEROL 24.4 MG/DL (>40); NON-HDL-C 201.6 MG/DL; POTASSIUM SERUM 4.6 MMOL/L (3.5-5.1); SODIUM LEVEL 138 MMOL/L (136-145); TOTAL PROTEIN 6.7 G/DL (5.7-8.2); TRIGLYCERIDES LEVEL 896 MG/DL (<150)
[2022-05-20 16:43] LABS: THYROID STIMULATING HORMONE 1.835 uIU/ML (0.55-4.78)
[2022-05-20 16:56] LABS: CPK CREATINE PHOSPHOKINASE 111 U/L (46-171)
== END ==
LOC: M SFHCADAM 09:10
PROVIDERS: ATTEND Family Medicine
DX: E78.5 Hyperlipidemia, unspecified (principal); E11.8 Type 2 diabetes mellitus with unspecified complications; K76.0 Fatty (change of) liver, not elsewhere classified

== ENCOUNTER → 2022-07-14 | Outpatient (REF) | payer OTHER ==
[~2022-07-14] MED LIST changes: +FLUT50SP17; -FLUTISP
== END ==
LOC: M SFHCPLAZ 17:48
PROVIDERS: ATTEND Family Medicine
DX: L98.8 Other specified disorders of the skin and subcutaneous tissue (principal); L85.9 Epidermal thickening, unspecified

== ENCOUNTER → 2022-09-29 | Outpatient (REF) | payer OTHER ==
[2022-09-29 12:49] LABS: INR 0.89; PROTHROMBIN TIME 12.2 SECONDS (12.5-14.5)
[2022-09-29 12:50] LABS: PARTIAL THROMBOPLASTIN TIME 26.5 SECONDS (24.8-34.2)
[2022-09-29 13:30] LABS: CPK CREATINE PHOSPHOKINASE 124 U/L (46-171)
[2022-09-29 13:37] LABS: ALBUMIN 4.2 G/DL (3.2-5.2); ALKALINE PHOSPHATASE 38 U/L (46-116); ALT/SGPT 38 U/L (7.0-40); AST/SGOT 15 U/L (<34); BILIRUBIN,TOTAL 0.5 MG/DL (0.3-1.2); BLOOD UREA NITROGEN 28 MG/DL (9-23); CALCIUM LEVEL 9.4 MG/DL (8.5-10.1); CARBON DIOXIDE LEVEL 28 MMOL/L (20-31); CHLORIDE LEVEL 105 MMOL/L (98-107); CHOLESTEROL LEVEL 111 MG/DL (<200); CHOLESTEROL RISK RATIO 4.12 (<5); CREATININE FOR GFR 1.32 MG/DL (0.70-1.30); GLOMERULAR FILTRATION RATE > 60.0 (>56); GLUCOSE, FASTING 96 MG/DL (60-100); HDL CHOLESTEROL 26.9 MG/DL (>40); LDL CHOLESTEROL 28.5 MG/DL (<100); MAGNESIUM LEVEL 1.9 MG/DL (1.8-2.4); NON-HDL-C 84.1 MG/DL; POTASSIUM SERUM 4.1 MMOL/L (3.5-5.1); PTH INTACT 34.7 PG/ML (18.5-88.0); SODIUM LEVEL 140 MMOL/L (136-145); TOTAL PROTEIN 6.7 G/DL (5.7-8.2); TRIGLYCERIDES LEVEL 278 MG/DL (<150)
== END ==
LOC: M SFHCADAM 08:27
PROVIDERS: ATTEND Family Medicine
DX: E11.8 Type 2 diabetes mellitus with unspecified complications (principal); K76.0 Fatty (change of) liver, not elsewhere classified; I42.0 Dilated cardiomyopathy; E55.9 Vitamin D deficiency, unspecified; N52.9 Male erectile dysfunction, unspecified; Z12.5 Encounter for screening for malignant neoplasm of prostate; E78.5 Hyperlipidemia, unspecified; I50.22 Chronic systolic (congestive) heart failure

== ENCOUNTER → 2022-10-01 | Outpatient (REF) | payer OTHER | LOC: M SFHCPLAZ 15:32 | PROVIDERS: ATTEND Family Medicine | DX: Z53.9 Procedure and treatment not carried out, unspecified reason (principal) ==

== ENCOUNTER → 2022-11-18 | Outpatient (CLI) | payer OTHER ==
[~2022-11-18] MED LIST changes: +EZET10TA58 PO; +LORA-1041 PO; -LORA-674 PO; -ZETI10TA16 PO
== END ==
LOC: M CARPUL 10:11
PROVIDERS: ATTEND Family Medicine
DX: I50.22 Chronic systolic (congestive) heart failure (principal)

== ENCOUNTER → 2023-06-09 | Outpatient (REF) | payer OTHER ==
[~2023-06-09] MED LIST changes: -FLUT50SP17; +FLUTISP
[2023-06-09 18:01] LABS: BASO % 0.4 % (0.0-1.0); EOS # 0.1 10^3/uL (0.0-0.5); EOS % 1.4 % (0.0-3.0); HEMATOCRIT 44.7 % (42.0-52.0); HEMOGLOBIN 14.7 g/dl (13.5-17.5); LYMPH # 1.9 10^3/uL (1.5-5.0); LYMPH % 23.9 % (24.0-44.0); MEAN CORPUSCULAR HEMOGLOBIN 30.8 pg (27.0-33.0); MEAN CORPUSCULAR HGB CONC 32.9 g/dl (32.0-36.5); MEAN CORPUSCULAR VOLUME 93.5 fl (80.0-96.0); MONO # 0.5 10^3/uL (0.0-0.8); MONO % 6.7 % (2.0-8.0); NEUTROPHILS # 5.4 10^3/uL (1.5-8.5); PLATELET COUNT, AUTOMATED 235 10^3/uL (150-450); RED BLOOD COUNT 4.78 10^6/uL (4.30-6.10); WHITE BLOOD COUNT 8.1 10^3/uL (4.0-10.0)
[2023-06-09 18:40] LABS: ALBUMIN 4.1 G/DL (3.2-5.2); ALKALINE PHOSPHATASE 53 U/L (46-116); ALT/SGPT 37 U/L (7.0-40); AST/SGOT 15 U/L (<34); BILIRUBIN,TOTAL 0.5 MG/DL (0.3-1.2); BLOOD UREA NITROGEN 22 MG/DL (9-23); CALCIUM LEVEL 9.9 MG/DL (8.5-10.1); CARBON DIOXIDE LEVEL 28 MMOL/L (20-31); CHLORIDE LEVEL 103 MMOL/L (98-107); CREATININE FOR GFR 1.28 MG/DL (0.70-1.30); FERRITIN 122.7 NG/ML (10.5-307.3); GLOMERULAR FILTRATION RATE > 60.0 (>56); GLUCOSE, FASTING 168 MG/DL (60-100); POTASSIUM SERUM 4.4 MMOL/L (3.5-5.1); SODIUM LEVEL 140 MMOL/L (136-145); TOTAL PROTEIN 6.8 G/DL (5.7-8.2)
[2023-06-09 18:41] LABS: VITAMIN B12 LEVEL 340 PG/ML (211-911)
== END ==
LOC: M SFHCADAM 11:56
PROVIDERS: ATTEND Family Medicine
DX: I42.0 Dilated cardiomyopathy (principal)

== ENCOUNTER → 2023-09-28 | Outpatient (REF) | payer OTHER | LOC: M SFHCPLAZ 12:54 | PROVIDERS: ATTEND Physician Assistant Medical | DX: J06.9 Acute upper respiratory infection, unspecified (principal) ==

== ENCOUNTER → 2023-12-02 | Outpatient (CLI) | payer OTHER | LOC: M RAD 06:49 | PROVIDERS: ATTEND Family Medicine | DX: K74.00 Hepatic fibrosis, unspecified (principal); K76.0 Fatty (change of) liver, not elsewhere classified; R16.0 Hepatomegaly, not elsewhere classified; I71.40 Abdominal aortic aneurysm, without rupture, unspecified ==

== ENCOUNTER → 2024-04-20 | Outpatient (CLI) | payer OTHER ==
[~2024-04-20] MED LIST changes: -ADV250INH INH; +ADVA1AER9 INH; +ATOR-398 PO; -LIPI80TA PO
[2024-04-20 14:09] LABS: HEMATOCRIT 44.4 % (42.0-52.0)
[2024-04-20 14:15] LABS: HEMOGLOBIN A1c 8.9 % (4.0-6.0)
[2024-04-20 14:30] LABS: ALBUMIN 3.8 G/DL (3.2-5.2); ALKALINE PHOSPHATASE 46 U/L (40-129); ALT/SGPT 42 U/L (7.0-40); AST/SGOT 17 U/L (<34); BILIRUBIN,TOTAL 0.5 MG/DL (0.3-1.2); BLOOD UREA NITROGEN 25 MG/DL (9-23); CARBON DIOXIDE LEVEL 29 MMOL/L (20-31); CHLORIDE LEVEL 106 MMOL/L (98-107); CHOLESTEROL LEVEL 156 MG/DL (<200); CHOLESTEROL RISK RATIO 5.08 (<5); CREATININE FOR GFR 1.14 MG/DL (0.70-1.30); GLOMERULAR FILTRATION RATE > 60.0 (>56); GLUCOSE, FASTING 108 MG/DL (60-100); HDL CHOLESTEROL 30.7 MG/DL (>40); NON-HDL-C 125.3 MG/DL; POTASSIUM SERUM 4.5 MMOL/L (3.5-5.1); PSA SCREENING 0.16 NG/ML (< 4.00); SODIUM LEVEL 142 MMOL/L (136-145); TOTAL PROTEIN 6.8 G/DL (5.7-8.2); TRIGLYCERIDES LEVEL 429 MG/DL (<150); VITAMIN B12 LEVEL 514 PG/ML (211-911)
[2024-04-20 14:36] LABS: CREATININE, URINE 159.4 MG/DL
[2024-04-21 10:01] LABS: PROTEIN, TOTAL SO 6.9 g/dL (6.1-8.1)
[2024-04-21 10:13] LABS: C-PEPTIDE 0.78 ng/mL (0.80-3.85)
[2024-04-21 13:17] LABS: ALBUMIN SO 4.4 g/dL (3.8-4.8); ALPHA 1 GLOBULINS SO 0.2 g/dL (0.2-0.3); ALPHA 2 GLOBULINS SO 0.8 g/dL (0.5-0.9); BETA 2 GLOBULIN SO 0.4 g/dL (0.2-0.5); BETA GLOBULIN SO 0.5 g/dL (0.4-0.6); GAMMA GLOBULINS SO 0.7 g/dL (0.8-1.7)
[2024-04-21 14:52] LABS: BERMUDA GRASS IGE < 0.10 kU/L (<0.10); BIRCH IGE 0.51 kU/L (<0.10); COMMON RAGWEED SHORT IGE 1.27 kU/L (<0.10); E001-IGE CAT DANDER 2.73 kU/L (<0.10); E005-IGE DOG DANDER 3.31 kU/L (<0.10); ELM IGE < 0.10 kU/L (<0.10); I006 IGE COCKROACH < 0.10 kU/L (<0.10); IMMUNOGLOBULIN E FOR ALLERGENS 172 kU/L (<OR=114); M002 IGE CLADOSPORIUM HERBARU < 0.10 kU/L (<0.10); M003 IGE ASPERGILLUS FUMIGATU < 0.10 kU/L (<0.10); M006 IGE ALTERNIA ALTERNATA < 0.10 kU/L (<0.10); M1-PENICILLIUM NOTATUM < 0.10 kU/L (<0.10); MOUSE URINE IGE 0.82 kU/L (<0.10); MUGWORT IGE < 0.10 kU/L (<0.10); OAK IGE < 0.10 kU/L (<0.10); ROUGH PIGWEED IGE < 0.10 kU/L (<0.10); SHEEP SORREL IGE < 0.10 kU/L (<0.10); SYCAMORE IGE < 0.10 kU/L (<0.10); T001-IGE MAPLE BOX ELDER 0.11 kU/L (<0.10); T006-IGE MOUNTAIN CEDAR < 0.10 kU/L (<0.10); T014 COTTONWOOD IGE < 0.10 kU/L (<0.10); TIMOTHY GRASS IGE 1.18 kU/L (<0.10); WALNUT TREE IGE < 0.10 kU/L (<0.10); WHITE ASH IGE < 0.10 kU/L (<0.10); WHITE MULBERRY IGE < 0.10 kU/L (<0.10)
[2024-04-22 02:18] LABS: E094-IgE Fel d 1 1.37 kU/L (<0.10); E101-IgE Can f 1 0.58 kU/L (<0.10); E102-IgE Can f 2 < 0.10 kU/L (<0.10); E226 IgE Can f 5 0.87 kU/L (<0.10); E229 IGE CAN F 4 0.73 kU/L (<0.10); E230 IGE CAN F 6 2.45 kU/L (<0.10); E231 IGE FEL D 7 0.43 kU/L (<0.10)
== END ==
LOC: M LABDRWAD 08:25
PROVIDERS: ATTEND Family Medicine
DX: K74.00 Hepatic fibrosis, unspecified (principal); I50.32 Chronic diastolic (congestive) heart failure; E11.8 Type 2 diabetes mellitus with unspecified complications; J45.40 Moderate persistent asthma, uncomplicated; E78.5 Hyperlipidemia, unspecified; Z12.5 Encounter for screening for malignant neoplasm of prostate; E53.8 Deficiency of other specified B group vitamins

== ENCOUNTER → 2024-04-28 | Outpatient (CLI) | payer OTHER ==
[~2024-04-28] MED LIST changes: +ISOVUE-370 76% 100ML VIAL As Ordered ONE
== END ==
LOC: M RAD 09:01
PROVIDERS: ATTEND Family Medicine
DX: I71.41 Pararenal abdominal aortic aneurysm, without rupture (principal)
CPT/HCPCS: 74174; Q9967

== ENCOUNTER → 2025-02-15 | Outpatient (REF) | payer OTHER ==
[~2025-02-15] MED LIST changes: -IBUP-1022 PO; +IBUP600T42 PO; -ISOVUE-370 76% 100ML VIAL As Ordered ONE
[2025-02-15 13:11] LABS: BASO # 0.0 10^3/uL (0.0-0.2); BASO % 0.7 % (0.0-1.0); EOS # 0.2 10^3/uL (0.0-0.5); EOS % 3.2 % (0.0-3.0); LYMPH # 1.8 10^3/uL (1.5-5.0); LYMPH % 31.1 % (24.0-44.0); MONO # 0.5 10^3/uL (0.0-0.8); MONO % 7.8 % (2.0-8.0); NEUTROPHILS # 3.4 10^3/uL (1.5-8.5); NEUTROPHILS % 56.5 % (36.0-66.0); PLATELET COUNT, AUTOMATED 205 10^3/uL (150-450)
[2025-02-15 13:43] LABS: CPK CREATINE PHOSPHOKINASE 91 U/L (46-171)
[2025-02-15 13:53] LABS: CREATININE, URINE 110.2 MG/DL; MALB URINE SIEMENS 72.0 MG/L; MAU/CREAT RATIO 65.3 MCG/MG (0.0-30.0)
[2025-02-15 13:56] LABS: ALT/SGPT 28 U/L (7.0-40); AST/SGOT 17 U/L (<34); CALCIUM LEVEL 8.6 MG/DL (8.5-10.1); CARBON DIOXIDE LEVEL 31 MMOL/L (20-31); CHLORIDE LEVEL 101 MMOL/L (98-107); CHOLESTEROL LEVEL 243 MG/DL (<200); CHOLESTEROL RISK RATIO 9.06 (<5); CREATININE FOR GFR 1.25 MG/DL (0.70-1.30); GLOMERULAR FILTRATION RATE 68.4 (>56); MAGNESIUM LEVEL 2.0 MG/DL (1.8-2.4); NON-HDL-C 216.2 MG/DL; POTASSIUM SERUM 4.8 MMOL/L (3.5-5.1); PSA SCREENING 0.17 NG/ML (< 4.00); SODIUM LEVEL 137 MMOL/L (136-145); TRIGLYCERIDES LEVEL 2049 MG/DL (<150); VITAMIN B12 LEVEL 597 PG/ML (211-911)
[2025-02-15 13:57] LABS: ESTIMATED AVERAGE GLUCOSE 246.0 MG/DL (60-110)
[2025-02-17 06:03] LABS: C-PEPTIDE 0.53 ng/mL (0.80-3.85)
== END ==
LOC: M SFHCPLAZ 09:05
PROVIDERS: ATTEND Family Medicine
DX: E53.8 Deficiency of other specified B group vitamins (principal); K74.00 Hepatic fibrosis, unspecified; E11.8 Type 2 diabetes mellitus with unspecified complications; I50.32 Chronic diastolic (congestive) heart failure; Z12.5 Encounter for screening for malignant neoplasm of prostate; E78.5 Hyperlipidemia, unspecified